=== PATIENT | male | born 1960 | race Caucasian/White ===

== ENCOUNTER → 2016-08-05 | Outpatient (CLI) | payer OTHER ==
[~2016-08-05] MED LIST: AMLO-114 PO; AMOX500C3 PO; APR25 PO; ASPI325T39 PO; CLBCRM30 EXT; CRG25 PO; FRS/40 PO; HYG/25 PO; LISI40TA PO; LSX80 PO; MULT-513 PO; PRT40 PO; SIMV40TA2 PO
[2016-08-05 12:28] LABS: BLOOD UREA NITROGEN 33 mg/dl (7-18); BUN/CREATININE RATIO 25.5 (10-20); CALCIUM 9.4 mg/dl (8.5-10.1); CARBON DIOXIDE 29 mmol/L (21-32); CHLORIDE 104 mmol/L (98-107); GLUCOSE 112 mg/dl (70-99); MAGNESIUM 2.1 mg/dl (1.8-2.4); POTASSIUM 4.1 mmol/L (3.5-5.1); SODIUM 139 mmol/L (136-145)
[2016-08-05 19:20] LABS: CHOLESTEROL/HDL RATIO 2.4
== END | disposition home or self-care (01) ==
LOC: C.LABPVFM 09:55
PROVIDERS: ATTEND Internal Medicine
DX: E78.5 Hyperlipidemia, unspecified (principal); I50.42 Chronic combined systolic (congestive) and diastolic (congestive) heart failure

== ENCOUNTER 2016-09-22 21:45 | Inpatient (IN) | payer BC, OTHER ==
[~2016-09-22] VITALS: Ht 185.4 cm; Wt 142.4 kg
[~2016-09-22 21:45] MED LIST changes: -AMLO-114 PO; -AMOX500C3 PO; -FRS/40 PO; -HYG/25 PO; -LSX80 PO; -PRT40 PO
[2016-09-22 22:14] LABS: BASO % 0.3 %; BASO ABS # 0.02 K/uL (0-0.2); COMPLETE YES; EOS % 0.8 %; IG% 0.3 %; LYMPH % 33.1 %; MEAN CELL VOLUME 90.7 fL (80-100); MEAN CORPUSCULAR HEMOGLOBIN 30.6 pg (25-34); MEAN CORPUSCULAR HGB CONC 33.7 g/dl (32-36); MEAN PLATELET VOLUME 10.9 fL (7.4-10.4); MONO % 5.5 %; PLATELET COUNT 179 K/uL (130-400); WHITE BLOOD COUNT 6.35 K/uL (4.8-10.8)
[2016-09-22] MEDS ORDERED: FUROSEMIDE 40 MG/4 ML VIAL IV STA (22:14)
[2016-09-22] MEDS ORDERED: NITROGLYCERIN OINT 2% 1GM PACKET EXT ONE (22:15)
[2016-09-22] MEDS ORDERED: FUROSEMIDE 40 MG/4 ML VIAL ONE (22:20)
--- NOTE | 2016-09-22 22:28 | DIAGNOSTIC IMAGING REPORT ---
CHEST ONE VIEW PORTABLE CLINICAL HISTORY: Atypical chest pain COMPARISON STUDY: 03/19/2016 FINDINGS: The heart is borderline enlarged. There is a left subclavian dual-chamber central venous pacemaker present. There is no overt failure. There is no focal pulmonary consolidation. There are no pleural effusions.[ IMPRESSION: Cardiomegaly. No evidence of focal pulmonary consolidation Electronically signed by: Alexis Fatima M.D. 09/22/2016 10:26 PM Dictated Date/Time: 09/22/2016 10:25 PM
[2016-09-22] MEDS ORDERED: LSX80 PO (22:29)
[2016-09-22] MEDS ORDERED: HYG/25 PO (22:29)
[2016-09-22] MEDS ORDERED: APR25 PO (22:29)
[2016-09-22] MEDS ORDERED: AMOX500C3 PO (22:29)
[2016-09-22] MEDS ORDERED: AMLO-114 PO (22:29)
[2016-09-22 22:32] LABS: POINT OF CARE TROPONIN I 0.03 ng/ml (0-0.045)
[2016-09-22 22:34] LABS: BUN/CREATININE RATIO 11.2 (10-20); CREATININE 1.9 mg/dl (0.60-1.40); POTASSIUM 3.7 mmol/L (3.5-5.1)
[2016-09-22 22:36] LABS: CALCIUM 8.8 mg/dl (8.5-10.1)
[2016-09-22 22:39] LABS: CKMB/CK RATIO 0.9 (0-3.0)
[2016-09-22 22:47] LABS: ISTAT CREATININE 1.6 mg/dl (0.6-1.3); ISTAT HEMOGLOBIN 16.3 g/dl (14.0-18.0); ISTAT IONIZED CALCIUM 1.12 mmol/l (1.12-1.32)
[2016-09-23] MEDS ORDERED: POLYETHYLENE (MIRALAX) 17 GM PACK PO PRN (00:30)
[2016-09-23] MEDS ORDERED: MoRPHine SULFATE 2 MG/ML CARP IV PRN (00:30)
[2016-09-23] MEDS ORDERED: NITROGLYCERIN 0.4 MG SL PER TAB CHARGE SL PRN (00:30)
[2016-09-23] MEDS ORDERED: ALUMINUM/MAGNESIUM/SIMETH (MAALOX MAX) 30 ML UDC PO PRN (00:30)
[2016-09-23] MEDS ORDERED: ONDANSETRON INJ 2 MG/ML 2 ML VIAL IV PRN (00:30)
[2016-09-23] MEDS ORDERED: MAGNESIUM HYDROXIDE SUSP 30 ML UDC PO PRN (00:30)
[2016-09-23] MEDS ORDERED: ACETAMINOPHEN 325 MG TAB PO PRN (00:30)
--- NOTE | 2016-09-23 01:01 | EMERGENCY ROOM VISIT NOTE ---
History First contact with patient: 21:59 Chief Complaint: CHEST PAIN Stated Complaint: CHEST PAIN,CHEST HEAVINESS Nursing Triage Summary: patient c/o chest tightness and SOB for past hour. has hx of atrial pacemaker and CHF . History of Present Illness The patient is a 56 year old male who presents to the Emergency Room with complaints of increasing shortness of breath for the past few hours with chest pain for the past few hours that is midsternal nonradiating. Patient has extensive heart disease. He follows with Dr. Wheeler. Patient has a pacemaker. He has a history of CHF. He's had increasing weight gain. He had fish sticks for dinner. He does Not normally wear oxygen. He describes the pain as pressure, ranging in severity 4-10. Nothing makes it better or worse. Patient denies fever, chills, cough, contusion, abdominal pain, radiating pain. Review of Systems See HPI for pertinent positives & negatives. A total of 10 systems reviewed and were otherwise negative. Past Medical/Surgical History Medical Problems: (1) Acute on chronic systolic CHF (congestive heart failure) (2) Prediabetes (3) Shortness of breath Surgical Problems: (1) S/P cardiac pacemaker procedure Family History No pertinent family history Social History Smoking Status: Never Smoker Alcohol Use: none Drug Use: none Marital Status: Housing Status: lives with family Occupation Status: employed Current/Historical Medications Scheduled Amlodipine (Norvasc), 10 MG PO DAILY Amoxicillin (Amoxil), 500 MG PO UD Aspirin (Aspirin Ec), 325 MG PO QPM Carvedilol (Carvedilol), 25 MG PO BID Chlorthalidone (Hygroton), 25 MG PO QAM Clobetasol Propionate (Clobetasol Propionate Cream 0.05%), 1 APPLN EXT BID PRN Furosemide (Furosemide), 80 MG PO DAILY Hydralazine Hcl (Apresoline), 25 MG PO BID Lisinopril (Zestril), 40 MG PO DAILY Multivitamins/Minerals (Mvi With Minerals), 1 TAB PO DAILY Simvastatin (Zocor), 40 MG PO QPM Allergies Coded Allergies: No Known Allergies (Verified , 03/18/16) Physical Exam Vital Signs Date Time Temp Pulse Resp B/P Pulse Ox O2 Delivery O2 Flow Rate FiO2 09/23/16 00:35 84 20 125/57 96 Nasal Cannula 4.0 09/22/16 23:30 63 20 106/74 97 Nasal Cannula 4.0 09/22/16 22:15 91 Nasal Cannula 4.0 09/22/16 22:15 91 Nasal Cannula 4.0 09/22/16 22:15 94 Room Air 4.0 Nasal Cannula 09/22/16 22:03 60 09/22/16 21:52 36.6 67 28 101/66 87 Room Air Physical Exam VITALS: Vitals are noted on the nurse's note and reviewed by myself. Vital signs approximate. GENERAL: Pleasant male working to breathe, mildly diaphoretic SKIN: The skin was without rashes, erythema, edema, or bruising. There is no tenting of the skin. Capillary reflex less than 2 seconds. HEAD: Normocephalic atraumatic. EARS: External auditory canals clear, tympanic membranes pearly gilbert without erythema or effusion bilaterally. EYES: Pupils equal round and reactive to light and accommodation. Conjunctivae without injection, sclerae without icterus. Extraocular movements intact. NOSE: Patent, turbinates without inflammation or discharge. MOUTH: Mucous membranes mildly dry. Pharynx without erythema or exudate. Uvula midline. Airway patent. Tongue does not deviate. NECK: Supple without nuchal rigidity. No lymphadenopathy. No thyromegaly. Cervical spine is nontender. No JVD. HEART: Regular rate and rhythm LUNGS: Basilar rales No retractions or accessory muscle use. ABDOMEN: Positive bowel sounds x 4. Normal tympanic percussion. Soft, protuberant, obese, nontender, without masses or organomegaly. Slaughter sign negative. No guarding or rebound tenderness. MUSCULOSKELETAL: No muscle atrophy, erythema, noted. +1 pitting edema up to the mid tib-fib bilaterally NEURO: Patient was alert and oriented to person place and time. Normal sensation to light and sharp touch. No focal neurological deficits. Medical Decision & Procedures Laboratory Results 09/22/16 22:06 Red Blood Count 5.40, Mean Corpuscular Volume 90.7, Mean Corpuscular Hemoglobin 30.6, Mean Corpuscular Hemoglobin Concent 33.7, Mean Platelet Volume 10.9, Neutrophils (%) (Auto) 60.0, Lymphocytes (%) (Auto) 33.1, Monocytes (%) (Auto) 5.5, Eosinophils (%) (Auto) 0.8, Basophils (%) (Auto) 0.3, Neutrophils # (Auto) 3.81, Lymphocytes # (Auto) 2.10, Monocytes # (Auto) 0.35, Eosinophils # (Auto) 0.05, Basophils # (Auto) 0.02 09/22/16 22:06 Test 09/22/16 22:06 09/22/16 22:11 09/22/16 22:34 White Blood Count 6.35 K/uL (4.8-10.8) Red Blood Count 5.40 M/uL (4.7-6.1) Hemoglobin 16.5 g/dL (14.0-18.0) Hematocrit 49.0 % (42-52) Mean Corpuscular Volume 90.7 fL (80-100) Mean Corpuscular Hemoglobin 30.6 pg (25-34) Mean Corpuscular Hemoglobin Concent 33.7 g/dl (32-36) Platelet Count 179 K/uL (130-400) Mean Platelet Volume 10.9 fL (7.4-10.4) Neutrophils (%) (Auto) 60.0 % Lymphocytes (%) (Auto) 33.1 % Monocytes (%) (Auto) 5.5 % Eosinophils (%) (Auto) 0.8 % Basophils (%) (Auto) 0.3 % Neutrophils # (Auto) 3.81 K/uL (1.4-6.5) Lymphocytes # (Auto) 2.10 K/uL (1.2-3.4) Monocytes # (Auto) 0.35 K/uL (0.11-0.59) Eosinophils # (Auto) 0.05 K/uL (0-0.5) Basophils # (Auto) 0.02 K/uL (0-0.2) RDW Standard Deviation 46.1 fL (36.4-46.3) RDW Coefficient of Variation 13.9 % (11.5-14.5) Immature Granulocyte % (Auto) 0.3 % Immature Granulocyte # (Auto) 0.02 K/uL (0.00-0.02) Est Creatinine Clear Calc Drug Dose 66.1 ml/min Estimated GFR () 45.3 Estimated GFR (Non- 39.1 BUN/Creatinine Ratio 11.2 (10-20) Calcium Level 8.8 mg/dl (8.5-10.1) Total Bilirubin 0.5 mg/dl (0.2-1) Direct Bilirubin 0.1 mg/dl (0-0.2) Aspartate Amino Transf (AST/SGOT) 18 U/L (15-37) Alanine Aminotransferase (ALT/SGPT) 33 U/L (12-78) Alkaline Phosphatase 58 U/L (45-117) Total Creatine Kinase 117 U/L (39-308) Creatine Kinase MB 1.1 ng/ml (0.5-3.6) Creatine Kinase MB Ratio 0.9 (0-3.0) Troponin I 0.029 ng/ml (0-0.045) Total Protein 7.7 gm/dl (6.4-8.2) Albumin 3.8 gm/dl (3.4-5.0) Lipase 646 U/L (73-393) Bedside Troponin I 0.030 ng/ml (0-0.045) XF-Kwl-[id number]-Type Natriuretic Peptide 1015 pg/ml (0-900) Bedside Hemoglobin 16.3 g/dl (14.0-18.0) Bedside Hematocrit 48 % (42-52) Bedside Sodium 144 mEq/L (135-144) Bedside Potassium 4.2 mEq/L (3.3-5.0) Bedside Chloride 98 mEq/L (101-112) Bedside Total CO2 35 mEq/l (24-31) Anion Gap 17.0 mmol/L (16-25) Bedside Blood Urea Nitrogen 31 mg/dl (7-18) Bedside Creatinine 1.6 mg/dl (0.6-1.3) Bedside Glucose (other) 160 mg/dl (70-99) Bedside Ionized Calcium (Romulo) 1.12 mmol/l (1.12-1.32) Medications Administered Medications (Trade) Dose Ordered Sig/[place] Route Start Time Stop Time Status Last Admin Dose Admin Furosemide (Lasix Inj) 40 mg NOW STAT IV 09/22/16 22:14 09/22/16 22:15 DC 09/22/16 22:14 40 MG ED Course Prior records/ancillary studies reviewed. Triage Nursing notes reviewed. Additional history obtained from family. The patient's history was concerning for chest pain. Differential diagnosis: Etiologies such as cardiac ischemia, aortic dissection, pulmonary embolism, pneumonia, pneumothorax, musculoskeletal, infections, pericarditis, myocarditis , esophageal rupture, gastrointestinal, as well as others were entertained. Physical examination: As above. ER treatment provided: Lasix On reassessment the patient felt better. Diagnostic interpretation by me: The electrocardiogram was negative for pathologic change. Paced ventricular rhythm with no acute ST-T wave changes rate is 66. Impression paced ventricular rhythm interpreted by myself The labs revealed negative troponin. Elevated BNP Imaging studies: Chest x-ray as above Consultation: A consultation was placed with the hospitalist, Dr. Ritter. The case was discussed and diagnostics were reviewed. The patient was evaluated in the ER for further treatment. Exam and history seem consistent with hypoxemia most likely from congestive heart failure. Patient does not normally wear oxygen. He felt better after the Lasix. Changed EKG. Negative troponin. He will be evaluated by medicine for possible admission. By the evaluation outlined above emergent etiologies such as aortic dissection, pulmonary embolism, pneumonia, pneumothorax, infections, pericarditis, myocarditis, gastrointestinal, as well as others were deemed relatively unlikely. The pt informed about the findings as listed above. All questions were answered and pleased with the treatment. Case reviewed with my attending Medical Decision As above Impression Primary Impression: Acute on chronic systolic CHF (congestive heart failure) Additional Impressions: Hypoxemia Precordial chest pain Departure Information Dispostion Being Evaluated By Hospitalist Condition FAIR Referrals Benoit Nj M.D. (PCP) Patient Instructions My [facility] Problem Qualifiers
[2016-09-23 01:19] VITALS: BP 139/86; PULSE 70; TEMP 36.5; O2SAT 99; Ht 185.4 cm; Wt 142.4 kg
[2016-09-23] MEDS: NITROGLYCERIN OINT 2% 1GM PACKET EXT SCH ×3 (02:02→13:57)
--- NOTE | 2016-09-23 02:28 | History and Physical ---
History & Physical Date & Time of Service: Sep 23, 2016 at 01:57 Chief Complaint: Shortness Of Breath Primary Care Physician: Benoit Nj M.D. 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 He denied chest pain but complained about chest tightness associated with diaphoresis. Denied any palpitations, dizziness, cough, fevers with chills, nausea, vomiting, abdominal pain, diarrhea. He was recently diagnosed with CHF about 3 months ago and has been using 80 mg of Lasix every day with daily weights. He denied any recent lower extremity swelling, orthopnea, paroxysmal nocturnal dyspnea. Past Medical/Surgical History Surgical Problems: (1) S/P cardiac pacemaker procedure Status: Resolved Family History No pertinent family history Social History Smoking Status: Former Smoker Drug Use: none Marital Status: Housing status: lives with family Occupational Status: employed Immunizations History of Influenza Vaccine: No History of Tetanus Vaccine?: Yes History of Pneumococcal: No History of Hepatitis B Vaccine: No Multi-Drug Resistant Organisms History of MDRO: No Allergies Coded Allergies: No Known Allergies (Verified , 03/18/16) Home Medications Scheduled Aspirin (Aspirin Ec), 325 MG PO QPM Carvedilol (Carvedilol), 25 MG PO BID Chlorthalidone (Hygroton), 25 MG PO QAM Clobetasol Propionate (Clobetasol Propionate Cream 0.05%), 1 APPLN EXT BID PRN Furosemide (Furosemide), 80 MG PO DAILY Hydralazine Hcl (Apresoline), 25 MG PO BID Lisinopril (Zestril), 40 MG PO DAILY Multivitamins/Minerals (Mvi With Minerals), 1 TAB PO DAILY Pantoprazole (Pantoprazole Sodium), 40 MG PO QAM Simvastatin (Zocor), 40 MG PO QPM Review of Systems Constitutional: No chills, No fever Eyes: No worsening of vision ENT: No hearing loss Respiratory: + shortness of breath, No cough, No wheezing Cardiovascular: + problem reported (Chest tightness), No chest pain, No palpitations Abdomen: No nausea, No pain, No vomiting Musculoskeletal: No joint pain Genitourinary - Male: No dysuria, No hematuria, No urinary frequency Neurologic: No memory loss, No paralysis, No weakness Endocrine: No fatigue Hematologic / Lymphatic: No abnormal bleeding/bruising Integumentary: No rash Physical Exam Vital Signs Date Time Temp Pulse Resp B/P Pulse Ox O2 Delivery O2 Flow Rate FiO2 09/23/16 01:19 36.5 70 22 139/86 99 Nasal Cannula 4.0 09/23/16 00:35 84 20 125/57 96 Nasal Cannula 4.0 09/22/16 23:30 63 20 106/74 97 Nasal Cannula 4.0 09/22/16 22:15 91 Nasal Cannula 4.0 09/22/16 22:15 91 Nasal Cannula 4.0 09/22/16 22:15 94 Room Air 4.0 Nasal Cannula 09/22/16 22:03 60 09/22/16 21:52 36.6 67 28 101/66 87 Room Air General Appearance: WD/WN, no apparent distress, + obese Head: normocephalic, atraumatic Eyes: normal inspection ENT: hearing grossly normal Neck: supple Respiratory/Chest: chest non-tender, no respiratory distress, no accessory muscle use, + crackles (Bibasilar) Cardiovascular: regular rate, rhythm, no murmur Abdomen/GI: normal bowel sounds, non tender, soft Extremities/Musculoskelatal: normal inspection, no calf tenderness, + pedal edema (trace), + pertinent finding (skin breakdown over malleoli ( sec to friction from boots)) Neurologic/Psych: alert, normal mood/affect, oriented x 3 Diagnostics Laboratory Results Results Past 24 Hours Test 09/22/16 22:06 09/22/16 22:11 09/22/16 22:34 09/23/16 01:38 Range/Units White Blood Count 6.35 4.8-10.8 K/uL Red Blood Count 5.40 4.7-6.1 M/uL Hemoglobin 16.5 14.0-18.0 g/dL Hematocrit 49.0 42-52 % Mean Corpuscular Volume 90.7 80-100 fL Mean Corpuscular Hemoglobin 30.6 25-34 pg Mean Corpuscular Hemoglobin Concent 33.7 32-36 g/dl Platelet Count 179 130-400 K/uL Mean Platelet Volume 10.9 7.4-10.4 fL Neutrophils (%) (Auto) 60.0 % Lymphocytes (%) (Auto) 33.1 % Monocytes (%) (Auto) 5.5 % Eosinophils (%) (Auto) 0.8 % Basophils (%) (Auto) 0.3 % Neutrophils # (Auto) 3.81 1.4-6.5 K/uL Lymphocytes # (Auto) 2.10 1.2-3.4 K/uL Monocytes # (Auto) 0.35 0.11-0.59 K/uL Eosinophils # (Auto) 0.05 0-0.5 K/uL Basophils # (Auto) 0.02 0-0.2 K/uL RDW Standard Deviation 46.1 36.4-46.3 fL RDW Coefficient of Variation 13.9 11.5-14.5 % Immature Granulocyte % (Auto) 0.3 % Immature Granulocyte # (Auto) 0.02 0.00-0.02 K/uL Sodium Level 143 136-145 mmol/L Potassium Level 3.7 3.5-5.1 mmol/L Chloride Level 103 98-107 mmol/L Carbon Dioxide Level 31 21-32 mmol/L Anion Gap 9.0 17.0 16-25 mmol/L Blood Urea Nitrogen 21 7-18 mg/dl Creatinine 1.90 0.60-1.40 mg/dl Est Creatinine Clear Calc Drug Dose 66.1 ml/min Estimated GFR () 45.3 Estimated GFR (Non- 39.1 BUN/Creatinine Ratio 11.2 10-20 Random Glucose 156 70-99 mg/dl Calcium Level 8.8 8.5-10.1 mg/dl Total Bilirubin 0.5 0.2-1 mg/dl Direct Bilirubin 0.1 0-0.2 mg/dl Aspartate Amino Transf (AST/SGOT) 18 15-37 U/L Alanine Aminotransferase (ALT/SGPT) 33 12-78 U/L Alkaline Phosphatase 58 45-117 U/L Total Creatine Kinase 117 39-308 U/L Creatine Kinase MB 1.1 0.5-3.6 ng/ml Creatine Kinase MB Ratio 0.9 0-3.0 Troponin I 0.029 0-0.045 ng/ml Total Protein 7.7 6.4-8.2 gm/dl Albumin 3.8 3.4-5.0 gm/dl Lipase 646 73-393 U/L Bedside Troponin I 0.030 0-0.045 ng/ml [id number]-Type Natriuretic Peptide 1015 0-900 pg/ml Bedside Hemoglobin 16.3 14.0-18.0 g/dl Bedside Hematocrit 48 42-52 % Bedside Sodium 144 135-144 mEq/L Bedside Potassium 4.2 3.3-5.0 mEq/L Bedside Chloride 98 101-112 mEq/L Bedside Total CO2 35 24-31 mEq/l Bedside Blood Urea Nitrogen 31 7-18 mg/dl Bedside Creatinine 1.6 0.6-1.3 mg/dl Bedside Glucose (other) 160 70-99 mg/dl Bedside Ionized Calcium (Romulo) 1.12 1.12-1.32 mmol/l Diagnostic Radiology [~ rep ct add3]] CHEST ONE VIEW PORTABLE CLINICAL HISTORY: Atypical chest pain COMPARISON STUDY: 03/19/2016 FINDINGS: The heart is borderline enlarged. There is a left subclavian dual-chamber central venous pacemaker present. There is no overt failure. There is no focal pulmonary consolidation. There are no pleural effusions.[ IMPRESSION: Cardiomegaly. No evidence of focal pulmonary consolidation EKG Paced ventricular rhythm with no acute ST-T wave changes. rate is 66 Impression Assessment and Plan 56-year-old male with past medical history of hypertension, prediabetes, coronary artery disease with a history of inferior infarction but clean catheterization in 06/2014, hypercholesterolemia nonischemic cardiomyopathy, third-degree heart block status post pacemaker in situ, polycythemia presented to the ER with complaints of worsening shortness of breath and chest tightness which started around 8:30 PM tonight. Acute on chronic congestive heart failure: - ProBNP elevated at 1015 - Received 80 mg IV Lasix in the ER which significantly improved his symptoms - Strict I's and O's - Daily weights - Recent echo from 03/23: * Compared with 05/06/12 study, probably no significant change. * The study was technically difficult. * The left ventricle is mildly dilated. There is mild concentric left ventricular hypertrophy. Left ventricular systolic function is mildly reduced. Ejection Fraction = 45-50%. Septal motion is consistent with conduction abnormality. The left atrium is moderately dilated. * Mild to moderate valvular aortic stenosis. The aortic valve is not well visualized. * There is mild tricuspid regurgitation. Right ventricular systolic pressure is elevated at 30-40mmHg. - Consider repeat echo - Cardiology consult - Continue Lasix 80 mg daily Hypertension: - Continue hydralazine, lisinopril - Amlodipine has been discontinued during last admission( he is not taking it) Coronary artery disease: - Initial troponins negative, trend every 8 hours - Continue aspirin 325 mg, carvedilol 25 mg twice a day, simvastatin - Chlorthalidone was discontinued on last admission but he states that he still taking it. Acute on chronic kidney disease: - Creatinine on admission 1.9, baseline around 1.3 - Monitor creatinine Complete heart block status post pacemaker in situ/cardiomyopathy - Stable Polycythemia: Stable - Hemoglobin at 16.5 - Baseline around 16-17 Elevated lipase: Lipase at 646 The patient is asymptomatic with no complaints of abdominal pain, nausea , vomiting or diarrhea - Recheck lipase level in a.m. DVT prophylaxis: Heparin subcutaneous Full code Disposition: Admitted to telemetry Level of Care Telemetry Advanced Directives Existing Living Will: No Existing Power of Assistant Professor Of Spanish: No Resuscitation Status FULL RESUSCITATION VTE Prophylaxis VTE Risk Assessment Done? Y/N: Yes Risk Level: Moderate Given or contraindicated: Unfractionated heparin SQ Resident Tracking Resident Involvement: Resident Care Provided Care Provided: Adult Hospital Medicine Assessment and Plan Attending Addendum: I have physically seen and examined this patient, have directed their medical care, have supervised the medical residents activities, and agree with the H&P as noted above, with the following changes: NONE
[2016-09-23 03:45] VITALS: BP 105/65; PULSE 65; TEMP 36.5; O2SAT 97
[2016-09-23 06:46] LABS: HEMATOCRIT 46.4 % (42-52); MEAN CELL VOLUME 91.5 fL (80-100); MEAN CORPUSCULAR HEMOGLOBIN 29.6 pg (25-34); MEAN CORPUSCULAR HGB CONC 32.3 g/dl (32-36); MEAN PLATELET VOLUME 11.1 fL (7.4-10.4); PLATELET COUNT 153 K/uL (130-400); RED BLOOD COUNT 5.07 M/uL (4.7-6.1); WHITE BLOOD COUNT 9.16 K/uL (4.8-10.8)
[2016-09-23 06:52] LABS: PROTHROMBIN TIME (PATIENT) 10.5 SECONDS (9.0-12.0)
[2016-09-23 07:50] VITALS: BP 146/74; PULSE 61; TEMP 36.6; O2SAT 98
[2016-09-23] MEDS ORDERED: OPTIRAY 320 IV PRN (08:15)
[2016-09-23 08:41] LABS: BUN/CREATININE RATIO 14.5 (10-20); CALCIUM 8.3 mg/dl (8.5-10.1); CREATININE 1.9 mg/dl (0.60-1.40); POTASSIUM 4.4 mmol/L (3.5-5.1)
[2016-09-23] MEDS ORDERED: CEROVITE ADV FORMULA TAB PO SCH (09:00)
[2016-09-23] MEDS ORDERED: PANTOprazole SOD 40 MG TAB PO SCH (09:00)
[2016-09-23] MEDS ORDERED: CARVEDILOL 25 MG TAB PO SCH (09:00)
[2016-09-23] MEDS ORDERED: FUROSEMIDE 80 MG TAB PO SCH (09:00)
[2016-09-23] MEDS ORDERED: HEPARIN SOD 5000 UNIT/0.5 ML CARP SQ SCH (09:00)
[2016-09-23] MEDS ORDERED: LISINOPRIL 40 MG TAB PO SCH (09:00)
[2016-09-23] MEDS ORDERED: AMLODIPINE BESYLATE 5 MG TAB PO SCH (09:00)
[2016-09-23] MEDS ORDERED: CHLORTHALIDONE 25 MG TAB PO SCH (09:00)
[2016-09-23 11:42] VITALS: BP 137/74; PULSE 60; TEMP 36.4; O2SAT 95
--- NOTE | 2016-09-23 12:14 | DIAGNOSTIC IMAGING REPORT ---
CT SCAN OF THE ABDOMEN AND PELVIS WITHOUT CONTRAST CLINICAL HISTORY: Elevated Lipase SHORTNESS OF BREATH COMPARISON STUDY: No previous studies for comparison. TECHNIQUE: CT scan of the abdomen and pelvis was performed from the lung bases to the proximal femurs. Images are reviewed in the axial, sagittal, and coronal planes. IV contrast was not administered for this examination. CT DOSE: 1959.91 mGy.cm FINDINGS: Lower chest: The heart is borderline enlarged. There are minimal basilar atelectatic changes. Liver: There is hepatic steatosis. No focal masses are visualized. Gallbladder: Unremarkable. Spleen: Normal in size and attenuation. Pancreas: Unremarkable. Adrenal glands: Unremarkable. Kidneys: There is a 4 mm mid pole left renal calculus. There is no hydronephrosis. Bowel: There are no transition zones indicate bowel obstruction. The appendix appears normal. There is no acute diverticulitis. Peritoneum: There is no intraperitoneal free air or abdominal ascites. Vasculature: The abdominal aorta is normal in course and caliber. Adenopathy: None. Pelvic viscera: There is mild bladder wall thickening. Skeletal structures: No destructive osseous lesions are seen. IMPRESSION: 1. Hepatic steatosis 2. Left-sided nephrolithiasis 3. Mild bladder wall thickening 4. No evidence of bowel obstruction. No evidence of free air Electronically signed by: Alexis Fatima M.D. 09/23/2016 12:12 PM Dictated Date/Time: 09/23/2016 12:05 PM
[2016-09-23] MEDS ORDERED: PRT40 PO (14:29)
--- NOTE | 2016-09-23 14:30 | Cardiology Consultation ---
Cardiology Consultation Date of Consultation: Sep 23, 2016. Requesting Physician: Dr. Aguila Reason for Consultation: CHF Pt evaluation today including: conversation w/ patient, physical exam, lab review, review of studies, review of inpatient medication list History of Present Illness This is a very pleasant 55-year-old gentleman who presented with complete heart block, a Lyme screen was negative and he went on to have a dual-chamber pacemaker implanted May 06, 2012. Following pacemaker implantation he felt exceptionally well. He continued with his hunting, had no difficulty with exercise initially and in fact noted that he could outwalk his fellow Hunters. He has had no difficulty with chest discomfort with exertion until late 2013. Around that time he noted recurrence of his difficulty with exertion although he did not get exertional chest discomfort. Echocardiography done 06/23/2014 demonstrated severe left ventricular dysfunction with an ejection fraction of 30-35%. He had cardiac catheterization performed on 06/29/2014 where he had normal coronary arteries. His cardiomyopathy was felt possibly due to right ventricular pacing and the development of a pacemaker-induced cardiomyopathy, therefore he was scheduled for upgrade to a biventricular pacemaker. This was attempted on 07/18/2014 however the left ventricular lead could not be placed due to anatomic considerations. He then had a repeat attempt done at [place] on 09/20/2014 and a left ventricular lead was successfully implanted along with a [employer] biventricular pacemaker. Following upgrade his left ventricular ejection fraction improved to 45-50%. His symptoms improved, however he presented with flash pulmonary edema on 2015 where he required BiPAP therapy. He was treated and sent home feeling much better, although his weight did not change during that admission. He now presents with several hours of chest discomfort and progressive shortness of breath over a quite short period of time (probably only several hours). His weight is up several pounds compared to last admission, and his BNP was elevated although his chest x-ray did not show severe edema. Currently he feels much better after initial treatment however his weight is down very little. Past Medical/Surgical History (1) Acute on chronic systolic CHF (congestive heart failure) (2) Precordial chest pain Family History No pertinent family history Social History Smoking Status: Former Smoker History of Alcohol Use: No Review of Systems Constitutional: No fever, No weakness, No weight loss Respiratory: No cough, No dyspnea on exertion, No shortness of breath, No wheezing Cardiac: No PND, No chest pain, No edema, No orthopnea, No palpitations Abdomen: No GI bleeding, No diarrhea, No nausea, No pain, No vomiting Male : No nocturia more than once/night, No sexual dysfunction, No slowing stream, No urinary frequency Neurologic: No balance problems, No numbness/tingling, No paralysis, No weakness Heme: No abnormal bleeding/bruising, No clotting problems Endo: No fatigue Skin: No problem reported All Other Systems: Reviewed and Negative Allergies Coded Allergies: No Known Allergies (Verified , 03/18/16) Medications Current Inpatient Medications Medications (Trade) Dose Ordered Sig/[place] Route Start Time Stop Time Status Last Admin Dose Admin Heparin Sodium (Porcine) (Heparin Sq 5000 Unit/0.5ml) 5,000 unit Q12 SQ 09/23/16 09:00 10/23/16 08:59 09/23/16 09:18 5,000 UNIT Acetaminophen (Tylenol Tab) 650 mg Q4H PRN PO 09/23/16 00:30 10/23/16 00:29 Al Hydrox/Mg Hydrox/Simethicone (Maalox Max Susp) 15 ml Q4H PRN PO 09/23/16 00:30 10/23/16 00:29 09/23/16 01:56 15 ML Magnesium Hydroxide (Milk Of Magnesia Susp) 30 ml Q12H PRN PO 09/23/16 00:30 10/23/16 00:29 Ondansetron HCl (Zofran Inj) 4 mg Q6H PRN IV 09/23/16 00:30 10/23/16 00:29 Nitroglycerin (Nitrostat Tab) 0.4 mg UD PRN SL 09/23/16 00:30 10/23/16 00:29 Nitroglycerin (Nitroglycerin 2% Oint) 1 inch Q6H EXT 09/23/16 02:00 10/23/16 01:59 09/23/16 07:24 1 INCH Morphine Sulfate (MoRPHine SULFATE INJ) 2 mg Q30M PRN IV 09/23/16 00:30 10/07/16 00:29 Polyethylene (Miralax Powder Packet) 17 gm DAILY PRN PO 09/23/16 00:30 10/23/16 00:29 Aspirin (Ecotrin Tab) 325 mg QPM PO 09/23/16 21:00 10/23/16 20:59 Carvedilol (Coreg Tab) 25 mg BID PO 09/23/16 09:00 10/23/16 08:59 09/23/16 07:23 25 MG Chlorthalidone (Hygroton Tab) 25 mg QAM PO 09/23/16 09:00 10/23/16 08:59 09/23/16 07:23 25 MG Furosemide (Lasix Tab) 80 mg DAILY PO 09/23/16 09:00 10/23/16 08:59 09/23/16 07:23 80 MG Hydralazine HCl (Apresoline Tab) 25 mg BID PO 09/23/16 09:00 10/23/16 08:59 09/23/16 07:23 25 MG Lisinopril (Zestril Tab) 40 mg DAILY PO 09/23/16 09:00 10/23/16 08:59 09/23/16 07:23 40 MG Multivitamins/ Minerals (Multivitamin W/ Minerals Tab) 1 tab DAILY PO 09/23/16 09:00 10/23/16 08:59 09/23/16 07:23 1 TAB Simvastatin (Zocor Tab) 40 mg QPM PO 09/23/16 21:00 10/23/16 20:59 Ioversol (Optiray 320) 125 ml UD PRN IV 09/23/16 08:15 09/27/16 08:14 Pantoprazole Sodium (Protonix Tab) 40 mg QAM PO 09/23/16 09:00 10/23/16 08:59 09/23/16 09:19 40 MG Physical Exam Vital Signs Past 12 Hours Date Time Temp Pulse Resp B/P Pulse Ox O2 Delivery O2 Flow Rate FiO2 09/23/16 08:00 Room Air 09/23/16 07:50 36.6 61 18 146/74 98 3.0 09/23/16 04:00 Nasal Cannula 3.0 09/23/16 03:45 36.5 65 19 105/65 97 Nasal Cannula 3.0 09/23/16 01:19 36.5 70 22 139/86 99 Nasal Cannula 4.0 09/23/16 00:35 84 20 125/57 96 Nasal Cannula 4.0 09/22/16 23:30 63 20 106/74 97 Nasal Cannula 4.0 09/22/16 22:15 91 Nasal Cannula 4.0 09/22/16 22:15 91 Nasal Cannula 4.0 09/22/16 22:15 94 Room Air 4.0 Nasal Cannula 09/22/16 22:03 60 09/22/16 21:52 36.6 67 28 101/66 87 Room Air Constitutional: General Apperance: heathly-appearing Level of Distress: NAD Psychiatric: Mental Status: active & alert Head: normocephalic Eyes: EOM: EOMI ENMT: normal ENT inspection, hearing grossly normal Neck: supple, no masses Lungs: Respiratory effort: no dyspnea, good air movement Auscultation: breath sounds normal, no wheezing Cardiovascular: Heart Auscultation: RRR, no murmurs, no rubs, no gallops Peripheral Pulses: Bruits: none appreciated Abdomen: Bowel Sounds: normal Inspection & Palpation: soft, no tenderness, guarding & rebound, no masses Musculoskeletal: normal strength (5/5 throughout) Extremities: no edema Neurologic: Cranial Nerves: grossly intact Sensation: grossly intact Data Laboratory Results: Last 24 Hours Test 09/22/16 22:06 09/22/16 22:11 09/22/16 22:34 09/23/16 06:26 White Blood Count 6.35 K/uL 9.16 K/uL Red Blood Count 5.40 M/uL 5.07 M/uL Hemoglobin 16.5 g/dL 15.0 g/dL Hematocrit 49.0 % 46.4 % Mean Corpuscular Volume 90.7 fL 91.5 fL Mean Corpuscular Hemoglobin 30.6 pg 29.6 pg Mean Corpuscular Hemoglobin Concent 33.7 g/dl 32.3 g/dl Platelet Count 179 K/uL 153 K/uL Mean Platelet Volume 10.9 fL 11.1 fL Neutrophils (%) (Auto) 60.0 % Lymphocytes (%) (Auto) 33.1 % Monocytes (%) (Auto) 5.5 % Eosinophils (%) (Auto) 0.8 % Basophils (%) (Auto) 0.3 % Neutrophils # (Auto) 3.81 K/uL Lymphocytes # (Auto) 2.10 K/uL Monocytes # (Auto) 0.35 K/uL Eosinophils # (Auto) 0.05 K/uL Basophils # (Auto) 0.02 K/uL RDW Standard Deviation 46.1 fL 47.0 fL RDW Coefficient of Variation 13.9 % 14.0 % Immature Granulocyte % (Auto) 0.3 % Immature Granulocyte # (Auto) 0.02 K/uL Sodium Level 143 mmol/L 143 mmol/L Potassium Level 3.7 mmol/L 4.4 mmol/L Chloride Level 103 mmol/L 105 mmol/L Carbon Dioxide Level 31 mmol/L 32 mmol/L Anion Gap 9.0 mmol/L 17.0 mmol/L 6.0 mmol/L Blood Urea Nitrogen 21 mg/dl 27 mg/dl Creatinine 1.90 mg/dl 1.90 mg/dl Est Creatinine Clear Calc Drug Dose 66.1 ml/min 65.9 ml/min Estimated GFR () 45.3 45.3 Estimated GFR (Non- 39.1 39.1 BUN/Creatinine Ratio 11.2 14.5 Random Glucose 156 mg/dl 118 mg/dl Calcium Level 8.8 mg/dl 8.3 mg/dl Total Bilirubin 0.5 mg/dl 0.6 mg/dl Direct Bilirubin 0.1 mg/dl 0.2 mg/dl Aspartate Amino Transf (AST/SGOT) 18 U/L 10 U/L Alanine Aminotransferase (ALT/SGPT) 33 U/L 32 U/L Alkaline Phosphatase 58 U/L 53 U/L Total Creatine Kinase 117 U/L Creatine Kinase MB 1.1 ng/ml Creatine Kinase MB Ratio 0.9 Troponin I 0.029 ng/ml 0.023 ng/ml Total Protein 7.7 gm/dl 7.1 gm/dl Albumin 3.8 gm/dl 3.7 gm/dl Lipase 646 U/L 3056 U/L Bedside Troponin I 0.030 ng/ml [id number] Natriuretic Peptide 1015 pg/ml Bedside Hemoglobin 16.3 g/dl Bedside Hematocrit 48 % Bedside Sodium 144 mEq/L Bedside Potassium 4.2 mEq/L Bedside Chloride 98 mEq/L Bedside Total CO2 35 mEq/l Bedside Blood Urea Nitrogen 31 mg/dl Bedside Creatinine 1.6 mg/dl Bedside Glucose (other) 160 mg/dl Bedside Ionized Calcium (Romulo) 1.12 mmol/l Prothrombin Time 10.5 SECONDS Prothromb Time International Ratio 1.0 Imaging: Chest x-ray on admission at most mild congestive heart failure changes EKG: Sinus rhythm with appropriate biventricular pacing Telemetry reviewed: Sinus rhythm with ventricular pacing Assessment & Plan #1. Congestive heart failure: This is his second admission in a short amount of time for what appears to be congestive heart failure. His left ventricular ejection fraction is not significantly depressed, on his last admission he lost very little weight with improvement in his symptoms. Apparently he has diastolic heart failure and it seems it takes very little extra fluid for him to develop signs and symptoms of congestive heart failure. He will probably need to watch his fluid intake rigorously and be very careful not to take an excessive fluid. #2. Complete heart block: He is essentially 100% paced in the ventricle appropriately. The device is tracking his intrinsic sinus rate most of the time and pacing the ventricle appropriately in a biventricular manner. #3. Coronary disease: On catheterization he does not have significant coronary artery disease. #4. Nonischemic cardiomyopathy: Apparently this was for the most part due to his right ventricular pacing, his echocardiograms show that his ejection fraction has improved although not normalized with biventricular pacing. He is on appropriate medications and we'll continue to follow his ejection fraction, but I don't think he needs one this visit. We may want to consider going up on his carvedilol. Thank you for allowing me to participate in his care.
--- NOTE | 2016-09-23 14:37 | Discharge Instructions ---
Discharge Instructions Date of Service Sep 23, 2016. Admission Reason for Admission: Shortness Of Breath Discharge Discharge Diagnosis / Problem: Chest Tightness Discharge Goals Goal(s): Decrease discomfort, Improve function, Increase independence Activity Recommendations Activity Limitations: resume your previous activity . Instructions / Follow-Up Instructions / Follow-Up Chest Tightness/SOB: - Your heart rate and rhythm was monitored throughout her hospital stay and cardiac enzymes obtained which were negative - your symptoms do not appear to be cardiac in nature - You were evaluated by her filler shaker and no further recommendations have been given recommendations to continue medications as previously prescribed - Question underlining GI component as your symptoms did improve some with Maalox. You can continue using this for GI upset. - Will provide you with a prescription for Protonix 40 mg 1 tablet in the morning - this medication helps reduce the acids in the stomach especially given your daily aspirin use Elevated Lipase: - Incidentally your lipase was elevated on routine laboratories - lipase is an enzyme released by your pancreas for digestion - Normal lipase is less than 300 - yours was 600 with a repeat of 3000 (suspect lab error) as repeat testing reveals a lipase in the 600s - CT of the abdomen reveals - fatty liver, a nonobstructing kidney stone, and mild bladder wall thickening - no other abnormalities found -- Would recommend mentioning the mild bladder wall thickening to your family doctor as this could be related to an enlarged prostate (benign prostatic hypertrophy) and discuss any urinary symptoms with your family doctor - Would recommend future laboratories to continue to evaluate this lipase as we cannot completely identify a reason Follow-Up: - Please follow-up with your filler shaker and she normally would - Would recommend seeing your family doctor in 7-10 days Current Hospital Diet Patient's current hospital diet: Low Sodium Diet (2gm Na), AHA Diet (Heart Healthy) Discharge Diet Recommended Diet: AHA Diet (Heart Healthy), Low Sodium Diet (2gm Na) Pending Studies Studies pending at discharge: no Laboratory Results Lipid Panel Test 08/05/16 10:02 Range/Units Triglycerides Level 83 0-150 mg/dl Cholesterol Level 151 0-200 mg/dl HDL Cholesterol 63 mg/dl Cholesterol/HDL Ratio 2.4 LDL Cholesterol, Calculated 71 mg/dl Medical Emergencies . Who to Call and When: Medical Emergencies: If at any time you feel your situation is an emergency, please call 911 immediately. . Non-Emergent Contact Non-Emergency issues call your: Primary Care Provider Call Non-Emergent contact if: you have a fever, your pain is concerning you, you have any medication questions . . "Provider Documentation" section prepared by Francine Veronica. VTE Core Measure Inpt VTE Proph given/why not?: Unfractionated heparin SQ
--- NOTE | 2016-09-23 15:16 | Discharge Summary ---
Discharge Summary Date of Service Sep 23, 2016. (Francine Veronica PA-C) Discharge Summary Admission Date: Sep 23, 2016 at 00:31 Discharge Date: Sep 23, 2016 Discharge Disposition: Home Principal Diagnosis: Chest Tightness and SOB Problems/Secondary Diagnoses: Medical Problems: (1) Acute on chronic systolic CHF (congestive heart failure) (2) Prediabetes (3) Shortness of breath Surgical Problems: (1) S/P cardiac pacemaker procedure Immunizations: Have You Had Influenza Vaccine: No History of Tetanus Vaccine?: Yes History of Pneumococcal: No History of Hepatitis B Vaccine: No Procedures: 1. CT SCAN OF THE ABDOMEN AND PELVIS WITHOUT CONTRAST CLINICAL HISTORY: Elevated Lipase SHORTNESS OF BREATH COMPARISON STUDY: No previous studies for comparison. TECHNIQUE: CT scan of the abdomen and pelvis was performed from the lung bases to the proximal femurs. Images are reviewed in the axial, sagittal, and coronal planes. IV contrast was not administered for this examination. CT DOSE: 1959.91 mGy.cm FINDINGS: Lower chest: The heart is borderline enlarged. There are minimal basilar atelectatic changes. Liver: There is hepatic steatosis. No focal masses are visualized. Gallbladder: Unremarkable. Spleen: Normal in size and attenuation. Pancreas: Unremarkable. Adrenal glands: Unremarkable. Kidneys: There is a 4 mm mid pole left renal calculus. There is no hydronephrosis. Bowel: There are no transition zones indicate bowel obstruction. The appendix appears normal. There is no acute diverticulitis. Peritoneum: There is no intraperitoneal free air or abdominal ascites. Vasculature: The abdominal aorta is normal in course and caliber. Adenopathy: None. Pelvic viscera: There is mild bladder wall thickening. Skeletal structures: No destructive osseous lesions are seen. IMPRESSION: 1. Hepatic steatosis 2. Left-sided nephrolithiasis 3. Mild bladder wall thickening 4. No evidence of bowel obstruction. No evidence of free air 2. CHEST ONE VIEW PORTABLE CLINICAL HISTORY: Atypical chest pain COMPARISON STUDY: 03/19/2016 FINDINGS: The heart is borderline enlarged. There is a left subclavian dual-chamber central venous pacemaker present. There is no overt failure. There is no focal pulmonary consolidation. There are no pleural effusions.[ IMPRESSION: Cardiomegaly. No evidence of focal pulmonary consolidation Consultations: 1. Cardiology (Francine Veronica PA-C) Medication Reconciliation New Medications: Pantoprazole (Pantoprazole Sodium) 40 Mg Tab 40 MG PO QAM for 14 Days, #14 TAB Continued Medications: Aspirin (Aspirin Ec) 325 Mg Tab 325 MG PO QPM Carvedilol (Carvedilol) 25 Mg Tab 25 MG PO BID Chlorthalidone (Hygroton) 25 Mg Tab 25 MG PO QAM, TAB Clobetasol Propionate (Clobetasol Propionate Cream 0.05%) 90 Appln/30 Gm Cr 1 APPLN EXT BID PRN, TUBE APPLY SPARINGLY TO RIGHT AND LEFT ANKLE RASH TWICE DAILY, NEEDED. Furosemide (Furosemide) 80 Mg Tab 80 MG PO DAILY, #30 Hydralazine Hcl (Apresoline) 25 Mg Tab 25 MG PO BID, TAB Lisinopril (Zestril) 40 Mg Tab 40 MG PO DAILY, 0 Refills Multivitamins/Minerals (Mvi With Minerals) Tab 1 TAB PO DAILY, TAB Simvastatin (Zocor) 40 Mg Tab 40 MG PO QPM, 0 Refills Discontinued Medications: Amoxicillin (Amoxil) 500 Mg Cap 500 MG PO UD, #30 Discharge Exam REVIEW OF SYSTEMS: General/Constitutional: +Diaphoresis; Denies fever/chills, fatigue, weakness, weight gain/loss ENT: Denies visual changes, nasal drainage, hearing loss, sore throat, trouble swallowing Cardiovascular: Denies chest pain, palpitations, edema Respiratory: Denies cough, sputum, SOB, wheezing, orthopnea GI: Denies nausea, vomiting, abdominal pain, constipation, diarrhea, melena/ hematochezia : Denies dysuria, frequency, hematuria Musculoskeletal: Denies joint/muscle aches, weakness, swelling Neurologic: Denies dizziness/lightheadedness, numbness/tingling, weakness Psychiatric: Deferred Endocrine: Deferred Hematologic/Lymphatic: Denies bleeding/clotting abnormalities Skin: Denies rash, itch, new skin changes, easy bruising Allergy/Immunologic: Deferred PHYSICAL EXAM:: General Appearance: WDWN in NAD who is A&O x 3; Obese HEENT: Head is normocephalic/atraumatic; EOMI; PERRLA; Hearing grossly intact; Mucous membranes moist; Pharynx negative for exudate/lesions Neck: Supple; Trachea midline; Neg JVD; Neg lymphadenopathy Heart: RRR with no M/G/R Lungs: CTA in all lung ribera bilaterally; Respirations unlabored; Neg accessory muscle use Abdomen: Soft, non-tender, distended (patient reports baseline), dull to percussion; Positive BS x 4 quadrants; Neg organomegaly Extremities: Capillary refill < 2 seconds; Neg cyanosis or edema Neurological: Speech clear; Gross motor/sensory function intact; Neg focal neurologic deficits Psychiatric: Appropriate mood/affect Skin: Normal Color; Warm/Dry; Neg rashes, ecchymosis, lacerations/ulcerations (Francine Veornica, SHRAVAN) Hospital Course ADMISSION: 56-year-old male with past medical history of hypertension, prediabetes, coronary artery disease with a history of inferior infarction but clean catheterization in 06/2014, hypercholesterolemia nonischemic cardiomyopathy , third-degree heart block status post pacemaker in situ, polycythemia presented to the ER with complaints of worsening shortness of breath and chest tightness which started around 8:30 PM tonight. He denied chest pain but complained about chest tightness associated with diaphoresis. Denied any palpitations, dizziness, cough, fevers with chills, nausea, vomiting, abdominal pain, diarrhea. He was recently diagnosed with CHF about 3 months ago and has been using 80 mg of Lasix every day with daily weights. He denied any recent lower extremity swelling, orthopnea, paroxysmal nocturnal dyspnea. HOSPITAL COURSE: Mr. Atkinson was admitted for chest tightness, shortness of breath, diaphoresis. In the emergency department he received Lasix 40 mg IV and Maalox. He reports significant improvement with both of these interventions but largely from the Maalox. Suspect underlying GI issue but an element of diastolic CHF may be contributing. Given his significant cardiac history, cardiology was consulted for recommendations. Serial troponins were negative. Recommendations given to continue current therapy with careful attention for excessive fluid intake. On further evaluation, consideration for increasing carvedilol which was not implemented on admission. Repeat echocardiogram was deferred and will be considered at a future time. Creatinine noted to be 1.9 which baseline appears to be 1.3-1.5. Incidentally, lipase noted to be 600 with a repeat of 3000 and another repeat of 600. Suspect lab error with 3000 [address]. Did obtain abdominal CT with largely unremarkable findings. Please see procedure notes for official imaging report. Patient denies any symptoms that would explain this elevated lipase. He denies nausea/vomiting, abdominal pain, loss of appetite, chronic NSAID use other than ASA, alcohol intake, melena/hematochezia. Would recommend future lab draws for monitoring. Patient is hemodynamically stable and optimal for discharge home. Of note, patient reports he has not been taking his amlodipine and is still taking his chlorthalidone. Total Time Spent: Greater than 30 minutes This includes examination of the patient, discharge planning, medication reconciliation, and communication with other providers. (Francine Veronica, KELLEEC) this pt is doing better, has no further chest pain , relieved with maalox, Dr Arzola feels its non cardiac, lipase improved, Ct of abdomen and pelvis did not show anything except fatty liver, pt tolerated diet and will be discharged vitals stable abd is soft and non tender will go home on protonix and follow up with family doctor Total Time Spent: Greater than 30 minutes (Enoc De Leon M.D.) Discharge Instructions Please refer to the electronic Patient Visit Report (Discharge Instructions) for additional information. (Francine Veronica, KELLEEC) Additional Copies To Benoit Nj M.D.
[2016-09-23 15:38] VITALS: BP 137/81; PULSE 60; TEMP 36.5; O2SAT 93
[2016-09-23] MEDS ORDERED: ASPIRIN 325 MG ECTAB PO SCH (21:00)
[2016-09-23] MEDS ORDERED: SIMVASTATIN 40 MG TAB PO SCH (21:00)
== END 2016-09-23 17:29 | disposition home or self-care (01) | DRG 292 ==
LOC: ENRESERVTM → ENRESERVDT → C.EDB 21:46 → C.2T 09-23 00:31
PROVIDERS: ADMIT Family Medicine; ATTEND Hospitalist
DX: I50.23 Acute on chronic systolic (congestive) heart failure (principal); I42.9 Cardiomyopathy, unspecified; I44.2 Atrioventricular block, complete; R07.9 Chest pain, unspecified; R06.02 Shortness of breath; N28.9 Disorder of kidney and ureter, unspecified; R74.8 Abnormal levels of other serum enzymes; R73.03 Prediabetes; I11.0 Hypertensive heart disease with heart failure; I35.0 Nonrheumatic aortic (valve) stenosis; D75.1 Secondary polycythemia; I25.10 Atherosclerotic heart disease of native coronary artery without angina pectoris; E78.00 Pure hypercholesterolemia, unspecified; I25.2 Old myocardial infarction; Z95.0 Presence of cardiac pacemaker; Z87.891 Personal history of nicotine dependence; Z79.82 Long term (current) use of aspirin; Z79.899 Other long term (current) drug therapy

== ENCOUNTER → 2016-10-04 | Outpatient (CLI) | payer BC ==
[~2016-10-04] MED LIST changes: +HYG/25 PO; +LSX80 PO; +PRT40 PO
[2016-10-04 13:45] LABS: BLOOD UREA NITROGEN 25 mg/dl (7-18); BUN/CREATININE RATIO 16.5 (10-20); CARBON DIOXIDE 32 mmol/L (21-32); CHLORIDE 107 mmol/L (98-107); GLUCOSE 105 mg/dl (70-99); SODIUM 143 mmol/L (136-145)
[2016-10-04 13:47] LABS: CALCIUM 9.4 mg/dl (8.5-10.1)
== END | disposition home or self-care (01) ==
LOC: C.LABPVFM 08:16
PROVIDERS: ATTEND Family Medicine
DX: I10 Essential (primary) hypertension (principal)

== ENCOUNTER → 2016-12-26 | Outpatient (CLI) | payer BC ==
[2016-12-26 17:17] LABS: BASO % 0.3 %; BASO ABS # 0.02 K/uL (0-0.2); COMPLETE YES; EOS % 2.4 %; HEMATOCRIT 45.8 % (42-52); IG% 0.3 %; LYMPH % 18.8 %; LYMPH ABS # 1.26 K/uL (1.2-3.4); MEAN CELL VOLUME 92.3 fL (80-100); MEAN CORPUSCULAR HEMOGLOBIN 30.6 pg (25-34); MEAN CORPUSCULAR HGB CONC 33.2 g/dl (32-36); MEAN PLATELET VOLUME 10.9 fL (7.4-10.4); MONO % 14.2 %; PLATELET COUNT 155 K/uL (130-400); RED BLOOD COUNT 4.96 M/uL (4.7-6.1); WHITE BLOOD COUNT 6.71 K/uL (4.8-10.8)
[2016-12-26 17:20] LABS: URINE APPEARANCE CLEAR (CLEAR); URINE BILIRUBIN NEG (NEG); URINE COLOR YELLOW; URINE EPITHELIAL CELL AUTO 0-5 /lpf (0-5); URINE NITRITE NEG (NEG); URINE PH 5.5 (4.5-7.5); UROBILINOGEN NEG (NEG); ZZUR CULT IF INDIC CLEAN CATCH NO
[2016-12-26 17:26] LABS: MANUAL MICROSCOPIC REQUIRED? NO; REVIEW REQ? NO
[2016-12-26 17:46] LABS: BLOOD UREA NITROGEN 21 mg/dl (7-18); BUN/CREATININE RATIO 13.9 (10-20); CARBON DIOXIDE 31 mmol/L (21-32); CHLORIDE 108 mmol/L (98-107); GLUCOSE 100 mg/dl (70-99); MAGNESIUM 2.1 mg/dl (1.8-2.4); SODIUM 143 mmol/L (136-145)
[2016-12-26 17:47] LABS: URINE PROTIEN/CREAT RATIO 0.2 (0-0.2); URINE TOTAL PROTEIN 29.8 mg/dl (0-11.9)
[2016-12-26 17:57] LABS: PHOSPHORUS 2.9 mg/dl (2.5-4.9); URIC ACID 9.7 mg/dl (2.6-7.2)
== END | disposition home or self-care (01) ==
LOC: C.LAB1850 16:34
PROVIDERS: ATTEND Internal Medicine Nephrology
DX: N18.3 Chronic kidney disease, stage 3 (moderate) (principal); I12.9 Hypertensive chronic kidney disease with stage 1 through stage 4 chronic kidney disease, or unspecified chronic kidney disease

== ENCOUNTER → 2017-01-27 | Outpatient (CLI) | payer BC ==
[2017-01-27 17:58] LABS: BLOOD UREA NITROGEN 19 mg/dl (7-18); BUN/CREATININE RATIO 12.8 (10-20); CALCIUM 9.1 mg/dl (8.5-10.1); CARBON DIOXIDE 35 mmol/L (21-32); CHLORIDE 105 mmol/L (98-107); GLUCOSE 84 mg/dl (70-99); PHOSPHORUS 3.7 mg/dl (2.5-4.9); POTASSIUM 3.7 mmol/L (3.5-5.1); SODIUM 142 mmol/L (136-145)
== END | disposition home or self-care (01) ==
LOC: C.LAB1850 16:29
PROVIDERS: ATTEND Internal Medicine Nephrology
DX: I10 Essential (primary) hypertension (principal)

== ENCOUNTER → 2017-05-04 | Outpatient (CLI) | payer BC ==
--- NOTE | 2017-05-04 16:26 | DIAGNOSTIC IMAGING REPORT ---
R TIBIA/FIBULA 2 VIEWS ROUTINE HISTORY: 56 years-old Male INJURY OF RIGHT LOWER LEG acute right leg pain status post fall COMPARISON: None available TECHNIQUE: 2 views of the right tibia and fibula FINDINGS: There is mild soft tissue swelling about the lower leg. No acute fracture, or dislocation. Mild degenerative changes involve the ankle. IMPRESSION: Mild soft tissue swelling without acute fracture or dislocation. The above report was generated using voice recognition software. It may contain grammatical, syntax or spelling errors. Electronically signed by: Yinka Bauman M.D. 05/04/2017 4:25 PM Dictated Date/Time: 05/04/2017 4:24 PM
== END | disposition home or self-care (01) ==
LOC: C.RAD1850 15:45
PROVIDERS: ATTEND Internal Medicine
DX: S89.91XA Unspecified injury of right lower leg, initial encounter (principal); X58.XXXA Exposure to other specified factors, initial encounter

== ENCOUNTER 2017-05-17 10:52 | Emergency (ER) | payer BC ==
[~2017-05-17] VITALS: Ht 185.4 cm; Wt 144.0 kg
[2017-05-17 11:03] VITALS: TEMP 36.7; Ht 185.4 cm; Wt 144.0 kg
--- NOTE | 2017-05-17 11:43 | DIAGNOSTIC IMAGING REPORT ---
L FOOT MIN 3 VIEWS ROUTINE HISTORY: 57 years-old Male Left foot pain acute left foot pain without reported trauma COMPARISON: None available TECHNIQUE: 3 views of the left foot FINDINGS: Moderate plantar and small Achilles enthesophytes about the calcaneus. No acute fracture or dislocation. Mild to moderate marginal spurring involves the tibial talar joint. Mild degenerative changes are noted throughout the dorsal midfoot as well. No opaque foreign body. Corticated 3 mm bone fragment superior to the os trigonum may reflect accessory ossicle or fragmented osteophyte. IMPRESSION: Degenerative changes as above involve the midfoot and hindfoot without acute fracture or dislocation. The above report was generated using voice recognition software. It may contain grammatical, syntax or spelling errors. Electronically signed by: Yinka Bauman M.D. 05/17/2017 11:42 AM Dictated Date/Time: 05/17/2017 11:39 AM
[2017-05-17] MEDS ORDERED: CRG25 PO (11:46)
[2017-05-17] MEDS ORDERED: PANT40TA PO (11:46)
[2017-05-17] MEDS ORDERED: TRMO180 TOP (11:47)
[2017-05-17 11:49] LABS: BASO % 0.1 %; BASO ABS # 0.01 K/uL (0-0.2); COMPLETE YES; EOS % 1.8 %; IG% 0.3 %; LYMPH ABS # 1.11 K/uL (1.2-3.4); MEAN CELL VOLUME 93.2 fL (80-100); MEAN CORPUSCULAR HEMOGLOBIN 30.4 pg (25-34); MEAN CORPUSCULAR HGB CONC 32.7 g/dl (32-36); MEAN PLATELET VOLUME 10.9 fL (7.4-10.4); MONO % 12.4 %; NEUT % 71.4 %; PLATELET COUNT 162 K/uL (130-400); RED BLOOD COUNT 4.83 M/uL (4.7-6.1); WHITE BLOOD COUNT 7.92 K/uL (4.8-10.8)
[2017-05-17] MEDS ORDERED: ERGO500011 PO (11:54)
[2017-05-17] MEDS ORDERED: ALL100 PO (11:54)
[2017-05-17 13:17] VITALS: BP 131/82; PULSE 60; O2SAT 95
[2017-05-17] MEDS ORDERED: CEPH500C PO (13:30)
--- NOTE | 2017-05-19 09:18 | EMERGENCY ROOM VISIT NOTE ---
History First contact with patient: 11:16 Chief Complaint: FOOT PAIN Stated Complaint: LEFT FOOT PAIN/SWELLING History of Present Illness The patient is a 57 year old male who presents to the Emergency Room with complaints of 3 days of left foot pain. No specific injury. He notes some swelling. Pain is across the medial aspect through his longitudinal arch. He has some baseline neuropathy. No history of diabetes. He denies any redness or warmth. He does have a history of gout, but states this is different than his previous presentations for gout. He is on baseline allopurinol. He did not see his PCP. No trauma. No fevers or chills. Pain is worse with weight- bearing. He denies any loss of motion of the ankle or toes. His also asked that he be evaluated for his right kim. Patient struck himself in the kim a few days ago. He had a large hematoma approximately the size of an orange. This has improved greatly. She noticed that his lower leg was getting red around the former hematoma. She is concerned for infection. He denies any fevers or chills. He denies any significant pain in the area. Review of Systems REVIEW OF SYSTEM: HEENT: No dizziness, visual problems, hearing loss, or tinnitus. There is no difficulty swallowing and no oral lesions are present. PULMONARY: No cough, sputum production or hemoptysis. CARDIOVASCULAR: No chest pain or peripheral edema. GASTROINTESTINAL: No diarrhea, constipation, nausea, vomiting, or abdominal pain. GENITOURINARY: No dysuria, frequency, urgency or nocturia. NEUROLOGIC: No weakness, muscle tenderness, epilepsy or history of neurological problems. MUSCULOSKELETAL: No history of joint tenderness/swelling. Positive history of arthritis and arthralgias. SKIN: No rashes or lesions. PSYCHIATRIC: No history of depression or mental illness. ENDOCRINE: No history of diabetes, thyroid disorders, or abnormal hair growth. Past Medical/Surgical History Medical Problems: (1) Acute on chronic systolic CHF (congestive heart failure) (2) Prediabetes (3) Shortness of breath Surgical Problems: (1) S/P cardiac pacemaker procedure Family History No pertinent family history Significant for diabetes, heart disease, and hypertension. Social History Smoking Status: Never Smoker Smokeless Tobacco Use: Yes Alcohol Use: none Drug Use: none Marital Status: Housing Status: lives with family Occupation Status: employed Current/Historical Medications Scheduled Allopurinol (Allopurinol), 100 MG PO DAILY Aspirin (Aspirin Ec), 325 MG PO QPM Carvedilol (Carvedilol), 50 MG PO BID Cephalexin Monohydrate (Keflex), 500 MG PO TID Ergocalciferol (Vitamin D 66599 Unit), 50,000 UNITS PO WK Furosemide (Furosemide), 80 MG PO BID17 Hydralazine Hcl (Apresoline), 25 MG PO BID Lisinopril (Zestril), 40 MG PO DAILY Multivitamins/Minerals (Mvi With Minerals), 1 TAB PO DAILY Pantoprazole (Protonix), 40 MG PO BID Simvastatin (Zocor), 40 MG PO QPM Scheduled PRN Triamcinolone Acet (Triamcinolone Acetonide), 1 APPLN TOP UD PRN for AFFECTED AREA ON ANKLE(S) Physical Exam Vital Signs Date Time Temp Pulse Resp B/P (MAP) Pulse Ox O2 Delivery O2 Flow Rate FiO2 05/17/17 13:17 60 20 131/82 95 Room Air 05/17/17 11:03 36.7 107 18 148/88 97 Room Air Physical Exam Gen.: Well developed, well-nourished, middle-aged white male, in no acute distress. Looks older than his stated age. Skin:Warm and dry with good turgor. No rashes or lesions. No ecchymosis or erythema. The patient is not diaphoretic. No abrasions. Musculoskeletal: Left lower extremity has peripheral edema and venous stasis changes. He has no discomfort with palpation over the gastroc or ankle. 1+ pitting edema in the dorsum of the left foot. He has focal discomfort with palpation over the medial aspect of his foot including the longitudinal arch. No pain with palpation over the calcaneus, first metatarsal head, central midfoot, or lateral foot in its entirety. No pain with palpation of the toes. Intact motor function of the toes. Intact motor function of the ankle as well without discomfort. Strength is 5/5 for resisted motion of the ankle in all planes. Right lower leg evaluation reveals an ecchymotic area over the upper kim. No skin breakdown. He does have some erythema present around the ecchymotic area. No warmth yet but it does look consistent with cellulitis. No active drainage. No pockets or deeper abscesses are palpable. No drainage. Neurologic: Gross sensation is intact across the lower extremities, foot and ankle by soft touch. Peripheral pulses are 2+. Medical Decision & Procedures ER Provider Diagnostic Interpretation: Radiographic imaging obtained today of left foot was reviewed by me and read by radiology. Mild to moderate arthritic changes of the foot. No other bony abnormalities are noted. Laboratory Results 05/17/17 11:40 Red Blood Count 4.83, Mean Corpuscular Volume 93.2, Mean Corpuscular Hemoglobin 30.4, Mean Corpuscular Hemoglobin Concent 32.7, Mean Platelet Volume 10.9, Neutrophils (%) (Auto) 71.4, Lymphocytes (%) (Auto) 14.0, Monocytes (%) (Auto) 12.4, Eosinophils (%) (Auto) 1.8, Basophils (%) (Auto) 0.1, Neutrophils # (Auto ) 5.66, Lymphocytes # (Auto) 1.11, Monocytes # (Auto) 0.98, Eosinophils # (Auto ) 0.14, Basophils # (Auto) 0.01 Test 05/17/17 11:40 White Blood Count 7.92 K/uL (4.8-10.8) Red Blood Count 4.83 M/uL (4.7-6.1) Hemoglobin 14.7 g/dL (14.0-18.0) Hematocrit 45.0 % (42-52) Mean Corpuscular Volume 93.2 fL (80-100) Mean Corpuscular Hemoglobin 30.4 pg (25-34) Mean Corpuscular Hemoglobin Concent 32.7 g/dl (32-36) Platelet Count 162 K/uL (130-400) Mean Platelet Volume 10.9 fL (7.4-10.4) Neutrophils (%) (Auto) 71.4 % Lymphocytes (%) (Auto) 14.0 % Monocytes (%) (Auto) 12.4 % Eosinophils (%) (Auto) 1.8 % Basophils (%) (Auto) 0.1 % Neutrophils # (Auto) 5.66 K/uL (1.4-6.5) Lymphocytes # (Auto) 1.11 K/uL (1.2-3.4) Monocytes # (Auto) 0.98 K/uL (0.11-0.59) Eosinophils # (Auto) 0.14 K/uL (0-0.5) Basophils # (Auto) 0.01 K/uL (0-0.2) RDW Standard Deviation 47.3 fL (36.4-46.3) RDW Coefficient of Variation 13.9 % (11.5-14.5) Immature Granulocyte % (Auto) 0.3 % Immature Granulocyte # (Auto) 0.02 K/uL (0.00-0.02) Uric Acid 8.3 mg/dl (2.6-7.2) CBC obtained today was unremarkable. Uric acid level obtained today was elevated at 8.3. ED Course Patient and his were educated regarding today's findings. Conservative care measures were discussed. Radiographic imaging was obtained of his foot. He does have mild to moderate arthritic changes. No foreign body or fracture was identified. CBC and uric acid level were obtained. No evidence for systemic infection. Uric acid is elevated. He would be an unusual presentation for gout. Patient is already on allopurinol. Given his renal disease, he is unable to take anti-inflammatories. I did recommend that he use Tylenol. He was placed in a cam boot to assist with weightbearing. Ice and elevate frequently to reduce swelling, which should help his pain. Likelihood for soft tissue injury was discussed. He was reassured that I do not find evidence of foreign body or bony injury. Given his redness on the right kim, I did recommend he take an antibiotic. Patient was given a prescription for Keflex 500 mg 3 times a day 5 days. Follow-up with his PCP for reexamination this week. Return to the ED for any acute worsening of symptoms. Medical Decision Possibility of fracture, foreign body, [id number] disease, gout flare, plantar fasciitis, and infectious arthritis were considered among others. Medication Reconcilliation Current Medication List: was personally reviewed by me Blood Pressure Screening Blood pressure disposition: Elevated BP felt to be situational Impression Primary Impression: Cellulitis Additional Impression: Foot pain Departure Information Dispostion Home / Self-Care Condition GOOD Prescriptions Cephalexin Monohydrate (Keflex) 500 Mg Cap 500 MG PO TID, #15 CAP Prov: Negrito Mayen,P.A. 05/17/17 Forms HOME CARE DOCUMENTATION FORM, TYLENOL USE, IMPORTANT VISIT INFORMATION Patient Instructions My [facility] Additional Instructions Use the cam boot as needed for comfort while walking Elevate the leg frequently to reduce pain and swelling Follow-up with your PCP this week Start Keflex one pill 3 times a day for redness on the right leg Return to the ED for any acute changes or worsening of symptoms Problem Qualifiers Primary Impression: Cellulitis Site of cellulitis: extremity Site of cellulitis of extremity: lower extremity Laterality: right Qualified Codes: L03.115 - Cellulitis of right lower limb Additional Impression: Foot pain Laterality: left Qualified Codes: M79.672 - Pain in left foot
== END 2017-05-17 13:47 | disposition home or self-care (01) ==
LOC: C.EDB 10:54 → C.EDA 13:47
DX: L03.115 Cellulitis of right lower limb (principal); M79.672 Pain in left foot; I50.22 Chronic systolic (congestive) heart failure; N28.9 Disorder of kidney and ureter, unspecified; M10.9 Gout, unspecified; F17.290 Nicotine dependence, other tobacco product, uncomplicated; Z95.0 Presence of cardiac pacemaker; Z83.3 Family history of diabetes mellitus; Z82.49 Family history of ischemic heart disease and other diseases of the circulatory system; Z79.82 Long term (current) use of aspirin; Z79.899 Other long term (current) drug therapy

== ENCOUNTER → 2017-10-13 | Outpatient (CLI) | payer BC ==
[~2017-10-13] MED LIST changes: +ALL100 PO; -CLBCRM30 EXT; +ERGO500011 PO; -HYG/25 PO; +PANT40TA PO; -PRT40 PO
[2017-10-13 13:00] LABS: BASO % 0.2 %; BASO ABS # 0.01 K/uL (0-0.2); EOS % 3.5 %; EOS ABS # 0.18 K/uL (0-0.5); HEMATOCRIT 46.3 % (42-52); HEMOGLOBIN 15.4 g/dL (14.0-18.0); IG# 0.01 K/uL (0.00-0.02); LYMPH % 21.2 %; MEAN CELL VOLUME 91.7 fL (80-100); MEAN CORPUSCULAR HEMOGLOBIN 30.5 pg (25-34); MEAN CORPUSCULAR HGB CONC 33.3 g/dl (32-36); MEAN PLATELET VOLUME 12.3 fL (7.4-10.4); MONO ABS # 0.83 K/uL (0.11-0.59); NEUT % 58.9 %; NEUT ABS # 3.07 K/uL (1.4-6.5); PLATELET COUNT 151 K/uL (130-400); RED CELL DISTRIBUTION WIDTH CV 14.2 % (11.5-14.5); RED CELL DISTRIBUTION WIDTH SD 47.4 fL (36.4-46.3)
[2017-10-13 13:21] LABS: ALBUMIN 3.6 gm/dl (3.4-5.0); ALT/SGPT 51 U/L (12-78); AST/SGOT 26 U/L (15-37); BLOOD UREA NITROGEN 21 mg/dl (7-18); CALCIUM 8.6 mg/dl (8.5-10.1); CARBON DIOXIDE 30 mmol/L (21-32); CHOLESTEROL 120 mg/dl (0-200); CREATININE 1.43 mg/dl (0.60-1.40); GLUCOSE 158 mg/dl (70-99); POTASSIUM 3.9 mmol/L (3.5-5.1); SODIUM 141 mmol/L (136-145); URIC ACID 7.3 mg/dl (2.6-7.2)
[2017-10-13 13:25] LABS: HEMOGLOBIN A1C 6.3 % (4.5-5.6)
[2017-10-13 13:30] LABS: ALKALINE PHOSPHATASE 69 U/L (45-117); LDL CHOLESTEROL CALCULATED 52 mg/dl; PHOSPHORUS 4.1 mg/dl (2.5-4.9); TOTAL PROTEIN 7.7 gm/dl (6.4-8.2)
== END | disposition home or self-care (01) ==
LOC: C.LABPVFM 07:59
PROVIDERS: ATTEND Internal Medicine Nephrology
DX: N18.3 Chronic kidney disease, stage 3 (moderate) (principal); I50.42 Chronic combined systolic (congestive) and diastolic (congestive) heart failure

== ENCOUNTER 2020-01-08 15:42 | Inpatient (IN) ==
[2020-01-08] MEDS ORDERED: SODIUM CHLORIDE 0.9% 1000ML 500 ML IV ONE (16:04)
[2020-01-08] MEDS ORDERED: ACETAMINOPHEN 500 MG TAB PO STA (16:04)
[2020-01-08] MEDS ORDERED: SODIUM CHLORIDE 0.9% 1000ML 1,000 ML IV SCH (16:15)
[2020-01-08] MEDS ORDERED: CEFEPIME 2,000 MG/20 ML VIAL IV STA (16:16)
[2020-01-08] MEDS ORDERED: VANCOMYCIN CONSULT ACTIVE PRN (16:16)
[2020-01-08] MEDS ORDERED: VANCOMYCIN HCL 2,750 MG in SODIUM CHLORIDE 0.9% 500 ML IV ONE (16:16)
[2020-01-08 16:39] LABS: Basophils # (auto) 0.01 K/uL (0-0.2); Basophils % (auto) 0.1 %; Eosinophils # (auto) 0.03 K/uL (0-0.5); Eosinophils % (auto) 0.2 %; Hematocrit (blood only) 49.6 % (42-52); Hemoglobin 16.2 g/dL (14.0-18.0); Immature Granulocytes # (auto) 0.03 K/uL (0.00-0.02); Immature Granulocytes % (auto) 0.2 %; Lymphocytes # (auto) 0.85 K/uL (1.2-3.4); Lymphocytes % (auto) 5.7 %; Mean Corpuscular Hemoglobin 29.5 pg (25-34); Mean Corpuscular Hgb Conc 32.7 g/dL (32-36); Mean Corpuscular Volume 90.2 fL (80-100); Mean Platelet Volume 10.8 fL (7.4-10.4); Monocytes # (auto) 0.55 K/uL (0.11-0.59); Monocytes % (auto) 3.7 %; Neutrophils # (auto) 13.45 K/uL (1.4-6.5); Neutrophils % (auto) 90.1 %; Platelet Count 141 K/uL (130-400); RDW Coefficient of Variation 13.8 % (11.5-14.5); RDW Standard Deviation 45.3 fL (36.4-46.3); White Blood Count 14.92 K/uL (4.8-10.8)
[2020-01-08 16:55] LABS: Albumin Level 3.9 gm/dl (3.4-5.0); BUN Creatinine Ratio 10.5 (10-20); Calcium 8.8 mg/dl (8.5-10.1); Est GFR (African American) 56.8; Magnesium 1.8 mg/dl (1.8-2.4); Potassium 3.5 mmol/L (3.5-5.1)
[2020-01-08 17:00] LABS: Bilirubin,Total 0.8 mg/dl (0.2-1); Total Protein 7.9 gm/dl (6.4-8.2); Troponin I 0.017 ng/ml (0-0.045)
--- NOTE | 2020-01-08 17:06 | XRay Report ---
XR chest 1V portable CLINICAL HISTORY: SEPSIS COMPARISON STUDY: 09/22/2016 FINDINGS: The heart is enlarged. There is a left subclavian pacemaker. There is mild central vascular prominence without evidence of overt failure. There is no focal pulmonary consolidation. There are n o significant pleural effusions.[ IMPRESSION: Cardiomegaly. No evidence of focal pulmonary consolidation ACT 112: Negative or not required by law. Electronically signed by: Alexis Fatima M.D. 01/08/2020 5:05 PM
[2020-01-08 17:44] LABS: INR 1.1 (0.9-1.1); Partial Thromboplastin Time 27.3 Seconds (21.0-31.0); Prothrombin Time 11.1 Seconds (9.0-12.0)
[2020-01-08 18:29] LABS: Appearance Urine Clear (Clear); Bilirubin Urine Negative (Negative); Blood Urine Negative (Negative); Color Urine Yellow; Glucose Urine UA Negative (Negative); Ketones Urine Negative (Negative); Leukocyte Esterase Urine Negative (Negative); Nitrite Urine Negative (Negative); Protein Urine Negative (Negative); Specific Gravity Urine 1.017 (1.000-1.030); Urobilinogen Urine Negative (Negative)
--- NOTE | 2020-01-08 19:39 | Emergency Department Note ---
History of Present Illness General Chief complaint: Fever Stated complaint: FEVER Time Seen by Provider: 01/08/20 16:03 Source: patient, family and RN notes reviewed Mode of arrival: ambulatory Limitations: no limitations History of Present Illness Provider complaint: Fever Maximum Pain Intensity: 0 This patient is a 59-year-old male who presents emergency department with complaints of sudden onset fever that he noticed this morning. Patient states he generally just does not feel well but has no specific complaints otherwise. He did not take Tylenol. He does have multiple medical problems including congestive heart failure, pacemaker placement, COPD and morbid obesity. 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 Home Medications Home Medications Medication Instructions Recorded Confirmed Type multivitamin 1 tab PO DAILY 01/18/19 01/08/20 History sildenafil 100 mg tablet 100 mg PO .COMPLEX PRN tab 01/18/19 01/08/20 History triamcinolone acetonide 0.1 % 1 appln TOPICAL .COMPLEX PRN gm 01/18/19 01/08/20 History topical ointment simvastatin 40 mg tablet 40 mg PO QPM #90 tab 02/23/19 01/08/20 Rx miscellaneous medical supply #1 ea 04/12/19 11/09/19 Rx omeprazole 20 mg capsule,delayed 20 mg PO DAILY #90 cap 04/27/19 01/08/20 Rx release aspirin 81 mg tablet,delayed 81 mg PO DAILY tab 05/11/19 01/08/20 History release furosemide 80 mg tablet 80 mg PO BID #180 tab 06/29/19 01/08/20 Rx allopurinol 100 mg tablet 200 mg PO DAILY #60 tab 09/06/19 01/08/20 Rx hydralazine 25 mg tablet 25 mg PO BID #180 tab 09/06/19 01/08/20 Rx carvedilol 25 mg tablet 50 mg PO BID #360 tab 10/06/19 01/08/20 Rx lisinopril 40 mg tablet 40 mg PO DAILY #90 tab 10/18/19 01/08/20 Rx ipratropium 20 mcg-albuterol 100 1 puffs INHALATION QID PRN #4 gm 11/09/19 01/08/20 Rx mcg/actuation mist for inhalation miscellaneous medical supply #1 ea 11/09/19 11/09/19 Rx umeclidinium 62.5 mcg/actuation 1 puffs INH DAILY #30 ea 11/24/19 01/08/20 Rx blister powder for inhalation calcitriol 0.25 mcg capsule 0.25 mcg PO DAILY #90 cap 01/06/20 01/08/20 Rx Allergies Allergy/AdvReac Type Severity Reaction Status Date / Time No Known Drug Allergies Allergy Verified 11/09/19 08:53 Past Med/Surg History Medical History Chronic congestive heart failure Chronic kidney disease Hypertension Family History Denies family history of Kidney disease Social History (Updated 01/08/20 @ 19:49 by Deanna Muñoz MD) Smoking Status: Former smoker Tobacco Type: Cigarettes Second Hand Exposure: No; Feels Safe at Home: Yes Review of Systems See HPI for pertinent positives & negatives. and A total of 10 systems reviewed and were otherwise negative Physical Exam Vital Signs Vital Signs - 24 hr 01/08/20 15:54 01/08/20 16:19 01/08/20 16:47 Temperature 39.3 C H Temperature Source Oral Pulse Rate 102 H 96 H Pulse Rate [Right Finger] Pulse Rate from SpO2 Sensor 95 H Respiratory Rate 32 H 32 H 25 H Respiratory Effort / Characteristics Short of Breath Respiratory Depth Normal Respiratory Pattern Blood Pressure 193/84 H 171/105 H Blood Pressure [Right Arm] Blood Pressure Mean 120 134 Blood Pressure Mean [Right Arm] Blood Pressure Position [Right Arm] Pulse Oximetry 94 94 93 Oxygen Delivery Method Room Air Room Air Room Air Sepsis Recent Fever Within 48 Hours Yes Sepsis New/Unexplained Change in Mental Status No Sepsis Action Taken by Nursing No Action Required 01/08/20 18:00 01/08/20 18:19 01/08/20 19:15 Temperature 38.5 C H 38.8 C H Temperature Source Oral Pulse Rate 98 H Pulse Rate [Right Finger] 103 H Pulse Rate from SpO2 Sensor Respiratory Rate 15 18 Respiratory Effort / Characteristics Non-Labored Spontaneous Respiratory Depth Normal Respiratory Pattern Regular Blood Pressure 131/69 Blood Pressure [Right Arm] 112/77 Blood Pressure Mean 85 Blood Pressure Mean [Right Arm] 88 Blood Pressure Position [Right Arm] Sitting Pulse Oximetry 91 Oxygen Delivery Method Room Air Sepsis Recent Fever Within 48 Hours Sepsis New/Unexplained Change in Mental Status Sepsis Action Taken by Nursing Vital signs reviewed. General: Chronically ill-appearing, morbidly obese 59-year-old male, febrile and tachycardic. HEENT: No scleral icterus, PERRLA, neck supple. Atraumatic. Cardiovascular: Tachycardic and regular, no extra sounds Pulmonary: Somewhat increased work of breathing however stable on room air. Abdomen: Soft, nontender, nondistended, positive bowel sounds. Musculoskeletal: Atraumatic, no peripheral edema. Neurologic: Patient awake alert and oriented x 3 Skin: Warm, dry, no rash. Generally flushed appearing. Lower extremities evaluated and no source for sepsis identified. Course Administered Medications Sodium Chloride (Nss 1000ml) 1,000 mls @ 125 mls/hr IV .Q8H BLANCA Stop: 02/07/20 16:14 Last Admin: 01/08/20 16:46 Dose: 125 mls/hr Documented by: [id number] Discontinued Medications Acetaminophen (Tylenol) 1,000 mg PO NOW STA Stop: 01/08/20 16:05 Last Admin: 01/08/20 16:43 Dose: 1,000 mg Documented by: [id number] Sodium Chloride (Nss 1000ml) 500 mls @ 999 mls/hr IV .Q31M ONE Stop: 01/08/20 16:34 Last Infusion: 01/08/20 17:13 Dose: 0 mls/hr Documented by: [id number] Admin: 01/08/20 16:42 Dose: 999 mls/hr Documented by: [id number] Cefepime HCl (Maxipime) 2,000 mg in 20 mls @ 5 mls/min IV NOW STA; Protocol Stop: 01/08/20 16:19 Last Admin: 01/08/20 16:44 Dose: 5 mls/min Documented by: [id number] Vancomycin HCl 2,750 mg/ (Sodium Chloride) 555 mls @ 200 mls/hr IV NOW ONE Stop: 01/08/20 19:02 Last Infusion: 01/08/20 19:14 Dose: 0 mls/hr Documented by: [id number] Admin: 01/08/20 16:47 Dose: 200 mls/hr Documented by: [id number] Critical Care Time Critical Care Time: Yes I have personally spent greater than 32 minutes of critical care time in the direct management of this patient. This includes bedside care, interpretation of diagnostic studies, and testing, discussion with consultants, patient, and family members, and other required patient management activities. This 32 minutes is in excess of all separately billable procedures. Medical Decision Making Differential Diagnosis Differential diagnosis: Etiologies such as viral syndrome, otitis, pharyngitis, pneumonia, influenza, meningitis, urinary tract infection, septic arthritis, soft tissue infectious process, intra-abdominal process, sepsis, bacteremia, as well as others were entertained. Medical Records Attestation: I reviewed the patient's medical records. Home Medications Current Medication List: was personally reviewed by me Laboratory Data Attestation: I reviewed the patient's lab results. Result diagrams: 01/08/20 16:29 01/08/20 16:29 Lab Results 01/08/20 01/08/20 01/08/20 Range/Units 16:29 16:29 16:29 WBC 14.92 H (4.8-10.8) K/uL RBC 5.50 (4.7-6.1) M/uL Hgb 16.2 (14.0-18.0) g/dL Hct 49.6 (42-52) % MCV 90.2 (80-100) fL MCH 29.5 (25-34) pg MCHC 32.7 (32-36) g/dL RDW Std Deviation 45.3 (36.4-46.3) fL RDW Coeff of Jens 13.8 (11.5-14.5) % Plt Count 141 (130-400) K/uL MPV 10.8 H (7.4-10.4) fL Immature Gran % (Auto) 0.2 % Neut % (Auto) 90.1 % Lymph % (Auto) 5.7 % [place]ney % (Auto) 3.7 % Eos % (Auto) 0.2 % Baso % (Auto) 0.1 % Neut # (Auto) 13.45 H (1.4-6.5) K/uL Lymph # (Auto) 0.85 L (1.2-3.4) K/uL Finney # (Auto) 0.55 (0.11-0.59) K/uL Eos # (Auto) 0.03 (0-0.5) K/uL Baso # (Auto) 0.01 (0-0.2) K/uL Immature Gran # (Auto) 0.03 H (0.00-0.02) K/uL PT Cancelled INR Cancelled APTT Cancelled PTT Ratio Cancelled Sodium 138 (136-145) mmol/L Potassium 3.5 (3.5-5.1) mmol/L Chloride 103 (98-107) mmol/L Carbon Dioxide 29 (21-32) mmol/L Anion Gap 6.0 (3-11) BUN 16 (7-18) mg/dl Creatinine 1.55 H (0.6-1.4) mg/dl Est Cr Clr Drug Dosing 81.0 ml/min Est GFR ( Amer) 56.8 Est GFR (Non-Af Amer) 49.0 BUN/Creatinine Ratio 10.5 (10-20) Glucose 132 H (70-99) mg/dl Lactate (0.4-2.0) mmol/L Calcium 8.8 (8.5-10.1) mg/dl Magnesium 1.8 (1.8-2.4) mg/dl Total Bilirubin 0.8 (0.2-1) mg/dl AST 27 (15-37) U/L ALT 48 (12-78) U/L Alkaline Phosphatase 66 (45-117) U/L Troponin I 0.017 (0-0.045) ng/ml Total Protein 7.9 (6.4-8.2) gm/dl Albumin 3.9 (3.4-5.0) gm/dl Globulin 4.0 (2.5-4.0) gm/dl Albumin/Globulin Ratio 1.0 (0.9-2) Urine Color Urine Appearance (Clear) Urine pH (4.5-7.5) Ur Specific [place] (1.000-1.030) Urine Protein (Negative) Urine Glucose (UA) (Negative) Urine Ketones (Negative) Urine Blood (Negative) Urine Nitrite (Negative) Urine Bilirubin (Negative) Urine Urobilinogen (Negative) Ur Leukocyte Esterase (Negative) COVID-19 PCR (Negative) Nasopharyn COVID-19 PCR Sputum COVID-19 PCR 01/08/20 01/08/20 01/08/20 Range/Units 16:29 16:39 16:39 WBC (4.8-10.8) K/uL RBC (4.7-6.1) M/uL Hgb (14.0-18.0) g/dL Hct (42-52) % MCV (80-100) fL MCH (25-34) pg MCHC (32-36) g/dL RDW Std Deviation (36.4-46.3) fL RDW Coeff of Jens (11.5-14.5) % Plt Count (130-400) K/uL MPV (7.4-10.4) fL Immature Gran % (Auto) % Neut % (Auto) % Lymph % (Auto) % [place] % (Auto) % Eos % (Auto) % Baso % (Auto) % Neut # (Auto) (1.4-6.5) K/uL Lymph # (Auto) (1.2-3.4) K/uL [place] # (Auto) (0.11-0.59) K/uL Eos # (Auto) (0-0.5) K/uL Baso # (Auto) (0-0.2) K/uL Immature Gran # (Auto) (0.00-0.02) K/uL PT INR APTT PTT Ratio Sodium (136-145) mmol/L Potassium (3.5-5.1) mmol/L Chloride (98-107) mmol/L Carbon Dioxide (21-32) mmol/L Anion Gap (3-11) BUN (7-18) mg/dl Creatinine (0.6-1.4) mg/dl Est Cr Clr Drug Dosing ml/min Est GFR ( Amer) Est GFR (Non-Af Amer) BUN/Creatinine Ratio (10-20) Glucose (70-99) mg/dl Lactate 1.9 (0.4-2.0) mmol/L Calcium (8.5-10.1) mg/dl Magnesium (1.8-2.4) mg/dl Total Bilirubin (0.2-1) mg/dl AST (15-37) U/L ALT (12-78) U/L Alkaline Phosphatase (45-117) U/L Troponin I (0-0.045) ng/ml Total Protein (6.4-8.2) gm/dl Albumin (3.4-5.0) gm/dl Globulin (2.5-4.0) gm/dl Albumin/Globulin Ratio (0.9-2) Urine Color Urine Appearance (Clear) Urine pH (4.5-7.5) Ur Specific [place] (1.000-1.030) Urine Protein (Negative) Urine Glucose (UA) (Negative) Urine Ketones (Negative) Urine Blood (Negative) Urine Nitrite (Negative) Urine Bilirubin (Negative) Urine Urobilinogen (Negative) Ur Leukocyte Esterase (Negative) COVID-19 PCR NEGATIVE (Negative) Nasopharyn COVID-19 PCR Cancelled Sputum COVID-19 PCR Cancelled 01/08/20 01/08/20 01/08/20 Range/Units 17:26 18:13 18:13 WBC (4.8-10.8) K/uL RBC (4.7-6.1) M/uL Hgb (14.0-18.0) g/dL Hct (42-52) % MCV (80-100) fL MCH (25-34) pg MCHC (32-36) g/dL RDW Std Deviation (36.4-46.3) fL RDW Coeff of Jens (11.5-14.5) % Plt Count (130-400) K/uL MPV (7.4-10.4) fL Immature Gran % (Auto) % Neut % (Auto) % Lymph % (Auto) % [place] % (Auto) % Eos % (Auto) % Baso % (Auto) % Neut # (Auto) (1.4-6.5) K/uL Lymph # (Auto) (1.2-3.4) K/uL [place] # (Auto) (0.11-0.59) K/uL Eos # (Auto) (0-0.5) K/uL Baso # (Auto) (0-0.2) K/uL Immature Gran # (Auto) (0.00-0.02) K/uL PT 11.1 INR 1.1 APTT 27.3 PTT Ratio 1.0 Sodium (136-145) mmol/L Potassium (3.5-5.1) mmol/L Chloride (98-107) mmol/L Carbon Dioxide (21-32) mmol/L Anion Gap (3-11) BUN (7-18) mg/dl Creatinine (0.6-1.4) mg/dl Est Cr Clr Drug Dosing ml/min Est GFR ( Amer) Est GFR (Non-Af Amer) BUN/Creatinine Ratio (10-20) Glucose (70-99) mg/dl Lactate (0.4-2.0) mmol/L Calcium (8.5-10.1) mg/dl Magnesium (1.8-2.4) mg/dl Total Bilirubin (0.2-1) mg/dl AST (15-37) U/L ALT (12-78) U/L Alkaline Phosphatase (45-117) U/L Troponin I 0.030 (0-0.045) ng/ml Total Protein (6.4-8.2) gm/dl Albumin (3.4-5.0) gm/dl Globulin (2.5-4.0) gm/dl Albumin/Globulin Ratio (0.9-2) Urine Color Yellow Urine Appearance Clear (Clear) Urine pH 5.0 (4.5-7.5) Ur Specific [place] 1.017 (1.000-1.030) Urine Protein Negative (Negative) Urine Glucose (UA) Negative (Negative) Urine Ketones Negative (Negative) Urine Blood Negative (Negative) Urine Nitrite Negative (Negative) Urine Bilirubin Negative (Negative) Urine Urobilinogen Negative (Negative) Ur Leukocyte Esterase Negative (Negative) COVID-19 PCR (Negative) Nasopharyn COVID-19 PCR Sputum COVID-19 PCR Imaging Data Radiologist's Impression: XR chest 1V portable CLINICAL HISTORY: SEPSIS COMPARISON STUDY: 09/22/2016 FINDINGS: The heart is enlarged. There is a left subclavian pacemaker. There is mild central vascular prominence without evidence of overt failure. There is no focal pulmonary consolidation. There are no significant pleural effusions.[ IMPRESSION: Cardiomegaly. No evidence of focal pulmonary consolidation ACT 112: Negative or not required by law. Electronically signed by: Alexis Fatima M.D. 01/08/2020 5:05 PM Dictated: 01/08/20 170 Transcribed: 01/08/201703 ECG Data Attestation: I personally reviewed and interpreted this ECG as follows: Indication: + tachycardia Rate (beats per minute): 98 Rhythm: + other (Atrially sensed and ventricularly paced) ECG Intervals/blocks: + Prolonged QT (492) ECG Findings: no PACs and no PVCs Blood Pressure Blood Pressure Findings: Normal blood pressure Blood Pressure Disposition: did not require urgent referral MDM Narrative This patient was evaluated and appeared to be in no significant distress. He is noted to be tachycardic and febrile. An order for cardiac monitoring was placed and the patient is noted to be in a paced rhythm at 103 bpm. Patient was given p.o. Tylenol, IV normal saline solution 500 mL bolus and continued at 125 mL's per hour. Patient's blood pressure has remained stable. His laboratory work reveals a lactate of 1.9. WBC is elevated at 14.9, lymphocytes are depleted. Chest x-ray was performed and is limited by the patient's body habitus however is negative for focal lung consolidation. Patient's urinalysis is clear. He was treated with IV vancomycin and IV cefepime after blood cultures were obtained. A rapid COVID swab was sent and is negative. Patient was taken off of isolation precautions and will be evaluated by the hospitalist service for further management. Patient and his were made aware of the plan and agree. Impression & Plan SIRS (systemic inflammatory response syndrome), Fever, Leukocytosis Discharge Plan Visit Data Chief Complaint: Fever Stated Complaint: FEVER ED Provider: Deanna Muñoz Discharge Problem: SIRS (systemic inflammatory response syndrome), Fever, Leukocytosis Forms Stand Alone Forms: [facility] Prescriptions Prescriptions: No Action simvastatin 40 mg tablet 40 mg PO QPM Qty: 90 RF: 3 omeprazole 20 mg capsule,delayed release(DR/EC) 20 mg PO DAILY Qty: 90 RF: 3 allopurinol 100 mg tablet 200 mg PO DAILY Qty: 60 RF: 1 hydralazine 25 mg tablet 25 mg PO BID Qty: 180 RF: 1 carvedilol 25 mg tablet 50 mg PO BID Qty: 360 RF: 3 lisinopril 40 mg tablet 40 mg PO DAILY Qty: 90 RF: 0 Incruse Ellipta 62.5 mcg/actuation blister with device 1 puffs INH DAILY Qty: 30 RF: 5 calcitriol 0.25 mcg capsule 0.25 mcg PO DAILY Qty: 90 RF: 3 furosemide 80 mg tablet 80 mg PO BID Qty: 180 RF: 3 multivitamin [Multiple Vitamins] tablet 1 tab PO DAILY RF: 0 sildenafil 100 mg tablet 100 mg PO .COMPLEX PRN (Reason: Erectile Dysfunction) RF: 0 triamcinolone acetonide 0.1 % ointment 1 appln topical .COMPLEX PRN (Reason: Skin Irritation) RF: 0 aspirin 81 mg tablet,delayed release (DR/EC) 81 mg PO DAILY RF: 0 ipratropium-albuterol 20-100 mcg/actuation mist 1 puffs inhalation QID PRN (Reason: shortness of breath or wheezing) Qty: 4 RF: 2 (DME) CPAP Supplies Misc See Rx Instructions .ROUTE .MEDSUPPLY Qty: 1 RF: 0 (DME) CPAP Supplies Misc See Dose Instructions .ROUTE .MEDSUPPLY Qty: 1 RF: 0 Discharge Problem: Fever Qualifiers: Fever type: unspecified Qualified Code(s): R50.9 - Fever, unspecified Leukocytosis Qualifiers: Leukocytosis type: unspecified Qualified Code(s): D72.829 - Elevated white blood cell count, unspecified
[2020-01-08] MEDS ORDERED: KETOROLAC 30 MG/ML VIAL IV STA (19:40)
--- NOTE | 2020-01-08 20:16 | History & Physical Report ---
Date of Service January 08, 2020 Assessment & Plan (1) SIRS (systemic inflammatory response syndrome): Patient febrile, slightly tachycardic on arrival to 103bpm, leukocytosis with WBC=14.92 (neutrophil predominant with lymphopenia). Source unclear at this time. CXR with out PNA, UA unremarkable. Patient with negative rapid Covid testing, however, still suspicious for Covid. Patient administered Vancomycin and Cefepime in the ER -Admit to medical floor, maintain precautions Airborne and Contact -Follow cultures -Consider repeat covid testing in 48 hours or prior to DC -Check procalcitonin and Lyme -Repeat LFTs in AM -Will hold additional antibiotics at this time, unclear source -Tylenol PRN fever Present on Admission?: Yes (2) COPD with emphysema: Patient was recently told that he has COPD. Currently with no SOB, cough or wheeze. He follows with Pulmonary, last seen on 11/09/19. PFTs from November 2017 with moderate COPD with emphysema and air trapping. He is to have repeat PFTs prior to next visit with Pulmonary -Continue Umeclidinium, Ipratropium and Albuterol -Continue to monitor Present on Admission?: Yes (3) Obstructive sleep apnea of adult: Patient with severe HELDER on CPAP -Continue CPAP qHS Present on Admission?: Yes (4) Nonischemic cardiomyopathy: Patient with history of NICM, EF of 50% with lateral WMA. Presently appears euvolemic to slightly dry. -Continue Lisinopril, Hydralazine, Carvedilol -Continue Lasix 80mg po BID -Cautious use of fluids - will give 1L of LR Present on Admission?: Yes (5) Hypertension: Blood pressure well controlled at present, 131/69 -Continue Carvedilol, Hydralazine and Lisinopril -Continue to monitor Present on Admission?: Yes (6) Chronic kidney disease: BUN=16, Cr=1.55, near baseline. -Continue Calcitriol -Avoid nephrotoxic agents -Renal dosing where needed -Repeat chemistry panel in AM Present on Admission?: Yes (7) Multiple pulmonary nodules: On surveillance by Pulmonary. They have been stable. Last CT Chest October 2019 -Due for repeat CT chest October 2020 F/E/N - LR at 125mL/hr x 1 liter, electrolytes WNL, Heart Healthy/Low Na diet as tolerated Ppx - Lovenox 40 Code - Full Dispo - Admit to medical floor Present on Admission?: Yes History of Present Illness Chief Complaint: fevers/chills/nausea Primary Care Provider: Alena Ulloa MD Benjamín Atkinson is a pleasant 59yo male with history of HNG, CKD, CHF secondary to NICM (lateral wall hypokinesis, mild concentric LVH, EF of 50%) presenting with acute onset fevers/chills, nausea and vomiting x 1 episode that started this AM. Patient denies headache, visual changes, sore throat, CP, cough, abdominal pain, diarrhea. He denies loss of taste or smell. He does have some mild SOB. 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 He lives in [place] with his . He denies travel outside of work. No sick contacts. On arrival to the ER he was found to be febrile at 38.5, HD stable. No additional complaints at this time. ER Course: Vancomycin, Cefepime Allergies Allergy/AdvReac Type Severity Reaction Status Date / Time No Known Drug Allergies Allergy Verified 11/09/19 08:53 Home Medications Home Medications Medication Instructions Recorded Confirmed Type multivitamin 1 tab PO DAILY 01/18/19 01/08/20 History sildenafil 100 mg tablet 100 mg PO .COMPLEX PRN tab 01/18/19 01/08/20 History triamcinolone acetonide 0.1 % 1 appln TOPICAL .COMPLEX PRN gm 01/18/19 01/08/20 History topical ointment simvastatin 40 mg tablet 40 mg PO QPM #90 tab 02/23/19 01/08/20 Rx miscellaneous medical supply #1 ea 04/12/19 11/09/19 Rx omeprazole 20 mg capsule,delayed 20 mg PO DAILY #90 cap 04/27/19 01/08/20 Rx release aspirin 81 mg tablet,delayed 81 mg PO DAILY tab 05/11/19 01/08/20 History release furosemide 80 mg tablet 80 mg PO BID #180 tab 06/29/19 01/08/20 Rx allopurinol 100 mg tablet 200 mg PO DAILY #60 tab 09/06/19 01/08/20 Rx hydralazine 25 mg tablet 25 mg PO BID #180 tab 09/06/19 01/08/20 Rx carvedilol 25 mg tablet 50 mg PO BID #360 tab 10/06/19 01/08/20 Rx lisinopril 40 mg tablet 40 mg PO DAILY #90 tab 10/18/19 01/08/20 Rx ipratropium 20 mcg-albuterol 100 1 puffs INHALATION QID PRN #4 gm 11/09/19 0 01/08/20 Rx mcg/actuation mist for inhalation miscellaneous medical supply #1 ea 11/09/19 11/09/19 Rx umeclidinium 62.5 mcg/actuation 1 puffs INH DAILY #30 ea 11/24/19 01/08/20 Rx blister powder for inhalation calcitriol 0.25 mcg capsule 0.25 mcg PO DAILY #90 cap 01/06/20 01/08/20 Rx Past Med/Surg History Medical History (Updated 01/08/20 @ 23:17 by Estee Donohue DO) Chronic congestive heart failure Chronic kidney disease COPD with emphysema Hypertension Multiple pulmonary nodules Obstructive sleep apnea of adult (Chronic) Surgical History (Updated 01/08/20 @ 22:59 by Estee Donohue DO) S/P cardiac pacemaker procedure (Resolved) Family History Denies family history of Kidney disease Social History (Updated 01/08/20 @ 19:49 by Deanna Muñoz MD) Smoking Status: Never smoker Tobacco Type: Cigarettes Second Hand Exposure: No; Hx Alcohol Use: Yes Alcohol type: beer Hx Substance Use: No Preferred Language: Lithuanian Communication Ability: Effective 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 Beliefs That Will Affect Care: None Current Living Situation: Spouse and Family Feels Safe at Home: Yes Safety Concerns: Feels Safe At This Time Review of Systems Review of Systems: All systems reviewed & are unremarkable except as noted in HPI & below Physical Exam Physical Exam: General: patient resting comfortably, NAD, non-toxic in appearance, AA&O x 4 Skin: warm, dry, intact, no rashes or lesions HEENT: NC/AT, PERRL, EOMI, anicteric sclera, conjunctiva without injection, external ear normal to inspection and nontender, nares patent, moist mucus membranes, dentition intact, no oropharyngeal lesions, neck supple, trachea midline, no LAD, no thyromegaly, no JVD Heart: +S1/S2, regular, no m/r/g Lungs: equal air entry bilaterally, no rales/rhonchi/wheezes Abd: +BS, soft, NT/ND, no masses/organomegaly/ascites Ext: warm, 2+ pulses in UE/LE bilaterally, no clubbing/cyanosis or edema Neuro: nonfocal, patient AA&O x 4, speech intact, no facial droop, moving all extremities on command with equal strength 5/5 Results & Data Results & Data ([facility]) Vital Signs (Past 12 Hours) Vital Signs Temp Pulse Pulse Resp BP BP Pulse Ox 01/08/20 19:15 38.8 C H 103 H 18 112/77 91 01/08/20 18:19 38.5 C H 01/08/20 18:00 98 H 15 131/69 01/08/20 16:47 96 H 25 H 171/105 H 93 01/08/20 16:19 32 H 94 01/08/20 15:54 39.3 C H 102 H 32 H 193/84 H 94 Laboratory Results Lab Results 01/08/20 01/08/20 01/08/20 Range/Units 16:29 16:29 16:29 WBC 14.92 H (4.8-10.8) K/uL RBC 5.50 (4.7-6.1) M/uL Hgb 16.2 (14.0-18.0) g/dL Hct 49.6 (42-52) % MCV 90.2 (80-100) fL MCH 29.5 (25-34) pg MCHC 32.7 (32-36) g/dL RDW Std Deviation 45.3 (36.4-46.3) fL RDW Coeff of Jens 13.8 (11.5-14.5) % Plt Count 141 (130-400) K/uL MPV 10.8 H (7.4-10.4) fL Immature Gran % (Auto) 0.2 % Neut % (Auto) 90.1 % Lymph % (Auto) 5.7 % [place] % (Auto) 3.7 % Eos % (Auto) 0.2 % Baso % (Auto) 0.1 % Neut # (Auto) 13.45 H (1.4-6.5) K/uL Lymph # (Auto) 0.85 L (1.2-3.4) K/uL [place] # (Auto) 0.55 (0.11-0.59) K/uL Eos # (Auto) 0.03 (0-0.5) K/uL Baso # (Auto) 0.01 (0-0.2) K/uL Immature Gran # (Auto) 0.03 H (0.00-0.02) K/uL PT Cancelled INR Cancelled APTT Cancelled PTT Ratio Cancelled Sodium 138 (136-145) mmol/L Potassium 3.5 (3.5-5.1) mmol/L Chloride 103 (98-107) mmol/L Carbon Dioxide 29 (21-32) mmol/L Anion Gap 6.0 (3-11) BUN 16 (7-18) mg/dl Creatinine 1.55 H (0.6-1.4) mg/dl Est Cr Clr Drug Dosing 81.0 ml/min Est GFR ( Amer) 56.8 Est GFR (Non-Af Amer) 49.0 BUN/Creatinine Ratio 10.5 (10-20) Glucose 132 H (70-99) mg/dl Lactate (0.4-2.0) mmol/L Calcium 8.8 (8.5-10.1) mg/dl Magnesium 1.8 (1.8-2.4) mg/dl Total Bilirubin 0.8 (0.2-1) mg/dl AST 27 (15-37) U/L ALT 48 (12-78) U/L Alkaline Phosphatase 66 (45-117) U/L Troponin I 0.017 (0-0.045) ng/ml Total Protein 7.9 (6.4-8.2) gm/dl Albumin 3.9 (3.4-5.0) gm/dl Globulin 4.0 (2.5-4.0) gm/dl Albumin/Globulin Ratio 1.0 (0.9-2) Urine Color Urine Appearance (Clear) Urine pH (4.5-7.5) Ur Specific [place] (1.000-1.030) Urine Protein (Negative) Urine Glucose (UA) (Negative) Urine Ketones (Negative) Urine Blood (Negative) Urine Nitrite (Negative) Urine Bilirubin (Negative) Urine Urobilinogen (Negative) Ur Leukocyte Esterase (Negative) COVID-19 PCR (Negative) Nasopharyn COVID-19 PCR Sputum COVID-19 PCR 01/08/20 01/08/20 01/08/20 Range/Units 16:29 16:39 16:39 WBC (4.8-10.8) K/uL RBC (4.7-6.1) M/uL Hgb (14.0-18.0) g/dL Hct (42-52) % MCV (80-100) fL MCH (25-34) pg MCHC (32-36) g/dL RDW Std Deviation (36.4-46.3) fL RDW Coeff of Jens (11.5-14.5) % Plt Count (130-400) K/uL MPV (7.4-10.4) fL Immature Gran % (Auto) % Neut % (Auto) % Lymph % (Auto) % [place] % (Auto) % Eos % (Auto) % Baso % (Auto) % Neut # (Auto) (1.4-6.5) K/uL Lymph # (Auto) (1.2-3.4) K/uL [place] # (Auto) (0.11-0.59) K/uL Eos # (Auto) (0-0.5) K/uL Baso # (Auto) (0-0.2) K/uL Immature Gran # (Auto) (0.00-0.02) K/uL PT INR APTT PTT Ratio Sodium (136-145) mmol/L Potassium (3.5-5.1) mmol/L Chloride (98-107) mmol/L Carbon Dioxide (21-32) mmol/L Anion Gap (3-11) BUN (7-18) mg/dl Creatinine (0.6-1.4) mg/dl Est Cr Clr Drug Dosing ml/min Est GFR ( Amer) Est GFR (Non-Af Amer) BUN/Creatinine Ratio (10-20) Glucose (70-99) mg/dl Lactate 1.9 (0.4-2.0) mmol/L Calcium (8.5-10.1) mg/dl Magnesium (1.8-2.4) mg/dl Total Bilirubin (0.2-1) mg/dl AST (15-37) U/L ALT (12-78) U/L Alkaline Phosphatase (45-117) U/L Troponin I (0-0.045) ng/ml Total Protein (6.4-8.2) gm/dl Albumin (3.4-5.0) gm/dl Globulin (2.5-4.0) gm/dl Albumin/Globulin Ratio (0.9-2) Urine Color Urine Appearance (Clear) Urine pH (4.5-7.5) Ur Specific [place] (1.000-1.030) Urine Protein (Negative) Urine Glucose (UA) (Negative) Urine Ketones (Negative) Urine Blood (Negative) Urine Nitrite (Negative) Urine Bilirubin (Negative) Urine Urobilinogen (Negative) Ur Leukocyte Esterase (Negative) COVID-19 PCR NEGATIVE (Negative) Nasopharyn COVID-19 PCR Cancelled Sputum COVID-19 PCR Cancelled 01/08/20 01/08/20 01/08/20 Range/Units 17:26 18:13 18:13 WBC (4.8-10.8) K/uL RBC (4.7-6.1) M/uL Hgb (14.0-18.0) g/dL Hct (42-52) % MCV (80-100) fL MCH (25-34) pg MCHC (32-36) g/dL RDW Std Deviation (36.4-46.3) fL RDW Coeff of Jens (11.5-14.5) % Plt Count (130-400) K/uL MPV (7.4-10.4) fL Immature Gran % (Auto) % Neut % (Auto) % Lymph % (Auto) % [place] % (Auto) % Eos % (Auto) % Baso % (Auto) % Neut # (Auto) (1.4-6.5) K/uL Lymph # (Auto) (1.2-3.4) K/uL [place] # (Auto) (0.11-0.59) K/uL Eos # (Auto) (0-0.5) K/uL Baso # (Auto) (0-0.2) K/uL Immature Gran # (Auto) (0.00-0.02) K/uL PT 11.1 INR 1.1 APTT 27.3 PTT Ratio 1.0 Sodium (136-145) mmol/L Potassium (3.5-5.1) mmol/L Chloride (98-107) mmol/L Carbon Dioxide (21-32) mmol/L Anion Gap (3-11) BUN (7-18) mg/dl Creatinine (0.6-1.4) mg/dl Est Cr Clr Drug Dosing ml/min Est GFR ( Amer) Est GFR (Non-Af Amer) BUN/Creatinine Ratio (10-20) Glucose (70-99) mg/dl Lactate (0.4-2.0) mmol/L Calcium (8.5-10.1) mg/dl Magnesium (1.8-2.4) mg/dl Total Bilirubin (0.2-1) mg/dl AST (15-37) U/L ALT (12-78) U/L Alkaline Phosphatase (45-117) U/L Troponin I 0.030 (0-0.045) ng/ml Total Protein (6.4-8.2) gm/dl Albumin (3.4-5.0) gm/dl Globulin (2.5-4.0) gm/dl Albumin/Globulin Ratio (0.9-2) Urine Color Yellow Urine Appearance Clear (Clear) Urine pH 5.0 (4.5-7.5) Ur Specific [place] 1.017 (1.000-1.030) Urine Protein Negative (Negative) Urine Glucose (UA) Negative (Negative) Urine Ketones Negative (Negative) Urine Blood Negative (Negative) Urine Nitrite Negative (Negative) Urine Bilirubin Negative (Negative) Urine Urobilinogen Negative (Negative) Ur Leukocyte Esterase Negative (Negative) COVID-19 PCR (Negative) Nasopharyn COVID-19 PCR Sputum COVID-19 PCR Diagnostic Findings XR chest 1V portable CLINICAL HISTORY: SEPSIS COMPARISON STUDY: 09/22/2016 FINDINGS: The heart is enlarged. There is a left subclavian pacemaker. There is mild central vascular prominence without evidence of overt failure. There is no focal pulmonary consolidation. There are no significant pleural effusions.[ IMPRESSION: Cardiomegaly. No evidence of focal pulmonary consolidation ACT 112: Negative or not required by law. Electronically signed by: Alexis Fatima M.D. 01/08/2020 5:05 PM Dictated: 01/08/201703 Transcribed: 01/08/201703 ECG Additional Comments: EKG with atrial-sensed, ventricular-pace at 98bpm Code Status & VTE Plan Code Status FULL CODE VTE Prophylaxis Plan VTE Prophylaxis will be ordered: Yes PG Care Time/CCT Total # of Minutes Spent Total Time Spent with Patient: Total time spent is greater than 50% in coordination of care (as documented) at patient's floor/unit and/or counseling patient: Coding Level of Care Code 14502 Initial Inpt Care Lvl 3 Diagnoses SIRS (systemic inflammatory response syndrome) R65.10 COPD with emphysema J43.9 Emphysema type: unspecified Obstructive sleep apnea of adult G47.33 Nonischemic cardiomyopathy I42.8 Hypertension I10 Hypertension type: essential hypertension Chronic kidney disease N18.9 Chronic kidney disease stage: unspecified stage Multiple pulmonary nodules R91.8 (1) COPD with emphysema Emphysema type: unspecified Qualified Code(s): J43.9 - Emphysema, unspecified (2) Hypertension Hypertension type: essential hypertension Qualified Code(s): I10 - Essential (primary) hypertension (3) Chronic kidney disease Chronic kidney disease stage: unspecified stage Qualified Code(s): N18.9 - Chronic kidney disease, unspecified
[2020-01-08] MEDS ORDERED: ONDANSETRON INJ 2 MG/ML 2 ML VIAL IV PRN (22:03)
[2020-01-08] MEDS ORDERED: TRIAMCINOLONE ACET 0.1% OINT 15 GM TUBE TOP PRN (22:03)
[2020-01-08] MEDS ORDERED: ACETAMINOPHEN 325 MG TAB PO PRN (22:03)
[2020-01-08] MEDS ORDERED: SIMVASTATIN 40 MG TAB PO SCH (22:03)
[2020-01-08] MEDS ORDERED: LACTATED RINGER'S 1,000 ML IV SCH (22:45)
[2020-01-08] MEDS ORDERED: ALBUTEROL HFA 8 GM INHALER INH PRN (22:49)
[2020-01-08] MEDS ORDERED: IPRATROPIUM BROMIDE HFA INHALER INH PRN (22:50)
[2020-01-09] MEDS: carvediloL 25 MG TAB PO SCH ×2 (00:02→08:20)
[2020-01-09] MEDS: FUROSEMIDE 80 MG TAB PO SCH ×2 (00:02→08:21)
[2020-01-09 02:17] LABS: Basophils # (auto) 0.02 K/uL (0-0.2); Basophils % (auto) 0.1 %; Hematocrit (blood only) 45.2 % (42-52); Hemoglobin 14.9 g/dL (14.0-18.0); Immature Granulocytes # (auto) 0.06 K/uL (0.00-0.02); Immature Granulocytes % (auto) 0.4 %; Lymphocytes # (auto) 0.91 K/uL (1.2-3.4); Lymphocytes % (auto) 5.4 %; Mean Corpuscular Hemoglobin 30.3 pg (25-34); Mean Corpuscular Volume 92.1 fL (80-100); Mean Platelet Volume 10.4 fL (7.4-10.4); Monocytes # (auto) 1.11 K/uL (0.11-0.59); Monocytes % (auto) 6.6 %; Neutrophils # (auto) 14.84 K/uL (1.4-6.5); Neutrophils % (auto) 87.5 %; Platelet Count 128 K/uL (130-400); RDW Coefficient of Variation 14.2 % (11.5-14.5); RDW Standard Deviation 48.2 fL (36.4-46.3); Red Blood Count 4.91 M/uL (4.7-6.1); White Blood Count 16.94 K/uL (4.8-10.8)
[2020-01-09 02:34] LABS: Albumin Level 3.2 gm/dl (3.4-5.0); BUN Creatinine Ratio 10.8 (10-20); Bilirubin Direct 0.3 mg/dl (0-0.2); Creatinine Clr Calc Pharmacy 63.1 ml/min; Est GFR (Non-African American) 36.2; Potassium 3.9 mmol/L (3.5-5.1)
[2020-01-09 02:54] LABS: Procalcitonin 4.08 ng/ml (0-0.5)
[2020-01-09 03:03] LABS: Lyme Ab IgG w/WB Rflx Negative (Negative); Lyme Ab IgM w/WB Rflx Negative (Negative)
[2020-01-09] MEDS ORDERED: allopurinoL 100 MG TAB PO SCH (09:00)
[2020-01-09] MEDS ORDERED: MULTIVITAMIN TAB PO SCH (09:00)
[2020-01-09] MEDS ORDERED: lisinopriL 40 MG TAB PO SCH (09:00)
[2020-01-09] MEDS ORDERED: ENOXAPARIN INJ 40 MG/0.4 ML SYR SQ SCH (09:00)
[2020-01-09] MEDS ORDERED: ASPIRIN 81 MG ECTAB PO SCH (09:00)
[2020-01-09] MEDS ORDERED: UMECLIDINIUM BROMIDE 62.5MCG/BLISTER 7 PUFFS/INHALER INH SCH (09:00)
[2020-01-09] MEDS ORDERED: CALCITRIOL 0.25 MCG CAPSULE PO SCH (09:00)
[2020-01-09] MEDS ORDERED: PANTOprazole 40 MG TAB PO SCH (09:00)
--- NOTE | 2020-01-09 17:45 | Electrocardiogram Report ---
Test Reason : Blood Pressure : / mmHG Vent. Rate : 098 BPM Atrial Rate : 098 BPM P-R Int : 130 ms QRS Dur : 164 ms QT Int : 386 ms P-R-T Axes : 036 201 015 degrees QTc Int : 492 ms Atrial-sensed ventricular-paced rhythm Abnormal ECG When compared with ECG of 22-SEP-2016 21:50, Vent. rate has increased BY 32 BPM Confirmed by Uri Gage ([id number]) on 01/09/2020 5:45:08 PM Referred By: REFERRED SELF Confirmed By:Lm Gage
--- NOTE | 2020-01-09 18:22 | Discharge Summary ---
Date of Service January 09, 2020 Admission HPI Per Admitting Provider Benjamín Atkinson is a pleasant 59yo male with history of HNG, CKD, CHF secondary to NICM (lateral wall hypokinesis, mild concentric LVH, EF of 50%) presenting with acute onset fevers/chills, nausea and vomiting x 1 episode that started this AM. Patient denies headache, visual changes, sore throat, CP, cough, abdominal pain, diarrhea. He denies loss of taste or smell. He does have some mild SOB. 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 He lives in [place] with his . He denies travel outside of work. No sick contacts. On arrival to the ER he was found to be febrile at 38.5, HD stable. No additional complaints at this time. ER Course: Vancomycin, Cefepime Principal Diagnosis SIRS - probable sepsis from bacterial and/or viral source (see hospital course) - improving Discharge Exam gen [id number] pleasant nad heent nc at mmm breathing unlabored no accessory muscles good effort skin no rashes no pallor or icterus neuro no focal deficits labs noted Discharge Data Allergies Allergy/AdvReac Type Severity Reaction Status Date / Time No Known Drug Allergies Allergy Verified 11/09/19 08:53 Consultations 01/08/20 19:39 ED Decision to Admit Stat Hospital Course (1) SIRS (systemic inflammatory response syndrome): sepsis - unclear source - bacterial vs viral ---ddx entertained include pneumonia (but no sob/cough/CXR clear), UTI (no sx), cellulitis (none apparent/no rashes/etc), bacteremia (blood cultures negative to date), viral (COVID negative - given moderately high false negative rate discussed reswab to increase certainty but pt declined, and with no significant respiratory symptoms despite having COPD, it is quite unlikely anyway), or tick borne (lyme negative, but with sl thrombocytopenia and endemic area, anaplasmosis possible - albeit not totally fitting with the clinical picture) ---feels totally better and very much wants to go home. ---with tick borne illness like anaplasmosis being so prevalent here, and viral seeming to be far less likely as above noted - opted to discharge on empiric doxycycline - pt agrees w plan. stable for discharge repeat CBC, BMP later this week to ensure heading back towards normal. (2) COPD with emphysema: fortunately no dyspnea, respiratory sx - pleading heavily against covid. home on home inhalers (3) Obstructive sleep apnea of adult: Patient with severe HELDER on CPAP -Continue CPAP qHS at home (4) Nonischemic cardiomyopathy: Patient with history of NICM, EF of 50% with lateral WMA. Presently appears euvolemic to slightly dry. -Continue Lisinopril, Hydralazine, Carvedilol -Continue Lasix 80mg po BID -encouraged more liberal PO fluid next few days, then back to normal. BMP later this week (5) Hypertension: home on home meds (6) Chronic kidney disease: CKD 3 - creatinine sl up compared to baseline - safe/stable for home w outpt f/u and BMP later this week (7) Multiple pulmonary nodules: On surveillance by Pulmonary. They have been stable. Last CT Chest October 2019 -Due for repeat CT chest October 2020 Total Time Total Time Spent Total Time Spent (In Minutes): >30 Discharge Plan Discharge Items Patient Disposition: Home - Self-Care Reason For Visit: FEVER,CHILLS Discharge Diagnosis: fever - see below Activity: Resume your previous activity Non-emergency contact: Primary Care Provider Call non-emergency contact if: you have any medication questions and your symptoms worsen Follow-up/Referrals: Alena Ulloa MD [Primary Care Provider] - (PLEASE CONTACT [facility]ICE TO SCHEDULE A POST DISCHARGE FOLLOW-UP APPOINTMENT WITHIN 2 WEEKS OF DC) Diet: Regular Addtl Attending Provider Instructions: fever -your symptoms were in the category of what we would call "constitutional symptoms" - meaning that just about any infection can have those as part of it. usually with more focused bacterial infections, after a period of "constitutional symptoms" people will start to develop more focused problems (like cough and short of breath with a pneumonia, or flank pain and burning when they pee with a kidney infection) - with you none of those developed, and instead, you actually started to feel more or less totally better - which is quite reassurring that you don't have any of our "typical" bacterial infections -your chest xray did not show fluid or infection, your blood cultures (drawn in the ER) are showing no bacteria thus far -- they do let them grow for 5 days - so occassionally we'll see late growth on things in which case we'd call and dir ect further from there -your labs show a moderately high white blood cell count (nonspecific, but often goes up in the face of infections - today was 16.94, normal is about 4-12) and a very, very mildly low platelet count (128, normal is 130) - and these lab findings, combined with where we live, makes me suspicious of a tick borne illness (we'll often see this kind of lab pattern with some of our tick illness offenders - and the antibiotics they gave you in the ER can "accidentally" treat tick borne infections to a large degree) -your covid swab was negative, but as we discussed, there is about a 20% false negative rate -- i only really bring this up because if you were to go on to develop new respiratory symptoms like a cough or shortness of breath, then it would be worth retesting -otherwise, it makes the most sense to treat as the tick borne illness i am suspicious of (either early lyme or early anaplasmosis would fit) -- both respond really well to an antibiotic called doxycycline - we'll have you start tonight, and take a dose in the morning and a dose in the evening for 14 days (28 total doses). most people tolerate doxycycline really well - sometimes it can upset the stomach so take it with food -- and also while rare, some people get really sun sensitive while they're on it (like 15 minutes of sun can cause a blistering sunburn) - so while you're on it, I'd recommend protective clothes and sunblock as though you're at the beach ---since the labs were a little off, and we're treating a "presumptive" diagnosis (rather than an ironclad confirmed one) - i would recommend that they check labs in the office thursday (CBC, BMP) to make sure things are ether back to normal or heading that way; and if you were to feel worse again/have a recurrence of fever/etc, we'd want you re-evaluated incidental -your kidney numbers were just a little higher than you normally run - this suggests a little dehydration - common both in the face of infection, and for this time of year. just try to drink a good 60-70 ounces of fluid a day for the next few days (obviously after that go back to what is recommended by your regular docs for your heart) - and we'll have this rechecked with the labwork on thursday Pending Studies at Discharge: Yes (blood cultures - negative to date, but will be in the lab for 5 days) Stand-Alone Forms: My [facility], Smoking Cessation Medications and DC Order Prescriptions: New doxycycline hyclate 100 mg tablet 100 mg PO BID 14 Days Qty: 28 RF: 0 Continued simvastatin 40 mg tablet 40 mg PO QPM Qty: 90 RF: 3 omeprazole 20 mg capsule,delayed release(DR/EC) 20 mg PO DAILY Qty: 90 RF: 3 allopurinol 100 mg tablet 200 mg PO DAILY Qty: 60 RF: 1 hydralazine 25 mg tablet 25 mg PO BID Qty: 180 RF: 1 carvedilol 25 mg tablet 50 mg PO BID Qty: 360 RF: 3 lisinopril 40 mg tablet 40 mg PO DAILY Qty: 90 RF: 0 Incruse Ellipta 62.5 mcg/actuation blister with device 1 puffs INH DAILY Qty: 30 RF: 5 calcitriol 0.25 mcg capsule 0.25 mcg PO DAILY Qty: 90 RF: 3 furosemide 80 mg tablet 80 mg PO BID Qty: 180 RF: 3 multivitamin [Multiple Vitamins] tablet 1 tab PO DAILY RF: 0 sildenafil 100 mg tablet 100 mg PO .COMPLEX PRN (Reason: Erectile Dysfunction) RF: 0 triamcinolone acetonide 0.1 % ointment 1 appln topical .COMPLEX PRN (Reason: Skin Irritation) RF: 0 aspirin 81 mg tablet,delayed release (DR/EC) 81 mg PO DAILY RF: 0 ipratropium-albuterol 20-100 mcg/actuation mist 1 puffs inhalation QID PRN (Reason: shortness of breath or wheezing) Qty: 4 RF: 2 (DME) CPAP Supplies Misc See Rx Instructions .ROUTE .MEDSUPPLY Qty: 1 RF: 0 (DME) CPAP Supplies Misc See Dose Instructions .ROUTE .MEDSUPPLY Qty: 1 RF: 0 Discharge Orders: Discharge Order (Routine); Ordered 01/09/20 Ordered By: Girish Wyatt Admission Data Admit Date/Time: 01/08/20 20:16 Attending Provider: Girish Wyatt Admit Provider: Estee Donohue Primary Care Provider: Alena Ulloa Other Providers: Estee Donohue Other Interventions: Discharge Summary Assessment (RN) Last Done: 01/09/20 13:32 DC Date/Time DO NOT enter until pt leaves facility: 01/09/20 14:34 Coding Level of Care Code D/C Day Management >30 mins Diagnoses SIRS (systemic inflammatory response syndrome) R65.10 COPD with emphysema J43.9 Emphysema type: unspecified Obstructive sleep apnea of adult G47.33 Nonischemic cardiomyopathy I42.8 Hypertension I10 Hypertension type: essential hypertension Chronic kidney disease N18.9 Chronic kidney disease stage: unspecified stage Multiple pulmonary nodules R91.8
== END 2020-01-09 14:34 | disposition home or self-care (01) | DRG 872 ==
LOC: ED 15:42 → SUATTDRO 20:16 → 2W 20:16

== ENCOUNTER 2021-02-18 13:59 | Inpatient (IN) ==
[2021-02-18 15:02] LABS: Basophils # (auto) 0.02 K/uL (0-0.2); Basophils % (auto) 0.3 %; Eosinophils # (auto) 0.12 K/uL (0-0.5); Eosinophils % (auto) 1.9 %; Hematocrit (blood only) 48.6 % (42-52); Hemoglobin 15.9 g/dL (14.0-18.0); Immature Granulocytes # (auto) 0.02 K/uL (0.00-0.02); Immature Granulocytes % (auto) 0.3 %; Lymphocytes # (auto) 1.23 K/uL (1.2-3.4); Lymphocytes % (auto) 19.2 %; Mean Corpuscular Hemoglobin 30.1 pg (25-34); Mean Corpuscular Hgb Conc 32.7 g/dL (32-36); Mean Corpuscular Volume 91.9 fL (80-100); Mean Platelet Volume 11.3 fL (7.4-10.4); Monocytes # (auto) 0.74 K/uL (0.11-0.59); Monocytes % (auto) 11.6 %; Neutrophils # (auto) 4.26 K/uL (1.4-6.5); Neutrophils % (auto) 66.7 %; Platelet Count 139 K/uL (130-400); RDW Coefficient of Variation 14.2 % (11.5-14.5); RDW Standard Deviation 47.4 fL (36.4-46.3); Red Blood Count 5.29 M/uL (4.7-6.1); White Blood Count 6.39 K/uL (4.8-10.8)
[2021-02-18] MEDS ORDERED: predniSONE 50 MG TAB PO STA (15:03)
[2021-02-18] MEDS ORDERED: ALBUT/IPRATROP 3MG/0.5MG NEB 3 ML VIAL NEB STA (15:03)
[2021-02-18 15:15] LABS: Partial Thromboplastin Time 27.6 Seconds (21.0-31.0); Prothrombin Time 10.3 Seconds (9.0-12.0)
[2021-02-18 15:23] LABS: Alanine Aminotransferase 58 U/L (12-78); Albumin Level 3.6 gm/dl (3.4-5.0); Aspartate Aminotransferase 25 U/L (15-37); BUN Creatinine Ratio 11.9 (10-20); Blood Urea Nitrogen 16 mg/dl (7-18); Calcium 8.5 mg/dl (8.5-10.1); Carbon Dioxide 31 mmol/L (21-32); Chloride 106 mmol/L (98-107); Est GFR (African American) 67.8 ml/min; Est GFR (Non-African American) 58.5 ml/min; Glucose 101 mg/dl (70-99); Potassium 3.4 mmol/L (3.5-5.1); Sodium 142 mmol/L (136-145)
--- NOTE | 2021-02-18 15:26 | XRay Report ---
XR chest 1V portable HISTORY: 60 years-old Male SOB acute shortness of breath COMPARISON: Chest and rib radiographs 11/13/2020, chest CT 10/31/2020 TECHNIQUE: Portable AP view of the chest FINDINGS: Left subclavian pacer. Cardiac silhouette is enlarged. Mild pulmonary vascular congestion. No pneumot horax, pleural effusion, airspace consolidation or overt pulmonary edema. Bones appear grossly intact . IMPRESSION: Cardiomegaly with pulmonary vascular congestion. ACT 112: Negative or not required by law. The above report was generated using voice recognition software. It may contain grammatical, syntax o r spelling errors. Electronically signed by: Mike Bauman M.D. 02/18/2021 3:24 PM
[2021-02-18 15:28] LABS: Albumin Globulin Ratio 0.9 (0.9-2); Alkaline Phosphatase 55 U/L (45-117); Bilirubin,Total 0.9 mg/dl (0.2-1); Globulin 3.8 gm/dl (2.5-4.0); Total Protein 7.4 gm/dl (6.4-8.2); Troponin I < 0.015 ng/ml (0-0.045)
[2021-02-18] MEDS ORDERED: FUROSEMIDE 40 MG/4 ML VIAL IV STA (16:05)
[2021-02-18] MEDS ORDERED: POTASSIUM CHLORIDE 10 MEQ TABCR PO STA (16:05)
--- NOTE | 2021-02-18 16:11 | Emergency Department Note ---
History of Present Illness General Chief Complaint: Shortness of Breath/Dyspnea Stated Complaint: SOB Time Seen by Provider: 02/18/21 14:57 History of Present Illness Provider Complaint: shortness of breath Onset (ago): day(s) (2) Severity: moderate Consistency/Duration: + intermittent and + progressively worsening Relieved By: + nothing Exacerbated By: + exertion Context: + medication noncompliance Known history of: COPD and congestive heart failure Associated symptoms: + orthopnea and + diaphoresis; no chest pain, no fever, no cough, no wheezing, no sputum production, no lower extremity pain, no polyuria, no polydipsia, no palpitations, no carpopedal spasm, no hemoptysis, no nausea/vomiting, no syncope, no abdominal pain, no rash, no sense of impending doom, no chest congestion, no dizziness or no lightheadedness HPI Narrative: Patient states he walked to his neighbor's house when he was having difficulty breathing and his oxygen level went down to 80% on the patient's neighbors portable pulse oximeter. Home Medications Medication Instructions Recorded Confirmed Type triamcinolone acetonide 0.1 % 1 appln TOPICAL .COMPLEX PRN gm 01/18/19 02/18/21 History topical ointment CPAP Supplies #1 ea 04/12/19 12/12/20 Rx aspirin 81 mg tablet,delayed 81 mg PO DAILY tab 05/11/19 02/18/21 History release CPAP Supplies #1 ea 11/09/19 12/12/20 Rx allopurinol 100 mg tablet 200 mg PO DAILY #180 tab 03/19/20 02/18/21 Rx calcitriol 0.25 mcg capsule 0.25 mcg PO DAILY #90 cap 10/05/20 02/18/21 Rx carvedilol 25 mg tablet 50 mg PO BID #360 tab 10/05/20 02/18/21 Rx furosemide 80 mg tablet 80 mg PO BID #180 tab 10/05/20 02/18/21 Rx simvastatin 40 mg tablet 40 mg PO QPM #90 tab 11/13/20 02/18/21 Rx lisinopril 40 mg tablet 40 mg PO DAILY #90 tab 02/05/21 02/18/21 Rx hydralazine 25 mg tablet 25 mg PO BID 02/18/21 02/18/21 History Allergies Allergy/AdvReac Type Severity Reaction Status Date / Time No Known Allergies Allergy Verified 02/18/21 15:21 Past Med/Surg History Medical History Chronic congestive heart failure Chronic kidney disease COPD with emphysema Gout Hypertension Multiple pulmonary nodules Obstructive sleep apnea of adult Surgical History S/P cardiac pacemaker procedure Family History Mother Diabetes Father Diabetes Stroke Grandmother Diabetes Denies family history of Ovarian cancer Prostate cancer Kidney disease Myocardial infarction Breast cancer Colorectal cancer Hypertension Social History Smoking Status: Never smoker Tobacco Type: Cigarettes Cigarettes Per Day: 90; Second Hand Exposure: No; Hx Alcohol Use: Yes Alcohol type: beer Hx Substance Use: No Preferred Language: Danish Communication Ability: Effective Inspector Timers Required: No Beliefs That Will Affect Care: None Current Living Situation: Spouse and Family Feels Safe at Home: Yes Assistive Devices: Glasses Review of Systems A total of 10 systems reviewed and were otherwise negative Physical Exam Vital Signs: Vital Signs - 24 hr 02/18/21 14:02 02/18/21 14:05 02/18/21 14:50 Temperature 36.5 C Temperature Source Temporal Artery Sc an Pulse Rate 72 Pulse Rate [Apical ] Pulse Rate [Exerci ses] Pulse Rate [Recove ry] Pulse Rate from Sp O2 Sensor Pulse Rhythm Regular Pulse Strength Normal Respiratory Rate 21 Respiratory Rate [ Exercises] Respiratory Rate [ Recovery] Respiratory Effort / Characteristics Non-Labored Sponta neous Spontaneous Spontaneous SOB on Exertion Respiratory Depth Normal Respiratory Patter n Regular Regular Blood Pressure 198/105 H Blood Pressure Jody n 136 Pulse Oximetry 93 94 Pulse Oximetry [Ex ercises] Pulse Oximetry [Re covery] Oxygen Delivery Me thod Room Air Room Air Room Air Sepsis Recent Feve r Within 48 Hours No Sepsis New/Unexpla ined Change in Men cassandra Status No Sepsis Action Take n by Nursing No Action Required 02/18/21 14:52 02/18/21 14:55 02/18/21 15:00 Temperature Temperature Source Pulse Rate 71 73 Pulse Rate [Apical ] Pulse Rate [Exerci ses] Pulse Rate [Recove ry] Pulse Rate from Sp O2 Sensor 57 L 60 Pulse Rhythm Pulse Strength Respiratory Rate 30 H 22 Respiratory Rate [ Exercises] Respiratory Rate [ Recovery] Respiratory Effort / Characteristics Respiratory Depth Respiratory Patter n Blood Pressure Blood Pressure [place] n Pulse Oximetry 93 94 92 Pulse Oximetry [Ex ercises] Pulse Oximetry [Re covery] Oxygen Delivery Me thod Room Air Room Air Room Air Sepsis Recent Feve r Within 48 Hours Sepsis New/Unexpla ined Change in Men cassandra Status Sepsis Action Take n by Nursing 02/18/21 15:09 02/18/21 15:17 02/18/21 15:30 Temperature Temperature Source Pulse Rate 74 Pulse Rate [Apical ] 76 Pulse Rate [Exerci ses] 76 Pulse Rate [Recove ry] 75 Pulse Rate from Sp O2 Sensor 53 L Pulse Rhythm Pulse Strength Respiratory Rate 16 26 H Respiratory Rate [ Exercises] 30 H Respiratory Rate [ Recovery] 26 H Respiratory Effort / Characteristics Non-Labored Sponta neous Respiratory Depth Respiratory Patter n Blood Pressure 155/95 H Blood Pressure Jody n 115 Pulse Oximetry 94 94 Pulse Oximetry [Ex ercises] 90 Pulse Oximetry [Re covery] 92 Oxygen Delivery Me thod Room Air Room Air Room Air Sepsis Recent Feve r Within 48 Hours Sepsis New/Unexpla ined Change in Men cassandra Status Sepsis Action Take n by Nursing Physical Exam: Physical Exam GENERAL: He is oriented to person, place, and time. He appears well-developed and well-nourished. He does not appear distressed. HENT: Exam performed. - Head: Normocephalic and atraumatic. - Right Ear: External ear normal. No mastoid tenderness. - Left Ear: External ear normal. No mastoid tenderness. - Mouth/Throat: The oropharynx is clear and moist. No trismus in the jaw. No dental abscesses or uvula swelling. No oropharyngeal exudate or tonsillar abscesses. EYES: Conjunctivae and EOM are normal. Pupils are equal, round, and reactive to light. Right eye exhibits no discharge. Left eye exhibits no discharge. No scleral icterus. NECK: Normal range of motion. Neck supple. No JVD present. No spinous process tenderness present. No carotid bruit present. No rigidity. No tracheal deviation and normal range of motion present. No Brudzinski's sign and no Kernig's sign noted. CV: Normal rate, regular rhythm, normal heart sounds and intact distal pulses. There is no peripheral edema. Palpable radial pulses bue. PULM/CHEST: Expiratory wheezes at the bases and inspiratory rales at the bases. - Chest Wall: He exhibits no tenderness. ABD: The abdomen is soft and obese . Bowel sounds are normal. He has no distension. No mass is present. There is no tenderness. There is no rebound, no guarding, no Slaughter's sign and no tenderness at McBurney's point. Rovsig negative. MUSC/SKEL: Normal range of motion. There is no peripheral edema, tenderness or deformity. LYMPH: No cervical adenopathy. NEURO: He is alert and oriented to person, place, and time. He has normal strength. No cranial nerve deficit or sensory deficit. Coordination and gait normal. GCS eye subscore is 4. GCS verbal subscore is 5. GCS motor subscore is 6. Cerebellar tests wnl. SKIN: Diaphoretic. PSYCH: He has a normal mood and affect. Behavior is normal. Judgment and thought content normal. Course Course 1457: The patient was evaluated in room B3. A complete history and physical exam was performed Cardiac monitoring: An order was placed for continuous cardiac monitoring. The monitor shows a rate of 70 with paced rhythm 1515: Patient had an ambulatory pulse oximeter reading which went down to 90% and the patient was visibly more diaphoretic and having more labored breathing. DuoNeb and steroids ordered for the patient. 1616: Vital signs stable while the patient is at rest. Patient does report he feels better after DuoNeb treatment and prednisone. On reauscultation of the lungs, the patient is no longer having wheezing but is having inspiratory rales at the bases. Patient's chest x-ray does show that he has cardiomegaly with pul monary vascular congestion. Troponin and proBNP negative. Patient will be treated with Lasix 40 mg IV push. Patient will be admitted for CHF/COPD exacerbation. Discussed case with Dr. Preston who will evaluate the patient for admission. Administered Medications Discontinued Medications Albuterol (Albut/Ipratrop 3mg/0.5mg Neb 3 Ml Vial) 3 ml NEB NOW STA Stop: 02/18/21 15:04 Last Admin: 02/18/21 15:17 Dose: 3 ml Documented by: [id number] Prednisone (Prednisone 50 Mg Tab) 50 mg PO NOW STA Stop: 02/18/21 15:04 Last Admin: 02/18/21 15:29 Dose: 50 mg Documented by: [id number] Medical Decision Making Laboratory Data Result diagrams: 02/18/21 14:50 02/18/21 14:50 Lab Results 02/18/21 02/18/21 02/18/21 Range/Units 14:50 14:50 14:50 WBC 6.39 (4.8-10.8) K/uL RBC 5.29 (4.7-6.1) M/uL Hgb 15.9 (14.0-18.0) g/dL Hct 48.6 (42-52) % MCV 91.9 (80-100) fL MCH 30.1 (25-34) pg MCHC 32.7 (32-36) g/dL RDW Std Deviation 47.4 H (36.4-46.3) fL RDW Coeff of Jens 14.2 (11.5-14.5) % Plt Count 139 (130-400) K/uL MPV 11.3 H (7.4-10.4) fL Immature Gran % (Auto) 0.3 % Neut % (Auto) 66.7 % Lymph % (Auto) 19.2 % [place] % (Auto) 11.6 % Eos % (Auto) 1.9 % Baso % (Auto) 0.3 % Neut # (Auto) 4.26 (1.4-6.5) K/uL Lymph # (Auto) 1.23 (1.2-3.4) K/uL [place] # (Auto) 0.74 H (0.11-0.59) K/uL Eos # (Auto) 0.12 (0-0.5) K/uL Baso # (Auto) 0.02 (0-0.2) K/uL Immature Gran # (Auto) 0.02 (0.00-0.02) K/uL PT 10.3 (9.0-12.0) Seconds INR 1.0 (0.9-1.1) APTT 27.6 (21.0-31.0) Seconds PTT Ratio 1.0 Sodium 142 (136-145) mmol/L Potassium 3.4 L (3.5-5.1) mmol/L Chloride 106 (98-107) mmol/L Carbon Dioxide 31 (21-32) mmol/L Anion Gap 5.0 (3-11) BUN 16 (7-18) mg/dl Creatinine 1.33 (0.6-1.4) mg/dl Est Cr Clr Drug Dosing Not Reportable Est GFR ( Amer) 67.8 ml/min Est GFR (Non-Af Amer) 58.5 ml/min BUN/Creatinine Ratio 11.9 (10-20) Glucose 101 H (70-99) mg/dl Calcium 8.5 (8.5-10.1) mg/dl Magnesium 2.0 (1.8-2.4) mg/dl Total Bilirubin 0.9 (0.2-1) mg/dl AST 25 (15-37) U/L ALT 58 (12-78) U/L Alkaline Phosphatase 55 (45-117) U/L Troponin I < 0.015 (0-0.045) ng/ml NT-Pro-B Natriuret Pep (0-900) pg/ml Total Protein 7.4 (6.4-8.2) gm/dl Albumin 3.6 (3.4-5.0) gm/dl Globulin 3.8 (2.5-4.0) gm/dl Albumin/Globulin Ratio 0.9 (0.9-2) COVID-19 Eval Order 02/18/21 02/18/21 Range/Units 14:50 15:30 WBC (4.8-10.8) K/uL RBC (4.7-6.1) M/uL Hgb (14.0-18.0) g/dL Hct (42-52) % MCV (80-100) fL MCH (25-34) pg MCHC (32-36) g/dL RDW Std Deviation (36.4-46.3) fL RDW Coeff of Jens (11.5-14.5) % Plt Count (130-400) K/uL MPV (7.4-10.4) fL Immature Gran % (Auto) % Neut % (Auto) % Lymph % (Auto) % [place] % (Auto) % Eos % (Auto) % Baso % (Auto) % Neut # (Auto) (1.4-6.5) K/uL Lymph # (Auto) (1.2-3.4) K/uL [place] # (Auto) (0.11-0.59) K/uL Eos # (Auto) (0-0.5) K/uL Baso # (Auto) (0-0.2) K/uL Immature Gran # (Auto) (0.00-0.02) K/uL PT (9.0-12.0) Seconds INR (0.9-1.1) APTT (21.0-31.0) Seconds PTT Ratio Sodium (136-145) mmol/L Potassium (3.5-5.1) mmol/L Chloride (98-107) mmol/L Carbon Dioxide (21-32) mmol/L Anion Gap (3-11) BUN (7-18) mg/dl Creatinine (0.6-1.4) mg/dl Est Cr Clr Drug Dosing Est GFR ( Amer) ml/min Est GFR (Non-Af Amer) ml/min BUN/Creatinine Ratio (10-20) Glucose (70-99) mg/dl Calcium (8.5-10.1) mg/dl Magnesium (1.8-2.4) mg/dl Total Bilirubin (0.2-1) mg/dl AST (15-37) U/L ALT (12-78) U/L Alkaline Phosphatase (45-117) U/L Troponin I (0-0.045) ng/ml NT-Pro-B Natriuret Pep 499 (0-900) pg/ml Total Protein (6.4-8.2) gm/dl Albumin (3.4-5.0) gm/dl Globulin (2.5-4.0) gm/dl Albumin/Globulin Ratio (0.9-2) COVID-19 Eval Order Covid19 at [facility] Imaging Data Radiologist's Impression: Chest X-Ray 02/18/21 14:53 XR chest 1V portable HISTORY: 60 years-old Male SOB acute shortness of breath COMPARISON: Chest and rib radiographs 11/13/2020, chest CT 10/31/2020 TECHNIQUE: Portable AP view of the chest FINDINGS: Left subclavian pacer. Cardiac silhouette is enlarged. Mild pulmonary vascular congestion. No pneumothorax, pleural effusion, airspace consolidation or overt pulmonary edema. Bones appear grossly intact. IMPRESSION: Cardiomegaly with pulmonary vascular congestion. ACT 112: Negative or not required by law. The above report was generated using voice recognition software. It may contain grammatical, syntax or spelling errors. Electronically signed by: Mike Bauman M.D. 02/18/2021 3:24 PM ECG Data Interpretation: Paced rhythm with rate of 70. VT 154 QRS [address] segment elevation or depression. [facility] Narrative 1457: The patient was evaluated in room B3. A complete history and physical exam was performed Cardiac monitoring: An order was placed for continuous cardiac monitoring. The monitor shows a rate of 70 with paced rhythm 1515: Patient had an ambulatory pulse oximeter reading which went down to 90% and the patient was visibly more diaphoretic and having more labored breathing. DuoNeb and steroids ordered for the patient. 1616: Vital signs stable while the patient is at rest. Patient does report he feels better after DuoNeb treatment and prednisone. On reauscultation of the lungs, the patient is no longer having wheezing but is having inspiratory rales at the bases. Patient's chest x-ray does show that he has cardiomegaly with pulmonary vascular congestion. Troponin and proBNP negative. Patient will be treated with Lasix 40 mg IV push. Patient will be admitted for CHF/COPD exacerbation. Discussed case with Dr. Preston who will evaluate the patient for admission. Impression & Plan COPD with emphysema, CHF exacerbation Discharge Plan Visit Data Chief Complaint: Shortness of Breath/Dyspnea Stated Complaint: SOB Discharge Problem: COPD with emphysema, CHF exacerbation Patient Disposition: Being Evaluated by Hospitalist Forms Stand Alone Forms: [facility] Prescriptions Prescriptions: No Action allopurinol 100 mg tablet 200 mg PO DAILY Qty: 180 RF: 3 calcitriol 0.25 mcg capsule 0.25 mcg PO DAILY Qty: 90 RF: 3 carvedilol 25 mg tablet 50 mg PO BID Qty: 360 RF: 3 furosemide 80 mg tablet 80 mg PO BID Qty: 180 RF: 3 lisinopril 40 mg tablet 40 mg PO DAILY Qty: 90 RF: 0 triamcinolone acetonide 0.1 % ointment 1 appln topical .COMPLEX PRN (Reason: Skin Irritation) RF: 0 aspirin 81 mg tablet,delayed release (DR/EC) 81 mg PO DAILY RF: 0 (DME) CPAP Supplies Misc See Rx Instructions .ROUTE .MEDSUPPLY Qty: 1 RF: 0 (DME) CPAP Supplies Misc See Dose Instructions .ROUTE .MEDSUPPLY Qty: 1 RF: 0 simvastatin 40 mg tablet 40 mg PO QPM Qty: 90 RF: 3 hydralazine 25 mg tablet 25 mg PO BID RF: 0 Referrals Referrals: Alena Ulloa MD [Primary Care Provider] -
--- NOTE | 2021-02-18 16:12 | Electrocardiogram Report ---
Test Reason : Blood Pressure : / mmHG Vent. Rate : 070 BPM Atrial Rate : 070 BPM P-R Int : 154 ms QRS Dur : 160 ms QT Int : 434 ms P-R-T Axes : 049 -72 027 degrees QTc Int : 468 ms Atrial-sensed ventricular-paced rhythm Biventricular pacemaker detected Abnormal ECG When compared with ECG of 08-JAN-2020 16:19, Vent. rate has decreased BY 28 BPM Confirmed by Brandon Balderas ([id number]) on 02/18/2021 4:12:01 PM Referred By: Confirmed By:Brandon Balderas
[2021-02-18 16:15] LABS: Influenza A virus by PCR Negative (Negative); Influenza B virus by PCR Negative (Negative)
--- NOTE | 2021-02-18 16:55 | History & Physical Report ---
Date of Service February 18, 2021 Assessment & Plan (1) Shortness of breath: Plan: I suspect his shortness of breath and dyspnea on exertion are multifactorial This includes known CHF is the main factor, also suspect acute/chronic deconditioning, morbid obesity, HELDER/OHS (2) CHF exacerbation: Plan: Suspect this may be the main issue despite high normal BNP Patient is on Lasix 80 mg twice daily at home, will change lead to IV. Monitor I's and O's along with daily weights We will repeat 2D echo Patient does have history of complete heart block and is a BiV pacer, follows with Dr. Davide tellez. Will consult him for further recommendations (3) COPD with emphysema: Plan: Chronic COPD without acute component Continue to monitor. Patient tells me he discontinued tobacco use 8 years ago (4) Chronic kidney disease: Plan: renal function appears to be at baseline if not slightly better, continue to monitor with diuresis History of Present Illness Chief Complaint: SOB/RAMIREZ Primary Care Provider: Alena Ulloa MD This is a 60-year-old male with past medical history of diastolic CHF, COPD, hypertension, morbid obesity that presents today complaining of shortness of breath and dyspnea on exertion. Patient is a good historian. Patient tells me he started having issues 48 hours prior to presentation. He went on a "hog mon "in the [facility]. He found that he was becoming very dyspneic with activity and had difficulties getting to and from that area back to his car. He needed to rest multiple times and felt that this was getting worse. There this is continued compound and earlier today he found that he was significantly short of breath at home. He walked to his neighbor's house, approximately 100 yards away, and had arrest twice. When he got there his neighbor had a small pulse oximeter and he was found to be only 80% on room air. This prompted him to come to the emergency room for further evaluation. On further questioning, patient denied any chest pain, recent febrile illness, worsening edema, cough, or worsening lower extremity edema. In the emergency room, the patient was found to be hypoxic but not to the same degree as he was at home. He dropped to 90% with ambulation recovered 92%. At the time my evaluation, he was at 94% at rest. Patient follows with Dr. Maty amaya, he cannot recall having a 2D echo since May 2019 which I reviewed in the system. He tells me he is compliant with his medications. Allergies Allergy/AdvReac Type Severity Reaction Status Date / Time No Known Allergies Allergy Verified 02/18/21 15:21 Home Medications Medication Instructions Recorded Confirmed Type triamcinolone acetonide 0.1 % 1 appln TOPICAL .COMPLEX PRN gm 01/18/19 02/18/21 History topical ointment CPAP Supplies #1 ea 04/12/19 12/12/20 Rx aspirin 81 mg tablet,delayed 81 mg PO DAILY tab 05/11/19 02/18/21 History release CPAP Supplies #1 ea 11/09/19 12/12/20 Rx allopurinol 100 mg tablet 200 mg PO DAILY #180 tab 03/19/20 02/18/21 Rx calcitriol 0.25 mcg capsule 0.25 mcg PO DAILY #90 cap 10/05/20 02/18/21 Rx carvedilol 25 mg tablet 50 mg PO BID #360 tab 10/05/20 02/18/21 Rx furosemide 80 mg tablet 80 mg PO BID #180 tab 10/05/20 02/18/21 Rx simvastatin 40 mg tablet 40 mg PO QPM #90 tab 11/13/20 02/18/21 Rx lisinopril 40 mg tablet 40 mg PO DAILY #90 tab 02/05/21 02/18/21 Rx hydralazine 25 mg tablet 25 mg PO BID 02/18/21 02/18/21 History Past Med/Surg History Medical History Chronic congestive heart failure Chronic kidney disease COPD with emphysema Gout Hypertension Multiple pulmonary nodules Obstructive sleep apnea of adult Surgical History S/P cardiac pacemaker procedure Family History Mother Diabetes Father Diabetes Stroke Grandmother Diabetes Denies family history of Ovarian cancer Prostate cancer Kidney disease Myocardial infarction Breast cancer Colorectal cancer Hypertension Social History Smoking Status: Never smoker Tobacco Type: Cigarettes Cigarettes Per Day: 90; Second Hand Exposure: No; Hx Alcohol Use: Yes Alcohol type: beer Hx Substance Use: No Preferred Language: Swedish Communication Ability: Effective Golf Shoe Spike Assembler Required: No Beliefs That Will Affect Care: None Current Living Situation: Spouse and Family Feels Safe at Home: Yes Assistive Devices: Glasses Review of Systems Constitutional: no fever, no chills, no weakness, no weight loss and no weight gain Eyes: as per Subjective / HPI Respiratory: + dyspnea and + dyspnea on exertion; no cough, no chest congestion, no hemoptysis and no wheezing Cardiovascular: no chest pain, no orthopnea, no palpitations, no lightheadedness and no edema Gastrointestinal: no abdominal pain, no nausea, no vomiting, no constipation and no diarrhea/loose stools Musculoskeletal: no back pain, no neck pain, no joint pain, no stiffness and no myalgia Integumentary: no rash Neurologic: no gait abnormality, no unsteadiness, no falls and no generalized weakness Physical Exam Constitutional: cooperative; no acute distress Neck: trachea midline, no thyromegaly Respiratory: normal respiratory effort Auscultation: + diminished lung sounds; no crackles, no rales, no rhonchi and no wheezes Cardiovascular: Rate/Rhythm: regular rate and regular rhythm Heart Sounds: normal S1, normal S2 and + murmur Extremities: + edema Gastrointestinal (Abdomen): Inspection/Auscultation: abdomen normal to inspection Percussion/Palpation: abdomen soft; abdomen nontender, no guarding, abdomen not rigid and no hepatosplenomegaly Skin: no rashes, warm and dry Results & Data Results & Data ([facility]) Vital Signs (Past 12 Hours) Vital Signs Temp Pulse Pulse Pulse Pulse Resp Resp 02/18/21 15:30 74 26 H 02/18/21 15:17 76 16 02/18/21 15:09 76 75 30 H 02/18/21 15:00 73 22 02/18/21 14:55 02/18/21 14:52 71 30 H 02/18/21 14:50 02/18/21 14:02 36.5 C 72 21 Resp BP Pulse Ox Pulse Ox Pulse Ox 02/18/21 15:30 155/95 H 94 02/18/21 15:17 94 02/18/21 15:09 26 H 90 92 02/18/21 15:00 92 02/18/21 14:55 94 02/18/21 14:52 93 02/18/21 14:50 94 02/18/21 14:02 198/105 H 93 Laboratory Results Laboratory Results WBC 6.39 K/uL (4.8-10.8) 02/18/21 14:50 RBC 5.29 M/uL (4.7-6.1) 02/18/21 14:50 Hgb 15.9 g/dL (14.0-18.0) 02/18/21 14:50 Hct 48.6 % (42-52) 02/18/21 14:50 MCV 91.9 fL (80-100) 02/18/21 14:50 MCH 30.1 pg (25-34) 02/18/21 14:50 MCHC 32.7 g/dL (32-36) 02/18/21 14:50 RDW Std Deviation 47.4 fL (36.4-46.3) H 02/18/21 14:50 RDW Coeff of Jens 14.2 % (11.5-14.5) 02/18/21 14:50 Plt Count 139 K/uL (130-400) 02/18/21 14:50 MPV 11.3 fL (7.4-10.4) H 02/18/21 14:50 Immature Gran % (Auto) 0.3 % 02/18/21 14:50 Neut % (Auto) 66.7 % 02/18/21 14:50 Lymph % (Auto) 19.2 % 02/18/21 14:50 Antelope % (Auto) 11.6 % 02/18/21 14:50 Eos % (Auto) 1.9 % 02/18/21 14:50 Baso % (Auto) 0.3 % 02/18/21 14:50 Neut # (Auto) 4.26 K/uL (1.4-6.5) 02/18/21 14:50 Lymph # (Auto) 1.23 K/uL (1.2-3.4) 02/18/21 14:50 Antelope # (Auto) 0.74 K/uL (0.11-0.59) H 02/18/21 14:50 Eos # (Auto) 0.12 K/uL (0-0.5) 02/18/21 14:50 Baso # (Auto) 0.02 K/uL (0-0.2) 02/18/21 14:50 Immature Gran # (Auto) 0.02 K/uL (0.00-0.02) 02/18/21 14:50 PT 10.3 Seconds (9.0-12.0) 02/18/21 14:50 INR 1.0 (0.9-1.1) 02/18/21 14:50 APTT 27.6 Seconds (21.0-31.0) 02/18/21 14:50 PTT Ratio 1.0 02/18/21 14:50 Sodium 142 mmol/L (136-145) 02/18/21 14:50 Potassium 3.4 mmol/L (3.5-5.1) L 02/18/21 14:50 Chloride 106 mmol/L (98-107) 02/18/21 14:50 Carbon Dioxide 31 mmol/L (21-32) 02/18/21 14:50 Anion Gap 5.0 (3-11) 02/18/21 14:50 BUN 16 mg/dl (7-18) 02/18/21 14:50 Creatinine 1.33 mg/dl (0.6-1.4) 02/18/21 14:50 Est Cr Clr Drug Dosing Not Reportable 02/18/21 14:50 Est GFR ( Amer) 67.8 ml/min 02/18/21 14:50 Est GFR (Non-Af Amer) 58.5 ml/min 02/18/21 14:50 BUN/Creatinine Ratio 11.9 (10-20) 02/18/21 14:50 Glucose 101 mg/dl (70-99) H 02/18/21 14:50 Calcium 8.5 mg/dl (8.5-10.1) 02/18/21 14:50 Magnesium 2.0 mg/dl (1.8-2.4) 02/18/21 14:50 Total Bilirubin 0.9 mg/dl (0.2-1) 02/18/21 14:50 AST 25 U/L (15-37) 02/18/21 14:50 ALT 58 U/L (12-78) 02/18/21 14:50 Alkaline Phosphatase 55 U/L (45-117) 02/18/21 14:50 Troponin I < 0.015 ng/ml (0-0.045) 02/18/21 14:50 NT-Pro-B Natriuret Pep 499 pg/ml (0-900) 02/18/21 14:50 Total Protein 7.4 gm/dl (6.4-8.2) 02/18/21 14:50 Albumin 3.6 gm/dl (3.4-5.0) 02/18/21 14:50 Globulin 3.8 gm/dl (2.5-4.0) 02/18/21 14:50 Albumin/Globulin Ratio 0.9 (0.9-2) 02/18/21 14:50 COVID-19 Eval Order Covid19 at [facility] 02/18/21 15:30 Influ A Molecular Assay Negative (Negative) 02/18/21 15:30 Influ B Molecular Assay Negative (Negative) 02/18/21 15:30 Impressions Chest X-Ray 02/18/21 14:53 XR chest 1V portable HISTORY: 60 years-old Male SOB acute shortness of breath COMPARISON: Chest and rib radiographs 11/13/2020, chest CT 10/31/2020 TECHNIQUE: Portable AP view of the chest FINDINGS: Left subclavian pacer. Cardiac silhouette is enlarged. Mild pulmonary vascular congestion. No pneumothorax, pleural effusion, airspace consolidation or overt pulmonary edema. Bones appear grossly intact. IMPRESSION: Cardiomegaly with pulmonary vascular congestion. ACT 112: Negative or not required by law. The above report was generated using voice recognition software. It may contain grammatical, syntax or spelling errors. Electronically signed by: Mike Bauman M.D. 02/18/2021 3:24 PM PG Care Time/CCT Total # of Minutes Spent Total Time Spent with Patient: Total time spent is greater than 50% in coordination of care (as documented) at patient's floor/unit and/or counseling p atient: Coding Level of Care Code 89836 Initial Inpt Care Lvl 3 Diagnoses CHF exacerbation I50.9 Heart failure type: unspecified Shortness of breath R06.02 COPD with emphysema J43.9 Emphysema type: unspecified Chronic kidney disease N18.9 Chronic kidney disease stage: unspecified stage (1) CHF exacerbation Heart failure type: unspecified Qualified Code(s): I50.9 - Heart failure, unspecified (2) COPD with emphysema Emphysema type: unspecified Qualified Code(s): J43.9 - Emphysema, unspecified (3) Chronic kidney disease Chronic kidney disease stage: unspecified stage Qualified Code(s): N18.9 - Chronic kidney disease, unspecified
[2021-02-18] MEDS ORDERED: FUROSEMIDE 40 MG/4 ML VIAL IV SCH (17:01)
[2021-02-18] MEDS ORDERED: ACETAMINOPHEN 325 MG TAB PO PRN (21:00)
[2021-02-18] MEDS: carvediloL 25 MG TAB PO SCH (21:41)
[2021-02-18] MEDS: SIMVASTATIN 40 MG TAB PO SCH (21:42)
[2021-02-18] MEDS: ENOXAPARIN INJ 40 MG/0.4 ML SYR SQ SCH (21:42)
[2021-02-18] MEDS: hydrALAZINE HCL 25 MG TAB PO SCH (21:42)
[2021-02-19] MEDS ORDERED: FUROSEMIDE 80 MG in SYRINGE 0 ML IV SCH (06:00)
[2021-02-19 06:17] LABS: Eosinophils # (auto) 0.01 K/uL (0-0.5); Eosinophils % (auto) 0.1 %; Hemoglobin 15.4 g/dL (14.0-18.0); Immature Granulocytes # (auto) 0.02 K/uL (0.00-0.02); Immature Granulocytes % (auto) 0.2 %; Lymphocytes # (auto) 0.92 K/uL (1.2-3.4); Lymphocytes % (auto) 9.2 %; Mean Corpuscular Hemoglobin 30.1 pg (25-34); Mean Corpuscular Hgb Conc 32.8 g/dL (32-36); Mean Platelet Volume 11.6 fL (7.4-10.4); Monocytes # (auto) 0.79 K/uL (0.11-0.59); Monocytes % (auto) 7.9 %; Neutrophils # (auto) 8.24 K/uL (1.4-6.5); Neutrophils % (auto) 82.6 %; Platelet Count 147 K/uL (130-400); RDW Standard Deviation 47.7 fL (36.4-46.3); Red Blood Count 5.11 M/uL (4.7-6.1); White Blood Count 9.98 K/uL (4.8-10.8)
[2021-02-19 06:44] LABS: Calcium 8.3 mg/dl (8.5-10.1); Creatinine Clr Calc Pharmacy 90.7 ml/min; Est GFR (African American) 64.9 ml/min; Magnesium 2.1 mg/dl (1.8-2.4); Potassium 3.7 mmol/L (3.5-5.1)
[2021-02-19 08:00] LABS: Estimated Average Glucose 134 mg/dl; Hemoglobin A1C 6.3 % (4.5-5.6)
[2021-02-19] MEDS: ASPIRIN 81 MG ECTAB PO SCH (09:42)
[2021-02-19] MEDS: carvediloL 25 MG TAB PO SCH ×2 (09:42→20:35)
[2021-02-19] MEDS: CALCITRIOL 0.25 MCG CAPSULE PO SCH (09:42)
[2021-02-19] MEDS: FUROSEMIDE 80 MG in SYRINGE 0 ML IV SCH ×2 (09:42→21:13)
[2021-02-19] MEDS: allopurinoL 100 MG TAB PO SCH (09:42)
[2021-02-19] MEDS: hydrALAZINE HCL 25 MG TAB PO SCH ×2 (09:43→20:35)
[2021-02-19] MEDS: lisinopril 40 MG TAB PO SCH (09:43)
[2021-02-19 15:10] LABS: Base Excess ABG 5.6 mEq/L (-9-1.8); HCO3 ABG 32 mmol/L (19-24); Oxygen Saturation ABG 94.5 % (90-95); PCO2 ABG 51 mmHg (35-46); PO2 ABG 69 mmHg (80-95); pH ABG 7.42 (7.35-7.45)
[2021-02-19 15:11] LABS: Allen Test Pos (Pos)
[2021-02-19] MEDS: SPIRONOLACTONE 25 MG TAB PO SCH (15:17)
--- NOTE | 2021-02-19 15:47 | XCELERA ---
[id number] \\[id number]
--- NOTE | 2021-02-19 16:52 | Cardiology Consultation ---
Date of Consultation February 19, 2021 Assessment & Plan (1) Shortness of breath: (2) CHF exacerbation: 1. His shortness of breath could be multifactorial, although congestive heart failure appears to be at least a part of it. He may also have some pulmonary component. 2. Congestive heart failure: It is not clear why he has congestive heart failure. His left ventricular function has not deteriorated, it is possible that he had some dietary indiscretion with either salt or water, his kidney function has not worsened but he has responded to diuresis. He is on good doses of carvedilol and lisinopril. We could consider switching the lisinopril to Entresto which now has an indication for use in preserved ejection fraction heart failure, but my thought would be to continue with the current program for now and only do that if he has recurrence. I would recommend that he be careful with fluid and salt intake in the future. From my standpoint he could go home, we could arrange for him to come into the office in the next week or 2. History of Present Illness Reason for Consultation: CHF Attending Physician: Jovan Stubbs, History of Present Illness This is a 60-year-old gentleman who has a history of multiple risk factors for coronary artery disease. He presented with complete heart block, a Lyme screen was negative and he went on to have a dual-chamber pacemaker implanted May 06, 2012. Following pacemaker implantation he felt exceptionally well. He continued with his hunting, had no difficulty with exercise and in fact noted that he could out walk his fellow Hunters. He has had no difficulty with chest discomfort with exertion, until late 2013. Around that time he noted recurrence of his difficulty with exertion although he did not get exertional chest discomfort. Echocardiography done 06/23/2014 demonstrated severe left ventricular dysfunction with an ejection fraction of 30-35%. This was felt likely due to right ventricular pacing and the development of a pacemaker-induced cardiomyopathy, therefore he was scheduled for upgrade to a biventricular pacemaker. This was attempted on 07/18/2014 however the left ventricular lead could not be placed due to anatomic considerations. He then had a repeat attempt done at [place] on 09/20/2014 and a left ventricular lead was successfully implanted along with a [employer] biventricular pacemaker. Since that time he has felt much better, he feels that his exercise ability has improved substantially and he generally has no difficulty with exertion. His left ventricular ejection fraction has improved as well, by echocardiography 03/18/2016 his ejection fraction was 45-50% and similar September 29, 2017. He was hunting in [facility] 3 to 4 days ago and he was very short of breath. He believes the shortness of breath started on the morning of February 17, 2020 and worsened to the point where he came into the emergency room on February 18, 2021. There he appeared to be in mild congestive heart failure based on his chest x-ray although his BNP was normal. He has noticed some edema lately although he really has not noticed his weight climbing but it is up somewhat compared to recent office visits. He was diuresed and feels much better now, he is not short of breath even laying supine at the time of my evaluation. Allergies Allergy/AdvReac Type Severity Reaction Status Date / Time No Known Allergies Allergy Verified 02/18/21 15:21 Home Medications Medication Instructions Recorded Confirmed Type triamcinolone acetonide 0.1 % 1 appln TOPICAL .COMPLEX PRN gm 01/18/19 02/18/21 History topical ointment CPAP Supplies #1 ea 04/12/19 12/12/20 Rx aspirin 81 mg tablet,delayed 81 mg PO DAILY tab 05/11/19 02/18/21 History release CPAP Supplies #1 ea 11/09/19 12/12/20 Rx allopurinol 100 mg tablet 200 mg PO DAILY #180 tab 03/19/20 02/18/21 Rx calcitriol 0.25 mcg capsule 0.25 mcg PO DAILY #90 cap 10/05/20 02/18/21 Rx carvedilol 25 mg tablet 50 mg PO BID #360 tab 10/05/20 02/18/21 Rx furosemide 80 mg tablet 80 mg PO BID #180 tab 10/05/20 02/18/21 Rx simvastatin 40 mg tablet 40 mg PO QPM #90 tab 11/13/20 02/18/21 Rx lisinopril 40 mg tablet 40 mg PO DAILY #90 tab 02/05/21 02/18/21 Rx hydralazine 25 mg tablet 25 mg PO BID 02/18/21 02/18/21 History Patient History Medical History Chronic congestive heart failure Chronic kidney disease COPD with emphysema Gout Hypertension Multiple pulmonary nodules Obstructive sleep apnea of adult Surgical History S/P cardiac pacemaker procedure Family History Mother Diabetes Father Diabetes Stroke Grandmother Diabetes Denies family history of Ovarian cancer Prostate cancer Kidney disease Myocardial infarction Breast cancer Colorectal cancer Hypertension Social History Smoking Status: Former smoker Tobacco Type: Cigarettes Cigarettes Per Day: 90; Second Hand Exposure: No; Hx Alcohol Use: No Hx Substance Use: No Preferred Language: Algerian Communication Ability: Effective 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 HEENT: Unremarkable Neck: No jugular venous distention, carotid pulses are normal and equal bilaterally without bruits. Pulmonary: Clear to auscultation bilaterally. Cardiac: Regular rhythm with no murmur, gallop or rub. Abdomen: Soft, nontender with normal bowel sounds. Extremities: +1 bilateral pretibial edema. Distal pulses intact. Neurologic: No focal findings. Gait was not tested. Skin: No rash, ecchymoses or petechiae. Results & Data ([facility]) Vital Signs (Past 12 Hours) Vital Signs Temp Pulse Resp BP Pulse Ox 02/19/21 12:00 36.9 C 62 18 149/72 H 97 02/19/21 08:00 36.8 C 62 18 155/78 H 98 02/19/21 04:57 37 C 61 18 136/87 93 Laboratory Results Lipids 02/19/21 Range/Units 05:30 Triglycerides 59 (0-150) mg/dl Cholesterol 145 (0-200) mg/dl HDL Cholesterol 58 mg/dl Cholesterol/HDL Ratio 3 CBC 02/19/21 Range/Units 05:30 WBC 9.98 (4.8-10.8) K/uL RBC 5.11 (4.7-6.1) M/uL Hgb 15.4 (14.0-18.0) g/dL Hct 47.0 (42-52) % Plt Count 147 (130-400) K/uL Neut # (Auto) 8.24 H (1.4-6.5) K/uL Lymph # (Auto) 0.92 L (1.2-3.4) K/uL Sanders # (Auto) 0.79 H (0.11-0.59) K/uL Eos # (Auto) 0.01 (0-0.5) K/uL Baso # (Auto) 0.00 (0-0.2) K/uL Comprehensive Metabolic Panel 02/19/21 Range/Units 05:30 Sodium 141 (136-145) mmol/L Potassium 3.7 (3.5-5.1) mmol/L Chloride 106 (98-107) mmol/L Carbon Dioxide 30 (21-32) mmol/L BUN 22 H (7-18) mg/dl Creatinine 1.38 (0.6-1.4) mg/dl Glucose 129 H (70-99) mg/dl Calcium 8.3 L (8.5-10.1) mg/dl Intake and Output 02/19/21 02/19/21 02/19/21 06:59 14:59 22:59 Intake Total 180 / 180 700 / 700 Output Total 300 / 300 1700 / 1700 Balance -120 / -120 -1000 / -1000 Intake: Oral 180 / 180 700 / 700 Output: Urine 300 / 300 1700 / 1700 Other: # Unmeasured Voids 1 Weight 155 kg Weight Measurement Method Built in [facility] Diagnostic Findings Chest x-ray: Cardiomegaly, very mild pulmonary vascular congestion Electrocardiogram: Sinus rhythm with ventricular pacing, appropriate biventricular complex Echocardiogram: Good left ventricular function with an ejection fraction of 50 to 55%, mild left ventricular hypertrophy PG Care Time/CCT Total # of Minutes Spent Total Time Spent with Patient: Total time spent is greater than 50% in coordination of care (as documented) at patient's floor/unit and/or counseling patient: Coding Level of Care Code 37442 Initial Inpt Care Lvl 3 Diagnoses CHF exacerbation I50.33 Heart failure type: diastolic Shortness of breath R06.02 (1) CHF exacerbation Heart failure type: diastolic Qualified Code(s): I50.33 - Acute on chronic diastolic (congestive) heart failure
--- NOTE | 2021-02-19 18:22 | Hospitalist Progress Note ---
Date of Service February 19, 2021 Assessment & Plan (1) Shortness of breath: Plan: I suspect his shortness of breath and dyspnea on exertion are multifactorial This includes known CHF is the main factor, also suspect acute/chronic deconditioning, morbid obesity, HELDER/OHS (2) CHF exacerbation: Plan: * Suspect this may be the main issue despite high normal BNP. Patient is morbidly obese thus may have a falsely normal BNP * Continue IV Lasix * Add Aldactone for added right-sided diuresis (patient definitely with right and left sided symptoms but right sided arm more so than left sided) * Monitor I's and O's along with daily weights * We will repeat 2D echo * Patient does have history of complete heart block and is a BiV pacer, follows with --he was consulted. Appreciate recommendations. * Continue disease modifying medications which include Coreg, hydralazine, and lisinopril * Troponin was negative (3) Obstructive sleep apnea of adult: Plan: * I believe this to be the biggest etiology behind patient's uncompensated CHF * Very lengthy discussion with patient regarding the importance of compliance with his CPAP machine and risk of CHF, cardiac arrest, and worsening respiratory failure all which could cause . He voices understanding but still refuses. We will continue to work on this. I explained that although $350 co-pay is not ideal, with not using his CPAPhe will have added costs which include hospitalizations, increase medications, etc. again, he claims that he voices understanding (4) COPD with emphysema: Plan: Chronic COPD without acute component Continue to monitor. Patient tells me he discontinued tobacco use 8 years ago (5) Chronic kidney disease: Plan: renal function appears to be at baseline if not slightly better, continue to monitor with diuresis Plan: * Continue with diuresis for fluid balance goal of -1 L X 24 hours * Again, biggest reic is compliance. Patient needs to use CPAP! * Will reassess tomorrow. Plan for potential discharge within the next 24 to 48 hours. Admission and Anticipated Discharge Date Admission Date: February 18, 2021 Subjective Mr. Atkinson is a 60-year-old white male with a complicated past medical history. He is morbidly obese with sleep apnea and obesity hypoventilation syndrome but refuses to wear CPAP. In addition, he has classic metabolic syndrome with impaired fasting glucose, hypertension, dyslipidemia in the setting of morbid obesity. He also has CKD, history of CHF, gout, history of complete heart block s/p PPM, and hyperparathyroidism. He was hospitalized last evening for shortness of breath that had been ongoing for 48 hours thought to be related to acute uncompensated CHF. Patient does take Lasix 80 mg twice a day. Has been compliant with this medication. Also on Coreg, hydralazine, and lisinopril. Again, does not wear a CPAP and refuses such. Reports mask he currently has does not fit. Was set up for a proper fitting mask but he refuses to pay the $350 co-pay. His work-up in the ED did show pulmonary vascular congestion seen on chest x-ray although his BNP was not terribly elevated (499). His troponin was negative. Flu and Covid test were negative. His metabolic panel and CBC were unremarkable. He was since hospitalized for further evaluation and care. Initially upon presentation, his pulse ox was in the 80s. He did receive IV Lasix and his pulse ox at present is 92% on room air. He does desaturate into the low to mid 80s with minimal exertion (such as leaning forward). Does have a history of increased edema and weight gain, abdominal bloating, orthopnea but denies PND. Review of Systems Review of Systems: All systems reviewed and are unremarkable except as noted in HPI and below Denies fevers, chills, headache, nasal congestion, sore throat, cough, chest pain, abdominal pain, nausea, vomiting, dysuria, hematuria, frequency, skin lesions or rashes. Physical Exam Physical Exam: General: Resting comfortably in his hospital bed. Appears mildly ill but not toxic Neck: Mild JVD with positive hepatojugular reflux Cardiac: Very distant heart sounds Lungs: Conversational dyspnea noted. Increased dyspnea with very limited exertion such as leaning forward. Faint bibasilar crackles without wheezes or rails Abdomen: Obese and difficult to examine. Soft and nontender in all quadrants. Extremities: 1+ pitting edema of the bilateral lower extremities Neuro: A&O X4 cranial nerves II through XII are grossly intact no focal neuro deficits Skin: No obvious skin lesions or rashes Results & Data Results & Data ([facility]) Vital Signs (Past 12 Hours) Vital Signs Temp Pulse Resp BP Pulse Ox 02/19/21 17:00 37.1 C 72 22 145/90 H 94 02/19/21 12:00 36.9 C 62 18 149/72 H 97 02/19/21 08:00 36.8 C 62 18 155/78 H 98 Laboratory Results 02/19/21 05:30 02/19/21 05:30 PG Care Time/CCT Total # of Minutes Spent Total Time Spent with Patient: Total time spent is greater than 50% in coordination of care (as documented) at patient's floor/unit and/or counseling patient: Coding [place] [address] Subseq Hosp Care Lvl 2 Patient Type Established History Detailed Exam Detailed Medical Decision Making Moderate Complexity Diagnoses Shortness of breath R06.02 CHF exacerbation I50.33 Heart failure type: diastolic COPD with emphysema J43.9 Emphysema type: unspecified Chronic kidney disease N18.9 Chronic kidney disease stage: unspecified stage Obstructive sleep apnea of adult G47.33 (1) CHF exacerbation Heart failure type: diastolic Qualified Code(s): I50.33 - Acute on chronic diastolic (congestive) heart failure (2) COPD with emphysema Emphysema type: unspecified Qualified Code(s): J43.9 - Emphysema, unspecified (3) Chronic kidney disease Chronic kidney disease stage: unspecified stage Qualified Code(s): N18.9 - Chronic kidney disease, unspecified
[2021-02-19] MEDS: ENOXAPARIN INJ 40 MG/0.4 ML SYR SQ SCH (20:42)
[2021-02-19] MEDS: SIMVASTATIN 40 MG TAB PO SCH (21:13)
[2021-02-20 06:35] LABS: Basophils # (auto) 0.02 K/uL (0-0.2); Basophils % (auto) 0.2 %; Eosinophils # (auto) 0.08 K/uL (0-0.5); Eosinophils % (auto) 0.8 %; Hematocrit (blood only) 50.3 % (42-52); Hemoglobin 16.2 g/dL (14.0-18.0); Immature Granulocytes # (auto) 0.03 K/uL (0.00-0.02); Immature Granulocytes % (auto) 0.3 %; Lymphocytes # (auto) 1.07 K/uL (1.2-3.4); Lymphocytes % (auto) 10.9 %; Mean Corpuscular Hgb Conc 32.2 g/dL (32-36); Mean Corpuscular Volume 93.1 fL (80-100); Mean Platelet Volume 11.4 fL (7.4-10.4); Monocytes # (auto) 1.29 K/uL (0.11-0.59); Monocytes % (auto) 13.2 %; Neutrophils # (auto) 7.29 K/uL (1.4-6.5); Neutrophils % (auto) 74.6 %; Platelet Count 145 K/uL (130-400); RDW Coefficient of Variation 14.4 % (11.5-14.5); RDW Standard Deviation 48.3 fL (36.4-46.3); White Blood Count 9.78 K/uL (4.8-10.8)
[2021-02-20 07:08] LABS: BUN Creatinine Ratio 14.9 (10-20); Calcium 8.4 mg/dl (8.5-10.1); Est GFR (African American) 59.1 ml/min; Magnesium 2.1 mg/dl (1.8-2.4); Potassium 3.6 mmol/L (3.5-5.1)
[2021-02-20] MEDS: ASPIRIN 81 MG ECTAB PO SCH (08:06)
[2021-02-20] MEDS: allopurinoL 100 MG TAB PO SCH (08:06)
[2021-02-20] MEDS: carvediloL 25 MG TAB PO SCH (08:07)
[2021-02-20] MEDS: CALCITRIOL 0.25 MCG CAPSULE PO SCH (08:07)
[2021-02-20] MEDS: hydrALAZINE HCL 25 MG TAB PO SCH (08:07)
[2021-02-20] MEDS: FUROSEMIDE 80 MG in SYRINGE 0 ML IV SCH (08:08)
[2021-02-20] MEDS: lisinopril 40 MG TAB PO SCH (08:08)
[2021-02-20] MEDS: SPIRONOLACTONE 25 MG TAB PO SCH (09:18)
--- NOTE | 2021-02-20 09:24 | XRay Report ---
XR chest 2V PA/lateral INDICATION: MN ^post diuresis. TECHNIQUE: AP and lateral frontal radiograph of the chest was obtained. Comparison: Comparison is made to chest one view 02/18/2021 FINDINGS: Dual lead pacemaker is again noted. The cardiomediastinal silhouette is normal. The pulmonary vascula ture is slightly less cephalized than the prior exam. No evidence of pleural effusion or pneumothorax . IMPRESSION: Improved pulmonary edema. ACT 112: Negative or not required by law. Electronically signed by: Jovan Dwyer M.D. 02/20/2021 9:23 AM
--- NOTE | 2021-02-20 17:09 | Discharge Summary ---
Date of Service February 20, 2021 Admission HPI Per Admitting Provider This is a 60-year-old male with past medical history of diastolic CHF, COPD, hypertension, morbid obesity that presents today complaining of shortness of breath and dyspnea on exertion. Patient is a good historian. Patient tells me he started having issues 48 hours prior to presentation. [facility] He found that he was becoming very dyspneic with activity and had difficulties getting to and from that area back to his car. He needed to rest multiple times and felt that this was getting worse. There this is continued compound and earlier today he found that he was significantly short of breath at home. He walked to his neighbor's house, approximately 100 yards away, and had arrest twice. When he got there his neighbor had a small pulse oximeter and he was found to be only 80% on room air. This prompted him to come to the emergency room for further evaluation. On further questioning, patient denied any chest pain, recent febrile illness, worsening edema, cough, or worsening lower extremity edema. In the emergency room, the patient was found to be hypoxic but not to the same degree as he was at home. He dropped to 90% with ambulation recovered 92%. At the time my evaluation, he was at 94% at rest. Patient follows with Dr. Maty amaya, he cannot recall having a 2D echo since May 2019 which I reviewed in the system. He tells me he is compliant with his medications. Admission Exam Per Admitting Provider General: Resting comfortably in his hospital bed. Appears mildly ill but not toxic Neck: Mild JVD with positive hepatojugular reflux Cardiac: Very distant heart sounds Lungs: Conversational dyspnea noted. Increased dyspnea with very limited exertion such as leaning forward. Faint bibasilar crackles without wheezes or rails Abdomen: Obese and difficult to examine. Soft and nontender in all quadrants. Extremities: 1+ pitting edema of the bilateral lower extremities Neuro: A&O X4 cranial nerves II through XII are grossly intact no focal neuro deficits Skin: No obvious skin lesions or rashes Principal Diagnosis 1. Acute on compensated CHF 2. OSAnoncompliant. Likely contributing to #1 3. Obesity hypoventilation syndromelikely contributing to #1 4. Hypoxemia secondary to #1. Resolved Discharge Exam General: Resting comfortably in his hospital bed. Breathing comfortably on ambient air NAD. Neck: No JVD. Negative hepatojugular reflex today Cardiac: RRR but very distant heart sounds Lungs: Significantly improved. Breathing comfortably on ambient air. No conversational dyspnea today. Patient does not appear to be dyspneic with very limited exertion (such as leaning forward). He has improved air exchange throughout without wheezes, rales or rhonchi Abdomen: Obese and difficult to examine but appears normoactive X4. Soft and nontender. Negative hepatojugular reflex today Extremities: Still with trace to +1 pitting edema but overall improved Neuro: A&O X4 cranial nerves II through XII are grossly intact no focal neuro deficits Skin: No obvious skin lesions or rashes Discharge Data Allergies Allergy/AdvReac Type Severity Reaction Status Date / Time No Known Allergies Allergy Verified 02/22/21 09:16 Consultations 02/18/21 16:04 ED Decision to Admit Stat 02/18/21 23:33 Consult Cardiology Routine Assessment & Plan (1) Shortness of breath: (2) CHF exacerbation: 1. His shortness of breath could be multifactorial, although congestive heart failure appears to be at least a part of it. He may also have some pulmonary component. 2. Congestive heart failure: It is not clear why he has congestive heart failure. His left ventricular function has not deteriorated, it is possible that he had some dietary indiscretion with either salt or water, his kidney function has not worsened but he has responded to diuresis. He is on good doses of carvedilol and lisinopril. We could consider switching the lisinopril to Entresto which now has an indication for use in preserved ejection fraction heart failure, but my thought would be to continue with the current program for now and only do that if he has recurrence. I would recommend that he be careful with fluid and salt intake in the future. From my standpoint he could go home, we could arrange for him to come into the office in the next week or 2. 02/20/21 11:37 Consult [facility] lab pack chemist Routine to arrange FU with Nelly Potrer PA-C in the CHF clinic Ordered Studies Echocardiogram: LV systolic function normal. No obvious wall motion abnormality. Mild concentric LV hypertrophy. EF 50 to 55%. No significant valvular disease. Hospital Course (1) Shortness of breath: I suspect his shortness of breath and dyspnea on exertion are multifa ctorial This includes known CHF is the main factor, also suspect acute/chronic deconditioning, morbid obesity, HELDER/OHS (2) CHF exacerbation: * Patient hospitalized to a monitored bed. Remained in a sinus rhythm. * Although his BNP was normal at 499, he is morbidly obese thus this may not be accurate. He did have pulmonary vascular congestion as seen on imaging. * Troponin cycled and remained less than 0.015 * Echocardiogram done showing no change from 2019. EF 50 to 55% * Was placed on IV Lasix with the addition of Aldactone for more right-sided diuresis especially with his underlying history of DAS. * In addition, very lengthy discussion with patient regarding the importance of CPAP use. Initially reluctant but after lengthy discussion, agreeable. Case management on board and reached out to [employer] to arrange for updated supplies * Seen on daily rounds 02/20 at overall his symptoms have greatly improved * Initially was mildly hypoxic with limited exertion (with dropped to 84% with leaning forward). Did have a two-step pulse oximetry done showing no need for supplemental oxygen. Pulse ox remained 91% even with ambulation. * He has since ruled out for acute coronary syndrome * I's and O's ordered; however, not accurate as patient voiding in the commode. * No longer having dyspnea at rest or with exertion. Follow-up chest x-ray this morning shows significant improvement in pulmonary vascular congestion * Was seen by cardiologyrecommendations as outlined above * At this time, patient is medically hemodynamically stable for discharge to home * Should continue Lasix 80 mg twice daily as prior to hospitalization * In addition, should continue other disease modifying medications including beta-blockade, hydralazine, and MARTIN inhibitor. Cardiology suggesting potential transition of MARTIN inhibitor to Entresto. This can be done as an outpatient as patient would require a washout and patient had concern with cost being prohibitive * I have added Aldactone 25 mg daily for added diuresis. May consider up titration to twice daily if needed * New prescription provided for CPAP supplies. Case management has arranged with [employer] * Patient aware of the importance of CPAP use * To follow-up with Nelly Porter PA-C in the CHF clinic (3) Obstructive sleep apnea of adult: * I believe this to be the biggest etiology behind patient's uncompensated CHF * Very lengthy discussion with patient regarding the importance of compliance with his CPAP machine and risk of CHF, cardiac arrest, and worsening respiratory failure all which could cause . Understanding and is currently agreeable (4) COPD with emphysema: Chronic COPD without acute component Continue to monitor. Patient tells me he discontinued tobacco use 8 years ago (5) Chronic kidney disease: renal function appears to be at baseline if not slightly better, continue to monitor with diuresis Unfortunately, subtle degree of renal impairment likely needed to keep his CHF compensated * Discharged home today with self-care Total Time Total Time Spent Total Time Spent (In Minutes): 60 minutes include time spent with case management arranging DME supplies Discharge Plan Discharge Items Patient Disposition: Home - Self-Care Reason For Visit: CHF Discharge Diagnosis: 1. Acute Uncompensated CHF 2. Obstructive sleep Apnea (likely contributing to #1) 3. Obesity Hypoventilation Syndrome (contributing to #1) Activity: Resume your previous activity Activity Comment: USE CPAP TO SLEEP!!! Non-emergency contact: Primary Care Provider Call non-emergency contact if: you have any medication questions Follow-up/Referrals: Alena Ulloa MD [Primary Care Provider] - 02/28/21 11:30 am (Please follow up with Dr. Ulloa on 02/28/21 at 11:30 am. Please arrive to the office at 11:15 am for your appointment. If you are unable to keep this appointment, please call the office to reschedule at [phone].) Diet: Heart Healthy and Low Potassium (2gm) Fluids: 1500ml (6 cups) Addtl Attending Provider Instructions: - you were hospitalized with acute uncompensated CHF (excess fluid in your lungs/legs/abdomen) - This is mostly related to the excess stress put on your heart from your weight causing sleep apnea AND the fact that you are failing to use your CPAP - I can not stress the importance of using your CPAP!! - continue your lasix twice a day as prescribed - I have added Aldactone to be taken once daily. This may need titrated (at discretion of PCP/Cardiology) - You have been arranged to see Nelly Porter PA-C (who works in the heart failure clinic) - you need to follow up with your Family Physician within 1 week - I would advise follow up labs in 1 week (to reassess kidney function and electrolytes given the addition of Aldactone) - Maintain a low sodium and fluid restricted diet - Return to the ED for new or worsening symptoms Pending Studies at Discharge: No Stand-Alone Forms: My [facility] Medications and DC Order Prescriptions: New spironolactone 25 mg Tablet 25 mg PO DAILY Qty: 30 RF: 0 Continued allopurinol 100 mg tablet 200 mg PO DAILY Qty: 180 RF: 3 calcitriol 0.25 mcg capsule 0.25 mcg PO DAILY Qty: 90 RF: 3 carvedilol 25 mg tablet 50 mg PO BID Qty: 360 RF: 3 furosemide 80 mg tablet 80 mg PO BID Qty: 180 RF: 3 lisinopril 40 mg tablet 40 mg PO DAILY Qty: 90 RF: 0 triamcinolone acetonide 0.1 % ointment 1 appln topical .COMPLEX PRN (Reason: Skin Irritation) RF: 0 aspirin 81 mg tablet,delayed release (DR/EC) 81 mg PO DAILY RF: 0 (DME) CPAP Supplies Misc See Rx Instructions .ROUTE .MEDSUPPLY Qty: 1 RF: 0 (DME) CPAP Supplies Misc See Dose Instructions .ROUTE .MEDSUPPLY Qty: 1 RF: 0 simvastatin 40 mg tablet 40 mg PO QPM Qty: 90 RF: 3 hydralazine 25 mg tablet 25 mg PO BID RF: 0 Discharge Orders: Discharge Order (Routine); Ordered 02/20/21 Ordered By: Nelly Pelletier/Other Patient Handouts: A1C, 5 Steps for Eating Healthier, CPAP, Exercise: Why Fitness Matters, HELDER Ch, CHF Ch Admission Data Admit Date/Time: 02/18/21 17:01 Attending Provider: Jovan Stubbs Admit Provider: Maksim Lord Primary Care Provider: Alena Ulloa Other Providers: Maksim Lord ; Jah Arzola Other Interventions: Discharge Summary Assessment (RN) Last Done: 02/20/21 11:33 Supervising Physician Co-Signing Physician Notes Patient seen and examined on the day of discharge. I agree with the discharge summary by Nelly GALVAN. I have reviewed the chart including labs, imaging and plans for discharge. patient breathing better, not on oxygen he understands the importance of following CHF instruction will follow up with Nelly Porter with cardiology - Acute on chronic heart failure continue Lasix 80mg BID, Aldactone 25mg added low sodium diet, fluid restriction, daily weights and close contact with Nelly Porter PALink Coding Level of Care Code Established Pt D/C DAY MANAGEMENT >30 MINS Patient Type Established Diagnoses Shortness of breath R06.02 CHF exacerbation I50.33 Heart failure type: diastolic Obstructive sleep apnea of adult G47.33 COPD with emphysema J43.9 Emphysema type: unspecified Chronic kidney disease N18.9 Chronic kidney disease stage: unspecified stage Time Spent (min) 60
== END 2021-02-20 13:04 | disposition home or self-care (01) | DRG 291 ==
LOC: ED 13:59 → SUATTDRO 17:01 → EDINP 17:01 → 1E 02-19 17:02 → 2S 02-20 03:57

== ENCOUNTER 2023-05-10 10:23 | Inpatient (IN) ==
[2023-05-10] MEDS ORDERED: ALBUT/IPRATROP 3MG/0.5MG NEB 3 ML VIAL NEB STA (10:34)
[2023-05-10 11:01] LABS: iSTAT Creatinine 1.7 mg/dl (0.6-1.3); iSTAT Ionized Calcium 1.17 mmol/l (1.12-1.32); iSTAT Potassium 4.3 mmol/L (3.3-5.0)
[2023-05-10 11:05] LABS: Basophils # (auto) 0.02 K/uL (0.00-0.20); Basophils % (auto) 0.3 %; Eosinophils # (auto) 0.05 K/uL (0.00-0.50); Eosinophils % (auto) 0.8 %; Hemoglobin 14.1 g/dl (14.0-18.0); Immature Granulocytes # (auto) 0.06 K/uL (0.01-0.20); Immature Granulocytes % (auto) 0.9 %; Lymphocytes # (auto) 0.65 K/uL (1.20-3.40); Lymphocytes % (auto) 9.8 %; Mean Corpuscular Hemoglobin 28.3 pg (25.0-34.0); Mean Corpuscular Volume 94.2 fL (80.0-100.0); Mean Platelet Volume 10.9 fL (9.4-12.4); Monocytes # (auto) 0.64 K/uL (0.11-0.59); Monocytes % (auto) 9.6 %; Neutrophils # (auto) 5.22 K/uL (1.40-6.50); Neutrophils % (auto) 78.6 %; Platelet Count 145 K/uL (130-400); RDW Coefficient of Variation 14.9 % (11.5-14.5); RDW Standard Deviation 51.8 fL (36.4-46.3); Red Blood Count 4.99 M/uL (4.70-6.10); White Blood Count 6.64 K/ul (4.8-10.8)
--- NOTE | 2023-05-10 11:18 | Emergency Department Note ---
Impression & Plan Acute respiratory failure with hypoxia and hypercapnia, Mixed obstructive and restrictive ventilatory defect, Morbid obesity, Pulmonary edema ED Provider Note NAME: MICKEY OLIVIA AGE: 62 SEX: M : 1960 ARRIVES VIA: Walk-In INFORMANT: Patient, ED PROVIDER(S): Jsoe Araiza MD CHIEF COMPLAINT: Slurred speech MEDICAL DECISION MAKING: Patient presented due to concern for slurred speech but was found to be profoundly hypoxic in the 60s. Upon my evaluation the patient is awake alert following commands. No obvious deficit. IV was established but was obtained along with a chest x-ray CT head CT angiography of the head and neck were ordered. Initial creatinine 1.7 CT head continued but CT angiography of the head and neck deferred at this time. Patient likely had significant difficulty with slurred speech secondary to profound hypoxia. Patient does not appear to have significant slurred speech currently. Patient was placed on BiPAP. Patient's blood work showed a normal white count H&H and platelet count. The patient's kidney function does show creatinine 1.65. Sodium 142. The patient's troponin is 56. [id number] ABG shows a pH of 7.2 with pCO2 of [address] p[address] of [address]. CT of the head negative. Chest x-ray with borderline cardiac enlargement and possible pulmonary edema. The patient was ordered IV Lasix. BNP 308. I did speak the on-call hospitalist service Dr. Escamilla and the patient was admitted to the medicine service. Repeat ABG pending. I do believe the patient's slurred speech was likely secondary to the patient's profound hypoxemia. Patient did not have any overt strokelike symptoms upon my initial assessment Repeat does show improvement with an ABG pH is 738 pCO2 of 59 and pO2 of 113. Critical Care: I have personally spent 65 minutes of critical care time in direct management of this patient. This includes bedside care, interpretation of diagnostic studies, and testing, discussion with consultants, patient, and family members, and other require inpatient management activities. This 65 minutes is in excess of all separately billable procedures. Discussion w/ other healthcare providers: Dr. Escamilla inpatient medicine service Prior /Outside records reviewed: I reviewed a primary care visit from April 29, 2023. The patient was seen by Johanny Ritter for fatigue and anemia and was ordered outpatient testing. Patient reportedly been sleeping more than usual last sleep and slept for 2 straight days. 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 Reportedly has no history of HELDER denies any CPAP secondary to recall. Differential diagnosis: Infection, dehydration, metabolic abnormality, hypo/hyperglycemia, electrolyte imbalance, anemia, UTI, pneumonia, thyroid dysfunction among others were considered. Diagnostics, as interpreted by me: ECG: V paced rhythm, rate of 87, wide QRS, left bundle branch block pattern, motion artifact noted. PVCs noted. Cardiac monitoring: An order was placed for continuous cardiac monitoring. The monitor shows a rate of 85 with paced rhythm. Patient was placed on pulse oximetry Medical decision rules: None Imaging studies: I informally interpreted the patient's CT head which does not show obvious ICH with formal report to follow. I informally interpreted the patient's chest x-ray which shows possible pulmonary edema with formal report to follow HPI: Patient presents at the behest of a friend as they were concerned about his speaking difficulty. Nursing also noted this as well and was noted to be hypoxic and blue in triage. Patient was satting 66% on room air. Patient does relate that he has a history of HELDER and is noncompliant with the CPAP machine. Patient denies any chest pains or shortness of breath no nausea vomiting or diarrhea. PAST MEDICAL HISTORY: See Below PAST SURGICAL HISTORY: See Below SOCIAL HISTORY: See Below HOME MEDICATIONS: See Below ALLERGIES: See Below VITALS: See Below PHYSICAL EXAMINATION: GENERAL: Ill in appearance, central cyanosis, BMI 48 EYE EXAM: Normal conjunctiva. PERRL, no anisocoria and EOM's grossly intact w/o pain. OROPHARYNX: Moist mucus membranes, grossly normal dentition. NECK: Supple, no nuchal rigidity, no adenopathy, non-tender. No signs of meningismus. FROM of the neck with good chin to chest and neck extension. No stridor. Chest: Device noted in the left chest LUNGS: Clear to auscultation. Normal chest wall mechanics. HEART: NSR, no MRG. ABDOMEN: Abdomen soft, non-tender, no masses, no rebound or guarding. BACK: No CVA TTP. SKIN: No rashes and no bruising. UPPER EXTREMITIES: Upper extremities are grossly normal. LOWER EXTREMITIES: Grossly normal, no edema. NEURO EXAM: GCS 14 opens eyes to voice follows commands, cranial nerves II-XII grossly intact, normal speech, moves all 4 extremities. 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 Osteoarthritis Anemia recent bloodwork -- recent for upcoming colonoscopy Spinal stenosis of lumbar region Chronic low back pain Lumbar degenerative disc disease Psoriasis Hyperlipidemia Fatty infiltration of liver seen on CT chest dated 10/31 20 Gout COPD with emphysema Morbid obesity Multiple pulmonary nodules stable per patient. yearly scans. Atrioventricular block, complete reason for pacemaker in 2011. Nonischemic cardiomyopathy Cardiac pacemaker st lizzy device. Hypertension Chronic kidney disease Obstructive sleep apnea of adult noncompliant with machine -- states he gets sick everytime he uses the machine. Prediabetes Surgical History S/P epidural steroid injection S/P cardiac pacemaker procedure most recent [place] September [place] [facility] last checked annually in May 2022. follows with Dr Arzola. 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 Beliefs That Will Affect Care: None marital status: Current Living Situation: Alone Current Living Situation Comment: lives with ex- and son current occupational status: disabled How many Children do You have: 2 Other Information That Helps Us Care for You: No Feels Safe at Home: Yes Safety Concerns: Feels Safe At This Time Childhood Exposure to Second-Hand Smoke: Yes Diet: regular caffeine: Yes Dental Care, Regularly: No Physical Activity Frequency: 3-4 Times per Week Seatbelt Use: sometimes Sunscreen Use: No Assistive Devices: CPAP Allergies Allergies Allergy/AdvReac Type Severity Reaction Status Date / Time No Known Allergies Allergy Verified 05/10/23 12:08 Home Meds Home Medications Medication Instructions Recorded Confirmed aspirin 81 mg tablet,delayed 81 mg PO HS 05/11/19 04/29/23 release Previous Rx's Medication Instructions Recorded allopurinol 100 mg tablet 100 mg PO BID #180 tabs 03/16/23 carvedilol 25 mg tablet 50 mg (2 x 25 mg) PO BID #360 tabs 03/16/23 furosemide 80 mg tablet 80 mg PO BID #180 tabs 03/16/23 lisinopril 40 mg tablet 40 mg PO QAM #90 tabs 03/16/23 simvastatin 40 mg tablet 40 mg PO QPM #90 tabs 03/16/23 Results & Data (ED) Vital Signs Vital Signs - 24 hr 05/10/23 10:27 05/10/23 10:36 05/10/23 10:37 Temperature 36.4 C L Temperature Source Temporal Artery Scan Pulse Rate 88 79 Pulse Rate [Apical] 79 Pulse Rhythm [Apical] Regular Pulse Strength [Apical] Normal Respiratory Rate 26 H 12 Respiratory Effort / Characteristics Non-Labored Respiratory Depth Normal Normal Respiratory Pattern Regular Blood Pressure 140/73 Blood Pressure [Right Arm] 132/93 Blood Pressure Mean 95 Blood Pressure Mean [Right Arm] 106 Pulse Oximetry 66 L 100 Oxygen Delivery Method Room Air Fraction of Inspired Oxygen Sepsis Recent Fever Within 48 Hours No Sepsis New/Unexplained Change in Mental Status No Sepsis Action Taken by Nursing No Action Required 05/10/23 10:42 05/10/23 10:56 05/10/23 11:00 Temperature Temperature Source Pulse Rate 82 73 Pulse Rate [Apical] 76 Pulse Rhythm [Apical] Pulse Strength [Apical] Respiratory Rate 26 H 20 26 H Respiratory Effort / Characteristics Spontaneous Spontaneous Spontaneous Respiratory Depth Normal Respiratory Pattern Regular Blood Pressure Blood Pressure [Right Arm] Blood Pressure Mean Blood Pressure Mean [Right Arm] Pulse Oximetry 95 94 95 Oxygen Delivery Method BiPAP Fraction of Inspired Oxygen 40 40 45 Sepsis Recent Fever Within 48 Hours Sepsis New/Unexplained Change in Mental Status Sepsis Action Taken by Nursing 05/10/23 11:22 05/10/23 11:32 Temperature Temperature Source Pulse Rate 77 72 Pulse Rate [Apical] Pulse Rhythm [Apical] Pulse Strength [Apical] Respiratory Rate 20 20 Respiratory Effort / Characteristics Respiratory Depth Respiratory Pattern Blood Pressure 136/76 124/79 Blood Pressure [Right Arm] Blood Pressure Mean 96 94 Blood Pressure Mean [Right Arm] Pulse Oximetry 98 93 Oxygen Delivery Method BiPAP BiPAP Fraction of Inspired Oxygen Sepsis Recent Fever Within 48 Hours Sepsis New/Unexplained Change in Mental Status Sepsis Action Taken by Snf Medications Current Medication List: was personally reviewed by me Laboratory Data Attestation: I reviewed the patient's lab results. 05/10/23 10:40 05/10/23 10:40 Lab Results 05/10/23 05/10/23 05/10/23 Range/Units 10:40 10:41 10:43 WBC 6.64 (4.8-10.8) K/ul RBC 4.99 (4.70-6.10) M/uL Hgb 14.1 (14.0-18.0) g/dl POC Hgb (14.0-18.0) g/dl Hct 47.0 (42.0-52.0) % POC Hct (42-52) % MCV 94.2 (80.0-100.0) fL MCH 28.3 (25.0-34.0) pg MCHC 30.0 L (32.0-36.0) g/dL RDW Std Deviation 51.8 H (36.4-46.3) fL RDW Coeff of Jens 14.9 H (11.5-14.5) % Plt Count 145 (130-400) K/uL MPV 10.9 (9.4-12.4) fL Immature Gran % (Auto) 0.9 % Neut % (Auto) 78.6 % Lymph % (Auto) 9.8 % Ferry % (Auto) 9.6 % Eos % (Auto) 0.8 % Baso % (Auto) 0.3 % Neut # (Auto) 5.22 (1.40-6.50) K/uL Lymph # (Auto) 0.65 L (1.20-3.40) K/uL Ferry # (Auto) 0.64 H (0.11-0.59) K/uL Eos # (Auto) 0.05 (0.00-0.50) K/uL Baso # (Auto) 0.02 (0.00-0.20) K/uL Immature Gran # (Auto) 0.06 (0.01-0.20) K/uL PT 10.8 (9.0-12.0) Seconds INR 1.0 (0.9-1.1) APTT 26.7 (21.0-31.0) Seconds PTT Ratio 0.9 POC pH (7.35-7.45) POC pCO2 (35-46) mmHg POC pO2 (80-95) mmHg POC HCO3 (19-24) rohith/L POC Base Excess (-9-1.8) rohith/L POC ABG O2 Sat (90-95) % POC Sodium (135-144) mmol/L Sodium 142 (136-145) mmol/L POC Potassium (3.3-5.0) mmol/L Potassium 4.4 (3.5-5.1) mmol/L POC Chloride (101-112) mmol/L Chloride 102 (98-107) mmol/L Carbon Dioxide 36 H (21-32) mmol/L POC Total CO2 (24-31) mmol/L Anion Gap 4 (3-11) POC Anion Gap (16-25) mmol/L POC BUN (7-18) mg/dl BUN 26 H (6-23) mg/dl Creatinine 1.65 H (0.6-1.4) mg/dl POC Creatinine (0.6-1.3) mg/dl Est Cr Clr Drug Dosing 76.7 ml/min Est GFR ( Amer) 51.5 ml/min Est GFR (Non-Af Amer) 44.5 ml/min BUN/Creatinine Ratio 15.8 (10-20) Glucose 147 H (70-99(Fasting)) mg/dl POC Glucose 131 H (70-99) mg/dl POC Glucose (other) (70-99) mg/dl Calcium 8.5 L (8.6-10.3) mg/dl POC Ioniz Calcium Romulo (1.12-1.32) mmol/l Magnesium 1.8 (1.7-2.4) mg/dl Total Bilirubin 0.5 (0.2-1.0) mg/dl AST 18 (13-39) U/L ALT 34 (7-52) U/L Alkaline Phosphatase 55 (34-104) U/L Troponin I High Sens 56.1 H* (0-20) pg/ml B-Natriuretic Peptide 308 H (0-100) pg/ml Total Protein 6.9 (6.0-8.3) gm/dl Albumin 4.1 (3.4-5.0) gm/dl Globulin 2.8 (2.5-4.0) gm/dl Albumin/Globulin Ratio 1.5 (0.9-2) Procalcitonin < 0.05 (0-0.5) ng/ml 05/10/23 05/10/23 Range/Units 10:49 10:56 WBC (4.8-10.8) K/ul RBC (4.70-6.10) M/uL Hgb (14.0-18.0) g/dl POC Hgb 16.0 15.3 (14.0-18.0) g/dl Hct (42.0-52.0) % POC Hct 47 45 (42-52) % MCV (80.0-100.0) fL MCH (25.0-34.0) pg MCHC (32.0-36.0) g/dL RDW Std Deviation (36.4-46.3) fL RDW Coeff of Jens (11.5-14.5) % Plt Count (130-400) K/uL MPV (9.4-12.4) fL Immature Gran % (Auto) % Neut % (Auto) % Lymph % (Auto) % Ferry % (Auto) % Eos % (Auto) % Baso % (Auto) % Neut # (Auto) (1.40-6.50) K/uL Lymph # (Auto) (1.20-3.40) K/uL Ferry # (Auto) (0.11-0.59) K/uL Eos # (Auto) (0.00-0.50) K/uL Baso # (Auto) (0.00-0.20) K/uL Immature Gran # (Auto) (0.01-0.20) K/uL PT (9.0-12.0) Seconds INR (0.9-1.1) APTT (21.0-31.0) Seconds PTT Ratio POC pH 7.21 L (7.35-7.45) POC pCO2 87 H (35-46) mmHg POC pO2 52 L (80-95) mmHg POC HCO3 35 H (19-24) rohith/L POC Base Excess 7.0 H (-9-1.8) rohith/L POC ABG O2 Sat 77.0 L (90-95) % POC Sodium 141 141 (135-144) mmol/L Sodium (136-145) mmol/L POC Potassium 4.3 4.4 (3.3-5.0) mmol/L Potassium (3.5-5.1) mmol/L POC Chloride 100 L (101-112) mmol/L Chloride (98-107) mmol/L Carbon Dioxide (21-32) mmol/L POC Total CO2 35 H 37 H (24-31) mmol/L Anion Gap (3-11) POC Anion Gap 12.0 L (16-25) mmol/L POC BUN 29 H (7-18) mg/dl BUN (6-23) mg/dl Creatinine (0.6-1.4) mg/dl POC Creatinine 1.7 H (0.6-1.3) mg/dl Est Cr Clr Drug Dosing ml/min Est GFR ( Amer) ml/min Est GFR (Non-Af Amer) ml/min BUN/Creatinine Ratio (10-20) Glucose (70-99(Fasting)) mg/dl POC Glucose (70-99) mg/dl POC Glucose (other) 147 H (70-99) mg/dl Calcium (8.6-10.3) mg/dl POC Ioniz Calcium Romulo 1.17 (1.12-1.32) mmol/l Magnesium (1.7-2.4) mg/dl Total Bilirubin (0.2-1.0) mg/dl AST (13-39) U/L ALT (7-52) U/L Alkaline Phosphatase (34-104) U/L Troponin I High Sens (0-20) pg/ml B-Natriuretic Peptide (0-100) pg/ml Total Protein (6.0-8.3) gm/dl Albumin (3.4-5.0) gm/dl Globulin (2.5-4.0) gm/dl Albumin/Globulin Ratio (0.9-2) Procalcitonin (0-0.5) ng/ml Administered Medications Discontinued Medications Albuterol (Albut/Ipratrop 3mg/0.5mg Neb 3 Ml Vial) 3 ml NEB NOW STA; Protocol Stop: 05/10/23 10:35 Last Admin: 05/10/23 11:00 Dose: 3 ml Documented By: ALISA Furosemide (Furosemide 40 Mg/4 Ml Vial) 80 mg IV ONE ONE Stop: 05/10/23 11:42 Last Admin: 05/10/23 11:59 Dose: 80 mg Documented By: TRENTON Ceftriaxone Sodium (Rocephin) 2,000 mg in 50 mls @ 100 mls/hr IV NOW STA Stop: 05/10/23 12:09 Last Infusion: 05/10/23 12:57 Dose: Infused Documented By: Admin: 05/10/23 12:23 Dose: 100 mls/hr Documented By: TRENTON Doxycycline Hyclate 100 mg/ (Dextrose) 100 mls @ 50 mls/hr IV NOW STA Stop: 05/10/23 13:39 Last Infusion: 05/10/23 14:53 Dose: Infused Documented By: Admin: 05/10/23 12:53 Dose: 50 mls/hr Documented By: TRENTON Calcium Gluconate () 1,000 mg in 60 mls @ 240 mls/hr IV NOW STA Stop: 05/10/23 11:55 Last Infusion: 05/10/23 12:29 Dose: Infused Documented By: Admin: 05/10/23 12:04 Dose: 240 mls/hr Documented By: TRENTON Imaging Data Radiologist's Impression: Head CT 05/10/23 10:34 CT OF THE HEAD WITHOUT CONTRAST CLINICAL HISTORY: neuro deficit, acute stroke suspected. Slurred speech. COMPARISON STUDY: No previous studies for comparison. CT DOSE: 1687.29 mGy.cm TECHNIQUE: Helical axial images of the head were obtained without IV contrast. Automated exposure control was utilized for the study. A dose lowering technique was utilized adhering to the principles of ALARA. FINDINGS: This study is mildly compromised given difficulty positioning. Multiple locules of gas adjacent to the left parotid gland and within the left infratemporal fossa favor venous gas. No acute intracranial hemorrhage, midline shift or mass effect is present. White matter hypodensities favor small vessel disease. Ventricular system is normal. Basal cisterns are patent. There are no extra axial collections. There are no findings to suggest acute dural sinus thrombosis or acute territorial infarct. No significant calvarial abnormalities are present. IMPRESSION: No acute intracranial findings. ACT 112: Negative or not required by law. Electronically signed by: Yaakov Alfaro M.D. 05/10/2023 11:45 AM Chest X-Ray 05/10/23 10:54 XR chest 1V portable CLINICAL HISTORY: Hypoxia. COMPARISON STUDY: Chest radiograph February 20, 2021. Chest CT January 02, 2023. FINDINGS: Dual lead left subclavian pacer is in place. Cardiomegaly is again noted. There is no pneumothorax or pleural effusion. There is mild interstitial thickening. There are suspected patchy bilateral airspace opacities. IMPRESSION: Interstitial thickening and suspected patchy bilateral airspace opacities. The findings favor an infectious process. Pulmonary edema could appear similar. Radiographic follow-up to ensure resolution is recommended. ACT 112: Negative or not required by law. Electronically signed by: Yaakov Alfaro M.D. 05/10/2023 11:26 AM Discharge Plan Visit Data Chief Complaint: TIA Symptoms Stated Complaint: SPEECH DISTURBANCE, TIA SYMPTOMS ED Provider: Jose Araiza Discharge Problem: Acute respiratory failure with hypoxia and hypercapnia, Mixed obstructive and restrictive ventilatory defect, Morbid obesity, Pulmonary edema Patient Disposition: Admitted As Inpatient Discharge Instructions Interventions: ED Discharge Assessment Last Done: 05/10/23 14:03 Discharge Problem: Pulmonary edema Qualifiers: Chronicity: acute Qualified Code(s): J81.0 - Acute pulmonary edema
[2023-05-10 11:19] LABS: Albumin Globulin Ratio 1.5 (0.9-2); Albumin Level 4.1 gm/dl (3.4-5.0); BUN Creatinine Ratio 15.8 (10-20); Bilirubin,Total 0.5 mg/dl (0.2-1.0); Calcium 8.5 mg/dl (8.6-10.3); Creatinine Clr Calc Pharmacy 76.7 ml/min; Est GFR (African American) 51.5 ml/min; Est GFR (Non-African American) 44.5 ml/min; Globulin 2.8 gm/dl (2.5-4.0); Magnesium 1.8 mg/dl (1.7-2.4); Potassium 4.4 mmol/L (3.5-5.1); Total Protein 6.9 gm/dl (6.0-8.3)
--- NOTE | 2023-05-10 11:28 | XRay Report ---
XR chest 1V portable CLINICAL HISTORY: Hypoxia. COMPARISON STUDY: Chest radiograph February 20, 2021. Chest CT January 02, 2023. FINDINGS: Dual lead left subclavian pacer is in place. Cardiomegaly is again noted. There is no pneum othorax or pleural effusion. There is mild interstitial thickening. There are suspected patchy bilate ral airspace opacities. IMPRESSION: Interstitial thickening and suspected patchy bilateral airspace opacities. The findings favor an infectious process. Pulmonary edema could appear similar. Radiographic follow-up to ensure r esolution is recommended. ACT 112: Negative or not required by law. Electronically signed by: Yaakov Alfaro M.D. 05/10/2023 11:26 AM
[2023-05-10 11:37] LABS: Troponin I High Sensitivity 56.1 pg/ml (0-20)
[2023-05-10] MEDS ORDERED: cefTRIAXone SODIUM 2,000 MG/50 ML BAG IV STA (11:40)
[2023-05-10] MEDS ORDERED: DOXYCYCLINE HYCLATE 100 MG in DEXTROSE 5% MINI-B 100 ML IV STA (11:40)
[2023-05-10] MEDS ORDERED: FUROSEMIDE 40 MG/4 ML VIAL IV ONE (11:41)
[2023-05-10] MEDS ORDERED: CALCIUM GLUCONATE 1,000 MG/60 ML BAG IV STA (11:41)
--- NOTE | 2023-05-10 11:47 | CT Scan Report ---
CT OF THE HEAD WITHOUT CONTRAST CLINICAL HISTORY: neuro deficit, acute stroke suspected. Slurred speech. COMPARISON STUDY: No previous studies for comparison. CT DOSE: 1687.29 mGy.cm TECHNIQUE: Helical axial images of the head were obtained without IV contrast. Automated exposure con trol was utilized for the study. A dose lowering technique was utilized adhering to the principles o f ALARA. FINDINGS: This study is mildly compromised given difficulty positioning. Multiple locules of gas courtney cent to the left parotid gland and within the left infratemporal fossa favor venous gas. No acute int racranial hemorrhage, midline shift or mass effect is present. White matter hypodensities favor small vessel disease. Ventricular system is normal. Basal cisterns are patent. There are no extra axial co llections. There are no findings to suggest acute dural sinus thrombosis or acute territorial infarct . No significant calvarial abnormalities are present. IMPRESSION: No acute intracranial findings. ACT 112: Negative or not required by law. Electronically signed by: Yaakov Alfaro M.D. 05/10/2023 11:45 AM
--- NOTE | 2023-05-10 11:49 | History & Physical Report ---
Date of Service May 10, 2023 Assessment & Plan (1) Acute respiratory failure with hypoxia and hypercapnia: Plan: Suspect combination emphysema, obstructive sleep apnea, congestive heart failure. Acute heart failure suspect is causing his acute deterioration Biofire, WBC and procalcitonin normal will stop further antibiotics Mild emphysema only on prior CT chest, no obstructive lung dysfunction on outpatient spirometry and no wheezing on exam so suspect this isn't a significant driving factor Continuous BiPAP for now, ABG improving on this, likely can trial off while awake tomorrow but must always have this on for napping and sleep (2) Acute on chronic heart failure with preserved ejection fraction: Plan: LVEF 50-55% on TTE in February 2021, repeat ordered Lasix 80mg IV BID Ragland catheter inserted for accurate I&Os and patient not able to move Strict I&Os Daily weights (3) Nonischemic cardiomyopathy: Plan: Continue carvedilol Hold lisinopril pending serial BPs (4) Type 2 diabetes mellitus: Plan: HbA1C 6.3 in October On no medications for this as outpatient - suspect pre-diabetic although may benefit from SGLT-2 for both his heart failure and borderline diabetes Repeat HbA1C with AM labs (5) Atrioventricular block, complete: Plan: History of such - reason for pacemaker in 2011 (6) Obstructive sleep apnea of adult: Plan: Must wear BiPAP HS and while napping (7) Chronic kidney disease: Plan: At baseline, continue to monitor with diuresis (8) COPD with emphysema: Plan: No COPD per last pulmonary note Plan VTE Prophylaxis - Lovenox 40mg SQ BID Diet - NPO Disposition - admit to PCU Admission and Anticipated Discharge Date Admission Date: May 10, 2023 History of Present Illness Chief Complaint: Shortness of breath, hypoxia Primary Care Provider: Alena Ulloa MD Benjamín Atkinson is a 62 year old with obstructive sleep apnea who presents to the ER with slurred speech starting yesterday, hot and cold spells, shortness of breath and hypoxia. Unable to get much history from the patient as tired and on BiPAP. No measured fevers. History mainly obtained from his ex- at bedside. He notably has obstructive sleep apnea but has been off CPAP for the last 1.5 years due to recall and then not using his replacement. He has a notable history of emphysema - although last pulmonology note reports PFTs show no obstructive lung dysfunction and tried Incruse and Tiolto with no change in his symptoms. 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 She reports he is usually very complaint with medications and suspects he is taking all pills as prescribed. He has been getting increasingly fatigued over the last month and tired all the time - he saw his PCP on April 29 and suspected this was due to him not wearing his CPAP. This has rapidly progressed over the last 2 days and now sleeping all the time with the slurred speech starting yesterday. No cough/cold symptoms. No gastrointestinal or urinary symptoms. Point of care ABG in the ER prior to BiPAP with pH 7.209, PaCO2 87.2, PaO2 52. Patient was placed on BiPAP following this ABG. Allergies Allergy/AdvReac Type Severity Reaction Status Date / Time No Known Allergies Allergy Verified 05/10/23 12:08 Home Medications Medication Instructions Recorded Confirmed Type aspirin 81 mg tablet,delayed 81 mg PO HS 05/11/19 04/29/23 History release allopurinol 100 mg tablet 100 mg PO BID #180 tabs 03/16/23 05/10/23 Rx carvedilol 25 mg tablet 50 mg (2 x 25 mg) PO BID #360 tabs 03/16/23 05/10/23 Rx furosemide 80 mg tablet 80 mg PO BID #180 tabs 03/16/23 05/10/23 Rx lisinopril 40 mg tablet 40 mg PO QAM #90 tabs 03/16/23 05/10/23 Rx simvastatin 40 mg tablet 40 mg PO QPM #90 tabs 03/16/23 05/10/23 Rx Past Med/Surg History Medical History History of COVID-19 05/2022 - asymptomatic Kidney stones hx - no surgery currently has a stone embedded in the wall of the left kidney for the last 20 years. Osteoarthritis Anemia recent bloodwork -- recent for upcoming colonoscopy Spinal stenosis of lumbar region Chronic low back pain Lumbar degenerative disc disease Psoriasis Hyperlipidemia Fatty infiltration of liver seen on CT chest dated 10/31 20 Gout COPD with emphysema Morbid obesity Multiple pulmonary nodules stable per patient. yearly scans. Atrioventricular block, complete reason for pacemaker in 2011. Nonischemic cardiomyopathy Cardiac pacemaker st lizzy device. Hypertension Chronic kidney disease Obstructive sleep apnea of adult noncompliant with machine -- states he gets sick everytime he uses the machine. Prediabetes Surgical History S/P epidural steroid injection S/P cardiac pacemaker procedure most recent placement September 2014 at [facility]. last checked annually in May 2022. follows with Dr Arzola. Family History Mother Diabetes Father Diabetes Stroke Grandmother Diabetes Other No family history of adverse response to anesthesia Denies family history of Ovarian cancer Prostate cancer Kidney disease Myocardial infarction Breast cancer Colorectal cancer Hypertension Social History Smoking Status: Never smoker Tobacco Type: Cigarettes Second Hand Exposure: No; Do You Dip or Chew Tobacco: Yes (1 can/1 day (advised)); Hx Alcohol Use: No Hx Substance Use: No Preferred Language: Maltese Communication Ability: Effective Residential Door Unit Installer Required: No Beliefs That Will Affect Care: None marital status: Current Living Situation: Alone Current Living Situation Comment: lives with ex- and son current occupational status: disabled How many Children do You have: 2 Other Information That Helps Us Care for You: No Feels Safe at Home: Yes Safety Concerns: Feels Safe At This Time Childhood Exposure to Second-Hand Smoke: Yes Diet: regular caffeine: Yes Dental Care, Regularly: No Physical Activity Frequency: 3-4 Times per Week Seatbelt Use: sometimes Sunscreen Use: No Assistive Devices: CPAP Review of Systems Review of Systems: All systems reviewed & are unremarkable except as noted in HPI & below Physical Exam Constitutional: well developed and + acute distress (respiratory); + not well nourished Eyes: PERRL, conjunctivae normal, anicteric sclerae ENMT: external ear and nose normal, oropharynx normal Neck: + short neck and + thick neck Respiratory: + respiratory distress, + labored breath ing and + uses accessory muscles; expiratory phase not prolonged Auscultation: + breath sounds absent (bibasal) and + diminished lung sounds (throughout); no crackles, no rhonchi and no wheezes Cardiovascular: Rate/Rhythm: regular rate and regular rhythm Gastrointestinal (Abdomen): Inspection/Auscultation: + abdomen distended (at baseline per ex-) Percussion/Palpation: abdomen soft; abdomen nontender, no guarding and abdomen not rigid Musculoskeletal: no cyanosis or clubbing, extremities motor strength 5/5 Skin: no rashes, warm and dry Neurologic: moves all extremities and awake; not confused Psychiatric: Orientation: alert Results & Data Results & Data Vital Signs (Past 12 Hours) Vital Signs Temp Pulse Pulse Resp BP BP Pulse Ox 05/10/23 11:32 72 20 124/79 93 05/10/23 11:22 77 20 136/76 98 05/10/23 11:00 76 26 H 95 05/10/23 10:37 79 12 132/93 100 05/10/23 10:36 79 05/10/23 10:27 36.4 C L 88 26 H 140/73 66 L O2 Del Method FiO2 05/10/23 11:32 BiPAP 05/10/23 11:22 BiPAP 05/10/23 11:00 BiPAP 45 05/10/23 10:37 Room Air 05/10/23 10:36 05/10/23 10:27 Laboratory Results Abnormal lab results 05/10/23 05/10/23 05/10/23 Range/Units 10:40 10:43 10:49 MCHC 30.0 L (32.0-36.0) g/dL RDW Std Deviation 51.8 H (36.4-46.3) fL RDW Coeff of Jens 14.9 H (11.5-14.5) % Lymph # (Auto) 0.65 L (1.20-3.40) K/uL [place] # (Auto) 0.64 H (0.11-0.59) K/uL POC Chloride 100 L (101-112) mmol/L Carbon Dioxide 36 H (21-32) mmol/L POC Total CO2 35 H (24-31) mmol/L POC Anion Gap 12.0 L (16-25) mmol/L POC BUN 29 H (7-18) mg/dl BUN 26 H (6-23) mg/dl Creatinine 1.65 H (0.6-1.4) mg/dl POC Creatinine 1.7 H (0.6-1.3) mg/dl Glucose 147 H (70-99(Fasting)) mg/dl POC Glucose 131 H (70-99) mg/dl POC Glucose (other) 147 H (70-99) mg/dl Calcium 8.5 L (8.6-10.3) mg/dl Troponin I High Sens 56.1 H* (0-20) pg/ml Diagnostic Findings XR chest 1V portable CLINICAL HISTORY: Hypoxia. COMPARISON STUDY: Chest radiograph February 20, 2021. Chest CT January 02, 2023. FINDINGS: Dual lead left subclavian pacer is in place. Cardiomegaly is again noted. There is no pneumothorax or pleural effusion. There is mild interstitial thickening. There are suspected patchy bilateral airspace opacities. IMPRESSION: Interstitial thickening and suspected patchy bilateral airspace opacities. The findings favor an infectious process. Pulmonary edema could appear similar. Radiographic follow-up to ensure resolution is recommended. CT OF THE HEAD WITHOUT CONTRAST CLINICAL HISTORY: neuro deficit, acute stroke suspected. Slurred speech. COMPARISON STUDY: No previous studies for comparison. CT DOSE: 1687.29 mGy.cm TECHNIQUE: Helical axial images of the head were obtained without IV contrast. Automated exposure control was utilized for the study. A dose lowering technique was utilized adhering to the principles of ALARA. FINDINGS: This study is mildly compromised given difficulty positioning. Multiple locules of gas adjacent to the left parotid gland and within the left infratemporal fossa favor venous gas. No acute intracranial hemorrhage, midline shift or mass effect is present. White matter hypodensities favor small vessel disease. Ventricular system is normal. Basal cisterns are patent. There are no extra axial collections. There are no findings to suggest acute dural sinus thrombosis or acute territorial infarct. No significant calvarial abnormalities are present. IMPRESSION: No acute intracranial findings. Medications Administered ER Medications Given: Duoneb 3ml NEB Ceftriaxone 2g IV Doxycycline 100mg IV Calcium gluconate 1000mg IV Furosemide 80mg IV ECG Rate (beats per minute): 87 Rhythm: other (ventricular paced) Findings: + PVC Comparison ECG Date: from (February 18, 2021) Change: the following changes noted (PVCs now present) Code Status & VTE Plan Code Status Full VTE Prophylaxis Plan VTE Prophylaxis will be ordered: Yes Critical Care Time Total Critical Care Time: 45 PG Care Time/CCT Total # of Minutes Spent Total Time Spent with Patient: Total time spent is greater than 50% in coordination of care (as documented) at patient's floor/unit and/or counseling patient: Total Critical Care Time: 45 Coding Level of Care Code 32198 INT INP/OBS CARE 3/75MIN Diagnoses Acute respiratory failure with hypoxia and hypercapnia J96.01; J96.02 Acute on chronic heart failure with preserved ejection fraction I50.33 Nonischemic cardiomyopathy I42.8 Type 2 diabetes mellitus E11.9 Atrioventricular block, complete I44.2 Obstructive sleep apnea of adult G47.33 Stage 3a chronic kidney disease N18.31 Chronic kidney disease stage: stage 3 (moderate) Chronic kidney disease stage 3 subtype: stage 3a (GFR 45-59) Pulmonary emphysema, unspecified emphysema type J43.9 Emphysema type: unspecified (7) Chronic kidney disease Chronic kidney disease stage: stage 3 (moderate) Chronic kidney disease stage 3 subtype: stage 3a (GFR 45-59) Qualified Code(s): N18.31 - Chronic kidney disease, stage 3a (8) COPD with emphysema Emphysema type: unspecified Qualified Code(s): J43.9 - Emphysema, unspecified
[2023-05-10 11:52] LABS: Partial Thromboplastin Ratio 0.9; Partial Thromboplastin Time 26.7 Seconds (21.0-31.0); Prothrombin Time 10.8 Seconds (9.0-12.0)
[2023-05-10 13:08] LABS: Allen Test Pos (Pos); Base Excess ABG 7.7 mEq/L (-9-1.8); HCO3 ABG 35 mmol/L (19-24); Oxygen Saturation ABG 98.5 % (90-95); PCO2 ABG 59 mmHg (35-46); PO2 ABG 113 mmHg (80-95); pH ABG 7.38 (7.35-7.45)
--- NOTE | 2023-05-10 13:30 | Electrocardiogram Report ---
Test Reason : Blood Pressure : / mmHG Vent. Rate : 087 BPM Atrial Rate : 080 BPM P-R Int : 000 ms QRS Dur : 144 ms QT Int : 414 ms P-R-T Axes : 055 192 032 degrees QTc Int : 498 ms Poor data quality, interpretation may be adversely affected Ventricular-paced rhythm with occasional Premature ventricular complexes Abnormal ECG When compared with ECG of 18-FEB-2021 14:41, Premature ventricular complexes are now Present Vent. rate has increased BY 17 BPM Confirmed by Brandon Balderas ([id number]) on 05/10/2023 1:30:21 PM Referred By: REFERRED SELF Confirmed By:Brandon Balderas
[2023-05-10 13:35] LABS: Appearance Urine Clear (Clear); Bacteria Urine Automated Negative (Negative); Bilirubin Urine Negative (Negative); Blood Urine Negative (Negative); Color Urine Yellow; Epithelial Cell Urine Auto 0-5 /lpf (0-5); Glucose Urine UA Negative (Negative); Ketones Urine Negative (Negative); Leukocyte Esterase Urine Negative (Negative); Nitrite Urine Negative (Negative); Protein Urine 1+ (Negative); RBC Urine Automated 0-4 /hpf (0-4); Urobilinogen Urine Negative (Negative); WBC Urine Automated 0 /hpf (0-5)
[2023-05-10 13:48] LABS: Adenovirus PCR Not Detected (NotDetected); Bordetella parapertussis PCR Not Detected (NotDetected); Bordetella pertussis PCR Not Detected (NotDetected); Chlamydia pneumoniae PCR Not Detected (NotDetected); Coronavirus 229E PCR Not Detected (NotDetected); Coronavirus CoV-2 (COVID19)PCR Not Detected (NotDetected); Coronavirus HKU1 PCR Not Detected (NotDetected); Coronavirus NL63 PCR Not Detected (NotDetected); Coronavirus OC43PCR Not Detected (NotDetected); Human Metapneumovirus PCR Not Detected (NotDetected); Influenza A PCR Not Detected (NotDetected); Influenza B PCR Not Detected (NotDetected); Mycoplasma pneumoniae PCR Not Detected (NotDetected); Parainfluenza Virus 1 PCR Not Detected (NotDetected); Parainfluenza Virus 2 PCR Not Detected (NotDetected); Parainfluenza Virus 3 PCR Not Detected (NotDetected); Parainfluenza Virus 4 PCR Not Detected (NotDetected); Respiratory Syncytial VirusPCR Not Detected (NotDetected); Rhinovirus/Enterovirus PCR Not Detected (NotDetected)
[2023-05-10] MEDS ORDERED: ACETAMINOPHEN 325 MG TAB PO PRN (14:03)
[2023-05-10 15:04] LABS: iSTAT Arterial Blood Gas HCO3 35 meg/L (19-24); iSTAT Arterial Blood Gas pCO2 87 mmHg (35-46); iSTAT Arterial Blood Gas pH 7.21 (7.35-7.45); iSTAT Arterial Blood Gas pO2 52 mmHg (80-95); iSTAT Carbon Dioxide 37 mmol/L (24-31); iSTAT Hematocrit 45 % (42-52); iSTAT Hemoglobin 15.3 g/dl (14.0-18.0); iSTAT Potassium 4.4 mmol/L (3.3-5.0); iSTAT Sodium 141 mmol/L (135-144)
[2023-05-10] MEDS ORDERED: FUROSEMIDE 40 MG/4 ML VIAL IV SCH ×2 (17:00→21:00)
[2023-05-10] MEDS: carvediloL 25 MG TAB PO SCH (17:30)
[2023-05-10] MEDS: allopurinoL 100 MG TAB PO SCH (21:16)
[2023-05-10] MEDS: SIMVASTATIN 40 MG TAB PO SCH (21:16)
[2023-05-10 23:40] LABS: Allen Test Pos (Pos); HCO3 ABG 41 mmol/L (19-24); Oxygen Saturation ABG 95.2 % (90-95); PCO2 ABG 119 mmHg (35-46); PO2 ABG 83 mmHg (80-95)
[2023-05-11 00:41] LABS: pH ABG 7.14 (7.35-7.45)
--- NOTE | 2023-05-11 01:25 | Communication Note ---
Date of Service: May 11, 2023 Noted patient not given PM medications therefore went to review patient. Negative balance of 2740ml. Difficult to wake up at bedside but would open eyes and mumble words. ABG ordered and subsequent resulted pH 7.14, PaCO2 119, PaO2 119. Discussed with lace sewer Dr Donohue and ICU [employer] [facility] who will review patient. ICU transfer orders placed.
[2023-05-11] MEDS ORDERED: PROPOFOL IV EMULSION 10 MG/ML 100 ML VIAL IV ONE (01:34)
[2023-05-11] MEDS ORDERED: PROPOFOL BOLUS FROM BAG IV PRN (01:37)
[2023-05-11] MEDS ORDERED: STAT IV Infusion **Titration per Protocol STA ×3 (01:37→04:38)
--- NOTE | 2023-05-11 01:44 | Emergency Department Note ---
ED Visit Note I was called from the emergency department to the intensive care unit by the physician assistant Holm and internal medicine, Dr. Donohue. Patient was experiencing severe hypercarbia. ABG revealed a CO2 of 119 patient was failing BiPAP management. They did request the patient to be intubated for management of his hypercarbia. Patient was evaluated. His O2 saturations were adequate on BiPAP however he was not moving much air. Endotracheal intubation indicated. Endotracheal Intubation Indication: Acute hypercarbic respiratory failure. The patient was on 100% oxygen via BiPAP prior to the procedure. Suction, airway equipment, RSI drugs, respiratory equipment, and appropriate personnel were prepared prior to the initiation of the procedure. A time out was taken. Induction was performed with etomidate. After observing the clinical benefit of the medications, the airway was easily visualized utilizing a glide scope. Patient was given 150 mg of succinylcholine. A 8-0 size ETT tube was placed atraumatically to 23 cm using standard technique. The cuff inflated without signs of malfunction. There were bilateral breath sounds, positive colormetric change, no gastric sounds, a good capnography waveform, and post procedure pulse oximetry was 100% %. Post intubation sedation was done by ICU staff with propofol. Please refer to their notes for details. Postprocedure chest x-ray reveals the endotracheal tube to be about 5.5 cm above the addison. ICU notified and will advance 2 cm. .
[2023-05-11] MEDS: propofoL 1,000 MG/100 ML VIAL IV SCH ×5 (01:50→20:38)
[2023-05-11] MEDS ORDERED: fentaNYL citrate 2,500 MCG/250 ML BAG IV ONE (01:58)
[2023-05-11] MEDS: fentaNYL citrate 2,500 MCG/250 ML BAG IV SCH (02:00)
--- NOTE | 2023-05-11 02:01 | Critical Care Consultation ---
Date of Consultation May 11, 2023 Assessment & Plan (1) Acute respiratory failure with hypoxia and hypercapnia: Reason Critically Ill: 62-year-old male with past medical history emphysema, heart failure, HTN, HELDER and undergoing treatment for CHF exacerbation with diuresis and on BiPAP, now presents to the ICU with respiratory failure with worsening hypercapnia requiring emergent intubation. Neuro - Encephalopathypatient currently obtunded due to significant hypercapnia. Hard to arouse and does not appear to be maintaining his airway. CO2 [address] head was negative on admission. We will treat underlying respiratory failure and expect to improve. Cardiac - Diastolic heart failurelast echo 02/26 appears to have normal EF function with mild concentric left ventricular hypertrophy. Patient does take Lasix twice daily as home medication. He is currently undergoing diuresis for CHF exacerbation. BNP elevated at 308. We will repeat TTE. Continue with diuresis HTNhold lisinopril and carvedilol for now History of AV blockstatus post pacemaker. Currently paced rhythm on monitor and 60s. Continue to monitor on telemetry Respiratory - Acute on chronic hypoxic and hypercapnic respiratory failurepatient with history of HELDER (noncompliant with CPAP), emphysema (no home nebulizers), and morbid obesity now presents to the ICU with worsening hypercapnia and failed BiPAP requiring emergent intubation. -Previous undergoing for CHF exacerbation. Patient did have elevated BNP, currently 3 L negative with diuresis. Continue Lasix as scheduled for now. -Holding on CTA chest due to underlying kidney disease. Will obtain lower extremely venous Doppler -Holding on antibiotics for now. See ID below -Adding DuoNeb scheduled -Follow-up morning chest x-ray and repeat ABG. Continuous monitoring on pulse ox. Wean BiPAP as tolerated GI - N.p.o. RENAL/LYTES - CKDcreatinine on previous admission above 2, now 1.65. Hold on IV fluid resuscitation due to CHF exacerbation. Avoid nephrotoxins and renally adjust medications. Monitor routine BMPs - Foleystrict I's and O ENDO - Previous diagnosis of prediabetesappears to be euglycemic for now. ICU hyperglycemic protocol HEME - H&H stable, monitor routine CBC ID - No indication for infectious process at this time. Respiratory failure appears favorable to CHF/pulmonary edema like presentation. Patient currently afebrile, no leukocytosis, Pro-Alden unremarkable, lactate within normal limits. Will obtain CRP. Bio fire negative. Trend fever curve for now LINES/IV ACCESS - Peripheral IVs DVT PROPHYLAXIS - SCDs, heparin subcu I have personally spent 45 minutes of critical care time in the direct management of this patient. This is a life/limb threatening event. This includes time spent evaluating patient, direct bedside care, chart review, placing orders, interpretation of diagnostic studies, discussion with consultants, patient, and family members, as well as other required patient management activities. This time is exclusive of all separately billable procedures, and teaching time and separate from and in addition to any other critical care service time. Thank you for allowing us to participate in the care of this patient. Please refer to my attending physician's documentation for any further recommendations. (2) Cardiac pacemaker: (3) Nonischemic cardiomyopathy: (4) Atrioventricular block, complete: (5) Hyperlipidemia: (6) Obstructive sleep apnea of adult: (7) Hypertension: (8) Chronic kidney disease: Plan Patient separately seen and examined. Patient has significant hypoxemia with unclear etiology at this time. Possible pulmonary embolism. Patient with worsening creatinine today and worsening urine output. We will empirically treat with heparin infusion. We will strongly consider stat CT chest with PE protocol if patient's condition continues to worsen. Chest x-ray with evidence of mild pulmonary edema. No obvious infiltrate seen. Initial procalcitonin negative. Repeat pending. Troponin downtrending. BNP elevated on admission. Repeat BMP ordered. Ultrasound of the lower extremities did reveal a right peroneal vein thrombosis. Given none oliguric renal failure and worsening creatinine, will consult nephrology. We will hold on further diuresis at this time and follow urine output closely. We will also consult cardiology given complex history, pacemaker and concerns of acute congestive heart failure. We will place carvedilol on hold. History of Present Illness Attending Physician: Javed Escamilla MD History of Present Illness Patient is a 62-year-old male with history of HELDER, emphysema, HLD, gout, complete AV block (s/p pacemaker), HTN, CKD who was admitted to the emergency department yesterday with complaints of slurred speech, shortness of breath and was noted to be hypoxic. Patient was reported to be noncompliant with CPAP for the past 1.5 years and was recently seen by his primary care physician with complaints of malaise ongoing for several weeks. ABG revealed hypercapnic and hypoxic respiratory failure and he was placed on BiPAP. Initial repeat ABG earlier today showed significant improvement in hypercapnia. This evening he was noted to be somnolent and another ABG revealed that the patient was significantly hypercapnic and was difficult to arouse on BiPAP. His CO2 was 119. He had a significant leak around the seal of his BiPAP as well and did not appear to be protecting his airway. Patient was transferred to the ICU where he was emergently intubated. Allergies Allergy/AdvReac Type Severity Reaction Status Date / Time No Known Allergies Allergy Verified 05/10/23 12:08 Home Medications Medication Instructions Recorded Confirmed Type aspirin 81 mg tablet,delayed 81 mg PO HS 05/11/19 04/29/23 History release allopurinol 100 mg tablet 100 mg PO BID #180 tabs 03/16/23 05/10/23 Rx carvedilol 25 mg tablet 50 mg (2 x 25 mg) PO BID #360 tabs 03/16/23 05/10/23 Rx furosemide 80 mg tablet 80 mg PO BID #180 tabs 03/16/23 05/10/23 Rx lisinopril 40 mg tablet 40 mg PO QAM #90 tabs 03/16/23 05/10/23 Rx simvastatin 40 mg tablet 40 mg PO QPM #90 tabs 03/16/23 05/10/23 Rx Patient History Medical History History of COVID-19 05/2022 - asymptomatic Kidney stones hx - no surgery currently has a stone embedded in the wall of the left kidney for the last 20 years. Osteoarthritis Anemia recent bloodwork -- recent for upcoming colonoscopy Spinal stenosis of lumbar region Chronic low back pain Lumbar degenerative disc disease Psoriasis Hyperlipidemia Fatty infiltration of liver seen on CT chest dated 10/31 20 Gout COPD with emphysema Morbid obesity Multiple pulmonary nodules stable per patient. yearly scans. Atrioventricular block, complete reason for pacemaker in 2011. Nonischemic cardiomyopathy Cardiac pacemaker st lizzy device. Hypertension Chronic kidney disease Obstructive sleep apnea of adult noncompliant with machine -- states he gets sick everytime he uses the machine. Prediabetes Surgical History S/P epidural steroid injection S/P cardiac pacemaker procedure most recent placement September 2014 at [facility]. last checked annually in May 2022. follows with Dr Arzola. Family History Mother Diabetes Father Diabetes Stroke Grandmother Diabetes Other No family history of adverse response to anesthesia Denies family history of Ovarian cancer Prostate cancer Kidney disease Myocardial infarction Breast cancer Colorectal cancer Hypertension Social History Smoking Status: Never smoker Tobacco Type: Cigarettes Second Hand Exposure: No; Do You Dip or Chew Tobacco: Yes (1 can/1 day (advised)); Hx Alcohol Use: No Hx Substance Use: No Preferred Language: Macedonian Communication Ability: Effective Call Or Contact Centre Team Leader Required: No Beliefs That Will Affect Care: None marital status: Current Living Situation: Alone Current Living Situation Comment: lives with ex- and son current occupational status: disabled How many Children do You have: 2 Other Information That Helps Us Care for You: No Feels Safe at Home: Yes Safety Concerns: Feels Safe At This Time Childhood Exposure to Second-Hand Smoke: Yes Diet: regular caffeine: Yes Dental Care, Regularly: No Physical Activity Frequency: 3-4 Times per Week Seatbelt Use: sometimes Sunscreen Use: No Assistive Devices: CPAP Review of Systems Review of Systems: Unobtainable due to cognitive status and Unobtainable due to endotracheal tube Physical Exam Constitutional: + obese and + mechanically ventilated Eyes: PERRL, conjunctivae normal, anicteric sclerae ENMT: external ear and nose normal, oropharynx normal Neck: trachea midline, no thyromegaly Respiratory: coarse crackles auscultated bilaterally in upper and middle lobes with diminished bases, symmetrical chest wall movement. Mechanically ventilated Cardiovascular: RRR, no murmur, no edema Heart Sounds: no murmur Vessels: no JVD Extremities: + edema (+2 bilateral lower extremity edema) Gastrointestinal (Abdomen): Abdomen obese, soft, nontender. Bowel sounds auscultated all 4 quadrants Musculoskeletal: no cyanosis or clubbing, extremities motor strength 5/5 Skin: no rashes, warm and dry Neurologic: + confused and + obtunded Genitourinary: indwelling carmona catheter, urine yellow and clear Results & Data Results & Data Vital Signs (Past 12 Hours) Vital Signs Temp Pulse Pulse Resp BP BP BP 05/10/23 23:28 65 05/10/23 22:58 37.0 C 68 19 164/74 H 05/10/23 22:00 66 16 05/10/23 20:46 66 18 05/10/23 20:45 05/10/23 19:05 37.1 C 63 20 143/73 H 05/10/23 15:38 05/10/23 15:38 37.1 C 62 21 124/83 05/10/23 15:32 66 21 05/10/23 15:00 64 24 124/81 05/10/23 14:30 72 13 120/75 05/10/23 14:00 70 24 123/83 Pulse Ox O2 Del Method FiO2 05/10/23 23:28 05/10/23 22:58 95 BiPAP 50 05/10/23 22:00 93 50 05/10/23 20:46 96 60 05/10/23 20:45 BiPAP 05/10/23 19:05 95 BiPAP 40 05/10/23 15:38 BiPAP 40 05/10/23 15:38 BiPAP 40 05/10/23 15:32 94 40 05/10/23 15:00 94 BiPAP 35 05/10/23 14:30 93 BiPAP 35 05/10/23 14:00 91 BiPAP 35 Coding Level of Care Code 36408 CRITICAL CARE 1ST 30-74M Diagnoses Acute respiratory failure with hypoxia and hypercapnia J96.01; J96.02 Cardiac pacemaker Z95.0 Nonischemic cardiomyopathy I42.8 Atrioventricular block, complete I44.2 Hyperlipidemia E78.5 Obstructive sleep apnea of adult G47.33 Essential hypertension I10 Hypertension type: essential hypertension Stage 3a chronic kidney disease N18.31 Chronic kidney disease stage: stage 3 (moderate) Chronic kidney disease stage 3 subtype: stage 3a (GFR 45-59) (7) Hypertension Hypertension type: essential hypertension Qualified Code(s): I10 - Essential (primary) hypertension (8) Chronic kidney disease Chronic kidney disease stage: stage 3 (moderate) Chronic kidney disease stage 3 subtype: stage 3a (GFR 45-59) Qualified Code(s): N18.31 - Chronic kidney di sease, stage 3a
[2023-05-11 02:34] LABS: iSTAT Allen Test Pass; iSTAT Art Bld Gas pCO2 Correct 75 mmHg (35-46); iSTAT Art Bld Gas pH Corrected 7.287 (7.35-7.45); iSTAT Arterial Blood Gas HCO3 36 meg/L (19-24); iSTAT Arterial Blood Gas pCO2 74 mmHg (35-46); iSTAT Arterial Blood Gas pH 7.29 (7.35-7.45); iSTAT Arterial Blood Gas pO2 71 mmHg (80-95); iSTAT Arterial Blood Gas pO2 C 72; iSTAT Carbon Dioxide 38 mmol/L (24-31); iSTAT FiO2 70 %; iSTAT Hematocrit 44 % (42-52); iSTAT Potassium 4.2 mmol/L (3.3-5.0); iSTAT Site R Radial; iSTAT Sodium 142 mmol/L (135-144)
[2023-05-11] MEDS ORDERED: NOREPINEPHRINE/D5W 4 MG/250 ML IV ONE (02:38)
[2023-05-11 03:07] LABS: Albumin Globulin Ratio 1.5 (0.9-2); Albumin Level 3.8 gm/dl (3.4-5.0); Bilirubin,Total 0.7 mg/dl (0.2-1.0); Calcium 8.2 mg/dl (8.6-10.3); Creatinine Clr Calc Pharmacy 63.3 ml/min; Est GFR (African American) 40.8 ml/min; Est GFR (Non-African American) 35.2 ml/min; Globulin 2.6 gm/dl (2.5-4.0); Magnesium 1.8 mg/dl (1.7-2.4); Phosphorus 6.4 mg/dl (2.5-4.9); Potassium 4.4 mmol/L (3.5-5.1); Total Protein 6.4 gm/dl (6.0-8.3)
[2023-05-11] MEDS: ALBUT/IPRATROP 3MG/0.5MG NEB 3 ML VIAL NEB SCH ×4 (03:07→19:50)
[2023-05-11 03:19] LABS: Basophils # (auto) 0.03 K/uL (0.00-0.20); Basophils % (auto) 0.4 %; Eosinophils # (auto) 0.03 K/uL (0.00-0.50); Eosinophils % (auto) 0.4 %; Hematocrit (blood only) 46.4 % (42.0-52.0); Hemoglobin 13.3 g/dl (14.0-18.0); Hypochromasia Present; Immature Granulocytes # (auto) 0.04 K/uL (0.01-0.20); Immature Granulocytes % (auto) 0.5 %; Lymphocytes # (auto) 0.67 K/uL (1.20-3.40); Lymphocytes % (auto) 8.6 %; Mean Corpuscular Hemoglobin 27.7 pg (25.0-34.0); Mean Corpuscular Hgb Conc 28.7 g/dL (32.0-36.0); Mean Corpuscular Volume 96.7 fL (80.0-100.0); Mean Platelet Volume 10.6 fL (9.4-12.4); Monocytes # (auto) 0.67 K/uL (0.11-0.59); Monocytes % (auto) 8.6 %; Neutrophils # (auto) 6.33 K/uL (1.40-6.50); Neutrophils % (auto) 81.5 %; Platelet Count 143 K/uL (130-400); Polychromasia 1+; RDW Coefficient of Variation 14.8 % (11.5-14.5); RDW Standard Deviation 52.6 fL (36.4-46.3); White Blood Count 7.77 K/ul (4.8-10.8)
[2023-05-11] MEDS ORDERED: Heparin IV Adult Wt-Based Standard w/ INITIAL Bolus Protocol IV SCH (03:39)
[2023-05-11] MEDS ORDERED: HEPARIN SOD (PORCINE) 1000 UNIT/ML IV ONE (04:00)
--- NOTE | 2023-05-11 04:01 | Ultrasound Report ---
Exam(s): US VENOUS BILATERAL LOWER EXTREMITIES EXAM: US Duplex Bilateral Lower Extremities Veins CLINICAL HISTORY: Reason for exam: ?DVT. TECHNIQUE: Real-time duplex ultrasound scan of the bilateral lower extremity veins integrating B-mode two-dimensional vascular structure, Doppler spectral analysis, color flow Doppler imaging and compression. COMPARISON: No relevant prior studies available. FINDINGS: Right deep veins: Acute thrombosis of the right peroneal veins. No DVT in the right common femoral, femoral, proximal deep femoral or popliteal veins. Left deep veins: Unremarkable. No DVT in the left common femoral, femoral, proximal deep femoral or popliteal veins. The veins demonstrate normal color flow, are normally compressible, with normal phasic flow and/or augmentation response. Soft tissues: No acute findings. No popliteal cyst. IMPRESSION: Acute thrombosis of the right peroneal veins. Electronically signed by: Yariel Mccormack M.D. 05/11/23 04:00 AM
[2023-05-11 04:06] LABS: C Reactive Protein 0.72 mg/dl (0-0.5)
[2023-05-11] MEDS: HEPARIN SODIUM/DEXTROSE 25,000 UNITS/500 ML BAG IV SCH ×2 (04:17→16:51)
[2023-05-11] MEDS: fentaNYL BOLUS from BAG IV PRN ×2 (04:39→20:30)
[2023-05-11] MEDS ORDERED: NOREPINEPHRINE/D5W 4 MG/250 ML PLCT IV SCH (04:45)
[2023-05-11 04:48] LABS: Partial Thromboplastin Ratio 0.9; Partial Thromboplastin Time 24.2 Seconds (21.0-31.0)
[2023-05-11 05:50] LABS: iSTAT Allen Test Pass; iSTAT Art Bld Gas pCO2 Correct 42 mmHg (35-46); iSTAT Art Bld Gas pH Corrected 7.475 (7.35-7.45); iSTAT Arterial Blood Gas HCO3 31 meg/L (19-24); iSTAT Arterial Blood Gas pCO2 41 mmHg (35-46); iSTAT Arterial Blood Gas pH 7.48 (7.35-7.45); iSTAT Arterial Blood Gas pO2 82 mmHg (80-95); iSTAT Arterial Blood Gas pO2 C 84; iSTAT Carbon Dioxide 32 mmol/L (24-31); iSTAT FiO2 50 %; iSTAT Hematocrit 41 % (42-52); iSTAT Hemoglobin 13.9 g/dl (14.0-18.0); iSTAT Potassium 3.8 mmol/L (3.3-5.0); iSTAT Site L Radial; iSTAT Sodium 139 mmol/L (135-144)
--- NOTE | 2023-05-11 06:02 | Communication Note ---
Date of Service: May 11, 2023 Lower extremity venous Doppler shows acute thrombosis of the right peroneal vein. Potential PE may be attributing to patient's respiratory failure. Pat ient started on heparin drip with bolus. We will try to obtain VQ scan in favor of CTA chest if possible due to underlying kidney disease and creatinine of 2, which may be challenging due to patient's body habitus. TTE currently pending, and can evaluate for right heart strain/cor pulmonale. Repeat ABG this morning shows correction of hypercapnia and improvement in oxygenation following mechani jennie ventilation. Coding Level of Care Code None
--- NOTE | 2023-05-11 07:06 | XRay Report ---
XR chest 1V portable HISTORY: Evaluate endotracheal tube placement. COMPARISON: Chest 05/10/2023. FINDINGS: The endotracheal tube terminates approximately 5.6 cm from the addison. There is a left-side d pacemaker noted. The heart remains enlarged. Trace right pleural effusion. Interstitial thickening and patchy airspace opacities persist. IMPRESSION: 1. Endotracheal tube terminates 5.6 cm from the addison. 2. Cardiomegaly with interstitial thickening and patchy airspace opacities. This may represent pulmon maurice edema or a pneumonia. This is similar to the prior study. ACT 112: Negative or not required by law. Electronically signed by: Shayan Jefferson M.D. 05/11/2023 7:04 AM
[2023-05-11] MEDS: FUROSEMIDE 40 MG/4 ML VIAL IV SCH ×2 (07:41→19:27)
--- NOTE | 2023-05-11 08:48 | XRay Report ---
XR chest 1V portable CLINICAL HISTORY: hypoxia TECHNIQUE: Single frontal radiograph of the chest was obtained. Comparison: Comparison is made to chest radiograph 05/11/2023 FINDINGS: Endotracheal tube terminates 3 cm from the addison. Cardiomegaly is noted. Prominence and cephalizatio n of the vasculature is seen. No evidence of pleural effusion or pneumothorax. IMPRESSION: Cardiomegaly and mild pulmonary edema. ACT 112: Negative or not required by law. Electronically signed by: Jovan Dwyer M.D. 05/11/2023 8:46 AM
[2023-05-11] MEDS ORDERED: ENOXAPARIN INJ 40 MG/0.4 ML SYR SQ SCH (09:00)
[2023-05-11] MEDS ORDERED: FUROSEMIDE 40 MG/4 ML VIAL IV SCH (09:00)
[2023-05-11] MEDS ORDERED: ASPIRIN 81 MG ECTAB PO SCH (09:00)
--- NOTE | 2023-05-11 09:47 | XCELERA ---
[id number]
[2023-05-11 10:31] LABS: Estimated Average Glucose 137 mg/dl; Hemoglobin A1C 6.4 % (4.5-5.6)
[2023-05-11 11:14] LABS: Partial Thromboplastin Ratio 1.9
[2023-05-11] MEDS: carvediloL 25 MG TAB PO SCH (11:24)
[2023-05-11] MEDS: allopurinoL 100 MG TAB PO SCH ×2 (11:25→19:28)
--- NOTE | 2023-05-11 11:36 | Nuclear Medicine Report ---
NM pul perfusion CLINICAL HISTORY: Pulmonary embolism r/o Technique: Perfusion imaging was performed in multiple projections after the intravenous injection of 5.4 mCi of Tc-99m labeled macroaggregated albumin (MAA). Comparison: Comparison is made to chest radiograph 05/11/2023 FINDINGS/IMPRESSION: Homogeneous perfusion was seen bilaterally. Low probability of pulmonary emboli sm. ACT 112: Negative or not required by law. Electronically signed by: Jovan Dwyer M.D. 05/11/2023 11:35 AM
[2023-05-11 11:44] LABS: Partial Thromboplastin Time 53.8 Seconds (21.0-31.0)
--- NOTE | 2023-05-11 12:19 | XRay Report ---
KUB CLINICAL HISTORY: Enteric tube placement. FINDINGS: An AP, portable, supine view of the lower chest and upper abdomen is correlated with abdomi nal CT dictated 09/23/2016. An enteric tube has been placed. The tip projects below the diaphragm over the mid stomach. There is no radiographic evidence of high-grade bowel obstruction on the provided i mage. No intraperitoneal free air is seen below the diaphragm. The heart is enlarged and pacemaker le ads are in place. The skeletal structures are osteopenic and appear intact. Spondylotic change is not ed in the spine. IMPRESSION: An enteric tube has been placed as above. Electronically signed by: Johny Haq M.D. 05/11/2023 12:18 PM
--- NOTE | 2023-05-11 12:20 | Electrocardiogram Report ---
Test Reason : Blood Pressure : / mmHG Vent. Rate : 061 BPM Atrial Rate : 061 BPM P-R Int : 144 ms QRS Dur : 166 ms QT Int : 482 ms P-R-T Axes : 023 207 -13 degrees QTc Int : 485 ms Atrial-sensed ventricular-paced rhythm Abnormal ECG When compared with ECG of 10-MAY-2023 10:34, Premature ventricular complexes are no longer Present Vent. rate has decreased BY 26 BPM Confirmed by Brandon Balderas ([id number]) on 05/11/2023 12:20:40 PM Referred By: REFERRED SELF Confirmed By:Brandon Balderas
[2023-05-11] MEDS: PANTOprazole 40 MG in SYRINGE 0 ML IV SCH (13:09)
[2023-05-11 13:10] LABS: BUN Creatinine Ratio 17.7 (10-20); Calcium 8.6 mg/dl (8.6-10.3); Creatinine Clr Calc Pharmacy 58.3 ml/min; Est GFR (African American) 37.4 ml/min; Est GFR (Non-African American) 32.3 ml/min; Potassium 3.7 mmol/L (3.5-5.1)
--- NOTE | 2023-05-11 13:14 | Nephrology Consultation ---
Date of Consultation May 11, 2023 Assessment & Plan (1) Acute kidney injury: (2) Pulmonary edema: (3) Type 2 diabetes mellitus: Plan 62 y o M with PMH of stage 3A CKD, HELDER, morbid obesity admitted with hypoxic respiratory failure, hypotension, failed BiPAP and required intubation and transferred to ICU, developed SAJNEEV. Unclear etiology for profound hypoxic respiratory failure, ? Obstructive sleep apnea with noncompliance with CPAP. Troponin was mildly elevated but serial troponin was trending down already. VQ scan negative for pulmonary embolism. SANJEEV most likely hemodynamically mediated with hypotension. --continue hemodynamic support. if UO remains low, change Lasix to 80 mg IV BID --Monitor intake output --avoid nephrotoxic medications Thank you for allowing me to participate in your patient's care. It was a pleasure to see Benjamín.. History of Present Illness Reason for Consultation: SANJEEV, oliguria Attending Physician: Leo Blevins MD History of Present Illness Mr. Benjamín Atkinson is a 62-year-old male with PMH of stage 3A CKD, HELDER, HTN, CKD admitted with hypoxic respiratory failure. Nephrology consult was requested for management of SANJEEV with history of CKD. Electronic medical records are reviewed in detail during patient's visit. Benjamín was admitted yesterday after he presented to ER with the complaint shortness of breath, hypoxia and slurred speech. He was noted to be hypoxic with room air oxygen saturation about 66%. Was hypotensive with lowest blood pressure about 59/25. Has history of sleep apnea has been noncompliant with CPAP. ABG revealed hypercapnic and hypoxic respiratory failure and he was placed on BiPAP but later in the evening he became more somnolent and significantly hypercapnic and eventually intubated and transferred to intensive care unit. He received multiple doses of IV Lasix and had a high urine output however overnight urine output dropped significantly, now on lasix 80 mg bid. CXR with pulmonary congestion. V/Q scan was negative. CT head was negative. Troponin was initially elevated at 56 to 60 but improved to 38. Received Rocephin and doxycycline empirically but now stopped, no leukocytosis. On admission creatinine was 1.7 mg/dl, close to baseline however slightly worsened to 2.0 mg/dl this morning. Stage 3 A CKD, b/l cr 1.5 to 1.7 to be secondary to prior heavy NSAID use. Urinalysis with no proteinuria, hematuria. Renal imaging unremarkable. Has chronic LE edema, has been on furosemide 80 mg twice daily. Has Psoriasis, was on Tremfya. PMH also significant for emphysema, HLD, gout, complete AV block (s/p pacemaker). Intubated and sedated. Lab this morning showed cr 2.0. UO dropped. BP remains low , on pressor. Allergies Allergy/AdvReac Type Severity Reaction Status Date / Time No Known Allergies Allergy Verified 05/10/23 12:08 Home Medications Medication Instructions Recorded Confirmed Type aspirin 81 mg tablet,delayed 81 mg PO HS 05/11/19 04/29/23 History release allopurinol 100 mg tablet 100 mg PO BID #180 tabs 03/16/23 05/10/23 Rx carvedilol 25 mg tablet 50 mg (2 x 25 mg) PO BID #360 tabs 03/16/23 05/10/23 Rx furosemide 80 mg tablet 80 mg PO BID #180 tabs 03/16/23 05/10/23 Rx lisinopril 40 mg tablet 40 mg PO QAM #90 tabs 03/16/23 05/10/23 Rx simvastatin 40 mg tablet 40 mg PO QPM #90 tabs 03/16/23 05/10/23 Rx Patient History Medical History (Updated 05/11/23 @ 14:48 by Kayy De La Torre MD) Acute kidney injury History of COVID-19 05/2022 - asymptomatic Kidney stones hx - no surgery currently has a stone embedded in the wall of the left kidney for the last 20 years. Osteoarthritis Anemia recent bloodwork -- recent for upcoming colonoscopy Spinal stenosis of lumbar region Chronic low back pain Lumbar degenerative disc disease Psoriasis Hyperlipidemia Fatty infiltration of liver seen on CT chest dated 10/31 20 Gout COPD with emphysema Morbid obesity Multiple pulmonary nodules stable per patient. yearly scans. Atrioventricular block, complete reason for pacemaker in 2011. Nonischemic cardiomyopathy Cardiac pacemaker st lizzy device. Hypertension Chronic kidney disease Obstructive sleep apnea of adult noncompliant with machine -- states he gets sick everytime he uses the machine. Prediabetes Surgical History S/P epidural steroid injection S/P cardiac pacemaker procedure [place] [facility] [place] checked annually in May 2022. follows with Dr Arzola. Family History Mother Diabetes Father Diabetes Stroke Grandmother Diabetes Other No family history of adverse response to anesthesia Denies family history of Ovarian cancer Prostate cancer Kidney disease Myocardial infarction Breast cancer Colorectal cancer Hypertension Social History Smoking Status: Never smoker Tobacco Type: Cigarettes Second Hand Exposure: No; Do You Dip or Chew Tobacco: Yes (1 can/1 day (advised)); Hx Alcohol Use: No Hx Substance Use: No Preferred Language: Pashto Communication Ability: Unable Security Control Room Officer Required: No Beliefs That Will Affect Care: None marital status: Current Living Situation: Alone Current Living Situation Comment: lives with ex- and son current occupational status: disabled How many Children do You have: 2 Other Information That Helps Us Care for You: No Feels Safe at Home: Yes Safety Concerns: Feels Safe At This Time Childhood Exposure to Second-Hand Smoke: Yes Diet: regular caffeine: Yes Dental Care, Regularly: No Physical Activity Frequency: 3-4 Times per Week Seatbelt Use: sometimes Sunscreen Use: No Assistive Devices: None Review of Systems Review of Systems: Unobtainable due to endotracheal tube and Unobtainable due to reduced consciousness Physical Exam Constitutional: WD/WN, vitals as above + ill appearing, + morbidly obese and + mechanically ventilated Respiratory: Auscultation: + diminished lung sounds Cardiovascular: Rate/Rhythm: regular rate and regular rhythm Heart Sounds: normal S1 and normal S2 Extremities: + edema Gastrointestinal (Abdomen): Percussion/Palpation: abdomen soft Musculoskeletal: Extremities: extremities normal to inspection Skin: no rashes, warm and dry Neurologic: could not be assessed, sedated Results & Data Vital Signs (Past 12 Hours) Vital Signs Temp Pulse Pulse Resp BP Pulse Ox O2 Del Method 05/11/23 12:45 58 L 94 05/11/23 11:06 Mechanical Vent 05/11/23 10:33 61 20 96 05/11/23 10:00 05/11/23 09:00 37.1 C 59 L 20 99/63 L 94 Mechanical Vent 05/11/23 08:30 37.2 C 60 20 105/68 93 Mechanical Vent 05/11/23 08:18 05/11/23 08:17 37.2 C 60 20 99/63 L 89 L Mechanical Vent 05/11/23 08:15 05/11/23 08:10 60 20 93 05/11/23 08:00 37.2 C 65 20 100/65 83 L Mechanical Vent 05/11/23 07:45 37.2 C 63 20 102/68 93 05/11/23 07:30 37.3 C 65 20 102/66 93 Mechanical Vent 05/11/23 07:15 37.4 C 64 20 97/63 L 93 05/11/23 07:10 37.4 C 64 20 93 05/11/23 07:00 100/62 05/11/23 07:00 37.4 C 65 20 93 05/11/23 06:50 37.5 C 64 20 94 05/11/23 06:45 106/66 05/11/23 06:45 37.4 C 65 20 95 05/11/23 06:40 37.4 C 65 20 96 05/11/23 06:30 115/73 05/11/23 06:30 37.4 C 63 20 96 05/11/23 06:20 37.4 C 61 20 97 05/11/23 06:15 37.4 C 65 20 96 05/11/23 06:15 116/73 05/11/23 06:10 37.4 C 63 20 97 05/11/23 06:06 05/11/23 06:00 37.4 C 66 20 96 05/11/23 06:00 103/64 05/11/23 05:50 37.5 C 66 20 97 05/11/23 05:45 37.5 C 67 20 97 05/11/23 05:45 102/63 05/11/23 05:40 37.5 C 68 26 H 97 05/11/23 05:30 91/58 L 05/11/23 05:30 37.6 C H 69 26 H 97 05/11/23 05:20 37.6 C H 68 26 H 98 05/11/23 05:15 91/58 L 05/11/23 05:15 37.5 C 68 26 H 98 05/11/23 05:10 37.5 C 69 26 H 98 05/11/23 05:00 92/60 L 05/11/23 05:00 37.5 C 71 26 H 98 05/11/23 04:50 37.5 C 67 26 H 98 05/11/23 04:45 37.4 C 66 26 H 98 05/11/23 04:45 95/55 L 05/11/23 04:40 37.4 C 64 26 H 99 05/11/23 04:30 98/61 L 05/11/23 04:30 37.4 C 67 26 H 98 05/11/23 04:20 37.4 C 63 26 H 98 05/11/23 04:15 37.4 C 67 26 H 98 05/11/23 04:15 92/59 L 05/11/23 04:10 37.4 C 68 26 H 98 05/11/23 04:00 37.4 C 68 26 H 98 05/11/23 04:00 88/58 L 05/11/23 03:50 37.4 C 70 26 H 98 05/11/23 03:45 37.4 C 69 26 H 98 05/11/23 03:45 92/61 L 05/11/23 03:40 37.4 C 68 26 H 97 05/11/23 03:30 37.4 C 70 26 H 98 05/11/23 03:20 37.4 C 67 26 H 98 05/11/23 03:15 37.4 C 62 26 H 98 05/11/23 03:15 130/80 05/11/23 03:10 37.3 C 61 26 H 99 05/11/23 03:07 61 26 H 99 Mechanical Vent 05/11/23 03:00 37.2 C 58 L 26 H 05/11/23 03:00 129/75 05/11/23 02:50 35.7 C L 60 26 H 99 05/11/23 02:44 36.4 C L 64 26 H 05/11/23 02:44 73/41 L 05/11/23 02:40 37.2 C 69 26 H 91 05/11/23 02:37 59/25 L 05/11/23 02:37 37.2 C 66 26 H 05/11/23 02:37 68 26 H 98 05/11/23 02:35 36.7 C 71 26 H 05/11/23 02:35 66/44 L 05/11/23 02:34 70 05/11/23 02:30 37.2 C 70 26 H 96 05/11/23 02:26 Mechanical Vent 05/11/23 02:20 37.2 C 68 26 H 94 05/11/23 02:16 89/55 L 05/11/23 02:16 37.2 C 66 26 H 94 05/11/23 02:11 37.1 C 72 26 H 96 05/11/23 02:11 95/67 L 05/11/23 02:10 37.1 C 70 26 H 96 05/11/23 02:06 05/11/23 02:02 37.2 C 71 26 H 95 05/11/23 02:02 79/48 L 05/11/23 02:01 84/49 L 05/11/23 02:01 37.2 C 70 26 H 96 05/11/23 02:00 37.2 C 71 26 H 96 05/11/23 01:58 37.2 C 71 26 H 96 05/11/23 01:58 82/54 L 05/11/23 01:56 37.2 C 71 26 H 97 05/11/23 01:56 85/55 L 05/11/23 01:54 86/57 L 05/11/23 01:54 37.2 C 71 26 H 98 05/11/23 01:52 94/59 L 05/11/23 01:52 37.2 C 70 26 H 98 05/11/23 01:51 102/61 05/11/23 01:51 37.2 C 71 26 H 98 05/11/23 01:50 37.1 C 72 26 H 98 05/11/23 01:49 111/67 05/11/23 01:49 37.1 C 72 26 H 99 05/11/23 01:45 138/95 05/11/23 01:45 37.1 C 79 25 H 98 05/11/23 01:43 136/82 05/11/23 01:43 37.1 C 75 26 H 100 05/11/23 01:40 141/89 H 05/11/23 01:40 37.1 C 76 26 H 100 05/11/23 01:38 143/90 H 05/11/23 01:38 37.1 C 72 21 100 05/11/23 01:37 134/76 05/11/23 01:37 37.1 C 68 25 H 100 05/11/23 01:34 37.1 C 76 30 H 99 05/11/23 01:34 144/88 H 05/11/23 01:32 127/87 05/11/23 01:32 37.2 C 73 21 100 05/11/23 01:31 131/77 05/11/23 01:31 37.1 C 61 22 100 05/11/23 01:30 37.1 C 67 19 99 05/11/23 01:29 37.1 C 64 27 H 100 05/11/23 01:29 126/76 05/11/23 01:27 37.1 C 67 25 H 100 05/11/23 01:27 126/75 05/11/23 01:20 62 16 91 05/11/23 01:19 62 15 90 FiO2 05/11/23 12:45 05/11/23 11:06 60 05/11/23 10:33 60 05/11/23 10:00 60 05/11/23 09:00 50 05/11/23 08:30 50 05/11/23 08:18 60 05/11/23 08:17 50 05/11/23 08:15 50 05/11/23 08:10 40 05/11/23 08:00 40 05/11/23 07:45 05/11/23 07:30 40 05/11/23 07:15 05/11/23 07:10 05/11/23 07:00 05/11/23 07:00 05/11/23 06:50 05/11/23 06:45 05/11/23 06:45 05/11/23 06:40 05/11/23 06:30 05/11/23 06:30 05/11/23 06:20 05/11/23 06:15 05/11/23 06:15 05/11/23 06:10 05/11/23 06:06 50 05/11/23 06:00 05/11/23 06:00 05/11/23 05:50 05/11/23 05:45 05/11/23 05:45 05/11/23 05:40 05/11/23 05:30 05/11/23 05:30 05/11/23 05:20 05/11/23 05:15 05/11/23 05:15 05/11/23 05:10 05/11/23 05:00 05/11/23 05:00 05/11/23 04:50 05/11/23 04:45 05/11/23 04:45 05/11/23 04:40 05/11/23 04:30 05/11/23 04:30 05/11/23 04:20 05/11/23 04:15 05/11/23 04:15 05/11/23 04:10 05/11/23 04:00 05/11/23 04:00 05/11/23 03:50 05/11/23 03:45 05/11/23 03:45 05/11/23 03:40 05/11/23 03:30 05/11/23 03:20 05/11/23 03:15 05/11/23 03:15 05/11/23 03:10 05/11/23 03:07 50 05/11/23 03:00 05/11/23 03:00 05/11/23 02:50 05/11/23 02:44 05/11/23 02:44 05/11/23 02:40 05/11/23 02:37 05/11/23 02:37 05/11/23 02:37 50 05/11/23 02:35 05/11/23 02:35 05/11/23 02:34 05/11/23 02:30 05/11/23 02:26 50 05/11/23 02:20 05/11/23 02:16 05/11/23 02:16 05/11/23 02:11 05/11/23 02:11 05/11/23 02:10 05/11/23 02:06 50 05/11/23 02:02 05/11/23 02:02 05/11/23 02:01 05/11/23 02:01 05/11/23 02:00 05/11/23 01:58 05/11/23 01:58 05/11/23 01:56 05/11/23 01:56 05/11/23 01:54 05/11/23 01:54 05/11/23 01:52 05/11/23 01:52 05/11/23 01:51 05/11/23 01:51 05/11/23 01:50 05/11/23 01:49 05/11/23 01:49 05/11/23 01:45 05/11/23 01:45 05/11/23 01:43 05/11/23 01:43 05/11/23 01:40 05/11/23 01:40 05/11/23 01:38 05/11/23 01:38 05/11/23 01:37 05/11/23 01:37 05/11/23 01:34 05/11/23 01:34 05/11/23 01:32 05/11/23 01:32 05/11/23 01:31 05/11/23 01:31 05/11/23 01:30 05/11/23 01:29 05/11/23 01:29 05/11/23 01:27 05/11/23 01:27 05/11/23 01:20 05/11/23 01:19 PG Care Time/CCT Total # of Minutes Spent Total Time Spent with Patient: Total time spent is greater than 50% in coordination of care (as documented) at patient's floor/unit and/or counseling patient: Coding Level of Care Code 16360 IN/OBS CONSULT LVL 5,80M Diagnoses Acute kidney injury N17.9 Pulmonary edema J81.0 Chronicity: acute Type 2 diabetes mellitus E11.9 (2) Pulmonary edema Chronicity: acute Qualified Code(s): J81.0 - Acute pulmonary edema
--- NOTE | 2023-05-11 13:37 | Hospitalist Progress Note ---
Date of Service May 11, 2023 Assessment & Plan (1) Acute respiratory failure with hypoxia and hypercapnia: Plan: The patient remains intubated and sedated. Management per drive thru order taker. Continue to treat underlying CHF. Hopeful extubation as soon as possible. (2) Acute on chronic heart failure with preserved ejection fraction: Plan: LVEF 50-55% on TTE in February 2021. Repeat echo pending. Continue parenteral Lasix. Monitor intake and output. Serial chest x-ray (3) Nonischemic cardiomyopathy: Plan: Repeat cardiac echo pending. Continue carvedilol. Lisinopril is on hold (4) Type 2 diabetes mellitus: Plan: HbA1C 6.3 in October. Sliding scale coverage for now. Currently n.p.o. (5) Atrioventricular block, complete: Plan: Status post PPM implant 2011 (6) Obstructive sleep apnea of adult: Plan: BiPAP HS and while napping (7) Chronic kidney disease: Plan: Serial labs. Monitor intake and output. (8) COPD with emphysema: Plan: Currently intubated with ventilator support. COPD exacerbated by concurrent CHF Plan To be determined Admission and Anticipated Discharge Date Admission Date: May 10, 2023 Subjective The patient remained intubated and sedated at the time of my rounds earlier today. He remains on a heparin drip for right leg DVT. Review of Systems 2 Review of Systems: Intubated and sedated Physical Exam 2 Physical Exam: General-intubated and sedated HEENT-head atraumatic and normocephalic. ETT in place Neck-no lymphadenopathy or thyromegaly, trachea midline Chest-scattered bilateral rhonchi from anterior approach. No wheezing. Cardiac-regular rate and rhythm, normal S1 and S2 Abdomen-normal bowel sounds, no hepatosplenomegaly Extremities-no cyanosis, clubbing, or edema Neuro-cannot assess. Intubated and sedated Psych-cannot assess. Intubated and sedated Results & Data Results & Data Vital Signs (Past 12 Hours) Vital Signs Temp Pulse Pulse Resp BP Pulse Ox O2 Del Method 05/11/23 12:45 58 L 94 05/11/23 11:06 Mechanical Vent 05/11/23 10:33 61 20 96 05/11/23 10:00 05/11/23 09:00 37.1 C 59 L 20 99/63 L 94 Mechanical Vent 05/11/23 08:30 37.2 C 60 20 105/68 93 Mechanical Vent 05/11/23 08:18 05/11/23 08:17 37.2 C 60 20 99/63 L 89 L Mechanical Vent 05/11/23 08:15 05/11/23 08:10 60 20 93 05/11/23 08:00 37.2 C 65 20 100/65 83 L Mechanical Vent 05/11/23 07:45 37.2 C 63 20 102/68 93 05/11/23 07:30 37.3 C 65 20 102/66 93 Mechanical Vent 05/11/23 07:15 37.4 C 64 20 97/63 L 93 05/11/23 07:10 37.4 C 64 20 93 05/11/23 07:00 100/62 05/11/23 07:00 37.4 C 65 20 93 05/11/23 06:50 37.5 C 64 20 94 05/11/23 06:45 106/66 05/11/23 06:45 37.4 C 65 20 95 05/11/23 06:40 37.4 C 65 20 96 05/11/23 06:30 115/73 05/11/23 06:30 37.4 C 63 20 96 05/11/23 06:20 37.4 C 61 20 97 05/11/23 06:15 37.4 C 65 20 96 05/11/23 06:15 116/73 05/11/23 06:10 37.4 C 63 20 97 05/11/23 06:06 05/11/23 06:00 37.4 C 66 20 96 05/11/23 06:00 103/64 05/11/23 05:50 37.5 C 66 20 97 05/11/23 05:45 37.5 C 67 20 97 05/11/23 05:45 102/63 05/11/23 05:40 37.5 C 68 26 H 97 05/11/23 05:30 91/58 L 05/11/23 05:30 37.6 C H 69 26 H 97 05/11/23 05:20 37.6 C H 68 26 H 98 05/11/23 05:15 91/58 L 05/11/23 05:15 37.5 C 68 26 H 98 05/11/23 05:10 37.5 C 69 26 H 98 05/11/23 05:00 92/60 L 05/11/23 05:00 37.5 C 71 26 H 98 05/11/23 04:50 37.5 C 67 26 H 98 05/11/23 04:45 37.4 C 66 26 H 98 05/11/23 04:45 95/55 L 05/11/23 04:40 37.4 C 64 26 H 99 05/11/23 04:30 98/61 L 05/11/23 04:30 37.4 C 67 26 H 98 05/11/23 04:20 37.4 C 63 26 H 98 05/11/23 04:15 37.4 C 67 26 H 98 05/11/23 04:15 92/59 L 05/11/23 04:10 37.4 C 68 26 H 98 05/11/23 04:00 37.4 C 68 26 H 98 05/11/23 04:00 88/58 L 05/11/23 03:50 37.4 C 70 26 H 98 05/11/23 03:45 37.4 C 69 26 H 98 05/11/23 03:45 92/61 L 05/11/23 03:40 37.4 C 68 26 H 97 05/11/23 03:30 37.4 C 70 26 H 98 05/11/23 03:20 37.4 C 67 26 H 98 05/11/23 03:15 37.4 C 62 26 H 98 05/11/23 03:15 130/80 05/11/23 03:10 37.3 C 61 26 H 99 05/11/23 03:07 61 26 H 99 Mechanical Vent 05/11/23 03:00 37.2 C 58 L 26 H 05/11/23 03:00 129/75 05/11/23 02:50 35.7 C L 60 26 H 99 05/11/23 02:44 36.4 C L 64 26 H 05/11/23 02:44 73/41 L 05/11/23 02:40 37.2 C 69 26 H 91 05/11/23 02:37 59/25 L 05/11/23 02:37 37.2 C 66 26 H 05/11/23 02:37 68 26 H 98 05/11/23 02:35 36.7 C 71 26 H 05/11/23 02:35 66/44 L 05/11/23 02:34 70 05/11/23 02:30 37.2 C 70 26 H 96 05/11/23 02:26 Mechanical Vent 05/11/23 02:20 37.2 C 68 26 H 94 05/11/23 02:16 89/55 L 05/11/23 02:16 37.2 C 66 26 H 94 05/11/23 02:11 37.1 C 72 26 H 96 05/11/23 02:11 95/67 L 05/11/23 02:10 37.1 C 70 26 H 96 05/11/23 02:06 05/11/23 02:02 37.2 C 71 26 H 95 05/11/23 02:02 79/48 L 05/11/23 02:01 84/49 L 05/11/23 02:01 37.2 C 70 26 H 96 05/11/23 02:00 37.2 C 71 26 H 96 05/11/23 01:58 37.2 C 71 26 H 96 05/11/23 01:58 82/54 L 05/11/23 01:56 37.2 C 71 26 H 97 05/11/23 01:56 85/55 L 05/11/23 01:54 86/57 L 05/11/23 01:54 37.2 C 71 26 H 98 05/11/23 01:52 94/59 L 05/11/23 01:52 37.2 C 70 26 H 98 05/11/23 01:51 102/61 05/11/23 01:51 37.2 C 71 26 H 98 05/11/23 01:50 37.1 C 72 26 H 98 05/11/23 01:49 111/67 05/11/23 01:49 37.1 C 72 26 H 99 05/11/23 01:45 138/95 05/11/23 01:45 37.1 C 79 25 H 98 05/11/23 01:43 136/82 05/11/23 01:43 37.1 C 75 26 H 100 05/11/23 01:40 141/89 H 05/11/23 01:40 37.1 C 76 26 H 100 05/11/23 01:38 143/90 H 05/11/23 01:38 37.1 C 72 21 100 05/11/23 01:37 134/76 05/11/23 01:37 37.1 C 68 25 H 100 05/11/23 01:34 37.1 C 76 30 H 99 05/11/23 01:34 144/88 H FiO2 05/11/23 12:45 05/11/23 11:06 60 05/11/23 10:33 60 05/11/23 10:00 60 05/11/23 09:00 50 05/11/23 08:30 50 05/11/23 08:18 60 05/11/23 08:17 50 05/11/23 08:15 50 05/11/23 08:10 40 05/11/23 08:00 40 05/11/23 07:45 05/11/23 07:30 40 05/11/23 07:15 05/11/23 07:10 05/11/23 07:00 05/11/23 07:00 05/11/23 06:50 05/11/23 06:45 05/11/23 06:45 05/11/23 06:40 05/11/23 06:30 05/11/23 06:30 05/11/23 06:20 05/11/23 06:15 05/11/23 06:15 05/11/23 06:10 05/11/23 06:06 50 05/11/23 06:00 05/11/23 06:00 05/11/23 05:50 05/11/23 05:45 05/11/23 05:45 05/11/23 05:40 05/11/23 05:30 05/11/23 05:30 05/11/23 05:20 05/11/23 05:15 05/11/23 05:15 05/11/23 05:10 05/11/23 05:00 05/11/23 05:00 05/11/23 04:50 05/11/23 04:45 05/11/23 04:45 05/11/23 04:40 05/11/23 04:30 05/11/23 04:30 05/11/23 04:20 05/11/23 04:15 05/11/23 04:15 05/11/23 04:10 05/11/23 04:00 05/11/23 04:00 05/11/23 03:50 05/11/23 03:45 05/11/23 03:45 05/11/23 03:40 05/11/23 03:30 05/11/23 03:20 05/11/23 03:15 05/11/23 03:15 05/11/23 03:10 05/11/23 03:07 50 05/11/23 03:00 05/11/23 03:00 05/11/23 02:50 05/11/23 02:44 05/11/23 02:44 05/11/23 02:40 05/11/23 02:37 05/11/23 02:37 05/11/23 02:37 50 05/11/23 02:35 05/11/23 02:35 05/11/23 02:34 05/11/23 02:30 05/11/23 02:26 50 05/11/23 02:20 05/11/23 02:16 05/11/23 02:16 05/11/23 02:11 05/11/23 02:11 05/11/23 02:10 05/11/23 02:06 50 05/11/23 02:02 05/11/23 02:02 05/11/23 02:01 05/11/23 02:01 05/11/23 02:00 05/11/23 01:58 05/11/23 01:58 05/11/23 01:56 05/11/23 01:56 05/11/23 01:54 05/11/23 01:54 05/11/23 01:52 05/11/23 01:52 05/11/23 01:51 05/11/23 01:51 05/11/23 01:50 05/11/23 01:49 05/11/23 01:49 05/11/23 01:45 05/11/23 01:45 05/11/23 01:43 05/11/23 01:43 05/11/23 01:40 05/11/23 01:40 05/11/23 01:38 05/11/23 01:38 05/11/23 01:37 05/11/23 01:37 05/11/23 01:34 05/11/23 01:34 Laboratory Results 05/11/23 02:21 05/11/23 10:15 PG Care Time/CCT Total # of Minutes Spent Total Time Spent with Patient: Total time spent is greater than 50% in coordination of care (as documented) at patient's floor/unit and/or counseling patient: Coding Level of Care Code 06546 SUB INP/OBS CARE 3/50MIN Diagnoses Acute respiratory failure with hypoxia and hypercapnia J96.01; J96.02 Acute on chronic heart failure with preserved ejection fraction I50.33 Nonischemic cardiomyopathy I42.8 Type 2 diabetes mellitus E11.9 Atrioventricular block, complete I44.2 Obstructive sleep apnea of adult G47.33 Stage 3a chronic kidney disease N18.31 Chronic kidney disease stage: stage 3 (moderate) Chronic kidney disease stage 3 subtype: stage 3a (GFR 45-59) Pulmonary emphysema, unspecified emphysema type J43.9 Emphysema type: unspecified (7) Chronic kidney disease Chronic kidney disease stage: stage 3 (moderate) Chronic kidney disease stage 3 subtype: stage 3a (GFR 45-59) Qualified Code(s): N18.31 - Chronic kidney disease, stage 3a (8) COPD with emphysema Emphysema type: unspecified Qualified Code(s): J43.9 - Emphysema, unspecified
--- NOTE | 2023-05-11 13:39 | XCELERA ---
[id number] [id number]
[2023-05-11] MEDS ORDERED: ALBUMIN 5% 250 ML IV ONE (16:01)
[2023-05-11] MEDS ORDERED: FUROSEMIDE 40 MG/4 ML VIAL IV ONE (16:23)
[2023-05-11] MEDS ORDERED: CHLOROTHIAZIDE SODIUM 500 MG in DEXTROSE 5% 50 ML IV ONE (16:24)
[2023-05-11] MEDS ORDERED: ASPIRIN 81 MG CHEW ONE (16:50)
[2023-05-11] MEDS ORDERED: Nursing to Pharmacy Communication SCH ×2 (17:30→17:45)
[2023-05-11] MEDS ORDERED: POTASSIUM CHLORIDE 20 MEQ/15 ML UDC PO STA (17:41)
[2023-05-11] MEDS ORDERED: SUCCINYLCHOLINE CHLORIDE 20 MG/ML 10 ML VIAL IV ONE (18:41)
[2023-05-11] MEDS ORDERED: ETOMIDATE 2 MG/ML 20 ML VIAL IV ONE (18:41)
[2023-05-11] MEDS ORDERED: MAGNESIUM SULFATE / D5W 1 GM/100 ML BAG IV ONE (19:18)
[2023-05-11] MEDS: SIMVASTATIN 40 MG TAB PO SCH (19:28)
[2023-05-12] MEDS: fentaNYL BOLUS from BAG IV PRN
[2023-05-12] MEDS: ALBUT/IPRATROP 3MG/0.5MG NEB 3 ML VIAL NEB SCH ×2 (00:46→07:27)
[2023-05-12] MEDS: fentaNYL citrate 2,500 MCG/250 ML BAG IV SCH ×2 (01:04→07:09)
[2023-05-12] MEDS ORDERED: ACETAMINOPHEN SUSP 325 MG/10.15 ML UDC PO PRN (03:14)
[2023-05-12] MEDS ORDERED: Nursing to Pharmacy Communication SCH (03:15)
[2023-05-12 03:34] LABS: iSTAT Allen Test Pass; iSTAT Art Bld Gas pCO2 Correct 53 mmHg (35-46); iSTAT Art Bld Gas pH Corrected 7.416 (7.35-7.45); iSTAT Arterial Blood Gas HCO3 34 meg/L (19-24); iSTAT Arterial Blood Gas pCO2 51 mmHg (35-46); iSTAT Arterial Blood Gas pH 7.43 (7.35-7.45); iSTAT Arterial Blood Gas pO2 61 mmHg (80-95); iSTAT Arterial Blood Gas pO2 C 65; iSTAT Carbon Dioxide 36 mmol/L (24-31); iSTAT FiO2 50 %; iSTAT Hematocrit 45 % (42-52); iSTAT Hemoglobin 15.3 g/dl (14.0-18.0); iSTAT Potassium 3.7 mmol/L (3.3-5.0); iSTAT Site L Radial; iSTAT Sodium 139 mmol/L (135-144)
[2023-05-12] MEDS: ACETAMINOPHEN SUSP 500 MG/15.6 ML UDP PO PRN ×2 (03:41→09:16)
[2023-05-12] MEDS: CEFEPIME 2,000 MG in SYRINGE 0 ML IV SCH ×2 (03:41→14:10)
[2023-05-12] MEDS: propofoL 1,000 MG/100 ML VIAL IV SCH ×2 (03:41→08:06)
[2023-05-12 04:15] LABS: BUN Creatinine Ratio 19.1 (10-20); Calcium 8.6 mg/dl (8.6-10.3); Est GFR (African American) 31.8 ml/min; Est GFR (Non-African American) 27.4 ml/min; Magnesium 1.8 mg/dl (1.7-2.4); Partial Thromboplastin Ratio 1.7; Phosphorus 4.4 mg/dl (2.5-4.9); Potassium 3.8 mmol/L (3.5-5.1)
[2023-05-12 04:40] LABS: Partial Thromboplastin Time 46.6 Seconds (21.0-31.0)
[2023-05-12 05:20] LABS: Hematocrit (blood only) 44.8 % (42.0-52.0); Hemoglobin 14.4 g/dl (14.0-18.0); Mean Corpuscular Hemoglobin 28.6 pg (25.0-34.0); Mean Corpuscular Hgb Conc 32.1 g/dL (32.0-36.0); Mean Corpuscular Volume 88.9 fL (80.0-100.0); Mean Platelet Volume 11.1 fL (9.4-12.4); Platelet Count 149 K/uL (130-400); RDW Coefficient of Variation 15.7 % (11.5-14.5); RDW Standard Deviation 50.4 fL (36.4-46.3); Red Blood Count 5.04 M/uL (4.70-6.10); White Blood Count 6.95 K/ul (4.8-10.8)
[2023-05-12] MEDS ORDERED: STAT IV Infusion **Titration per Protocol STA (05:23)
[2023-05-12] MEDS ORDERED: NOREPINEPHRINE/D5W 4 MG/250 ML PLCT IV SCH (05:30)
[2023-05-12] MEDS ORDERED: ALBUMIN 5% 250 ML IV ONE (05:37)
[2023-05-12] MEDS: HEPARIN SODIUM/DEXTROSE 25,000 UNITS/500 ML BAG IV SCH ×2 (05:46→17:43)
[2023-05-12] MEDS: MAGNESIUM SULFATE / D5W 1 GM/100 ML BAG IV SCH ×2 (05:48→07:53)
[2023-05-12] MEDS: allopurinoL 100 MG TAB PO SCH ×3 (07:48→20:36)
[2023-05-12] MEDS: ASPIRIN 81 MG CHEW OG SCH (07:48)
[2023-05-12] MEDS ORDERED: POTASSIUM CHLORIDE 20 MEQ/15 ML UDC PO STA (07:54)
[2023-05-12] MEDS ORDERED: ALBUT/IPRATROP 3MG/0.5MG NEB 3 ML VIAL NEB PRN (09:47)
--- NOTE | 2023-05-12 10:00 | XRay Report ---
SINGLE VIEW CHEST CLINICAL HISTORY: Respiratory failure. FINDINGS: An AP, portable, upright chest radiograph is compared to study dated 05/11/2023. Correlation is made with chest CT dated 01/02/2023. Endotracheal and enteric tubes are unchanged in position. A 2 -lead cardiac pacemaker is in place. The heart is enlarged noting atherosclerotic calcification of th e thoracic ureter. There is pulmonary vascular congestion with interstitial edema. There are layering pleural effusions with dependent consolidation. No pneumothorax is seen. The skeletal structures are osteopenic. The bony thorax is grossly intact. IMPRESSION: 1. Stable lines and tubes. 2. Cardiomegaly with evidence of congestive failure and pulmonary edema. This has worsened from yeste rday. 3. Layering pleural effusions with dependent consolidation. ACT 112: Negative or not required by law. Electronically signed by: Johny Haq M.D. 05/12/2023 9:58 AM
--- NOTE | 2023-05-12 10:08 | Critical Care Progress Note ---
Date of Service May 12, 2023 Assessment & Plan (1) Acute respiratory failure with hypoxia and hypercapnia: Plan: 62-year-old male who presented with acute hypercapnic respiratory failure now extubated 05/12/2023. Patient with ongoing renal failure likely due to ischemic ATN. Nephrology following. Diuretics on hold due to hypotension overnight. He diuresed approximately 2.3 L overnight. Continue broad-spectrum antibiotics given the appearance of a right lower lobe infiltrate and fever. Possible hospital- acquired pneumonia versus ventilator acquired pneumonia. Follow cultures from blood and sputum. Cardiology to interrogate the patient's pacemaker. I spoke to Dr. Balderas at length. Echocardiogram without evidence of intra-arterial shunt or LV dysfunction. Continue heparin infusion for distal peroneal vein clot as the patient is morbidly obese and has limited mobility. He will likely need to be transition to warfarin and I would recommend anticoagulation for 3 months. Repeat ultrasound of the lower extremities could be considered in the next 2 to 4 weeks as this was a distal clot and not necessarily a proximal DVT. VQ scan was low probability for pulmonary embolism. Continue to hold antihypertensives at this time in the context of acute heart failure and hypotension overnight requiring a short course of Levophed. Speech therapy to evaluate swallowing mechanism. Patient likely stable for transfer to PCU status later today. (2) Cardiac pacemaker: (3) Nonischemic cardiomyopathy: (4) Atrioventricular block, complete: (5) Hyperlipidemia: (6) Obstructive sleep apnea of adult: (7) Hypertension: (8) Chronic kidney disease: Admission and Anticipated Discharge Date Admission Date: May 10, 2023 Subjective Patient seen and examined. He is doing better today and was doing well on spontaneous breathing trial. He is extubated to supplemental oxygen. He is asking for some. Drink as his throat and mouth are dry. Review of Systems Review of Systems: All systems reviewed & are unremarkable except as noted in HPI & below Physical Exam Constitutional: + obese Eyes: PERRL, conjunctivae normal, anicteric sclerae ENMT: external ear and nose normal, oropharynx normal Neck: trachea midline, no thyromegaly Respiratory: Lungs sound generally clear to auscultation except for the right lower lobe where there is some mild crackles. Cardiovascular: RRR, no murmur, no edema Heart Sounds: no murmur Vessels: no JVD Extremities: + edema (+2 bilateral lower extremity edema) Gastrointestinal (Abdomen): Abdomen obese, soft, nontender. Bowel sounds auscultated all 4 quadrants Musculoskeletal: no cyanosis or clubbing, extremities motor strength 5/5 Skin: no rashes, warm and dry Neurologic: normal touch/pain/proprioception and CN's II-XI intact bilaterally Genitourinary: indwelling carmona catheter, urine yellow and clear Results & Data Results & Data Vital Signs (Past 12 Hours) Vital Signs Temp Pulse Resp BP Pulse Ox O2 Del Method FiO2 05/12/23 07:30 65 20 130/72 100 Mechanical Vent 50 05/12/23 07:28 63 20 100 50 05/12/23 07:00 35.6 C L 64 20 129/84 98 Mechanical Vent 50 05/12/23 06:30 94/52 L 05/12/23 06:30 37.8 C H 69 20 95 05/12/23 06:20 37.8 C H 69 20 95 05/12/23 06:16 37.8 C H 69 20 96 05/12/23 06:16 97/55 L 05/12/23 06:10 37.8 C H 68 20 98 05/12/23 06:01 137/77 05/12/23 06:01 37.8 C H 64 20 99 05/12/23 06:00 65 20 99 05/12/23 06:00 50 05/12/23 05:50 37.9 C H 59 L 20 98 05/12/23 05:46 99/56 L 05/12/23 05:46 37.7 C H 73 20 96 05/12/23 05:40 35.9 C L 74 20 95 05/12/23 05:30 81/41 L 05/12/23 05:30 36.8 C 75 20 94 05/12/23 05:20 36.9 C 75 20 93 05/12/23 05:10 76/37 L 05/12/23 05:10 37.2 C 76 22 92 05/12/23 05:06 76/37 L 05/12/23 05:06 36.2 C L 75 20 93 05/12/23 05:03 78 20 92 05/12/23 05:03 74/37 L 05/12/23 05:01 76/38 L 05/12/23 05:01 78 24 93 05/12/23 05:00 76 20 93 05/12/23 04:50 37.0 C 79 20 93 05/12/23 04:40 38.3 C H 78 20 94 05/12/23 04:30 96/55 L 05/12/23 04:30 38.2 C H 76 20 95 05/12/23 04:20 38.3 C H 78 20 95 05/12/23 04:10 77 20 94 05/12/23 04:00 37.3 C 83 26 H 87 L 05/12/23 03:50 38.3 C H 81 24 91 05/12/23 03:40 38.2 C H 76 20 93 05/12/23 03:31 38.2 C H 72 20 94 05/12/23 03:31 96/59 L 05/12/23 03:30 38.2 C H 73 20 93 05/12/23 03:20 38.1 C H 74 20 96 05/12/23 03:20 75 20 97 60 05/12/23 03:10 38.1 C H 76 20 92 05/12/23 03:01 38.1 C H 74 20 92 05/12/23 03:01 91/57 L 05/12/23 03:00 38.1 C H 79 20 93 05/12/23 02:50 38.1 C H 74 21 92 05/12/23 02:40 38.1 C H 73 20 92 05/12/23 02:30 86/59 L 05/12/23 02:30 38.0 C H 72 20 91 05/12/23 02:20 38.0 C H 70 20 92 05/12/23 02:10 38.0 C H 74 20 93 05/12/23 02:00 95/61 L 05/12/23 02:00 38.0 C H 71 20 92 05/12/23 02:00 60 05/12/23 01:50 38.0 C H 72 21 93 05/12/23 01:40 38.0 C H 72 20 92 05/12/23 01:31 94/61 L 05/12/23 01:31 38.0 C H 70 20 92 05/12/23 01:30 38.0 C H 70 22 92 05/12/23 01:20 38.0 C H 72 21 91 05/12/23 01:10 37.9 C H 72 20 92 05/12/23 01:00 37.9 C H 72 20 92 05/12/23 00:50 37.9 C H 69 20 92 05/12/23 00:40 37.9 C H 69 20 92 05/12/23 00:30 37.9 C H 68 20 92 05/12/23 00:30 86/59 L 05/12/23 00:20 37.9 C H 69 20 92 05/12/23 00:10 37.8 C H 68 20 92 05/12/23 00:00 93/63 L 05/12/23 00:00 37.8 C H 67 20 93 05/12/23 00:00 70 05/11/23 23:50 37.8 C H 73 20 93 05/11/23 23:40 37.7 C H 67 20 94 05/11/23 23:30 37.7 C H 68 20 93 05/11/23 23:30 94/61 L 05/11/23 23:20 37.7 C H 65 20 94 05/11/23 23:10 37.6 C H 67 20 93 05/11/23 23:01 90/64 L 05/11/23 23:01 37.6 C H 66 20 93 05/11/23 23:00 37.6 C H 66 20 93 05/11/23 22:50 37.5 C 64 20 97 05/11/23 22:45 65 20 94 50 05/11/23 22:40 37.5 C 65 20 94 05/11/23 22:30 95/63 L 05/11/23 22:30 37.5 C 64 20 93 05/11/23 22:20 37.5 C 67 20 93 05/11/23 22:10 37.5 C 67 20 93 Coding Level of Care Code 08782 SUB INP/OBS CARE 350MIN Diagnoses Acute respiratory failure with hypoxia and hypercapnia J96.01; J96.02 Cardiac pacemaker Z95.0 Nonischemic cardiomyopathy I42.8 Atrioventricular block, complete I44.2 Hyperlipidemia E78.5 Obstructive sleep apnea of adult G47.33 Essential hypertension I10 Hypertension type: essential hypertension Stage 3a chronic kidney disease N18.31 Chronic kidney disease stage: stage 3 (moderate) Chronic kidney disease stage 3 subtype: stage 3a (GFR 45-59) (7) Hypertension Hypertension type: essential hypertension Qualified Code(s): I10 - Essential (primary) hypertension (8) Chronic kidney disease Chronic kidney disease stage: stage 3 (moderate) Chronic kidney disease stage 3 subtype: stage 3a (GFR 45-59) Qualified Code(s): N18.31 - Chronic kidney disease, stage 3a
[2023-05-12 10:35] LABS: Basophils # (manual) 0.07 K/uL (0-0.2); Basophils % (manual) 1 %; Eosinophils # (manual) 0.21 K/uL (0-0.50); Eosinophils % (manual) 3 %; Lymphocytes % (manual) 13 %; Monocytes # (manual) 0.76 K/uL (0.11-0.59); Monocytes % (manual) 11 %; Neutrophils % (manual) 72 %
[2023-05-12] MEDS ORDERED: Heparin IV Adult Wt-Based Standard w/ INITIAL Bolus Protocol IV ONE (11:00)
[2023-05-12] MEDS: PANTOprazole 40 MG in SYRINGE 0 ML IV SCH (12:00)
[2023-05-12 12:06] LABS: ANTI-Xa, UFH(UnfractionatedHep 0.51 IU/ML (0.3-0.7)
--- NOTE | 2023-05-12 12:15 | Nephrology Progress Note ---
Date of Service May 12, 2023 Assessment & Plan (1) Acute kidney injury: (2) Pulmonary edema: (3) Type 2 diabetes mellitus: Plan 62 y o M with PMH of stage 3A CKD, HELDER, morbid obesity admitted with hypoxic respiratory failure, hypotension, failed BiPAP and required intubation and transferred to ICU, developed SANJEEV. Unclear etiology for profound hypoxic respiratory failure, ? Obstructive sleep apnea with noncompliance with CPAP. Troponin was mildly elevated but serial troponin was trending down already. VQ scan negative for pulmonary embolism. SANJEEV most likely hemodynamically mediated with hypotension. Renal function slightly worse and creatinine up to 2.6, electrolyte acceptable. Blood pressure, volume status acceptable. Net negative more than 2 L. --Considering significant urine output, would hold diuretics and aim for net even --Renal function may continue to worsen before creatinine plateaus and then starts to improve --Monitor intake output --avoid nephrotoxic medications -- A.m. labs Admission and Anticipated Discharge Date Admission Date: May 10, 2023 Yojana Butts was seen and evaluated this morning. He was extubated yesterday, off of pressor. Oxygen saturation okay on nasal cannula oxygen. Overall he is feeling much better. Urine output more than 3 L after multiple doses of diuretics yesterday. Renal function slightly worsened creatinine 2.6 mg/dl. Review of Systems Review of Systems: Detailed review of system was done and pertinent positives and negatives are mentioned above. Physical Exam Constitutional: WD/WN, vitals as above + morbidly obese Respiratory: Auscultation: + diminished lung sounds Cardiovascular: Rate/Rhythm: regular rate and regular rhythm Heart Sounds: normal S1 and normal S2 Extremities: no edema Musculoskeletal: Extremities: extremities normal to inspection Skin: no rashes, warm and dry Results & Data Vital Signs (Past 12 Hours) Vital Signs Temp Pulse Resp BP Pulse Ox O2 Del Method O2 Flow Rate 05/12/23 11:00 37.2 C 81 17 124/74 90 Nasal Cannula 6 05/12/23 10:53 Nasal Cannula 5 05/12/23 09:45 38.1 C H 83 17 114/64 90 Oxymask 6 05/12/23 09:30 38.2 C H 85 18 109/90 95 Oxymask 6 05/12/23 09:15 38.2 C H 81 14 116/62 95 Oxymask 6 05/12/23 09:00 38.2 C H 78 14 119/67 94 CPAP, Mechanical Vent 05/12/23 08:46 38.1 C H 78 15 111/52 L 93 CPAP, Mechanical Vent 05/12/23 08:31 38.0 C H 84 17 132/89 93 05/12/23 08:15 37.9 C H 76 12 120/93 93 CPAP, Mechanical Vent 05/12/23 08:00 37.9 C H 71 13 111/58 L 05/12/23 07:52 37.9 C H 66 13 108/56 L 92 CPAP, Mechanical Vent 05/12/23 07:46 37.8 C H 68 20 83/51 L 93 Mechanical Vent 05/12/23 07:30 05/12/23 07:30 65 20 130/72 100 Mechanical Vent 05/12/23 07:28 63 20 100 05/12/23 07:00 35.6 C L 64 20 129/84 98 Mechanical Vent 05/12/23 06:30 94/52 L 05/12/23 06:30 37.8 C H 69 20 95 05/12/23 06:20 37.8 C H 69 20 95 05/12/23 06:16 37.8 C H 69 20 96 05/12/23 06:16 97/55 L 05/12/23 06:10 37.8 C H 68 20 98 05/12/23 06:01 137/77 05/12/23 06:01 37.8 C H 64 20 99 05/12/23 06:00 65 20 99 05/12/23 06:00 05/12/23 05:50 37.9 C H 59 L 20 98 05/12/23 05:46 99/56 L 05/12/23 05:46 37.7 C H 73 20 96 05/12/23 05:40 35.9 C L 74 20 95 05/12/23 05:30 81/41 L 05/12/23 05:30 36.8 C 75 20 94 05/12/23 05:20 36.9 C 75 20 93 05/12/23 05:10 76/37 L 05/12/23 05:10 37.2 C 76 22 92 05/12/23 05:06 76/37 L 05/12/23 05:06 36.2 C L 75 20 93 05/12/23 05:03 78 20 92 05/12/23 05:03 74/37 L 05/12/23 05:01 76/38 L 05/12/23 05:01 78 24 93 05/12/23 05:00 76 20 93 05/12/23 04:50 37.0 C 79 20 93 05/12/23 04:40 38.3 C H 78 20 94 05/12/23 04:30 96/55 L 05/12/23 04:30 38.2 C H 76 20 95 05/12/23 04:20 38.3 C H 78 20 95 05/12/23 04:10 77 20 94 05/12/23 04:00 37.3 C 83 26 H 87 L 05/12/23 03:50 38.3 C H 81 24 91 05/12/23 03:40 38.2 C H 76 20 93 05/12/23 03:31 38.2 C H 72 20 94 05/12/23 03:31 96/59 L 05/12/23 03:30 38.2 C H 73 20 93 05/12/23 03:20 38.1 C H 74 20 96 05/12/23 03:20 75 20 97 05/12/23 03:10 38.1 C H 76 20 92 05/12/23 03:01 38.1 C H 74 20 92 05/12/23 03:01 91/57 L 05/12/23 03:00 38.1 C H 79 20 93 05/12/23 02:50 38.1 C H 74 21 92 05/12/23 02:40 38.1 C H 73 20 92 05/12/23 02:30 86/59 L 05/12/23 02:30 38.0 C H 72 20 91 05/12/23 02:20 38.0 C H 70 20 92 05/12/23 02:10 38.0 C H 74 20 93 05/12/23 02:00 95/61 L 05/12/23 02:00 38.0 C H 71 20 92 05/12/23 02:00 05/12/23 01:50 38.0 C H 72 21 93 05/12/23 01:40 38.0 C H 72 20 92 05/12/23 01:31 94/61 L 05/12/23 01:31 38.0 C H 70 20 92 23 01:30 38.0 C H 70 22 05/12/23 01:20 38.0 C H 72 21 05/12/23 01:10 37.9 C H 72 20 92 05/12/23 01:00 37.9 C H 72 20 92 05/12/23 00:50 37.9 C H 69 20 92 05/12/23 00:40 37.9 C H 69 20 92 05/12/23 00:30 37.9 C H 68 20 05/12/23 00:30 86/59 L 05/12/23 00:20 37.9 C H 69 20 92 FiO2 05/12/23 11:00 05/12/23 10:53 05/12/23 09:45 05/12/23 09:30 05/12/23 09:15 05/12/23 09:00 40 05/12/23 08:46 05/12/23 08:31 05/12/23 08:15 40 05/12/23 08:00 05/12/23 07:52 40 05/12/23 07:46 50 05/12/23 07:30 40 05/12/23 07:30 50 05/12/23 07:28 50 05/12/23 07:00 50 05/12/23 06:30 05/12/23 06:30 05/12/23 06:20 05/12/23 06:16 05/12/23 06:16 05/12/23 06:10 05/12/23 06:01 05/12/23 06:01 05/12/23 06:00 05/12/23 06:00 50 05/12/23 05:50 05/12/23 05:46 05/12/23 05:46 05/12/23 05:40 05/12/23 05:30 05/12/23 05:30 05/12/23 05:20 05/12/23 05:10 05/12/23 05:10 05/12/23 05:06 05/12/23 05:06 05/12/23 05:03 05/12/23 05:03 05/12/23 05:01 05/12/23 05:01 05/12/23 05:00 05/12/23 04:50 05/12/23 04:40 05/12/23 04:30 05/12/23 04:30 05/12/23 04:20 05/12/23 04:10 05/12/23 04:00 05/12/23 03:50 05/12/23 03:40 05/12/23 03:31 05/12/23 03:31 05/12/23 03:30 05/12/23 03:20 05/12/23 03:20 60 05/12/23 03:10 05/12/23 03:01 05/12/23 03:01 05/12/23 03:00 05/12/23 02:50 05/12/23 02:40 05/12/23 02:30 05/12/23 02:30 05/12/23 02:20 05/12/23 02:10 05/12/23 02:00 05/12/23 02:00 05/12/23 02:00 60 05/12/23 01:50 05/12/23 01:40 05/12/23 01:31 05/12/23 01:31 05/12/23 01:30 05/12/23 01:20 05/12/23 01:10 05/12/23 01:00 05/12/23 00:50 05/12/23 00:40 05/12/23 00:30 05/12/23 00:30 05/12/23 00:20 PG Care Time/CCT Total # of Minutes Spent Total Time Spent with Patient: Total time spent is greater than 50% in coordination of care (as documented) at patient's floor/unit and/or counseling patient: Coding Level of Care Code 67392 SUB INP/OBS CARE 3/50MIN Diagnoses Acute kidney injury N17.9 Pulmonary edema J81.0 Chronicity: acute Type 2 diabetes mellitus E11.9 (2) Pulmonary edema Chronicity: acute Qualified Code(s): J81.0 - Acute pulmonary edema
--- NOTE | 2023-05-12 13:54 | Electrocardiogram Report ---
Test Reason : Blood Pressure : / mmHG Vent. Rate : 079 BPM Atrial Rate : 079 BPM P-R Int : 174 ms QRS Dur : 140 ms QT Int : 424 ms P-R-T Axes : 022 183 003 degrees QTc Int : 486 ms Atrial-sensed ventricular-paced rhythm Abnormal ECG When compared with ECG of 11-MAY-2023 09:00, Vent. rate has increased BY 18 BPM Confirmed by Brandon Balderas ([id number]) on 05/12/2023 1:53:46 PM Referred By: REFERRED SELF Confirmed By:Brandon Balderas
--- NOTE | 2023-05-12 17:21 | Hospitalist Progress Note ---
Date of Service May 12, 2023 Assessment & Plan (1) Acute respiratory failure with hypoxia and hypercapnia: Plan: Secondary to pulmonary edema and hypoxia and hypercapnic respiratory failure due to COPD hypoventilation status post extubation overall patient is improving Lasix has been held patient still have significant lower extremity edema, (2) Acute on chronic heart failure with preserved ejection fraction: Plan: LVEF 50-55% on TTE in February 2021. Patient has been held today (3) Nonischemic cardiomyopathy: Plan: Repeat cardiac echo pending. Continue carvedilol. Lisinopril is on hold (4) Type 2 diabetes mellitus: Plan: HbA1C 6.3 in October. Sliding scale coverage for now. Resume home regimen (5) Atrioventricular block, complete: Plan: Status post PPM implant 2011 (6) Obstructive sleep apnea of adult: Plan: BiPAP HS and while napping (7) Chronic kidney disease: (8) COPD with emphysema: Plan: Extubated (9) DVT (deep venous thrombosis): Plan: Stop heparin drip. Started Xarelto Plan The patient will be downgraded to PCU Admission and Anticipated Discharge Date Admission Date: May 10, 2023 Subjective Extubated Review of Systems Review of Systems: Intubated and sedated Physical Exam Physical Exam: General-extubated HEENT-head atraumatic and normocephalic. ETT in place Neck-no lymphadenopathy or thyromegaly, trachea midline Chest-scattered bilateral rhonchi from anterior approach. No wheezing. Cardiac-regular rate and rhythm, normal S1 and S2 Abdomen-normal bowel sounds, no hepatosplenomegaly Extremities-no cyanosis, clubbing, or edema Neuro-cannot assess. Intubated and sedated Psych-cannot assess. Intubated and sedated Constitutional: WD/WN, vitals as above well developed, + acute distress (respiratory), + ill appearing, + morbidly obese, + obese and + mechanically ventilated; + not well nourished Eyes: PERRL, conjunctivae normal, anicteric sclerae ENMT: external ear and nose normal, oropharynx normal Neck: trachea midline, no thyromegaly + short neck and + thick neck Respiratory: + respiratory distress, + labored breath ing and + uses accessory muscles; expiratory phase not prolonged Auscultation: + breath sounds absent (bibasal) and + diminished lung sounds; no crackles, no rhonchi and no wheezes Cardiovascular: RRR, no murmur, no edema Rate/Rhythm: regular rate and regular rhythm Heart Sounds: normal S1 and normal S2; no murmur Vessels: no JVD Extremities: no edema Gastrointestinal (Abdomen): Inspection/Auscultation: + abdomen distended (at baseline per ex-) Percussion/Palpation: abdomen soft; abdomen nontender, no guarding and abdomen not rigid Musculoskeletal: no cyanosis or clubbing, extremities motor strength 5/5 Extremities: extremities normal to inspection Skin: no rashes, warm and dry Neurologic: normal touch/pain/proprioception, CN's II-XI intact bilaterally, moves all extremities, awake, + confused and + obtunded Psychiatric: Orientation: alert Results & Data Results & Data Vital Signs (Past 12 Hours) Vital Signs Temp Pulse Resp BP Pulse Ox O2 Del Method O2 Flow Rate 05/12/23 16:00 37.0 C 82 14 145/93 H 94 Nasal Cannula 4 05/12/23 15:00 37.1 C 76 22 150/90 H 98 Nasal Cannula 5 05/12/23 14:36 80 05/12/23 14:00 37.0 C 82 27 H 141/80 H 93 Nasal Cannula 5 05/12/23 13:00 36.6 C 81 17 129/71 88 L 05/12/23 12:00 37.3 C 85 22 133/77 89 L Nasal Cannula 5 05/12/23 11:00 37.2 C 81 17 124/74 90 Nasal Cannula 6 05/12/23 10:53 Nasal Cannula 5 05/12/23 09:45 38.1 C H 83 17 114/64 90 Oxymask 6 05/12/23 09:30 38.2 C H 85 18 109/90 95 Oxymask 6 05/12/23 09:15 38.2 C H 81 14 116/62 95 Oxymask 6 05/12/23 09:00 38.2 C H 78 14 119/67 94 CPAP, Mechanical Vent 05/12/23 08:46 38.1 C H 78 15 111/52 L 93 CPAP, Mechanical Vent 05/12/23 08:31 38.0 C H 84 17 132/89 93 05/12/23 08:15 37.9 C H 76 12 120/93 93 CPAP, Mechanical Vent 05/12/23 08:00 37.9 C H 71 13 111/58 L 05/12/23 07:52 37.9 C H 66 13 108/56 L 92 CPAP, Mechanical Vent 05/12/23 07:46 37.8 C H 68 20 83/51 L 93 Mechanical Vent 05/12/23 07:30 05/12/23 07:30 65 20 130/72 100 Mechanical Vent 05/12/23 07:28 63 20 100 05/12/23 07:00 35.6 C L 64 20 129/84 98 Mechanical Vent 05/12/23 06:30 94/52 L 05/12/23 06:30 37.8 C H 69 20 95 05/12/23 06:20 37.8 C H 69 20 95 05/12/23 06:16 37.8 C H 69 20 96 05/12/23 06:16 97/55 L 05/12/23 06:10 37.8 C H 68 20 98 05/12/23 06:01 137/77 05/12/23 06:01 37.8 C H 64 20 99 05/12/23 06:00 65 20 99 05/12/23 06:00 05/12/23 05:50 37.9 C H 59 L 20 98 05/12/23 05:46 99/56 L 05/12/23 05:46 37.7 C H 73 20 96 05/12/23 05:40 35.9 C L 74 20 95 05/12/23 05:30 81/41 L 05/12/23 05:30 36.8 C 75 20 94 05/12/23 05:20 36.9 C 75 20 93 FiO2 05/12/23 16:00 05/12/23 15:00 05/12/23 14:36 05/12/23 14:00 05/12/23 13:00 05/12/23 12:00 05/12/23 11:00 05/12/23 10:53 05/12/23 09:45 05/12/23 09:30 05/12/23 09:15 05/12/23 09:00 40 05/12/23 08:46 05/12/23 08:31 05/12/23 08:15 40 05/12/23 08:00 05/12/23 07:52 40 05/12/23 07:46 50 05/12/23 07:30 40 05/12/23 07:30 50 05/12/23 07:28 50 05/12/23 07:00 50 05/12/23 06:30 05/12/23 06:30 05/12/23 06:20 05/12/23 06:16 05/12/23 06:16 05/12/23 06:10 05/12/23 06:01 05/12/23 06:01 05/12/23 06:00 05/12/23 06:00 50 05/12/23 05:50 05/12/23 05:46 05/12/23 05:46 05/12/23 05:40 05/12/23 05:30 05/12/23 05:30 05/12/23 05:20 PG Care Time/CCT Total # of Minutes Spent Total Time Spent with Patient: Total time spent is greater than 50% in coordination of care (as documented) at patient's floor/unit and/or counseling patient: Coding Level of Care Code 83193 SUB INP/OBS CARE 3/50MIN Diagnoses Acute respiratory failure with hypoxia and hypercapnia J96.01; J96.02 Acute on chronic heart failure with preserved ejection fraction I50.33 Nonischemic cardiomyopathy I42.8 Type 2 diabetes mellitus E11.9 Atrioventricular block, complete I44.2 Obstructive sleep apnea of adult G47.33 Stage 3a chronic kidney disease N18.31 Chronic kidney disease stage: stage 3 (moderate) Chronic kidney disease stage 3 subtype: stage 3a (GFR 45-59) Pulmonary emphysema, unspecified emphysema type J43.9 Emphysema type: unspecified DVT (deep venous thrombosis) I82.409 (7) Chronic kidney disease Chronic kidney disease stage: stage 3 (moderate) Chronic kidney disease stage 3 subtype: stage 3a (GFR 45-59) Qualified Code(s): N18.31 - Chronic kidney disease, stage 3a (8) COPD with emphysema Emphysema type: unspecified Qualified Code(s): J43.9 - Emphysema, unspecified
[2023-05-12] MEDS: RIVAROXABAN 15 MG TAB PO SCH (18:22)
[2023-05-12] MEDS ORDERED: POTASSIUM CHLORIDE CRTAB 20 MEQ TABCR PO STA (19:43)
[2023-05-12] MEDS ORDERED: MAGNESIUM SULFATE / D5W 1 GM/100 ML BAG IV ONE (19:43)
[2023-05-12] MEDS: SIMVASTATIN 40 MG TAB PO SCH (20:36)
[2023-05-13 04:12] LABS: ANTI-Xa, UFH(UnfractionatedHep 0.43 IU/ML (0.3-0.7)
[2023-05-13 04:17] LABS: Calcium 8.3 mg/dl (8.6-10.3); Creatinine Clr Calc Pharmacy 57.4 ml/min; Est GFR (African American) 37.2 ml/min; Est GFR (Non-African American) 32.1 ml/min; Potassium 4.7 mmol/L (3.5-5.1)
[2023-05-13] MEDS: allopurinoL 100 MG TAB PO SCH ×2 (08:26→20:19)
[2023-05-13] MEDS: ASPIRIN 81 MG CHEW OG SCH (08:27)
[2023-05-13] MEDS: RIVAROXABAN 15 MG TAB PO SCH ×2 (08:27→09:13)
--- NOTE | 2023-05-13 09:35 | Cardiology Consultation ---
Date of Consultation May 13, 2023 Assessment & Plan (1) Encounter for servicing of pacemaker at end of battery life: (2) Atrioventricular block, complete: Plan 1. Pacemaker at end of service: He will need replacement of his pacemaker prior to discharge. Currently still pacing appropriately. Device behavior can be quite unpredictable as we reached the end of service. I did discuss the replacement procedure with the patient today and will plan on proceeding tomorrow. 2. Complete heart block: Patient has history of complete heart block prompting the current pacemaker implantation. Device came not be tested at this time to determine if he still has complete heart block or is device dependent. 3. Cardiomyopathy: Resolved History of Present Illness Attending Physician: Gianluca Page MD History of Present Illness The patient is a 62-year-old gentleman with a history of complete heart block and a nonischemic cardiomyopathy who was admitted to the hospital with respiratory failure requiring intubation. Yesterday an attempt was made to interrogate his pacemaker but this was unsuccessful as he has likely reached the end of service. The patient can not recall any specific problems leading up to his admission. He was advised of his respiratory failure but did not report any notable breathing difficulty prior to presentation. States that he had been performing his usual activities including strenuous activity. He did not report limiting dyspnea, chest pain, dizziness, palpitations or syncope. At the time of the interview the patient claims to be feeling well he did not report any specific complaints. No breathing difficulty at this time. No sense of palpitations. No dizziness. The patient had been followed in our clinic routinely and by remote monitoring until about February of 2022. At this point no additional visits occurred and no additional transmissions from his home monitor were obtained. He was not aware of any missed appointments. Believes his monitor still functioning at home. His initial history involves development of complete heart block and implantation of a standard dual-chamber pacemaker. Eventually developed symptoms and a nonischemic cardiomyopathy felt possibly due to RV apical pacing. Attempt was made for an upgrade to a biventricular device locally but was unsuccessful. The patient was subsequently transferred to for implantation of his current device which is a biventricular pacemaker. Allergies Allergy/AdvReac Type Severity Reaction Status Date / Time No Known Allergies Allergy Verified 05/21/23 11:57 Home Medications Medication Instructions Recorded Confirmed Type allopurinol 100 mg tablet 100 mg PO BID #180 tabs 05/21/23 05/21/23 Rx aspirin 81 mg tablet,delayed 81 mg PO HS #90 tabs 05/21/23 05/21/23 Rx release carvedilol 25 mg tablet 50 mg (2 x 25 mg) PO BID #360 tabs 05/21/23 05/21/23 Rx furosemide 80 mg tablet 80 mg PO BID #180 tabs 05/21/23 05/21/23 Rx lisinopril 40 mg tablet 40 mg PO QAM #90 tabs 05/21/23 05/21/23 Rx rivaroxaban 15 mg (42)-20 mg (9) See Rx Instructions PO .COMPLEX 05/21/23 05/21/23 Rx tablets in a starter pack (Xarelto #51 ea DVT-PE Treatment 30-Day Starter) simvastatin 40 mg tablet 40 mg PO QPM #90 tabs 05/21/23 05/21/23 Rx Patient History Medical History Acute kidney injury History of COVID-19 Kidney stones Osteoarthritis Anemia Spinal stenosis of lumbar region Chronic low back pain Lumbar degenerative disc disease Psoriasis Hyperlipidemia Fatty infiltration of liver Gout COPD with emphysema Morbid obesity Multiple pulmonary nodules Atrioventricular block, complete Nonischemic cardiomyopathy Cardiac pacemaker Hypertension Chronic kidney disease Obstructive sleep apnea of adult Prediabetes Surgical History S/P epidural steroid injection S/P cardiac pacemaker procedure Family History Mother Diabetes Father Diabetes Stroke Grandmother Diabetes Other No family history of adverse response to anesthesia Denies family history of Ovarian cancer Prostate cancer Kidney disease Myocardial infarction Breast cancer Colorectal cancer Hypertension Social History Smoking Status: Never smoker Tobacco Type: Cigarettes Second Hand Exposure: No; Do You Dip or Chew Tobacco: Yes (1 can/1 day (advised)); Hx Alcohol Use: No Hx Substance Use: No Preferred Language: Swedish Communication Ability: Unable Brick 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 Mood and affect appeared normal. He answered all questions appropriately. Morbidly obese HEENT: Pupils are equal and reactive to light and accommodation. Extraocular movements are intact. The sclerae are anicteric. Neuro: Cranial nerves intact Chest: Well-healed device scar in the left upper pectoral area. Lungs: Clear to auscultation bilaterally. He has good air movement without use of accessory muscles. No rales wheezes or rhonchi. Cardiac: Heart demonstrates a regular rate and rhythm. Normal S1 and S2. No murmurs on examination. Pulses: The patient has palpable radial pulses bilaterally that are equal in intensity Extremities: There was no evidence of hypoperfusion. There is no cyanosis or clubbing. There is no edema. Skin: I did not appreciate any rashes on examination today. Results & Data Vital Signs (Past 12 Hours) Vital Signs Pulse Resp BP Pulse Ox 05/13/23 05:20 79 97 05/13/23 05:10 75 97 05/13/23 05:00 77 98 05/13/23 04:50 79 97 05/13/23 04:40 75 97 05/13/23 04:30 74 97 05/13/23 04:20 77 98 05/13/23 04:10 80 97 05/13/23 04:01 138/74 05/13/23 04:01 104 H 87 L 05/13/23 04:00 84 92 05/13/23 03:50 90 19 87 L 05/13/23 03:40 79 18 94 05/13/23 03:30 83 17 95 05/13/23 03:20 81 17 93 05/13/23 03:10 77 17 95 05/13/23 03:00 82 19 95 05/13/23 02:50 79 18 95 05/13/23 02:40 81 27 H 95 05/13/23 02:30 80 17 95 05/13/23 02:20 81 19 94 05/13/23 02:10 78 21 96 05/13/23 02:00 88 30 H 96 05/13/23 01:50 79 17 96 05/13/23 01:40 82 16 87 L 05/13/23 01:30 81 19 96 05/13/23 01:20 80 17 96 05/13/23 01:10 82 17 95 05/13/23 01:00 76 19 92 05/13/23 00:50 78 25 H 90 05/13/23 00:40 80 20 92 05/13/23 00:30 81 18 96 05/13/23 00:20 78 19 95 05/13/23 00:10 80 16 95 05/13/23 00:00 79 19 127/70 94 05/12/23 23:50 77 20 95 05/12/23 23:40 79 21 95 05/12/23 23:30 80 12 95 05/12/23 23:20 88 95 05/12/23 23:10 80 96 05/12/23 23:00 81 95 05/12/23 22:50 95 05/12/23 22:40 95 05/12/23 22:30 95 05/12/23 22:20 95 05/12/23 22:10 95 05/12/23 22:00 82 95 Laboratory Results Abnormal Lab Results 05/12/23 05/12/23 05/13/23 03:29 11:45 03:29 Neutrophils % (Manual) 72 Lymphocytes % (Manual) 13 Monocytes % (Manual) 11 Eosinophils % (Manual) 3 Basophils % (Manual) 1 Neutrophils # (Manual) 5.00 Total Absolute Neuts 5.00 Lymphocytes # (Manual) 0.90 L Total Abs Lymphocytes 0.90 L Monocytes # (Manual) 0.76 H Eosinophils # (Manual) 0.21 Basophils # (Manual) 0.07 Heparin Anti-Xa, Unfract 0.51 0.43 Sodium 137 Potassium 4.7 D Chloride 96 L Carbon Dioxide 35 H Anion Gap 6 BUN 41 H Creatinine 2.16 H D Est Cr Clr Drug Dosing 57.4 Est GFR ( Amer) 37.2 Est GFR (Non-Af Amer) 32.1 BUN/Creatinine Ratio 19.0 Glucose 133 H Calcium 8.3 L Diagnostic Findings Echocardiogram dated 05/11/2023: Normal LV systolic function with ejection fraction 50-55%. Mild LVH. Bubble study performed at a later time did not reveal any evidence of PFO. PG Care Time/CCT Total # of Minutes Spent Total Time Spent with Patient: Total time spent is greater than 50% in coordination of care (as documented) at patient's floor/unit and/or counseling patient: Coding Level of Care Code 19633 IN/OBS CONSULT LVL 4,60M Diagnoses Encounter for servicing of pacemaker at end of battery life Z45.010 Atrioventricular block, complete I44.2
[2023-05-13] MEDS: carvediloL 25 MG TAB PO SCH ×2 (10:20→16:35)
--- NOTE | 2023-05-13 10:34 | Nephrology Progress Note ---
Date of Service May 13, 2023 Assessment & Plan (1) Acute kidney injury: (2) Pulmonary edema: (3) Type 2 diabetes mellitus: Plan 62 y o M with PMH of stage 3A CKD, HELDER, morbid obesity admitted with hypoxic respiratory failure, hypotension, failed BiPAP and required intubation and transferred to ICU, developed SANJEEV. Unclear etiology for profound hypoxic respiratory failure, ? Obstructive sleep apnea with noncompliance with CPAP. Troponin was mildly elevated but serial troponin was trending down already. VQ scan negative for pulmonary embolism. SANJEEV most likely hemodynamically mediated with hypotension. Renal function slightly worse and creatinine up to 2.6, electrolyte acceptable. Blood pressure, volume status acceptable. Net negative more than 2 L. Cr improved. --Continue to hold diuretics and aim for net even --expect renal function to continue to improve --Monitor intake output --avoid nephrotoxic medications Admission and Anticipated Discharge Date Admission Date: May 10, 2023 Yojana Butts was seen and evaluated this morning. He was extubated yesterday, off of pressor. Oxygen saturation okay on nasal cannula oxygen. Overall he is feeling much better. Urine output more than 3 L after multiple doses of diuretics yesterday. Renal function slightly worsened creatinine 2.6 mg/dl. Review of Systems Review of Systems: Detailed review of system was done and pertinent positives and negatives are mentioned above. Physical Exam Constitutional: WD/WN, vitals as above + morbidly obese Respiratory: Auscultation: + diminished lung sounds Cardiovascular: RRR, no murmur, no edema Musculoskeletal: Extremities: extremities normal to inspection Skin: no rashes, warm and dry Results & Data Vital Signs (Past 12 Hours) Vital Signs Temp Pulse Pulse Resp BP BP Pulse Ox 05/13/23 09:44 36.5 C 71 16 151/89 H 94 05/13/23 09:39 05/13/23 08:00 79 05/13/23 05:20 79 97 05/13/23 05:10 75 97 05/13/23 05:00 77 98 05/13/23 04:50 79 97 05/13/23 04:40 75 97 05/13/23 04:30 74 97 05/13/23 04:20 77 98 05/13/23 04:10 80 97 05/13/23 04:01 138/74 05/13/23 04:01 104 H 87 L 05/13/23 04:00 84 92 05/13/23 03:50 90 19 87 L 05/13/23 03:40 79 18 94 05/13/23 03:30 83 17 95 05/13/23 03:20 81 17 93 05/13/23 03:10 77 17 95 05/13/23 03:00 82 19 95 05/13/23 02:50 79 18 95 05/13/23 02:40 81 27 H 95 05/13/23 02:30 80 17 95 05/13/23 02:20 81 19 94 05/13/23 02:10 78 21 96 05/13/23 02:00 88 30 H 96 05/13/23 01:50 79 17 96 05/13/23 01:40 82 16 87 L 05/13/23 01:30 81 19 96 05/13/23 01:20 80 17 96 05/13/23 01:10 82 17 95 05/13/23 01:00 76 19 92 05/13/23 00:50 78 25 H 90 05/13/23 00:40 80 20 92 05/13/23 00:30 81 18 96 05/13/23 00:20 78 19 95 05/13/23 00:10 80 16 95 05/13/23 00:00 79 19 127/70 94 05/12/23 23:50 77 20 95 05/12/23 23:40 79 21 95 05/12/23 23:30 80 12 95 05/12/23 23:20 88 95 05/12/23 23:10 80 96 05/12/23 23:00 81 95 05/12/23 22:50 95 05/12/23 22:40 95 O2 Del Method O2 Flow Rate 05/13/23 09:44 Nasal Cannula 2 05/13/23 09:39 Nasal Cannula 2 05/13/23 08:00 05/13/23 05:20 05/13/23 05:10 05/13/23 05:00 05/13/23 04:50 05/13/23 04:40 05/13/23 04:30 05/13/23 04:20 05/13/23 04:10 05/13/23 04:01 05/13/23 04:01 05/13/23 04:00 05/13/23 03:50 05/13/23 03:40 05/13/23 03:30 05/13/23 03:20 05/13/23 03:10 05/13/23 03:00 05/13/23 02:50 05/13/23 02:40 05/13/23 02:30 05/13/23 02:20 05/13/23 02:10 05/13/23 02:00 05/13/23 01:50 05/13/23 01:40 05/13/23 01:30 05/13/23 01:20 05/13/23 01:10 05/13/23 01:00 05/13/23 00:50 05/13/23 00:40 05/13/23 00:30 05/13/23 00:20 05/13/23 00:10 05/13/23 00:00 05/12/23 23:50 05/12/23 23:40 05/12/23 23:30 05/12/23 23:20 05/12/23 23:10 05/12/23 23:00 05/12/23 22:50 05/12/23 22:40 PG Care Time/CCT Total # of Minutes Spent Total Time Spent with Patient: Total time spent is greater than 50% in coordination of care (as documented) at patient's floor/unit and/or counseling patient: Coding Level of Care Code 29256 SUB INP/OBS CARE 2/35MIN Diagnoses Acute kidney injury N17.9 Pulmonary edema J81.0 Chronicity: acute Type 2 diabetes mellitus E11.9 (2) Pulmonary edema Chronicity: acute Qualified Code(s): J81.0 - Acute pulmonary edema
[2023-05-13] MEDS ORDERED: ENOXAPARIN INJ 40 MG/0.4 ML SYR SQ ONE (17:06)
--- NOTE | 2023-05-13 17:48 | Hospitalist Progress Note ---
Date of Service May 13, 2023 Assessment & Plan (1) Acute respiratory failure with hypoxia and hypercapnia: Plan: Secondary to pulmonary edema and hypoxia and hypercapnic respiratory failure due to COPD hypoventilation CHF status post extubation overall patient is improving Lasix has been held patient still have significant lower extremity edema, (2) Acute on chronic heart failure with preserved ejection fraction: Plan: LVEF 50-55% on TTE in February 2021. Currently on 2 L oxygen, Lasix has been held, will discuss with nephrology if he can resume Lasix, continue to hold (3) Nonischemic cardiomyopathy: Plan: Echo showed EF of 50 to 55%, no significant valve abnormality, no [id number] shunt, continue carvedilol. Lisinopril is on hold due to acute kidney injury (4) Type 2 diabetes mellitus: Plan: HbA1C 6.3 in October. Sliding scale coverage for now. (5) Atrioventricular block, complete: Plan: Status post PPM implant 2011, dual-chamber pacemaker needs to be replaced, n.p.o. after midnight, consult with cardiology (6) Obstructive sleep apnea of adult: Plan: BiPAP HS and while napping (7) Chronic kidney disease: Plan: With a baseline creatinine around 1.5-1.98 (8) COPD with emphysema: Plan: Extubated (9) DVT (deep venous thrombosis): Plan: Hold Xarelto for now started on therapeutic dose of Lovenox Plan Going for pacemaker replacement tomorrow, PT OT pending possible discharge within 24 to 48 hours Admission and Anticipated Discharge Date Admission Date: May 10, 2023 Subjective Complaint kidney functions improving patient is going to replace his pacemaker tomorrow hold Xarelto Physical Exam Physical Exam: General-extubated HEENT-head atraumatic and normocephalic. ETT in place Neck-no lymphadenopathy or thyromegaly, trachea midline Chest-scattered bilateral rhonchi from anterior approach. No wheezing. Cardiac-regular rate and rhythm, normal S1 and S2 Abdomen-normal bowel sounds, no hepatosplenomegaly Extremities-no cyanosis, clubbing, or edema Neuro-cannot assess. Intubated and sedated Psych-cannot assess. Intubated and sedated Constitutional: WD/WN, vitals as above well developed, + acute distress (respiratory), + ill appearing, + morbidly obese, + obese and + mechanically ventilated; + not well nourished Eyes: PERRL, conjunctivae normal, anicteric sclerae ENMT: external ear and nose normal, oropharynx normal Neck: trachea midline, no thyromegaly + short neck and + thick neck Respiratory: + respiratory distress, + labored breath ing and + uses accessory muscles; expiratory phase not prolonged Auscultation: + breath sounds absent (bibasal) and + diminished lung sounds; no crackles, no rhonchi and no wheezes Cardiovascular: RRR, no murmur, no edema Rate/Rhythm: regular rate and regular rhythm Heart Sounds: normal S1 and normal S2; no murmur Vessels: no JVD Extremities: no edema Gastrointestinal (Abdomen): Inspection/Auscultation: + abdomen distended (at baseline per ex-) Percussion/Palpation: abdomen soft; abdomen nontender, no guarding and abdomen not rigid Musculoskeletal: no cyanosis or clubbing, extremities motor strength 5/5 Extremities: extremities normal to inspection Skin: no rashes, warm and dry Neurologic: normal touch/pain/proprioception, CN's II-XI intact bilaterally, moves all extremities, awake, + confused and + obtunded Psychiatric: Orientation: alert Results & Data Results & Data Vital Signs (Past 12 Hours) Vital Signs Temp Pulse Pulse Resp BP Pulse Ox O2 Del Method 05/13/23 17:45 36.8 C 70 20 139/83 93 Nasal Cannula 05/13/23 16:19 72 14 143/88 H 95 Nasal Cannula 05/13/23 16:00 79 05/13/23 11:16 36.8 C 72 16 122/79 93 Room Air 05/13/23 11:16 79 05/13/23 09:44 36.5 C 71 16 151/89 H 94 Nasal Cannula 05/13/23 09:39 Nasal Cannula 05/13/23 08:00 79 O2 Flow Rate 05/13/23 17:45 2 05/13/23 16:19 2 05/13/23 16:00 05/13/23 11:16 05/13/23 11:16 05/13/23 09:44 2 05/13/23 09:39 2 05/13/23 08:00 PG Care Time/CCT Total # of Minutes Spent Total Time Spent with Patient: Total time spent is greater than 50% in coordination of care (as documented) at patient's floor/unit and/or counseling patient: Coding Level of Care Code 28354 SUB INP/OBS CARE MIN Diagnoses Acute respiratory failure with hypoxia and hypercapnia J96.01; J96.02 Acute on chronic heart failure with preserved ejection fraction I50.33 Nonischemic cardiomyopathy I42.8 Type 2 diabetes mellitus E11.9 Atrioventricular block, complete I44.2 Obstructive sleep apnea of adult G47.33 Stage 3a chronic kidney disease N18.31 Chronic kidney disease stage: stage 3 (moderate) Chronic kidney disease stage 3 subtype: stage 3a (GFR 45-59) Pulmonary emphysema, unspecified emphysema type J43.9 Emphysema type: unspecified DVT (deep venous thrombosis) I82.409 (7) Chronic kidney disease Chronic kidney disease stage: stage 3 (moderate) Chronic kidney disease stage 3 subtype: stage 3a (GFR 45-59) Qualified Code(s): N18.31 - Chronic kidney disease, stage 3a (8) COPD with emphysema Emphysema type: unspecified Qualified Code(s): J43.9 - Emphysema, unspecified
[2023-05-13] MEDS: SIMVASTATIN 40 MG TAB PO SCH (20:19)
[2023-05-14 06:14] LABS: BUN Creatinine Ratio 25.9 (10-20); Calcium 8.7 mg/dl (8.6-10.3); Creatinine Clr Calc Pharmacy 79.1 ml/min; Est GFR (African American) 54.3 ml/min; Est GFR (Non-African American) 46.8 ml/min; Potassium 4.9 mmol/L (3.5-5.1)
[2023-05-14] MEDS: allopurinoL 100 MG TAB PO SCH ×2 (08:23→21:55)
[2023-05-14] MEDS: ASPIRIN 81 MG CHEW OG SCH (08:23)
[2023-05-14] MEDS: carvediloL 25 MG TAB PO SCH ×2 (08:23→17:20)
--- NOTE | 2023-05-14 10:56 | Nephrology Progress Note ---
Date of Service May 14, 2023 Assessment & Plan (1) Acute kidney injury: (2) Pulmonary edema: (3) Type 2 diabetes mellitus: Plan 62 y o M with PMH of stage 3A CKD, HELDER, morbid obesity admitted with hypoxic respiratory failure, hypotension, failed BiPAP and required intubation and transferred to ICU, developed SANJEEV. Unclear etiology for profound hypoxic respiratory failure, ? Obstructive sleep apnea with noncompliance with CPAP. Troponin was mildly elevated but serial troponin was trending down already. VQ scan negative for pulmonary embolism. SANJEEV most likely hemodynamically mediated with hypotension, SANJEEV resolved, creatinine back to baseline, electrolyte acceptable. Blood pressure, volume status acceptable. Net negative more than 1 L. --Continue to hold diuretics as he is persistently significantly negative without diuretics. --Okay to resume lisinopril as blood pressure running high, renal function back to baseline. --expect renal function to continue to improve --Monitor intake output --avoid nephrotoxic medications Admission and Anticipated Discharge Date Admission Date: May 10, 2023 Yojana Butts was seen and evaluated this morning. He has been overall feeling well today. He is due for his pacemaker exchanges today. Has been having decent urine output with net negative. SANJEEV resolved and creatinine back to baseline, electrolytes acceptable. Blood pressure running high. Review of Systems Review of Systems: Detailed review of system was done and pertinent positives and negatives are mentioned above. Physical Exam Constitutional: WD/WN, vitals as above + morbidly obese Respiratory: Auscultation: + diminished lung sounds Cardiovascular: RRR, no murmur, no edema Musculoskeletal: Extremities: extremities normal to inspection Skin: no rashes, warm and dry Results & Data Vital Signs (Past 12 Hours) Vital Signs Temp Pulse Pulse Resp BP Pulse Ox O2 Del Method 05/14/23 09:00 73 05/14/23 09:00 Nasal Cannula 05/14/23 07:33 36.6 C 73 21 165/106 H 90 Nasal Cannula 05/14/23 03:00 36.7 C 83 21 157/93 H 94 Nasal Cannula 05/13/23 23:00 37.2 C 72 24 109/65 92 Nasal Cannula O2 Flow Rate 05/14/23 09:00 05/14/23 09:00 2 05/14/23 07:33 2 05/14/23 03:00 05/13/23 23:00 PG Care Time/CCT Total # of Minutes Spent Total Time Spent with Patient: Total time spent is greater than 50% in coordination of care (as documented) at patient's floor/unit and/or counseling patient: Coding Level of Care Code 36024 SUB INP/OBS CARE 2/35MIN Diagnoses Acute kidney injury N17.9 Pulmonary edema J81.0 Chronicity: acute Type 2 diabetes mellitus E11.9 (2) Pulmonary edema Chronicity: acute Qualified Code(s): J81.0 - Acute pulmonary edema
--- NOTE | 2023-05-14 13:08 | Pre Anesthesia Assessment ---
Date of Service May 14, 2023 Pre Sedation Assessment Vital Signs Temp Pulse Pulse Resp BP BP Pulse Ox 05/14/23 11:10 36.6 C 64 21 135/83 90 05/14/23 09:00 73 05/14/23 09:00 05/14/23 07:33 36.6 C 73 21 165/106 H 90 05/14/23 03:00 36.7 C 83 21 157/93 H 94 05/13/23 23:00 37.2 C 72 24 109/65 92 05/13/23 20:50 05/13/23 19:00 36.5 C 68 22 111/75 90 05/13/23 17:45 36.8 C 70 20 139/83 93 05/13/23 17:43 72 05/13/23 16:19 72 14 143/88 H 95 05/13/23 16:00 79 O2 Del Method O2 Flow Rate 05/14/23 11:10 Nasal Cannula 2 05/14/23 09:00 05/14/23 09:00 Nasal Cannula 2 05/14/23 07:33 Nasal Cannula 2 05/14/23 03:00 Nasal Cannula 05/13/23 23:00 Nasal Cannula 05/13/23 20:50 Nasal Cannula 2 05/13/23 19:00 Nasal Cannula 05/13/23 17:45 Nasal Cannula 2 05/13/23 17:43 05/13/23 16:19 Nasal Cannula 2 05/13/23 16:00 Cardiovascular + regular rate and + regular rhythm Respiratory + respiratory effort normal Pre-Sedation Airway Assessment Smoking Status: Never smoker Hx Sleep Apnea: Yes Hx Difficult Intubation: No Short, Thick Neck: Yes Thyromental Distance: > or= 3.5 Finger Breadths Mallampati Class: III ASA: ASA3 Procedure Planning Contraindications for Sedation: none Current Medications Reviewed: Yes Notes The planned sedation has been discussed with the patient. Informed Consent was obtained. I have identified the patient, determined the appropriateness of sedation and have assessed the patient immediately prior to the procedure. All medicine(s) and interventions are by my order.
[2023-05-14] MEDS ORDERED: LIDOCAINE 1% LOCAL 20 ML VIAL ONE (13:21)
[2023-05-14] MEDS ORDERED: WATER, STERILE FOR INJ 10 ML VIAL ONE (13:22)
[2023-05-14] MEDS ORDERED: BUPIVACAINE 0.25% PF 30 ML VIAL ONE (13:22)
[2023-05-14] MEDS ORDERED: VANCOMYCIN HCL 1000MG/20ML VIAL ONE (13:22)
[2023-05-14] MEDS ORDERED: fentaNYL citrate PF 100 MCG/2 ML VIAL ONE (13:34)
[2023-05-14] MEDS ORDERED: MIDAZOLAM HCL 5 MG/ML 1 ML VIAL ONE (13:34)
[2023-05-14] MEDS ORDERED: ceFAZolin 330 MG/ML 1 GM VIAL ONE (13:35)
--- NOTE | 2023-05-14 14:40 | Post Anesthesia Assessment ---
Date of Service May 14, 2023 Post Sedation Assessment Vital Signs Temp Pulse Pulse Resp BP BP Pulse Ox 05/14/23 13:29 68 18 154/102 H 95 05/14/23 11:10 36.6 C 64 21 135/83 90 05/14/23 09:00 73 05/14/23 09:00 05/14/23 07:33 36.6 C 73 21 165/106 H 90 05/14/23 03:00 36.7 C 83 21 157/93 H 94 05/13/23 23:00 37.2 C 72 24 109/65 92 05/13/23 20:50 05/13/23 19:00 36.5 C 68 22 111/75 90 05/13/23 17:45 36.8 C 70 20 139/83 93 05/13/23 17:43 72 05/13/23 16:19 72 14 143/88 H 95 05/13/23 16:00 79 O2 Del Method O2 Flow Rate 05/14/23 13:29 Room Air 05/14/23 11:10 Nasal Cannula 2 05/14/23 09:00 05/14/23 09:00 Nasal Cannula 2 05/14/23 07:33 Nasal Cannula 2 05/14/23 03:00 Nasal Cannula 05/13/23 23:00 Nasal Cannula 05/13/23 20:50 Nasal Cannula 2 05/13/23 19:00 Nasal Cannula 05/13/23 17:45 Nasal Cannula 2 05/13/23 17:43 05/13/23 16:19 Nasal Cannula 2 05/13/23 16:00 Recovery Score Activity: Moves 4 extremities Respiration: Deep Breath/Cough Circulation: +/-20% PreAnes Value Consciousness: Arouseable (by name) Oxygen Saturation: O2 needed for >90% Discharge Sedation Level of Care: Fast Track Phase II Post Sedation Plan On clinical assessment, the patient appears to have tolerated the sedation without complications. Patient is recovering as anticipated. Patient will continue to be monitored by nursing and may be discharged when sedation discharge criteria are met per below protocol. Upon Completions of procedure up to 15 minutes continue every 5 minute vital signs and the P.A.R. score; then discharge to a Phase I or Fast Track to Phase II per the following guidelines: * Discharge Patient to appropriate Phase II area if PAR is 8 or greater or return to pre- procedure baseline. The post - procedure orders will be as directed. * If PAR score is less than 8 or not return to pre-procedure baseline then patie nt will follow Phase I monitoring till PAR is reached for Phase II. The Phase I may be done in procedure room or may call to secure a Phase I area. * If naloxone or flumazenil are used for reversal, hold in Phase I for continued monitoring from when last reversal dose was given for a minimum of 60 minutes or longer pending the nurse and/or physician discretion of patient condition before discharge to Phase II. Please call the Sedation Physician to re-evaluate and complete post-note for discharge to Phase II area. Do NOT discharge from procedure sedation or Phase 1 until post- sedation ev aluation note is complete by procedure /sedation MD Sedation Discharge Instructions to be given to the patient at discharge to home.
--- NOTE | 2023-05-14 14:40 | Electrophysiology Report ---
Date of Service May 14, 2023 Electrophysiology Procedure Electrophysiology Procedure Report Procedure performed: Pulse generator change for biventricular pacemaker Staff crayon molding machine operator: Uri Gage MD Indication: The patient is a 62-year-old gentleman with a prior history of complete heart block who had undergone implantation initially of a dual-chamber permanent pacemaker and subsequently upgraded to a biventricular pacemaker. He was noted on routine evaluation to have reached the end of service. He was advised undergo pulse generator change today. Procedure detail The patient was informed there is benefits and alternatives to the intended procedure. He understood and wished to proceed. He was taken to the electrophysiology suite in a fasting state. Preoperative antibiotic administered. The patient was monitored electrocardiographically throughout today's procedure and conscious sedation was administered per protocol. The area over the previous implanted device was anesthetized using subcutaneous ministration of lidocaine and Marcaine solution. An incision was made at the site and carried on the previously implanted pulse generator using a PlasmaBlade. PlasmaBlade was also employed for hemostasis and dissection. The previously implanted pulse generator was removed from the pocket and detached from the leads. A new pulse generator was attached to the leads. The pocket was irrigated with antibiotic solution. The device was placed inside an antibiotic impregnated envelope prior to being replaced back in the pocket. The pocket was subsequently closed in 3 layers of absorbable suture. Steri-Strips and sterile dressing were applied. The device was tested noninvasively prior inclusion the procedure. The patient tolerated procedure well. There were no immediate complications. Equipment used: Explanted pulse generator: Brick Machine Operator Access Closure. Model number PM 3222 serial #[id number] New pulse generator: Brick Machine Operator [employer] model number PM 3222 serial #[id number] Retained right atrial lead: Brick Machine Operator [employer] model #5086 serial number [id number] Retained right ventricular lead: Brick Machine Operator [employer] model #5086 serial number [id number] Retained coronary sinus lead: Brick Machine Operator [employer] medical model #1258 serial number [id number] Measured data: Right atrial lead: P waves measure 3.3 mV. Pacing threshold point 5 V at 0.4 ms with a pacing Viens of 440 ohms Right ventricular lead: No intrinsic R waves were measured. Pacing threshold was 0.875 V at 0.4 ms with a pacing impedance of 400 ohms Coronary sinus lead: No intrinsic R waves were measured. Pacing threshold was 1 V at 0.4 ms with a pacing impedance of 790 ohms Impression: Successful pulse generator change for biventricular pacemaker [facility] Electrophysiology codes Pacing Procedure 1: Pacin Multi Pacemaker replacement PG Moderate Sedation Codes Moderate Sedation Codes Procedure 1: Sedation/Anesthesia: 49740 Mod Sedation by the same physician;Init15 Min Child Age 5 & Up Procedure 2: Sedation/Anesthesia: 05788 Mod Sedation by the same physician; Ea [id number] Minutes
--- NOTE | 2023-05-14 17:08 | Hospitalist Progress Note ---
Date of Service May 14, 2023 Assessment & Plan (1) Acute respiratory failure with hypoxia and hypercapnia: Plan: Secondary to pulmonary edema and hypoxia and hypercapnic respiratory failure due to COPD hypoventilation CHF status post extubation overall patient is improving Lasix has been held as per Nephrology rec patient still have significant lower extremity edema, (2) Acute on chronic heart failure with preserved ejection fraction: Plan: LVEF 50-55% on TTE in February 2021. Currently on 2 L oxygen, Lasix has been held, will discuss with nephrology if he can resume Lasix, continue to hold (3) Nonischemic cardiomyopathy: Plan: Echo showed EF of 50 to 55%, no significant valve abnormality, no [id number] shunt, continue carvedilol. Lisinopril is on hold due to acute kidney injury (4) Type 2 diabetes mellitus: Plan: HbA1C 6.3 in October. Sliding scale coverage for now. (5) Atrioventricular block, complete: Plan: Status post pacemaker change on 05/14 (6) Obstructive sleep apnea of adult: Plan: BiPAP HS and while napping (7) Chronic kidney disease: Plan: With a baseline creatinine around 1.5-1.98 (8) COPD with emphysema: Plan: Extubated (9) DVT (deep venous thrombosis): Plan: Hold Xarelto for now started on Prophylactic dose of LovenoxDiscussed with cardiology resume Xarelto tomorrow Plan Going for pacemaker replacement tomorrow, PT OT pending possible discharge within 24 to 48 hours Admission and Anticipated Discharge Date Admission Date: May 10, 2023 Subjective s/p pacemaker exchanges today Physical Exam Physical Exam: General-extubated HEENT-head atraumatic and normocephalic. ETT in place Neck-no lymphadenopathy or thyromegaly, trachea midline Chest-scattered bilateral rhonchi from anterior approach. No wheezing. Cardiac-regular rate and rhythm, normal S1 and S2 Abdomen-normal bowel sounds, no hepatosplenomegaly Extremities-no cyanosis, clubbing, or edema Neuro-cannot assess. Intubated and sedated Psych-cannot assess. Intubated and sedated Constitutional: WD/WN, vitals as above well developed, + acute distress (respiratory), + ill appearing, + morbidly obese, + obese and + mechanically ventilated; + not well nourished Eyes: PERRL, conjunctivae normal, anicteric sclerae ENMT: Mallampati Class: IV Neck: trachea midline, no thyromegaly + short neck and + thick neck Respiratory: normal respiratory effort, + respiratory distress, + labored breathing and + uses accessory muscles; expiratory phase not prolonged Auscultation: + breath sounds absent (bibasal) and + diminished lung sounds; no crackles, no rhonchi and no wheezes Cardiovascular: RRR, no murmur, no edema Rate/Rhythm: regular rate and regular rhythm Heart Sounds: normal S1 and normal S2; no murmur Vessels: no JVD Extremities: no edema Gastrointestinal (Abdomen): Inspection/Auscultation: + abdomen distended (at baseline per ex-) Percussion/Palpation: abdomen soft; abdomen nontender, no guarding and abdomen not rigid Musculoskeletal: no cyanosis or clubbing, extremities motor strength 5/5 Extremities: extremities normal to inspection Skin: no rashes, warm and dry Neurologic: normal touch/pain/proprioception, CN's II-XI intact bilaterally, moves all extremities, awake, + confused and + obtunded Psychiatric: Orientation: alert Results & Data Results & Data Vital Signs (Past 12 Hours) Vital Signs Temp Pulse Pulse Resp BP BP Pulse Ox 05/14/23 16:25 72 18 117/74 05/14/23 16:00 65 05/14/23 15:55 75 20 118/78 05/14/23 15:45 61 05/14/23 15:25 67 18 132/80 05/14/23 15:10 60 18 138/86 95 05/14/23 15:06 36.7 C 56 L 18 159/94 H 96 05/14/23 14:55 62 18 159/106 H 96 05/14/23 14:40 70 18 147/86 H 97 05/14/23 13:29 68 18 154/102 H 95 05/14/23 11:10 36.6 C 64 21 135/83 90 05/14/23 09:00 73 05/14/23 09:00 05/14/23 07:33 36.6 C 73 21 165/106 H 90 O2 Del Method O2 Flow Rate 05/14/23 16:25 05/14/23 16:00 05/14/23 15:55 Nasal Cannula 2 05/14/23 15:45 05/14/23 15:25 Nasal Cannula 2 05/14/23 15:10 Nasal Cannula 2 05/14/23 15:06 Nasal Cannula 2 05/14/23 14:55 Room Air 05/14/23 14:40 Room Air 05/14/23 13:29 Room Air 05/14/23 11:10 Nasal Cannula 2 05/14/23 09:00 05/14/23 09:00 Nasal Cannula 2 05/14/23 07:33 Nasal Cannula 2 PG Care Time/CCT Total # of Minutes Spent Total Time Spent with Patient: Total time spent is greater than 50% in coordination of care (as documented) at patient's floor/unit and/or counseling patient: Coding Level of Care Code 50688 SUB INP/OBS CARE 3/50MIN Diagnoses Acute respiratory failure with hypoxia and hypercapnia J96.01; J96.02 Acute on chronic heart failure with preserved ejection fraction I50.33 Nonischemic cardiomyopathy I42.8 Type 2 diabetes mellitus E11.9 Atrioventricular block, complete I44.2 Obstructive sleep apnea of adult G47.33 Stage 3a chronic kidney disease N18.31 Chronic kidney disease stage: stage 3 (moderate) Chronic kidney disease stage 3 subtype: stage 3a (GFR 45-59) Pulmonary emphysema, unspecified emphysema type J43.9 Emphysema type: unspecified DVT (deep venous thrombosis) I82.409 (7) Chronic kidney disease Chronic kidney disease stage: stage 3 (moderate) Chronic kidney disease stage 3 subtype: stage 3a (GFR 45-59) Qualified Code(s): N18.31 - Chronic kidney disease, stage 3a (8) COPD with emphysema Emphysema type: unspecified Qualified Code(s): J43.9 - Emphysema, unspecified
[2023-05-14] MEDS: SIMVASTATIN 40 MG TAB PO SCH (21:55)
[2023-05-15] MEDS: carvediloL 25 MG TAB PO SCH (08:38)
[2023-05-15] MEDS: allopurinoL 100 MG TAB PO SCH (08:38)
[2023-05-15] MEDS: ASPIRIN 81 MG CHEW OG SCH ×2 (08:40→08:41)
[2023-05-15] MEDS ORDERED: Nursing to Pharmacy Communication SCH (10:30)
[2023-05-15 12:06] LABS: Magnesium 2.7 mg/dl (1.7-2.4); Phosphorus 3.3 mg/dl (2.5-4.9)
--- NOTE | 2023-05-15 13:01 | CT Scan Report ---
CT OF THE CHEST WITHOUT IV CONTRAST CLINICAL HISTORY: Hypoxia. Status post pulse generator change biventricular pacemaker on May 14, 2023. COMPARISON STUDY: Chest CT December 25, 2022. Chest radiograph May 12, 2023. CT DOSE: 1244.67 mGy.cm TECHNIQUE: Axial images of the chest were obtained without IV contrast. Images were reviewed in the axial, sagittal, and coronal planes. IV contrast was not administered for this examination. Automat ed exposure control was utilized for the study. A dose lowering technique was utilized adhering to t he principles of ALARA. FINDINGS: A left subclavian biventricular pacer is in place. Gas and stranding adjacent to the pulse generator are expected given recent change. There is moderate cardiomegaly. There is no pericardial effusion. No enlarged thoracic lymph nodes are noted. Central airways are patent. There are trace saima ateral pleural effusions. No pneumothorax is present. Subpleural lower lobe opacities represent atele ctasis. There is no consolidation to suggest pneumonia. Several small pulmonary nodules measuring up to 5 mm are unchanged from earlier exams. These are benign given stability. No new nodules are presen t. No acute fractures within the bony thorax are present. IMPRESSION: 1. Subpleural lower lobe opacities consistent with atelectasis. No consolidation to suggest pneumonia . Trace bilateral pleural effusions. 2. Expected findings following recent change of the pulse generator for the left subclavian biventric ular pacer. 3. Cardiomegaly. 4. No pneumothorax. ACT 112: Negative or not required by law. Electronically signed by: Yaakov Alfaro M.D. 05/15/2023 1:00 PM
--- NOTE | 2023-05-15 20:27 | Discharge Summary ---
Date of Service May 15, 2023 Admission HPI Per Admitting Provider Benjamín Atkinson is a 62 year old with obstructive sleep apnea who presents to the ER with slurred speech starting yesterday, hot and cold spells, shortness of breath and hypoxia. Unable to get much history from the patient as tired and on BiPAP. No measured fevers. History mainly obtained from his ex- at bedside. He notably has obstructive sleep apnea but has been off CPAP for the last 1.5 years due to recall and then not using his replacement. He has a notable history of emphysema - although last pulmonology note reports PFTs show no obstructive lung dysfunction and tried Incruse and Tiolto with no change in his symptoms. 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 She reports he is usually very complaint with medications and suspects he is taking all pills as prescribed. He has been getting increasingly fatigued over the last month and tired all the time - he saw his PCP on April 29 and suspected this was due to him not wearing his CPAP. This has rapidly progressed over the last 2 days and now sleeping all the time with the slurred speech starting yesterday. No cough/cold symptoms. No gastrointestinal or urinary symptoms. Point of care ABG in the ER prior to BiPAP with pH 7.209, PaCO2 87.2, PaO2 52. Patient was placed on BiPAP following this ABG. Principal Diagnosis 45 mins Discharge Exam General-extubated HEENT-head atraumatic and normocephalic. ETT in place Neck-no lymphadenopathy or thyromegaly, trachea midline Chest-scattered bilateral rhonchi from anterior approach. No wheezing. Cardiac-regular rate and rhythm, normal S1 and S2 Abdomen-normal bowel sounds, no hepatosplenomegaly Extremities-no cyanosis, clubbing, or edema Neuro-cannot assess. Intubated and sedated Psych-cannot assess. Intubated and sedated Constitutional WD/WN, vitals as above well developed, + acute distress (respiratory), + ill appearing, + morbidly obese, + obese and + mechanically ventilated; + not well nourished Eyes PERRL, conjunctivae normal, anicteric sclerae ENMT external ear and nose normal, oropharynx normal Mallampati Class: IV Neck trachea midline, no thyromegaly + short neck and + thick neck Respiratory normal respiratory effort, + respiratory distress, + labored breathing and + uses accessory muscles; expiratory phase not prolonged Auscultation: + breath sounds absent (bibasal) and + diminished lung sounds; no crackles, no rhonchi and no wheezes Cardiovascular RRR, no murmur, no edema Rate/Rhythm: regular rate and regular rhythm Heart Sounds: normal S1 and normal S2; no murmur Vessels: no JVD Extremities: no edema Gastrointestinal (Abdomen) Inspection/Auscultation: + abdomen distended (at baseline per ex-) Percussion/Palpation: abdomen soft; abdomen nontender, no guarding and abdomen not rigid Musculoskeletal no cyanosis or clubbing, extremities motor strength 5/5 Extremities: extremities normal to inspection Skin no rashes, warm and dry Neurologic normal touch/pain/proprioception, CN's II-XI intact bilaterally, moves all extremities, awake, + confused and + obtunded Psychiatric Orientation: alert Discharge Data Allergies Allergy/AdvReac Type Severity Reaction Status Date / Time No Known Allergies Allergy Verified 05/10/23 12:08 Consultations 05/10/23 11:45 ED Decision to Admit Stat 05/11/23 01:49 Consult Financial Systems Manager Routine 05/11/23 08:18 Consult Nephrology Routine 05/12/23 18:51 Consult Cardiology Routine Procedures Performed Operation Date: 05/14/23 14:00 Actual Procedures p Pacer Gen Change Multiple(Left) - Uir Gage MD Ordered Studies 05/10/23 10:34 CT head/brain wo con Stat 05/11/23 01:39 US venous doppler LE BI Urgent 05/14/23 07:15 EP Lab Images for PACS ONCE 05/15/23 11:10 CT chest diagnostic wo con Routine Hospital Course (1) Acute respiratory failure with hypoxia and hypercapnia: Secondary to pulmonary edema and hypoxia and hypercapnic respiratory failure due to COPD hypoventilation CHF status post intubation/extubation follow-up chest CT did not show any pulmonary infiltrate or significant pleural effusion or evidence of pulmonary congestion, currently patient is on room air, patient cannot suffer from hypoventilation syndrome due to morbid obesity, patient is advised to follow-up with halfway house counselor, patient provided with contact information of one of the local halfway house counselor, as per discussion with consulting nephrology patient was discharged on Lasix 80 mg twice daily with close follow- up with cardiology/nephrology, patient was informed that he is to follow-up with cardiology/student ambassador in 2 weeks and repeat BMP (2) Acute on chronic heart failure with preserved ejection fraction: LVEF 50-55% on TTE in February 2021. The plan is as mentioned above (3) Atrioventricular block, complete: The patient pacemaker required to be replaced status post pacemaker change on 05/14 (4) Obstructive sleep apnea of adult: BiPAP HS and while napping (5) Chronic kidney disease: With a baseline creatinine around 1.5-1.98 (6) DVT (deep venous thrombosis): Patient was found to have a DVT of lower extremities, patient is on Xarelto, patient supposed to follow-up with pulmonary medicine in 2 weeks presents with acute thrombosis of the right peroneal vein Plan Going for pacemaker replacement tomorrow, PT OT pending possible discharge within 24 to 48 hours Total Time Total Time Spent Total Time Spent (In Minutes): 45 min Discharge Plan Discharge Items Patient Disposition: Home - Self-Care Reason For Visit: ACUTE RESPIRATORY FAILURE WITH HYPOXIA AND HYPERCA Discharge Diagnosis: respiratory failure with hypoxia and hypercapnia Activity: Resume your previous activity Bathing: Keep incision dry Bathing Comment: Keep wound dry and steri-strips intact until f/u next week Sexual Activity: When tolerated Driving/Machine Use: No limitations Non-emergency contact: Primary Care Provider, Hospitalist, Digital Program Manager, Bleach Boiler Puller and Former Hand Call non-emergency contact if: you have any medication questions Follow-up/Referrals: Kayy De La Torre MD [Physician] - Alena Ulloa MD [Primary Care Provider] - Noe Poe MD [Physician] - 05/29/23 Diet: Carb Count or DM1 Addtl Attending Provider Instructions: you must loose weight , you need to follow with halfway house counselor because of respiratory failure and blood clot in your legs please repeat your blood work up for Kidney function in two weeks with your Primary care doctor or Bleach Boiler Puller please follow with your printed circuit board assembly repairer in two weeks Pending Studies at Discharge: No Stand-Alone Forms: [email or web address], Smoking Cessation Medications and DC Order Prescriptions: New Xarelto DVT-PE Treat 30d Start 15 mg (42)- 20 mg (9) tablets,dose pack See Rx Instructions .ROUTE .COMPLEX Qty: 51 0RF Rx Instructions: take one-15 mg tablet twice daily for 21 days, then one-20 mg tablet once daily; must take with meal/food Continued aspirin 81 mg tablet,delayed release (DR/EC) 81 mg PO HS Tremfya 100 mg/mL auto-injector 100 mg subcut UD 0RF allopurinol 100 mg tablet 100 mg PO BID Qty: 180 3RF carvedilol 25 mg tablet 50 mg PO BID Qty: 360 3RF furosemide 80 mg tablet 80 mg PO BID Qty: 180 3RF lisinopril 40 mg tablet 40 mg PO QAM Qty: 90 1RF simvastatin 40 mg tablet 40 mg PO QPM Qty: 90 3RF Discharge Orders: Discharge Order (Routine); Ordered 05/15/23 Ordered By: Gianluca Pelletier/Other Patient Handouts: A1C, 5 Steps for Eating Healthier Admission Data Admit Date/Time: 05/10/23 12:00 Attending Provider: Gianluca Page Admit Provider: Javed Escamilla Primary Care Provider: Alena Ulloa Other Providers: Javed Escamilla; Kayy De La Torre; Uri Gage Other Interventions: Discharge Summary Assessment (RN) Last Done: 05/15/23 17:43 Coding Level of Care Code 22896 INP/OBS DISCH >30 MIN Diagnoses Acute respiratory failure with hypoxia and hypercapnia J96.01; J96.02 Acute on chronic heart failure with preserved ejection fraction I50.33 Atrioventricular block, complete I44.2 Obstructive sleep apnea of adult G47.33 Stage 3a chronic kidney disease N18.31 Chronic kidney disease stage: stage 3 (moderate) Chronic kidney disease stage 3 subtype: stage 3a (GFR 45-59) DVT (deep venous thrombosis) I82.409
[2023-05-15] MEDS ORDERED: ASPIRIN 81 MG CHEW OG SCH (21:00)
== END 2023-05-15 18:20 | disposition home or self-care (01) | DRG 987 ==
LOC: ED 10:23 → SUATTDRO 12:00 → EDINP 12:00 → 2S 14:03 → 1E 05-11 01:31 → 2E 05-13 17:38

== ENCOUNTER 2023-07-31 12:14 | Inpatient (IN) ==
--- NOTE | 2023-07-31 12:26 | ED Triage Note ---
Date of Service July 31, 2023 Provider in Triage Author: Stephania Gonzalez History of Present Illness This patient was briefly evaluated while in triage. An abbreviated physical exam was performed. This patient is a 63-year-old Male who presents to the ED for evaluation of hypoxia. Pt. states he normally feels SOB. States checks O2 daily. Normal O2 95%. Today, noticed it was 75% on RA and called Dr. Ulloa and referred to ED. Denies recent illness, trauma, chest pain, cough, congestion, runny nose, sore throat. Denies leg pain or swelling. Does not wear home O2. Does feel SOB, but always feels SOB. Today might be a little worse. Physical Exam VITALS: Vitals are noted on the nurse's note and reviewed by myself. GENERAL: This is a 63 year old male, in no acute distress, nondiaphoretic, well- developed well-nourished. SKIN: No obvious rashes, edema, erythema HEAD: Normocephalic atraumatic. EYES: Conjunctivae without injection, sclerae without icterus. NECK: No JVD. LUNGS: No retractions or accessory muscle use. MUSCULOSKELETAL: Normal gait. NEURO: Patient was alert and oriented to person place and time. No focal neurological deficits. Initial orders for labs and / or imaging were placed and patient was placed in the waiting area until a bed is available. Please see further documentation for the full ED course.
--- NOTE | 2023-07-31 12:43 | Emergency Department Note ---
Impression & Plan Pneumonia, Hypoxia, Acute respiratory acidosis, Elevated troponin I level ED Provider Note NAME: MICKEY OLIVIA AGE: 63 SEX: M : 1960 ARRIVES VIA: Walk-In INFORMANT: Patient, ED PROVIDER(S): Brandon Slater DO CHIEF COMPLAINT: Shortness of breath HPI: The patient is a 63-year-old male who presented to the emergency department for an evaluation of shortness of breath. The patient states has been having symptoms for the last 1 to 2 weeks. He does not notice a cough or hemoptysis. He does not notice any new lower extremity swelling or chest pain. The patient does not normally wear oxygen. He called his family doctor and was referred to the emergency department for further evaluation. ROS: See above HPI for pertinent positives & negatives. A total of 10 systems reviewed and were otherwise negative. PAST MEDICAL HISTORY: See Below PAST SURGICAL HISTORY: See Below FAMILY HISTORY: See Below SOCIAL HISTORY: See Below HOME MEDICATIONS: See Below ALLERGIES: See Below VITALS: See Below PHYSICAL EXAMINATION: GENERAL: Patient is awake alert in no acute distress patient is resting comfortably and showing no signs of anxiety EYES: The conjunctivae are clear. The pupils are round and reactive. EARS, NOSE, MOUTH AND THROAT: The nose is without any evidence of any deformity. NECK: The neck is nontender and supple. RESPIRATORY: Diminished breath sounds are noted throughout with left greater than right. There is no tachypnea or conversational dyspnea. CARDIOVASCULAR: Regular rate and rhythm noted there no murmurs rubs or gallops normal S1 normal S2. GASTROINTESTINAL: The abdomen is soft. Abdomen is nontender. MUSCULOSKELETAL/EXTREMITIES: There is no evidence of gross deformity full range of motion is noted in the hips and shoulders. SKIN: Skin was warm and dry. Trace pedal edema was noted bilaterally. NEUROLOGIC: Patient is awake alert and oriented x3. MEDICAL DECISION MAKING: The patient is a 63-year-old male who presented to the emergency department for an evaluation of difficulty breathing. The patient has been monitoring his pulse ox and it was very low prior to arrival. The patient was placed on supplemental oxygen in the emergency department. His oxygen saturation his condition significantly improved. I discussed the patient's laboratory and radiographic studies with him. I discussed the patient's condition with the on- call [facility] hospitalist. They have agreed to evaluate the patient in the emergency department for further management and disposition. The patient does have a history of COPD in the past. The patient was started on IV antibiotics in the emergency department. Triage Nursing notes reviewed. Prior medical records reviewed Vital Signs: reviewed and remarkable for hypoxia and elevated blood pressure. Differential diagnosis: Reactive airway disease, pneumonia, pneumothorax, COPD, CHF, infections, cardiac ischemia, pulmonary embolism, musculoskeletal, gastrointestinal, as well as other pathologies. ER treatment provided: See below Diagnostics interpreted by me: ECG: EKG was obtained in the emergency department. My interpretation is paced rhythm at 69 bpm. A left bundle branch block pattern was noted. PVCs were noted. This was compared to a tracing from October 10, 2022. No specific changes were noted. Cardiac Monitoring: An order was placed for continuous cardiac monitoring. The monitor shows a rate of 68 bpm with paced rhythm. Laboratory studies: As stated above and show below. Imaging studies: See below. Radiographic imaging was reviewed by myself Consultation(s): I discussed this case with Dr. Rodriguez who is on-call for the [facility] hospitalist group. ED COURSE: Procedures: none Critical Care: I have personally spent greater than 45 minutes of critical care time in the direct management of this patient. This includes bedside care, interpretation of diagnostic studies, and testing, discussion with consultants, patient, and family members, and other required patient management activities. This 45 minutes is in excess of all separately billable procedures. Past Med/Surg History Medical History Encounter for servicing of pacemaker at end of battery life Pulmonary edema Acute respiratory failure with hypoxia and hypercapnia Acute on chronic heart failure with preserved ejection fraction Acute kidney injury History of COVID-19 05/2022 - asymptomatic Kidney stones hx - no surgery currently has a stone embedded in the wall of the left kidney for the last 20 years. Osteoarthritis Anemia recent bloodwork -- recent for upcoming colonoscopy Spinal stenosis of lumbar region Chronic low back pain Lumbar degenerative disc disease Psoriasis Hyperlipidemia Fatty infiltration of liver seen on CT chest dated 10/31 20 Gout COPD with emphysema Morbid obesity Multiple pulmonary nodules stable per patient. yearly scans. Atrioventricular block, complete reason for pacemaker in 2011. Nonischemic cardiomyopathy Cardiac pacemaker st lizzy device. Hypertension Chronic kidney disease Obstructive sleep apnea of adult noncompliant with machine -- states he gets sick everytime he uses the machine. Prediabetes Surgical History S/P epidural steroid injection S/P cardiac pacemaker procedure most recent placement September 2014 at [facility]. last checked annually in May 2022. follows with Dr Arzola. Family History Mother Diabetes Father Diabetes Stroke Grandmother Diabetes Other No family history of adverse response to anesthesia Denies family history of Ovarian cancer Prostate cancer Kidney disease Myocardial infarction Breast cancer Colorectal cancer Hypertension Social History Smoking Status: Never smoker Tobacco Type: Cigarettes Second Hand Exposure: No; Do You Dip or Chew Tobacco: Yes (1 can/1 day (advised)); Hx Alcohol Use: No Hx Substance Use: No Preferred Language: Samoan Communication Ability: Unable Wrapper Hand Required: No Beliefs That Will Affect Care: None marital status: Current Living Situation: Alone Current Living Situation Comment: lives with ex- and son current occupational status: disabled How many Children do You have: 2 Feels Safe at Home: Yes Childhood Exposure to Second-Hand Smoke: Yes Diet: regular caffeine: Yes Dental Care, Regularly: No Physical Activity Frequency: 3-4 Times per Week Seatbelt Use: sometimes Sunscreen Use: No Assistive Devices: None Allergies Allergies Allergy/AdvReac Type Severity Reaction Status Date / Time No Known Allergies Allergy Verified 07/31/23 16:02 Home Meds Previous Rx's Medication Instructions Recorded allopurinol 100 mg tablet 100 mg PO BID #180 tabs 05/21/23 aspirin 81 mg tablet,delayed 81 mg PO HS #90 tabs 05/21/23 release carvedilol 25 mg tablet 50 mg (2 x 25 mg) PO BID #360 tabs 05/21/23 furosemide 80 mg tablet 80 mg PO BID #180 tabs 05/21/23 lisinopril 40 mg tablet 40 mg PO QAM #90 tabs 05/21/23 simvastatin 40 mg tablet 40 mg PO QPM #90 tabs 05/21/23 rivaroxaban 20 mg tablet (Xarelto) 20 mg PO DAILY #90 tabs 06/22/23 Oxygen Home E0424 #1 ea 07/31/23 Results & Data (ED) Vital Signs Vital Signs - 24 hr 07/31/23 12:19 07/31/23 13:33 07/31/23 15:00 Temperature 36.3 C L Temperature Source Temporal Artery Scan Pulse Rate 69 65 Pulse Rate [Apical] 71 Respiratory Rate 18 20 Respiratory Effort / Characteristics Non-Labored Spontaneous Non-Labored Respiratory Depth Normal Normal Blood Pressure 181/129 H Blood Pressure [Right Arm] 152/95 H Blood Pressure Mean 146 Blood Pressure Mean [Right Arm] 114 Pulse Oximetry 82 L 96 Oxygen Delivery Method Room Air Nasal Cannula Oxygen Flow Rate 2 Sepsis Recent Fever Within 48 Hours No Sepsis New/Unexplained Change in Mental Status No Sepsis Action Taken by Nursing No Action Required 07/31/23 15:00 07/31/23 17:00 07/31/23 17:05 Temperature Temperature Source Pulse Rate 68 Pulse Rate [Apical] 64 Respiratory Rate 18 Respiratory Effort / Characteristics Respiratory Depth Blood Pressure Blood Pressure [Right Arm] 151/98 H Blood Pressure Mean Blood Pressure Mean [Right Arm] 115 Pulse Oximetry 96 97 Oxygen Delivery Method Nasal Cannula Nasal Cannula Oxygen Flow Rate 2 2 Sepsis Recent Fever Within 48 Hours Sepsis New/Unexplained Change in Mental Status Sepsis Action Taken by Shelter Medications Current Medication List: was personally reviewed by me Laboratory Data Attestation: I reviewed the patient's lab results. 07/31/23 12:58 07/31/23 12:58 Lab Results 07/31/23 07/31/23 07/31/23 Range/Units 12:58 13:16 14:42 WBC 6.60 (4.8-10.8) K/ul RBC 5.12 (4.70-6.10) M/uL Hgb 14.1 (14.0-18.0) g/dl Hct 46.6 (42.0-52.0) % MCV 91.0 (80.0-100.0) fL MCH 27.5 (25.0-34.0) pg MCHC 30.3 L (32.0-36.0) g/dL RDW Std Deviation 49.3 H (36.4-46.3) fL RDW Coeff of Jens 15.1 H (11.5-14.5) % Plt Count 141 (130-400) K/uL MPV 11.1 (9.4-12.4) fL Immature Gran % (Auto) 0.3 % Neut % (Auto) 72.8 % Lymph % (Auto) 12.9 % [place] % (Auto) 11.5 % Eos % (Auto) 2.0 % Baso % (Auto) 0.5 % Neut # (Auto) 4.81 (1.40-6.50) K/uL Lymph # (Auto) 0.85 L (1.20-3.40) K/uL [place] # (Auto) 0.76 H (0.11-0.59) K/uL Eos # (Auto) 0.13 (0.00-0.50) K/uL Baso # (Auto) 0.03 (0.00-0.20) K/uL Immature Gran # (Auto) 0.02 (0.01-0.20) K/uL PT 12.7 H (9.0-12.0) Seconds INR 1.2 H (0.9-1.1) APTT 37 H (21-31) Seconds PTT Ratio 1.3 VBG pH 7.32 L (7.36-7.41) VBG pCO2 79 H (38-50) mmHg VBG pO2 30 mmHg VBG HCO3 41 mmol/L VBG O2 Saturation < 60.0 % VBG Base Excess 11.1 mEq/L Sodium 144 (136-145) mmol/L Potassium 3.7 (3.5-5.1) mmol/L Chloride 100 (98-107) mmol/L Carbon Dioxide 37 H (21-32) mmol/L Anion Gap 7 (3-11) BUN 27 H (6-23) mg/dl Creatinine 1.66 H (0.6-1.4) mg/dl Est Cr Clr Drug Dosing 73.1 ml/min Est GFR ( Amer) 50.8 ml/min Est GFR (Non-Af Amer) 43.8 ml/min BUN/Creatinine Ratio 16.3 (10-20) Glucose 122 H (70-99(Fasting)) mg/dl Calcium 8.4 L (8.6-10.3) mg/dl Magnesium 2.0 (1.7-2.4) mg/dl Total Bilirubin 1.1 H (0.2-1.0) mg/dl AST 18 (13-39) U/L ALT 26 (7-52) U/L Alkaline Phosphatase 58 (34-104) U/L Troponin I High Sens 25.7 H (0-20) pg/ml B-Natriuretic Peptide 204 H (0-100) pg/ml Total Protein 7.3 (6.0-8.3) gm/dl Albumin 4.1 (3.4-5.0) gm/dl Globulin 3.2 (2.5-4.0) gm/dl Albumin/Globulin Ratio 1.3 (0.9-2) Urine Color Yellow Urine Appearance Clear (Clear) Urine pH 6.0 (4.5-7.5) Ur Specific [place] 1.010 (1.000-1.030) Urine Protein Trace H (Negative) Urine Glucose (UA) Negative (Negative) Urine Ketones Negative (Negative) Urine Blood Negative (Negative) Urine Nitrite Negative (Negative) Urine Bilirubin Negative (Negative) Urine Urobilinogen Negative (Negative) Ur Leukocyte Esterase Negative (Negative) Urine WBC (Auto) 1-5 (0-5) /hpf Urine RBC (Auto) 0-4 (0-4) /hpf U Hyaline Cast (Auto) 1-5 (0-5) /lpf U Epithel Cells (Auto) 0-5 (0-5) /lpf Urine Bacteria (Auto) Negative (Negative) Adenovirus (PCR) Not Detected (NotDetected) B. pertussis DNA (PCR) Not Detected (NotDetected) B.parapertussis DNA PCR Not Detected (NotDetected) C. pneumoniae DNA (PCR) Not Detected (NotDetected) Coronavirus OC43 (PCR) Not Detected (NotDetected) Coronavirus HKU1 (PCR) Not Detected (NotDetected) Coronavirus 229E (PCR) Not Detected (NotDetected) SARS-CoV-2 (PCR) Not Detected (NotDetected) Coronavirus NL63 (PCR) Not Detected (NotDetected) Human Metapneumovir PCR Not Detected (NotDetected) Influenza Type A (PCR) Not Detected (NotDetected) Influenza Type B (PCR) Not Detected (NotDetected) M. pneumoniae (PCR) Not Detected (NotDetected) Parainfluenza 1 (PCR) Not Detected (NotDetected) Parainfluenza 2 (PCR) Not Detected (NotDetected) Parainfluenza 3 (PCR) Not Detected (NotDetected) Parainfluenza 4 (PCR) Not Detected (NotDetected) RSV (PCR) Not Detected (NotDetected) Entero/Rhino (PCR) Not Detected (NotDetected) 07/31/23 Range/Units 14:47 WBC (4.8-10.8) K/ul RBC (4.70-6.10) M/uL Hgb (14.0-18.0) g/dl Hct (42.0-52.0) % MCV (80.0-100.0) fL MCH (25.0-34.0) pg MCHC (32.0-36.0) g/dL RDW Std Deviation (36.4-46.3) fL RDW Coeff of Jens (11.5-14.5) % Plt Count (130-400) K/uL MPV (9.4-12.4) fL Immature Gran % (Auto) % Neut % (Auto) % Lymph % (Auto) % [place] % (Auto) % Eos % (Auto) % Baso % (Auto) % Neut # (Auto) (1.40-6.50) K/uL Lymph # (Auto) (1.20-3.40) K/uL [place] # (Auto) (0.11-0.59) K/uL Eos # (Auto) (0.00-0.50) K/uL Baso # (Auto) (0.00-0.20) K/uL Immature Gran # (Auto) (0.01-0.20) K/uL PT (9.0-12.0) Seconds INR (0.9-1.1) APTT (21-31) Seconds PTT Ratio VBG pH (7.36-7.41) VBG pCO2 (38-50) mmHg VBG pO2 mmHg VBG HCO3 mmol/L VBG O2 Saturation % VBG Base Excess mEq/L Sodium (136-145) mmol/L Potassium (3.5-5.1) mmol/L Chloride (98-107) mmol/L Carbon Dioxide (21-32) mmol/L Anion Gap (3-11) BUN (6-23) mg/dl Creatinine (0.6-1.4) mg/dl Est Cr Clr Drug Dosing ml/min Est GFR ( Amer) ml/min Est GFR (Non-Af Amer) ml/min BUN/Creatinine Ratio (10-20) Glucose (70-99(Fasting)) mg/dl Calcium (8.6-10.3) mg/dl Magnesium (1.7-2.4) mg/dl Total Bilirubin (0.2-1.0) mg/dl AST (13-39) U/L ALT (7-52) U/L Alkaline Phosphatase (34-104) U/L Troponin I High Sens 21.9 H (0-20) pg/ml B-Natriuretic Peptide (0-100) pg/ml Total Protein (6.0-8.3) gm/dl Albumin (3.4-5.0) gm/dl Globulin (2.5-4.0) gm/dl Albumin/Globulin Ratio (0.9-2) Urine Color Urine Appearance (Clear) Urine pH (4.5-7.5) Ur Specific [place] (1.000-1.030) Urine Protein (Negative) Urine Glucose (UA) (Negative) Urine Ketones (Negative) Urine Blood (Negative) Urine Nitrite (Negative) Urine Bilirubin (Negative) Urine Urobilinogen (Negative) Ur Leukocyte Esterase (Negative) Urine WBC (Auto) (0-5) /hpf Urine RBC (Auto) (0-4) /hpf U Hyaline Cast (Auto) (0-5) /lpf U Epithel Cells (Auto) (0-5) /lpf Urine Bacteria (Auto) (Negative) Adenovirus (PCR) (NotDetected) B. pertussis DNA (PCR) (NotDetected) B.parapertussis DNA PCR (NotDetected) C. pneumoniae DNA (PCR) (NotDetected) Coronavirus OC43 (PCR) (NotDetected) Coronavirus HKU1 (PCR) (NotDetected) Coronavirus 229E (PCR) (NotDetected) SARS-CoV-2 (PCR) (NotDetected) Coronavirus NL63 (PCR) (NotDetected) Human Metapneumovir PCR (NotDetected) Influenza Type A (PCR) (NotDetected) Influenza Type B (PCR) (NotDetected) M. pneumoniae (PCR) (NotDetected) Parainfluenza 1 (PCR) (NotDetected) Parainfluenza 2 (PCR) (NotDetected) Parainfluenza 3 (PCR) (NotDetected) Parainfluenza 4 (PCR) (NotDetected) RSV (PCR) (NotDetected) Entero/Rhino (PCR) (NotDetected) Administered Medications Vancomycin HCl 2,750 mg/ (Sodium Chloride) 555 mls @ 200 mls/hr IV NOW ONE Stop: 07/31/23 17:38 Last Admin: 07/31/23 15:44 Dose: 200 mls/hr Documented By: AEF Discontinued Medications Sodium Chloride (Nss) 1,000 mls @ 999 mls/hr IV .Q1H1M BLANCA Stop: 07/31/23 13:30 Last Infusion: 07/31/23 14:30 Dose: Infused Documented By: Admin: 07/31/23 13:11 Dose: 999 mls/hr Documented By: JOSELUIS Piperacillin Sod/Tazobactam Sod (Zosyn) 4.5 gm in 100 mls @ 200 mls/hr IV NOW ONE Stop: 07/31/23 15:21 Last Infusion: 07/31/23 15:44 Dose: Infused Documented By: Admin: 07/31/23 15:07 Dose: 200 mls/hr Documented By: EMERSON Ioversol (Optiray 320 125ml) 112 ml IV ONCE ONE Stop: 07/31/23 14:09 Last Admin: 07/31/23 14:09 Dose: 112 ml Documented By: STEVENSON Imaging Data Attestation: I personally reviewed and interpreted this imaging study as follows: My Impression: 1 view chest x-ray was obtained in the emergency department. My interpretation is cardiomegaly, final report below. Radiologist's Impression: Chest CTA 07/31/23 12:21 CT angio chest PE protocol CT DOSE: 900.06 mGy.cm HISTORY: 63 years-old Male with Dyspnea, hypoxia. Acute hypoxia with shortness of breath TECHNIQUE: Multiple CTA images of the chest were obtained after the intravenous administration of 112 ml Optiray. Coronal and sagittal MIPS were obtained from the axial data set and were submitted for review. All measurements were obtained according to NASCET criteria. A dose lowering technique was utilized adhering to the principles of ALARA. COMPARISON: Chest radiograph of same day, chest CT 05/15/2023 FINDINGS: CTA: Moderate cardiomegaly. No pericardial effusion. Left subclavian pacer. Moderate coronary artery calcifications. No thoracic aortic aneurysm identified. Reflux of contrast into the IVC and hepatic veins. No central pulmonary emboli identified. Suboptimal evaluation of the pulmonary arterial tree secondary to contrast bolus timing and respiratory motion artifact. CT CHEST: Unremarkable thyroid. Borderline enlarged right hilar and mediastinal lymph nodes include subcarinal adenopathy measuring up to 2.2 x 1.3 cm. Trace pleural effusion. Mild bronchial wall thickening with areas of mild mucous plugging. There is mild atelectasis with air trapping. Patchy centrilobular consolidative opacities are noted within the right lung, most pronounced in the right upper lobe. There is decreased transverse dimension of the trachea. Hepatomegaly with hepatic steatosis. Unremarkable soft tissues. No acute fracture. IMPRESSION: 1. Cardiomegaly without central pulmonary emboli identified. 2. Patchy right upper lobe predominant centrilobular opacities suggestive of bronchopneumonia. 3. Trace right pleural effusion. 4. Mild likely reactive mediastinal and hilar lymphadenopathy. ACT 112: Negative or not required by law. The above report was generated using voice recognition software. It may contain grammatical, syntax or spelling errors. Electronically signed by: Mike Bauman M.D. 07/31/2023 2:39 PM Chest X-Ray 07/31/23 12:21 XR chest 1V portable HISTORY: 63 years-old Male Dyspnea acute shortness of breath COMPARISON: 07/29/2023 TECHNIQUE: AP view of the chest FINDINGS: Cardiac silhouette is enlarged. Left subclavian pacer. Pulmonary vascular congestion. No pneumothorax, large pleural effusion or lobar airspace consolidation. Mild nonspecific bibasilar densities. Bones appear grossly intact. IMPRESSION: 1. Cardiomegaly with pulmonary vascular congestion. 2. Mild bibasilar opacities, likely atelectatic. ACT 112: Negative or not required by law. The above report was generated using voice recognition software. It may contain grammatical, syntax or spelling errors. Electronically signed by: Mike Bauman M.D. 07/31/2023 1:25 PM Discharge Plan Visit Data Chief Complaint: Referred by Doctor Stated Complaint: LOW OXYGEN, REF BY DOC ED Provider: Brandon Slater Discharge Problem: Pneumonia, Hypoxia, Acute respiratory acidosis, Elevated troponin I level Patient Disposition: Being Evaluated by Hospitalist Forms Stand Alone Forms: [facility] Prescriptions Prescriptions: No Action (DME) Oxygen Home E0424 Liters Per Minute See Rx Instructions .Route Qty: 1 0RF Rx Instructions: Home Oxygen consentrator with portable tanks-2L via nasal cannula continuous Tremfya 100 mg/mL auto-injector 100 mg subcut UD 0RF Xarelto 20 mg tablet 20 mg PO DAILY Qty: 90 1RF Rx Instructions: must administer with evening meal allopurinol 100 mg tablet 100 mg PO BID Qty: 180 3RF aspirin 81 mg tablet,delayed release (DR/EC) 81 mg PO HS Qty: 90 1RF carvedilol 25 mg tablet 50 mg PO BID Qty: 360 3RF furosemide 80 mg tablet 80 mg PO BID Qty: 180 3RF lisinopril 40 mg tablet 40 mg PO QAM Qty: 90 1RF simvastatin 40 mg tablet 40 mg PO QPM Qty: 90 3RF Referrals Referrals: Alena Ulloa MD [Primary Care Provider] - Discharge Problem: Pneumonia Qualifiers: Pneumonia type: due to unspecified organism Laterality: unspecified laterality Lung location: unspecified part of lung Qualified Code(s): J18.9 - Pneumonia, unspecified organism
[2023-07-31] MEDS: SODIUM CHLORIDE 0.9% 1,000 ML IV SCH (13:11)
[2023-07-31 13:19] LABS: Base Excess VBG 11.1 mEq/L; HCO3 VBG 41 mmol/L; Oxygen Saturation VBG < 60.0 %; PCO2 VBG 79 mmHg (38-50); PO2 VBG 30 mmHg; pH VBG 7.32 (7.36-7.41)
--- NOTE | 2023-07-31 13:26 | XRay Report ---
XR chest 1V portable HISTORY: 63 years-old Male Dyspnea acute shortness of breath COMPARISON: 07/29/2023 TECHNIQUE: AP view of the chest FINDINGS: Cardiac silhouette is enlarged. Left subclavian pacer. Pulmonary vascular congestion. No pneumothorax , large pleural effusion or lobar airspace consolidation. Mild nonspecific bibasilar densities. Bones appear grossly intact. IMPRESSION: 1. Cardiomegaly with pulmonary vascular congestion. 2. Mild bibasilar opacities, likely atelectatic. ACT 112: Negative or not required by law. The above report was generated using voice recognition software. It may contain grammatical, syntax o r spelling errors. Electronically signed by: Mike Bauman M.D. 07/31/2023 1:25 PM
[2023-07-31 13:28] LABS: Basophils # (auto) 0.03 K/uL (0.00-0.20); Basophils % (auto) 0.5 %; Eosinophils # (auto) 0.13 K/uL (0.00-0.50); Hematocrit (blood only) 46.6 % (42.0-52.0); Hemoglobin 14.1 g/dl (14.0-18.0); Immature Granulocytes # (auto) 0.02 K/uL (0.01-0.20); Immature Granulocytes % (auto) 0.3 %; Lymphocytes # (auto) 0.85 K/uL (1.20-3.40); Lymphocytes % (auto) 12.9 %; Mean Corpuscular Hemoglobin 27.5 pg (25.0-34.0); Mean Corpuscular Hgb Conc 30.3 g/dL (32.0-36.0); Mean Platelet Volume 11.1 fL (9.4-12.4); Monocytes # (auto) 0.76 K/uL (0.11-0.59); Monocytes % (auto) 11.5 %; Neutrophils # (auto) 4.81 K/uL (1.40-6.50); Neutrophils % (auto) 72.8 %; Platelet Count 141 K/uL (130-400); RDW Coefficient of Variation 15.1 % (11.5-14.5); RDW Standard Deviation 49.3 fL (36.4-46.3); Red Blood Count 5.12 M/uL (4.70-6.10)
[2023-07-31 13:34] LABS: Est GFR (African American) 50.8 ml/min; Est GFR (Non-African American) 43.8 ml/min; Potassium 3.7 mmol/L (3.5-5.1)
[2023-07-31 13:35] LABS: Albumin Globulin Ratio 1.3 (0.9-2); Albumin Level 4.1 gm/dl (3.4-5.0); BUN Creatinine Ratio 16.3 (10-20); Bilirubin,Total 1.1 mg/dl (0.2-1.0); Calcium 8.4 mg/dl (8.6-10.3); Creatinine Clr Calc Pharmacy 73.1 ml/min; Globulin 3.2 gm/dl (2.5-4.0); Total Protein 7.3 gm/dl (6.0-8.3)
[2023-07-31 13:37] LABS: Troponin I High Sensitivity 25.7 pg/ml (0-20)
[2023-07-31 13:47] LABS: INR 1.2 (0.9-1.1); Partial Thromboplastin Ratio 1.3; Partial Thromboplastin Time 37 Seconds (21-31); Prothrombin Time 12.7 Seconds (9.0-12.0)
[2023-07-31] MEDS: OPTIRAY 320 125ml IV ONE (14:09)
[2023-07-31 14:30] LABS: Adenovirus PCR Not Detected (NotDetected); Bordetella parapertussis PCR Not Detected (NotDetected); Bordetella pertussis PCR Not Detected (NotDetected); Chlamydia pneumoniae PCR Not Detected (NotDetected); Coronavirus 229E PCR Not Detected (NotDetected); Coronavirus CoV-2 (COVID19)PCR Not Detected (NotDetected); Coronavirus HKU1 PCR Not Detected (NotDetected); Coronavirus NL63 PCR Not Detected (NotDetected); Coronavirus OC43PCR Not Detected (NotDetected); Human Metapneumovirus PCR Not Detected (NotDetected); Influenza A PCR Not Detected (NotDetected); Influenza B PCR Not Detected (NotDetected); Mycoplasma pneumoniae PCR Not Detected (NotDetected); Parainfluenza Virus 1 PCR Not Detected (NotDetected); Parainfluenza Virus 2 PCR Not Detected (NotDetected); Parainfluenza Virus 3 PCR Not Detected (NotDetected); Parainfluenza Virus 4 PCR Not Detected (NotDetected); Respiratory Syncytial VirusPCR Not Detected (NotDetected); Rhinovirus/Enterovirus PCR Not Detected (NotDetected)
--- NOTE | 2023-07-31 14:40 | CT Scan Report ---
CT angio chest PE protocol CT DOSE: 900.06 mGy.cm HISTORY: 63 years-old Male with Dyspnea, hypoxia. Acute hypoxia with shortness of breath TECHNIQUE: Multiple CTA images of the chest were obtained after the intravenous administration of 112 ml Optiray. Coronal and sagittal MIPS were obtained from the axial data set and were submitted for review. All measurements were obtained according to NASCET criteria. A dose lowering technique was u tilized adhering to the principles of ALARA. COMPARISON: Chest radiograph of same day, chest CT 05/15/2023 FINDINGS: CTA: Moderate cardiomegaly. No pericardial effusion. Left subclavian pacer. Moderate coronary artery calci fications. No thoracic aortic aneurysm identified. Reflux of contrast into the IVC and hepatic veins. No central pulmonary emboli identified. Suboptimal evaluation of the pulmonary arterial tree seconda ry to contrast bolus timing and respiratory motion artifact. CT CHEST: Unremarkable thyroid. Borderline enlarged right hilar and mediastinal lymph nodes include subcarinal adenopathy measuring up to 2.2 x 1.3 cm. Trace pleural effusion. Mild bronchial wall thickening with areas of mild mucous plugging. There is mild atelectasis with air trapping. Patchy centrilobular cons olidative opacities are noted within the right lung, most pronounced in the right upper lobe. There i s decreased transverse dimension of the trachea. Hepatomegaly with hepatic steatosis. Unremarkable soft tissues. No acute fracture. IMPRESSION: 1. Cardiomegaly without central pulmonary emboli identified. 2. Patchy right upper lobe predominant centrilobular opacities suggestive of bronchopneumonia. 3. Trace right pleural effusion. 4. Mild likely reactive mediastinal and hilar lymphadenopathy. ACT 112: Negative or not required by law. The above report was generated using voice recognition software. It may contain grammatical, syntax o r spelling errors. Electronically signed by: Mike Bauman M.D. 07/31/2023 2:39 PM
[2023-07-31] MEDS ORDERED: VANCOMYCIN CONSULT ACTIVE PRN (14:52)
[2023-07-31] MEDS: PIPERACILLIN/TAZOBACTAM 4.5 GM/100 ML BAG IV ONE (15:07)
[2023-07-31 15:11] LABS: Appearance Urine Clear (Clear); Bacteria Urine Automated Negative (Negative); Bilirubin Urine Negative (Negative); Blood Urine Negative (Negative); Color Urine Yellow; Epithelial Cell Urine Auto 0-5 /lpf (0-5); Glucose Urine UA Negative (Negative); Ketones Urine Negative (Negative); Leukocyte Esterase Urine Negative (Negative); Nitrite Urine Negative (Negative); Protein Urine Trace (Negative); RBC Urine Automated 0-4 /hpf (0-4); Urobilinogen Urine Negative (Negative)
[2023-07-31] MEDS: VANCOMYCIN HCL 2,750 MG in SODIUM CHLORIDE 0.9% 500 ML IV ONE (15:44)
[2023-07-31] MEDS ORDERED: ACETAMINOPHEN 325 MG TAB PO PRN (16:39)
[2023-07-31] MEDS ORDERED: CEFEPIME 1,000 MG in SYRINGE 0 ML IV SCH (16:45)
--- NOTE | 2023-07-31 17:01 | Electrocardiogram Report ---
Test Reason : Blood Pressure : / mmHG Vent. Rate : 069 BPM Atrial Rate : 069 BPM P-R Int : 000 ms QRS Dur : 144 ms QT Int : 440 ms P-R-T Axes : 079 232 021 degrees QTc Int : 471 ms Ventricular-paced rhythm with occasional Premature ventricular complexes Abnormal ECG When compared with ECG of 12-MAY-2023 08:23, Premature ventricular complexes are now Present Vent. rate has decreased BY 10 BPM Confirmed by Uri Gage ([id number]) on 07/31/2023 5:01:04 PM Referred By: Confirmed By:Lm Gage
--- NOTE | 2023-07-31 17:02 | History & Physical Report ---
Date of Service July 31, 2023 Assessment & Plan (1) Acute and chronic respiratory failure with hypoxia: Plan: Assessment: 1. Acute on chronic hypercapnic hypoxemic respiratory failure. 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 With diagnosed obstructive sleep apnea with medical noncompliance with CPAP. The acute aspect of the respiratory failure appears to be multifactorial as described #2 #3 below. We did discuss the importance of CPAP compliance however the patient absolutely refuses to wear CPAP 2. Bronchogenic pneumonia by CTA bilateral upper lobes. He has had multiple recent healthcare contacts. Will treat with vancomycin and cefepime and obtain sputum culture as well as pulmonary toilet including nebulizer therapy. 3. Decompensated congestive heart failure with preserved ejection fraction/diastolic congestive heart failure. Lasix IV 40 mg IV every 8 hours. Fluid restriction. Echocardiogram. 4. History of AV node dysfunction with sick sinus syndrome status post pacemaker placement the patient does follow with electrophysiology. 5. Mildly elevated troponin which is chronic due to chronic troponinemia. 6. Obstructive sleep apnea with noncompliance to CPAP as discussed above. 7. Morbid obesity. 8. History of DVT on chronic Xarelto therapy no history of pulmonary emboli however. 9. Essential hypertension. 10. Dyslipidemia. 11. DAS/fatty liver by history. 12. Chronic kidney disease stage III. Monitor carefully with IV diuresis. Plan: As discussed above. He has seen pulmonology as an outpatient but not for quite some time. I did recommend possible referral back in the outpatient world once his pneumonia is treated adequately and he is diuresed adequately. He should probably undergo pulmonary function study testing as an outpatient once and a baseline pulmonary state. Outpatient recommendation consideration for bariatric surgery referral should be made/consider. History of Present Illness Chief Complaint: Shortness of breath, hypoxemia Primary Care Provider: Alena Ulloa MD This is a pleasant 63-year-old white male who has been having issues with shortness of breath or hypoxemia. On review of the patient's primary care visit from July 29, 2023, 2 days ago he has been hypoxemic has been using his neighbors oxygen intermittently. It is also noted on history taking the patient has significant sleep apnea and he is noncompliant with his CPAP. He presented to the ER today for worsening shortness of breath and was found to have pulse ox in the mid to high 70s. He is placed on oxygen therapy. CTA of the chest was performed was negative for pulmonary emboli but positive for probable bilateral upper lobe bronchial pneumonia. His TORIA viral panel was negative for viral infectious etiology. The patient received vancomycin and Zosyn in the ER. We have switched him to vancomycin and cefepime. In addition he admits to increasing lower extremity edema. He is on Lasix 80 mg twice daily orally. The patient is on Xarelto therapy for a DVT in the past has never had a pulmonary emboli. The patient is found to have chronic hypercarbia probably secondary to obesity hypoventilatory syndrome. He is an ex-smoker. Patient the patient in the hospital as a full admission will IV diuresis the patient 40 milligrams of Lasix every 8 hours fluid restriction. Will continue vancomycin and cefepime. Reported sputum cultures and nebulizer therapy. In addition we will reassess an echocardiogram. I do suspect the primary etiology of this patient's shortness of breath is probably his untreated sleep apnea, and obesity hypoventilatory syndrome and deconditioning. On laboratory studies today the patient was noted to have a mildly elevated troponin which is chronic for him he does have a chronic troponinemia. The patient also was noted to have a small pericardial effusion on CAT scan we will obtain an echocardiogram. Allergies Allergy/AdvReac Type Severity Reaction Status Date / Time No Known Allergies Allergy Verified 07/31/23 16:02 Home Medications Medication Instructions Recorded Confirmed Type allopurinol 100 mg tablet 100 mg PO BID #180 tabs 05/21/23 07/31/23 Rx aspirin 81 mg tablet,delayed 81 mg PO HS #90 tabs 05/21/23 07/31/23 Rx release carvedilol 25 mg tablet 50 mg (2 x 25 mg) PO BID #360 tabs 05/21/23 07/31/23 Rx furosemide 80 mg tablet 80 mg PO BID #180 tabs 05/21/23 07/31/23 Rx lisinopril 40 mg tablet 40 mg PO QAM #90 tabs 05/21/23 07/31/23 Rx simvastatin 40 mg tablet 40 mg PO QPM #90 tabs 05/21/23 07/31/23 Rx rivaroxaban 20 mg tablet (Xarelto) 20 mg PO DAILY #90 tabs 06/22/23 07/31/23 Rx Oxygen Home E0424 #1 ea 07/31/23 Rx Past Med/Surg History Medical History Encounter for servicing of pacemaker at end of battery life Pulmonary edema Acute respiratory failure with hypoxia and hypercapnia Acute on chronic heart failure with preserved ejection fraction Acute kidney injury History of COVID-19 05/2022 - asymptomatic Kidney stones hx - no surgery currently has a stone embedded in the wall of the left kidney for the last 20 years. Osteoarthritis Anemia recent bloodwork -- recent for upcoming colonoscopy Spinal stenosis of lumbar region Chronic low back pain Lumbar degenerative disc disease Psoriasis Hyperlipidemia Fatty infiltration of liver seen on CT chest dated 10/31 20 Gout COPD with emphysema Morbid obesity Multiple pulmonary nodules stable per patient. yearly scans. Atrioventricular block, complete reason for pacemaker in 2011. Nonischemic cardiomyopathy Cardiac pacemaker st lizzy device. Hypertension Chronic kidney disease Obstructive sleep apnea of adult noncompliant with machine -- states he gets sick everytime he uses the machine. Prediabetes Surgical History S/P epidural steroid injection S/P cardiac pacemaker procedure most recent [place] [facility] [place] last checked annually in May 2022. follows with Dr Arzola. 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 Required: No Beliefs That Will Affect Care: None marital status: Current Living Situation: Alone Current Living Situation Comment: lives with ex- and son current occupational status: disabled How many Children do You have: 2 Feels Safe at Home: Yes Childhood Exposure to Second-Hand Smoke: Yes Diet: regular caffeine: Yes Dental Care, Regularly: No Physical Activity Frequency: 3-4 Times per Week Seatbelt Use: sometimes Sunscreen Use: No Assistive Devices: None Review of Systems Review of Systems: A 10 point review of system was obtained and unless otherwise stated here or in history of present illness are negative and noncontributory to chief complaint. Physical Exam Physical Exam: In General: In general 63-year-old white male who is alert and oriented x 3 he is in no acute distress. Although he does have conversational dyspnea about 5 words at a time. He is not retracted he is not using accessory muscles of respiration at the time of my interview HEENT: Normocephalic atraumatic pupils are equal round and reactive to light bilaterally. No scleral icterus no conjunctival injection external auditory canals are patent septum is in the midline nose is without discharge oral mucosa is pink and moist without lesion. NECK: Supple no rigidity no lymphadenopathy no thyromegaly no carotid bruits no JVD no masses. His neck circumference is probably greater than 24 inches in circumference by my visual estimation HEART: Heart tones are distant due to body habitus, with that being said, regular rate and rhythm I do not appreciate any ectopy or rub. No murmur. LUNGS: Breath sounds are very distant due to AP diameter and body habitus, however there do appear to be some mild expiratory wheezing and some upper airway rhonchi. ABDOMEN: Soft nontender, no rebound, no peritoneal signs, positive bowel sounds, no appreciable organomegaly. EXTREMITIES: Intact, no peripheral cyanosis, clubbing. The patient does have 3+ pitting edema bilaterally pretibial strength is 5 out of 5 in extremities x4, no pathological reflexes. NEUROLOGICAL: Cranial nerves II through XII are grossly intact with no focal deficit elicited upon examination. No tremor. Results & Data Results & Data Vital Signs (Past 12 Hours) Vital Signs Temp Pulse Pulse Resp BP BP Pulse Ox 07/31/23 15:00 96 07/31/23 15:00 71 20 152/95 H 96 07/31/23 13:33 65 07/31/23 12:19 36.3 C L 69 18 181/129 H 82 L O2 Del Method O2 Flow Rate 07/31/23 15:00 Nasal Cannula 2 07/31/23 15:00 Nasal Cannula 2 07/31/23 13:33 07/31/23 12:19 Room Air Code Status & VTE Plan Code Status Full code-I did personally discuss with patient this evening VTE Prophylaxis Plan VTE Prophylaxis will be ordered: Yes PG Care Time/CCT Total # of Minutes Spent Total Time Spent with Patient: Total time spent is greater than 50% in coordination of care (as documented) at patient's floor/unit and/or counseling patient: Coding Level of Care Code 04369 INT INP/OBS CARE MIN Diagnoses Acute and chronic respiratory failure with hypoxia J96.21
[2023-07-31] MEDS: FUROSEMIDE 40 MG/4 ML VIAL IV STA (17:56)
[2023-07-31] MEDS: CEFEPIME 2,000 MG in SYRINGE 0 ML IV SCH (18:39)
[2023-07-31] MEDS: ALBUT/IPRATROP 3MG/0.5MG NEB 3 ML VIAL NEB SCH (19:15)
[2023-07-31] MEDS: ALBUTEROL 0.083% NEBU SOLN 3 ML VIAL NEB PRN (19:15)
[2023-07-31] MEDS: ASPIRIN 81 MG ECTAB PO SCH (20:58)
[2023-07-31] MEDS: SIMVASTATIN 40 MG TAB PO SCH (20:58)
[2023-07-31] MEDS: allopurinoL 100 MG TAB PO SCH (20:58)
[2023-07-31] MEDS: carvediloL 25 MG TAB PO SCH (22:25)
[2023-07-31] MEDS: FUROSEMIDE 40 MG/4 ML VIAL IV ONE ×2 (22:29→22:40)
--- NOTE | 2023-07-31 22:44 | Communication Note ---
Date of Service: July 31, 2023 Code Purple called and patient evaluated at bedside. BSG > 100. O2 Sat > 90. MAP > 65. Temp 38.3. Patient confused with decreased alertness. Will not swallow nor spit out Coreg that is in his mouth. Patient presented with acute hypercapnic respiratory failure. Per chart review refuses CPAP use. VBG on admit pCo2 79. Ordered BiPAP. Ordered stat BNP, CBC, CMP, ABG - pCO2 > 90. Given one time dose of Lasix 40 mg. BioFire ordered. Patient received appropriate ABX in the ED - no additional abx needed at this time. Likely multifactorial COPD/HELDER/OHS with ?CHF/fluid overload. Continue with diuresis and BiPAP. If patient continues to refuse BiPAP may want to consider conversation about code status. 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
[2023-07-31 22:51] LABS: iSTAT Allen Test Pass; iSTAT Art Bld Gas pCO2 Correct 103 mmHg (35-46); iSTAT Art Bld Gas pH Corrected 7.179 (7.35-7.45); iSTAT Arterial Blood Gas HCO3 38 meg/L (19-24); iSTAT Arterial Blood Gas pCO2 97 mmHg (35-46); iSTAT Arterial Blood Gas pO2 74 mmHg (80-95); iSTAT Arterial Blood Gas pO2 C 81; iSTAT Carbon Dioxide > 40 mmol/L (24-31); iSTAT Hematocrit 44 % (42-52); iSTAT Potassium 4.2 mmol/L (3.3-5.0); iSTAT Site R Radial; iSTAT Sodium 142 mmol/L (135-144)
[2023-07-31 22:58] LABS: Hematocrit (blood only) 46.4 % (42.0-52.0); Hemoglobin 13.7 g/dl (14.0-18.0); Mean Corpuscular Hemoglobin 27.6 pg (25.0-34.0); Mean Corpuscular Hgb Conc 29.5 g/dL (32.0-36.0); Mean Corpuscular Volume 93.5 fL (80.0-100.0); Mean Platelet Volume 10.7 fL (9.4-12.4); Platelet Count 130 K/uL (130-400); RDW Coefficient of Variation 15.1 % (11.5-14.5); RDW Standard Deviation 51.8 fL (36.4-46.3); Red Blood Count 4.96 M/uL (4.70-6.10); White Blood Count 7.28 K/ul (4.8-10.8)
[2023-07-31] MEDS: ALBUT/IPRATROP 3MG/0.5MG NEB 3 ML VIAL NEB STA (23:02)
[2023-07-31 23:12] LABS: Albumin Globulin Ratio 1.3 (0.9-2); Albumin Level 4.1 gm/dl (3.4-5.0); BUN Creatinine Ratio 14.6 (10-20); Bilirubin,Total 1.1 mg/dl (0.2-1.0); Creatinine Clr Calc Pharmacy 70.9 ml/min; Est GFR (Non-African American) 42.3 ml/min; Globulin 3.1 gm/dl (2.5-4.0); Potassium 4.2 mmol/L (3.5-5.1); Total Protein 7.2 gm/dl (6.0-8.3)
[2023-07-31 23:29] LABS: Adenovirus PCR Not Detected (NotDetected); Bordetella parapertussis PCR Not Detected (NotDetected); Bordetella pertussis PCR Not Detected (NotDetected); Chlamydia pneumoniae PCR Not Detected (NotDetected); Coronavirus 229E PCR Not Detected (NotDetected); Coronavirus CoV-2 (COVID19)PCR Not Detected (NotDetected); Coronavirus HKU1 PCR Not Detected (NotDetected); Coronavirus NL63 PCR Not Detected (NotDetected); Coronavirus OC43PCR Not Detected (NotDetected); Human Metapneumovirus PCR Not Detected (NotDetected); Influenza A PCR Not Detected (NotDetected); Influenza B PCR Not Detected (NotDetected); Mycoplasma pneumoniae PCR Not Detected (NotDetected); Parainfluenza Virus 1 PCR Not Detected (NotDetected); Parainfluenza Virus 2 PCR Not Detected (NotDetected); Parainfluenza Virus 3 PCR Not Detected (NotDetected); Parainfluenza Virus 4 PCR Not Detected (NotDetected); Respiratory Syncytial VirusPCR Not Detected (NotDetected); Rhinovirus/Enterovirus PCR Not Detected (NotDetected)
[2023-08-01] MEDS: FUROSEMIDE 40 MG/4 ML VIAL IV SCH (02:06)
[2023-08-01] MEDS: VANCOMYCIN HCL 1,000 MG in SODIUM CHLORIDE 0.9% 250 ML IV SCH (04:54)
[2023-08-01 06:40] LABS: Base Excess ABG 7.9 mEq/L (-9-1.8); HCO3 ABG 36 mmol/L (19-24); PCO2 ABG 69 mmHg (35-46); PO2 ABG 79 mmHg (80-95); pH ABG 7.33 (7.35-7.45)
[2023-08-01 06:58] LABS: Allen Test Pos (Pos)
[2023-08-01 07:05] LABS: Hematocrit (blood only) 43.1 % (42.0-52.0); Hemoglobin 12.4 g/dl (14.0-18.0); Mean Corpuscular Hemoglobin 27.1 pg (25.0-34.0); Mean Corpuscular Hgb Conc 28.8 g/dL (32.0-36.0); Mean Corpuscular Volume 94.1 fL (80.0-100.0); Mean Platelet Volume 11.1 fL (9.4-12.4); Platelet Count 136 K/uL (130-400); RDW Coefficient of Variation 15.1 % (11.5-14.5); Red Blood Count 4.58 M/uL (4.70-6.10); White Blood Count 5.66 K/ul (4.8-10.8)
[2023-08-01 07:06] LABS: Albumin Globulin Ratio 1.4 (0.9-2); Albumin Level 3.6 gm/dl (3.4-5.0); BUN Creatinine Ratio 15.7 (10-20); Bilirubin,Total 1.1 mg/dl (0.2-1.0); Calcium 7.7 mg/dl (8.6-10.3); Est GFR (African American) 46.7 ml/min; Est GFR (Non-African American) 40.3 ml/min; Globulin 2.6 gm/dl (2.5-4.0); Magnesium 1.9 mg/dl (1.7-2.4); Total Protein 6.2 gm/dl (6.0-8.3)
[2023-08-01 07:09] LABS: Basophils # (auto) 0.03 K/uL (0.00-0.20); Basophils % (auto) 0.5 %; Eosinophils # (auto) 0.09 K/uL (0.00-0.50); Eosinophils % (auto) 1.6 %; Immature Granulocytes # (auto) 0.02 K/uL (0.01-0.20); Immature Granulocytes % (auto) 0.4 %; Lymphocytes # (auto) 0.86 K/uL (1.20-3.40); Lymphocytes % (auto) 15.2 %; Monocytes # (auto) 0.59 K/uL (0.11-0.59); Monocytes % (auto) 10.4 %; Neutrophils # (auto) 4.07 K/uL (1.40-6.50); Neutrophils % (auto) 71.9 %; Polychromasia 1+
--- NOTE | 2023-08-01 09:52 | Pulmonary Consultation ---
Date of Consultation August 01, 2023 Assessment & Plan (1) Acute respiratory acidosis: (2) Pneumonia: Laterality: unspecified laterality Lung location: unspecified part of lung Pneumonia type: due to unspecified organism Qualified Code(s): J 18.9 - Pneumonia, unspecified organism (3) Pulmonary edema: Chronicity: acute Qualified Code(s): J81.0 - Acute pulmonary edema (4) Acute diastolic CHF (congestive heart failure), NYHA class 2: (5) Morbid obesity: (6) COPD with emphysema: Emphysema type: unspecified Qualified Code(s): J43.9 - Emphysema, unspecified (7) Obstructive sleep apnea of adult: (8) Multiple pulmonary nodules: Plan CTA chest 07/31/2023 personally reviewed: Patchy alveolar opacities appreciated especially in the right upper lobe and right middle lobe Minimal right hilar and subcarinal lymphadenopathy Saber-sheath trachea Cardiomegaly Motion degraded study PFT 10/04/2021 personally reviewed: No obstructive lung dysfunction, nonspecific spirometry with normal TLC, air trapping, normal DLCO (Increase in post FVC by 130 mL, increase in post FEV1 by 90 mL compared to 11/2017) FVC 3.07 L 57%, FEV1 2.24 L 55%, FEV1/FVC 73%, RV 148%, TLC 86%, RV/TLC 167%, DLCO 85% 2D echo 05/11/2023: EF 50-55%, mild concentric LVH, RV is not well-visualized ABG 07/31/2023: 7.20/97/74 --Acute hypercapnic hypoxic respiratory failure Multifactorial Secondary to multilobar pneumonia as well as heart failure Hypercapnic respiratory failure is secondary to underlying COPD as well as noncompliance with CPAP Nasal MRSA negative Respiratory bio fire negative for everything BNP 293 --Severe HELDER Noncompliant with CPAP Importance of using the CPAP machine every night explained to the patient in depth --Multiple pulmonary nodules They have been stable since October 2017 --Ex-smoker Greater than [id number] smoking history, quit at the age of 52 Encouraged to continue abstinence from smoking --Morbid obesity Advised to lose weight with diet and exercise Plan: Nasal MRSA is negative, okay to discontinue vancomycin. Will give atypical coverage with doxycycline for 5 days. I think fluid overload from underlying heart issues is most likely playing a major role. The other opacity seen on the CAT scan could very well be pulmonary edema. I will repeat a chest x-ray in the morning Continue with diuretics to keep the patient negative balance given that he has gained approximately 8 pounds in the last week or so. He will benefit from CPAP/BiPAP nightly and as needed shortness of breath. Please note the above document was generated using voice recognition software. It may contain grammatical, syntax or spelling errors.Any formal questions or concerns about the content, text or information contained within the body of this dictation should be directly addressed to the provider for clarification. History of Present Illness Attending Physician: Rufus Cho History of Present Illness 63-year-old has been following up with pulmonary for his underlying COPD and HELDER. Presented to the hospital for shortness of Past medical history: Hypertension, coronary artery disease, CKD 3, GERD, CHF EF 45% Pulmonary consulted for abnormal chest CT At the time of examination patient was resting comfortably, saturating well on room air. He stated that he was not feeling well at home. Shortness of breath is worse on exertion. Unfortunately he has not been using his CPAP for a very long time as he saw that it has too much pressure and he was not able to tolerate it. He denies any dysuria, no diarrhea. He has been taking Xarelto. Denies any hematuria, no hematochezia, no epistaxis. When he does bring up phlegm is mostly clear. He has gained approximately 5-8 pounds in the last couple of days. Patient today states that he stopped using his inhaler as they were not helping him at all. No night sweats, no unintentional weight loss. Social history: > [id number] smoking history, quit at the age of 52, social alcohol, denies any illicit drug use. 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) Allergies Allergy/AdvReac Type Severity Reaction Status Date / Time No Known Allergies Allergy Verified 07/31/23 16:02 Home Medications Medication Instructions Recorded Confirmed Type allopurinol 100 mg tablet 100 mg PO BID #180 tabs 05/21/23 07/31/23 Rx aspirin 81 mg tablet,delayed 81 mg PO HS #90 tabs 05/21/23 07/31/23 Rx release carvedilol 25 mg tablet 50 mg (2 x 25 mg) PO BID #360 tabs 05/21/23 07/31/23 Rx furosemide 80 mg tablet 80 mg PO BID #180 tabs 05/21/23 07/31/23 Rx lisinopril 40 mg tablet 40 mg PO QAM #90 tabs 05/21/23 07/31/23 Rx simvastatin 40 mg tablet 40 mg PO QPM #90 tabs 05/21/23 07/31/23 Rx rivaroxaban 20 mg tablet (Xarelto) 20 mg PO DAILY #90 tabs 06/22/23 07/31/23 Rx Oxygen Home E0424 #1 ea 07/31/23 Rx Patient History Medical History (Updated 08/01/23 @ 11:35 by Luís Osullivan MD, [facility]) Pulmonary edema Encounter for servicing of pacemaker at end of battery life Acute respiratory failure with hypoxia and hypercapnia Acute on chronic heart failure with preserved ejection fraction Acute kidney injury History of COVID-19 05/2022 - asymptomatic Kidney stones hx - no surgery currently has a stone embedded in the wall of the left kidney for the last 20 years. Osteoarthritis Anemia recent bloodwork -- recent for upcoming colonoscopy Spinal stenosis of lumbar region Chronic low back pain Lumbar degenerative disc disease Psoriasis Hyperlipidemia Fatty infiltration of liver seen on CT chest dated 10/31 20 Gout COPD with emphysema Morbid obesity Multiple pulmonary nodules stable per patient. yearly scans. Atrioventricular block, complete reason for pacemaker in 2011. Nonischemic cardiomyopathy Cardiac pacemaker st lizzy device. Hypertension Chronic kidney disease Obstructive sleep apnea of adult noncompliant with machine -- states he gets sick everytime he uses the machine. Prediabetes Surgical History S/P epidural steroid injection S/P cardiac pacemaker procedure most recent placement September 2014 at [facility] [place]. last checked annually in May 2022. follows with Dr Arzola. Family History Mother Diabetes Father Diabetes Stroke Grandmother Diabetes Other No family history of adverse response to anesthesia Denies family history of Ovarian cancer Prostate cancer Kidney disease Myocardial infarction Breast cancer Colorectal cancer Hypertension Social History Smoking Status: Never smoker Tobacco Type: Smokeless Tobacco (Dip or Chew) Second Hand Exposure: No; Do You Dip or Chew Tobacco: Yes; Hx Alcohol Use: No Hx Substance Use: No Preferred Language: Guinean Communication Ability: Effective Facilities And Grounds Director Required: No Beliefs That Will Affect Care: None marital status: Current Living Situation: Alone Current Living Situation Comment: Home current occupational status: disabled How many Children do You have: 2 Feels Safe at Home: Yes Childhood Exposure to Second-Hand Smoke: Yes Diet: regular caffeine: Yes Dental Care, Regularly: No Physical Activity Frequency: 3-4 Times per Week Seatbelt Use: sometimes Sunscreen Use: No Assistive Devices: Glasses Review of Systems 2 Review of Systems: All systems reviewed & are unremarkable except as noted in HPI & below Physical Exam 2 Physical Exam: Constitutional: No acute distress HEENT: EOMI, PERRLA Respiratory system: Decreased air entry bilaterally, no wheeze, no rhonchi, mild crackles bilaterally CVS: S1-S2 positive, no murmurs or gallops, distant heart sounds Abdomen: Soft, nontender, nondistended, positive bowel sounds x4, obese Extremities: +2 pulses bilaterally radialis/ dorsalis pedis, no cyanosis, +2 pitting edema bilateral lower extremity Neuro: Awake alert oriented x3 Psych: Normal mood and affect G/U: Positive Ragland Skin: no rashes, warm and dry Lymphatic: no cervical or axillary lymphadenopathy Results & Data Results & Data Vital Signs (Past 12 Hours) Vital Signs Temp Pulse Pulse Resp BP Pulse Ox O2 Del Method 08/01/23 07:19 36.6 C 60 22 117/73 96 BiPAP 08/01/23 07:13 86 24 92 08/01/23 07:13 86 24 92 BiPAP 08/01/23 03:40 60 26 H 95 08/01/23 02:34 37.2 C 60 16 99/61 L 94 BiPAP 08/01/23 00:31 78 07/31/23 23:09 37.6 C H 72 16 118/72 98 BiPAP 07/31/23 23:02 72 24 92 BiPAP 07/31/23 23:00 84 26 H 95 FiO2 08/01/23 07:19 08/01/23 07:13 50 08/01/23 07:13 08/01/23 03:40 50 08/01/23 02:34 08/01/23 00:31 07/31/23 23:09 07/31/23 23:02 50 07/31/23 23:00 50 Laboratory Results 08/01/23 06:28 08/01/23 06:28 PG Care Time/CCT Total # of Minutes Spent Total Time Spent with Patient: Total time spent is greater than 50% in coordination of care (as documented) at patient's floor/unit and/or counseling patient: Coding Level of Care Code 16345 INT INP/OBS CARE 3/75MIN Diagnoses Acute respiratory acidosis J96.02 Pneumonia J18.9 Laterality: unspecified laterality Lung location: unspecified part of lung Pneumonia type: due to unspecified organism Pulmonary edema J81.0 Chronicity: acute Acute diastolic CHF (congestive heart failure), NYHA class 2 I50.31 Morbid obesity E66.01 Pulmonary emphysema, unspecified emphysema type J43.9 Emphysema type: unspecified Obstructive sleep apnea of adult G47.33 Multiple pulmonary nodules R91.8
[2023-08-01] MEDS: lisinopril 40 MG TAB PO SCH (09:53)
[2023-08-01] MEDS: DOXYCYCLINE HYCLATE 100 MG CAP PO SCH (12:00)
--- NOTE | 2023-08-01 12:00 | XCELERA ---
[id number]
[2023-08-01] MEDS: RIVAROXABAN 20 MG TAB PO SCH (16:53)
--- NOTE | 2023-08-01 21:56 | Hospitalist Progress Note ---
Date of Service August 01, 2023 Assessment & Plan (1) Acute and chronic respiratory failure with hypoxia: Plan: Assessment: 1. Acute on chronic hypercapnic hypoxemic respiratory failure. 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 With diagnosed obstructive sleep apnea with medical noncompliance with CPAP. The acute aspect of the respiratory failure appears to be multifactorial as described. Patient appears shannon noncompliant with his CPAP. COncern that this can also be related to his CHF. will continue diuretics. 2. Bronchogenic pneumonia by CTA bilateral upper lobes. He has had multiple recent healthcare contacts. Consulted pulmonary. continue cefepime. 3. Decompensated congestive heart failure with preserved ejection fraction/diastolic congestive heart failure. Lasix IV 40 mg IV every 8 hours. Fluid restriction. Echocardiogram. 4. History of AV node dysfunction with sick sinus syndrome status post pacemaker placement the patient does follow with electrophysiology. 5. Mildly elevated troponin which is chronic due to chronic troponinemia. 6. Obstructive sleep apnea with noncompliance to CPAP as discussed above. 7. Morbid obesity. 8. History of DVT on chronic Xarelto therapy no history of pulmonary emboli ho ty. 9. Essential hypertension. 10. Dyslipidemia. 11. DAS/fatty liver by history. 12. Chronic kidney disease stage III. Monitor carefully with IV diuresis. Admission and Anticipated Discharge Date Admission Date: July 31, 2023 Subjective 63 yo male reports no new symptoms. Patient reports feeling better. Review of Systems Review of Systems: All systems reviewed & are unremarkable except as noted in HPI & below Physical Exam Physical Exam: In General: able to speak in complete sentences. HEENT: Normocephalic atraumatic pupils are equal round and reactive to light bilaterally. NECK: Supple no rigidity no lymphadenopathy no thyromegaly no carotid bruits no JVD no masses. HEART:RRR LUNGS: decreased breath sounds. ABDOMEN: Soft nontender, no rebound EXTREMITIES: 3+ edema NEUROLOGICAL: Cranial nerves II through XII Results & Data Results & Data Vital Signs (Past 12 Hours) Vital Signs Temp Pulse Resp BP Pulse Ox O2 Del Method O2 Flow Rate 08/01/23 19:58 68 18 94 Nasal Cannula 4 08/01/23 19:30 36.8 C 60 18 107/67 92 Nasal Cannula 4 08/01/23 16:09 36.5 C 63 19 119/68 93 Nasal Cannula 4 08/01/23 15:18 64 18 96 Nasal Cannula 5 08/01/23 13:35 BiPAP 08/01/23 11:46 36.4 C L 64 19 116/70 92 Nasal Cannula 5 08/01/23 11:05 63 18 65 L Room Air PG Care Time/CCT Total # of Minutes Spent Total Time Spent with Patient: Total time spent is greater than 50% in coordination of care (as documented) at patient's floor/unit and/or counseling patient: Coding Level of Care Code 22705 SUB INP/OBS CARE 2/35MIN Diagnoses Acute and chronic respiratory failure with hypoxia J96.21
[2023-08-02 06:38] LABS: Base Excess ABG 7.9 mEq/L (-9-1.8); HCO3 ABG 36 mmol/L (19-24); PCO2 ABG 69 mmHg (35-46); PO2 ABG 79 mmHg (80-95); pH ABG 7.33 (7.35-7.45)
[2023-08-02 06:43] LABS: Allen Test Pos (Pos)
[2023-08-02 06:55] LABS: Hematocrit (blood only) 41.7 % (42.0-52.0); Hemoglobin 12.5 g/dl (14.0-18.0); Mean Corpuscular Hemoglobin 27.9 pg (25.0-34.0); Mean Corpuscular Volume 93.1 fL (80.0-100.0); Mean Platelet Volume 10.6 fL (9.4-12.4); Platelet Count 128 K/uL (130-400); RDW Coefficient of Variation 15.2 % (11.5-14.5); RDW Standard Deviation 51.2 fL (36.4-46.3); Red Blood Count 4.48 M/uL (4.70-6.10); White Blood Count 6.31 K/ul (4.8-10.8)
[2023-08-02 07:13] LABS: BUN Creatinine Ratio 19.9 (10-20); Creatinine Clr Calc Pharmacy 60.8 ml/min; Est GFR (African American) 40.3 ml/min; Est GFR (Non-African American) 34.8 ml/min; Potassium 4.1 mmol/L (3.5-5.1)
--- NOTE | 2023-08-02 08:03 | XRay Report ---
XR chest 1V portable HISTORY: Dyspnea. COMPARISON: Chest 07/31/2023. FINDINGS: No pneumothorax. The heart remains enlarged. There are low lung volumes. Patchy right upper lobe airspace opacities are better appreciated on the prior chest CT. Bibasilar linear densities fav or subsegmental atelectasis. There is mild central pulmonary vascular congestion without overt edema. There is left-sided pacemaker again noted. IMPRESSION: 1. Cardiomegaly and mild congestive change again noted. 2. Bibasilar linear densities favor subsegmental atelectasis. 3. Patchy right upper lobe airspace opacity seen on the prior chest CT may be due to to the congestiv e change versus a pneumonia. ACT 112: Negative or not required by law. Electronically signed by: Shayan Jefferson M.D. 08/02/2023 8:01 AM
[2023-08-02 09:50] LABS: C Reactive Protein 2.93 mg/dl (0-0.5)
--- NOTE | 2023-08-02 10:08 | Pulmonology Progress Note ---
Date of Service August 02, 2023 Assessment & Plan (1) Acute respiratory acidosis: (2) Pneumonia: Laterality: unspecified laterality Lung location: unspecified part of lung Pneumonia type: due to unspecified organism Qualified Code(s): J 18.9 - Pneumonia, unspecified organism (3) Pulmonary edema: Chronicity: acute Qualified Code(s): J81.0 - Acute pulmonary edema (4) Acute diastolic CHF (congestive heart failure), NYHA class 2: (5) Morbid obesity: (6) COPD with emphysema: Emphysema type: unspecified Qualified Code(s): J43.9 - Emphysema, unspecified (7) Obstructive sleep apnea of adult: (8) Multiple pulmonary nodules: Plan CTA chest 07/31/2023 personally reviewed: Patchy alveolar opacities appreciated especially in the right upper lobe and right middle lobe Minimal right hilar and subcarinal lymphadenopathy Saber-sheath trachea Cardiomegaly Motion degraded study PFT 10/04/2021 personally reviewed: No obstructive lung dysfunction, nonspecific spirometry with normal TLC, air trapping, normal DLCO (Increase in post FVC by 130 mL, increase in post FEV1 by 90 mL compared to 11/2017) FVC 3.07 L 57%, FEV1 2.24 L 55%, FEV1/FVC 73%, RV 148%, TLC 86%, RV/TLC 167%, DLCO 85% 2D echo 05/11/2023: EF 50-55%, mild concentric LVH, RV is not well-visualized ABG 07/31/2023: 7.20/97/74 --Acute hypercapnic hypoxic respiratory failure Multifactorial Secondary to multilobar pneumonia as well as heart failure Hypercapnic respiratory failure is secondary to underlying COPD as well as noncompliance with CPAP Nasal MRSA negative Respiratory bio fire negative for everything BNP 293 --Severe HELDER Noncompliant with CPAP Importance of using the CPAP machine every night explained to the patient in depth --Multiple pulmonary nodules They have been stable since October 2017 --Ex-smoker Greater than 41-saom-pcia smoking history, quit at the age of 52 Encouraged to continue abstinence from smoking --Morbid obesity Advised to lose weight with diet and exercise Plan: -790 in the last 24 hours. Recommend to aim for at least negative liter. Chest x-ray from today still shows pulmonary vascular congestion. Will give atypical coverage with doxycycline for 5 days. Continue with diuretics to keep the patient negative balance given that he has gained approximately 8 pounds in the last week or so. Patient still requiring 4 L oxygen to maintain O2 saturation over 92. He will benefit from CPAP/BiPAP nightly and as needed shortness of breath. Although patient is asking if he could go home. I would recommend aggressive IV diuretics for a day or 2 while he is in the hospital. Case was discussed with Dr. Cho Please note the above document was generated using voice recognition software. It may contain grammatical, syntax or spelling errors.Any formal questions or concerns about the content, text or information contained within the body of this dictation should be directly addressed to the provider for clarification. Admission and Anticipated Discharge Date Admission Date: July 31, 2023 Subjective Patient seen and examined at bedside. No acute distress, no new issues overnight He was able to tolerate his BiPAP overnight. Denied any nausea or vomiting Appetite is fair Overall he says he is feeling better when it comes to his breathing. Denies any headache Was asking if he can go home today Review of Systems 2 Review of Systems: All systems reviewed & are unremarkable except as noted in Subjective Physical Exam 2 Physical Exam: Constitutional: No acute distress HEENT: EOMI, PERRLA Respiratory system: Decreased air entry bilaterally, no wheeze, no rhonchi, mild crackles bilaterally CVS: S1-S2 positive, no murmurs or gallops, distant heart sounds Abdomen: Soft, nontender, nondistended, positive bowel sounds x4, obese Extremities: +2 pulses bilaterally radialis/ dorsalis pedis, no cyanosis, +2 pitting edema bilateral lower extremity Neuro: Awake alert oriented x3 Psych: Normal mood and affect G/U: Positive Ragland Skin: no rashes, warm and dry Lymphatic: no cervical or axillary lymphadenopathy Results & Data Results & Data Vital Signs (Past 12 Hours) Vital Signs Temp Pulse Pulse Resp BP BP Pulse Ox 08/02/23 08:46 08/02/23 08:10 36.7 C 76 20 127/69 92 08/02/23 08:00 72 08/02/23 07:52 70 133/69 08/02/23 07:05 78 18 94 08/02/23 03:19 36.7 C 65 20 105/60 92 08/02/23 02:23 77 19 96 08/02/23 01:26 68 08/02/23 00:27 37.0 C 60 18 126/74 96 08/01/23 22:41 61 22 97 08/01/23 22:13 37.2 C 63 18 124/78 99 O2 Del Method O2 Flow Rate FiO2 08/02/23 08:46 Nasal Cannula, BiPAP 4 08/02/23 08:10 Nasal Cannula 4 08/02/23 08:00 08/02/23 07:52 08/02/23 07:05 Nasal Cannula 4 08/02/23 03:19 BiPAP 08/02/23 02:23 40 08/02/23 01:26 08/02/23 00:27 BiPAP 08/01/23 22:41 50 08/01/23 22:13 CPAP Laboratory Results 08/02/23 06:25 08/02/23 06:25 PG Care Time/CCT Total # of Minutes Spent Total Time Spent with Patient: Total time spent is greater than 50% in coordination of care (as documented) at patient's floor/unit and/or counseling patient: Coding Level of Care Code 10023 SUB INP/OBS CARE 3/50MIN Diagnoses Acute respiratory acidosis J96.02 Pneumonia J18.9 Laterality: unspecified laterality Lung location: unspecified part of lung Pneumonia type: due to unspecified organism Pulmonary edema J81.0 Chronicity: acute Acute diastolic CHF (congestive heart failure), NYHA class 2 I50.31 Morbid obesity E66.01 Pulmonary emphysema, unspecified emphysema type J43.9 Emphysema type: unspecified Obstructive sleep apnea of adult G47.33 Multiple pulmonary nodules R91.8
[2023-08-02] MEDS: FUROSEMIDE 40 MG/4 ML VIAL IV SCH (17:00)
--- NOTE | 2023-08-02 22:56 | Hospitalist Progress Note ---
Date of Service August 02, 2023 Assessment & Plan (1) Acute and chronic respiratory failure with hypoxia: Plan: Assessment: 1. Acute on chronic hypercapnic hypoxemic respiratory failure. 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 With diagnosed obstructive sleep apnea with medical noncompliance with CPAP. The acute aspect of the respiratory failure appears to be multifactorial as described. Patient appears shannon noncompliant with his CPAP. COncern that this can also be related to his CHF. will continue diuretics. recomend 1-2 more days of diuretics prior to discharge. switched lasix to 60 mg IV BID 2. Bronchogenic pneumonia by CTA bilateral upper lobes. He has had multiple recent healthcare contacts. Consulted pulmonary. continue cefepime. 3. Decompensated congestive heart failure with preserved ejection fraction/diastolic congestive heart failure. Lasix IV 40 mg IV every 8 hours. Fluid restriction. Echocardiogram. 4. History of AV node dysfunction with sick sinus syndrome status post pacemaker placement the patient does follow with electrophysiology. 5. Mildly elevated troponin which is chronic due to chronic troponinemia. 6. Obstructive sleep apnea with noncompliance to CPAP as discussed above. 7. Morbid obesity. 8. History of DVT on chronic Xarelto therapy no history of pulmonary emboli however. 9. Essential hypertension. 10. Dyslipidemia. 11. DAS/fatty liver by history. 12. Chronic kidney disease stage III. Monitor carefully with IV diuresis. Admission and Anticipated Discharge Date Admission Date: July 31, 2023 Subjective Patient reports feeling slightluy better. Review of Systems Review of Systems: All systems reviewed & are unremarkable except as noted in HPI & below Physical Exam Physical Exam: In General: able to speak in complete sentences. HEENT: Normocephalic atraumatic pupils are equal round and reactive to light bilaterally. NECK: Supple no rigidity no lymphadenopathy no thyromegaly no carotid bruits no JVD no masses. HEART:RRR LUNGS: decreased breath sounds. ABDOMEN: Soft nontender, no rebound EXTREMITIES: 3+ edema NEUROLOGICAL: Cranial nerves II through XII Results & Data Results & Data Vital Signs (Past 12 Hours) Vital Signs Temp Pulse Pulse Resp BP BP Pulse Ox 08/02/23 20:26 72 18 96 08/02/23 20:17 72 18 97 08/02/23 20:10 08/02/23 19:28 36.9 C 71 20 150/77 H 93 08/02/23 16:20 67 08/02/23 16:00 08/02/23 16:00 36.5 C 71 17 154/81 H 95 08/02/23 14:27 75 18 94 08/02/23 11:34 36.8 C 63 19 156/61 H 97 08/02/23 11:07 78 18 87 L Pulse Ox O2 Del Method O2 Del Method O2 Flow Rate O2 Flow Rate FiO2 08/02/23 20:26 40 08/02/23 20:17 BiPAP 40 08/02/23 20:10 Nasal Cannula 4 08/02/23 19:28 Nasal Cannula 4 08/02/23 16:20 08/02/23 16:00 93 Nasal Cannula 4 08/02/23 16:00 Nasal Cannula 4 08/02/23 14:27 Nasal Cannula 4 08/02/23 11:34 Nasal Cannula 4 08/02/23 11:07 Nasal Cannula 3 PG Care Time/CCT Total # of Minutes Spent Total Time Spent with Patient: Total time spent is greater than 50% in coordination of care (as documented) at patient's floor/unit and/or counseling patient: Coding Level of Care Code 87204 SUB INP/OBS CARE 2/35MIN Diagnoses Acute and chronic respiratory failure with hypoxia J96.21
[2023-08-03 09:02] LABS: Base Excess VBG 6.8 mEq/L; HCO3 VBG 36 mmol/L; Oxygen Saturation VBG 73.2 %; PCO2 VBG 73 mmHg (38-50); PO2 VBG 45 mmHg
[2023-08-03 09:17] LABS: Hemoglobin 12.6 g/dl (14.0-18.0); Mean Corpuscular Hemoglobin 27.5 pg (25.0-34.0); Mean Corpuscular Volume 91.7 fL (80.0-100.0); Mean Platelet Volume 10.4 fL (9.4-12.4); Platelet Count 127 K/uL (130-400); RDW Coefficient of Variation 15.1 % (11.5-14.5); RDW Standard Deviation 50.4 fL (36.4-46.3); Red Blood Count 4.58 M/uL (4.70-6.10); White Blood Count 6.73 K/ul (4.8-10.8)
[2023-08-03 09:24] LABS: BUN Creatinine Ratio 22.8 (10-20); C Reactive Protein 4.6 mg/dl (0-0.5); Calcium 8.5 mg/dl (8.6-10.3); Creatinine Clr Calc Pharmacy 53.5 ml/min; Est GFR (African American) 34.6 ml/min; Est GFR (Non-African American) 29.9 ml/min; Potassium 4.1 mmol/L (3.5-5.1)
--- NOTE | 2023-08-03 10:01 | Pulmonology Progress Note ---
Date of Service August 03, 2023 Assessment & Plan (1) Acute respiratory acidosis: (2) Pneumonia: Laterality: unspecified laterality Lung location: unspecified part of lung Pneumonia type: due to unspecified organism Qualified Code(s): J18.9 - Pneumonia, unspecified organism (3) Pulmonary edema: Chronicity: acute Qualified Code(s): J81.0 - Acute pulmonary edema (4) Acute diastolic CHF (congestive heart failure), NYHA class 2: (5) Morbid obesity: (6) COPD with emphysema: Emphysema type: unspecified Qualified Code(s): J43.9 - Emphysema, unspecified (7) Obstructive sleep apnea of adult: (8) Multiple pulmonary nodules: Plan IMPRESSION: 63-year-old male with a significant past medical history of CHF, morbid obesity, COPD with emphysema, obstructive sleep apnea, and pulmonary nodules. RECOMMENDATIONS: 1. Acute respiratory failure with hypoxia and hypercapnia - CHF, morbid obesity with likely OHS component, and COPD with poor ventilatory function. Patient's blood gas on admission shows severe hypercapnia. Additionally, his serum CO2 remains elevated over an extended period of time likely leading itself to chronic poor ventilation. The patient has not been using his CPAP. He would benefit from PAP with sleep and naps moving forward. An argument could be made for AVAPS given his laboratory findings, and progressive respiratory failure with hypercapnia. Unfortunately, the patient does seem reluctant to continue to use the PAP device and has not been using his prior device at home. May focus on changing his current home device to inpatient BiPAP settings if this is better tolerated as this may be a start to help improve his chronic hypercapnia. 2. Pulmonary edema - Patient will continue to benefit from ongoing diuresis as his kidneys tolerate.. 3. CHF - Continue with active diuresis. 4. COPD - Patient has not appreciated clinical benefit from maintenance inhalers in the past. He is not bronchospastic on exam today. Uncertain of utility of adding any inhalers or nebulizers at this point. 5. Severe obstructive sleep apnea - Previously noncompliant with his home CPAP. As noted in #1, patient has been noncompliant with his CPAP therapies in the past. Certainly would benefit from bilevel PAP in the future, and again consideration for AVAPS given his clinical picture, however need to be confirmed with the patient will use his device and will continue to achieve clinical benefit from such. Thank you for allowing us to participate in the care of this patient. Admission and Anticipated Discharge Date Admission Date: July 31, 2023 Subjective Patient seen and evaluated at bedside. He reports no change in his symptoms. He did wear his BiPAP for longer duration last night. He remains on 4 L nasal cannula at this time. Review of Systems Review of Systems: Unchanged from admission. Physical Exam Physical Exam: VITAL SIGNS - Vital signs and nursing notes were reviewed. GENERAL - 63-year-old male appearing his stated age who is in no acute distress. Communicates well with provider and answers questions appropriately. SKIN - Without rashes or lesions. NOSE - Midline and without cyanosis. MOUTH/OROPHARYNX - Without perioral cyanosis. LUNGS - Auscultation reveals diminished breath sounds. CARDIAC - RRR with S1/S2. No murmur, rubs, or gallops appreciated. PSYCH - A&Ox3 and cooperates fully with examiner. Results & Data Results & Data Vital Signs (Past 12 Hours) Vital Signs Temp Pulse Pulse Resp BP Pulse Ox O2 Del Method 08/03/23 09:47 68 21 120/75 96 Nasal Cannula 08/03/23 07:54 37.2 C 75 22 127/74 98 Nasal Cannula 08/03/23 07:13 76 20 93 Nasal Cannula 08/03/23 03:32 36.8 C 72 16 107/68 94 Nasal Cannula 08/03/23 01:01 77 08/03/23 00:31 75 19 92 08/02/23 22:53 36.7 C 74 20 139/72 95 BiPAP O2 Flow Rate FiO2 08/03/23 09:47 4 08/03/23 07:54 4 08/03/23 07:13 4 08/03/23 03:32 3 08/03/23 01:01 08/03/23 00:31 40 08/02/23 22:53 PG Care Time/CCT Total # of Minutes Spent Total Time Spent with Patient: Total time spent is greater than 50% in coordination of care (as documented) at patient's floor/unit and/or counseling patient: Coding Level of Care Code 57939 SUB INP/OBS CARE 2/35MIN Diagnoses Acute respiratory acidosis J96.02 Pneumonia J18.9 Laterality: unspecified laterality Lung location: unspecified part of lung Pneumonia type: due to unspecified organism Pulmonary edema J81.0 Chronicity: acute Acute diastolic CHF (congestive heart failure), NYHA class 2 I50.31 Morbid obesity E66.01 Pulmonary emphysema, unspecified emphysema type J43.9 Emphysema type: unspecified Obstructive sleep apnea of adult G47.33 Multiple pulmonary nodules R91.8
--- NOTE | 2023-08-03 20:47 | Hospitalist Progress Note ---
Date of Service August 03, 2023 Assessment & Plan (1) Acute and chronic respiratory failure with hypoxia: Plan: Assessment: 1. Acute on chronic hypercapnic hypoxemic respiratory failure. 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 With diagnosed obstructive sleep apnea with medical noncompliance with CPAP. The acute aspect of the respiratory failure appears to be multifactorial as described. Patient appears shannon noncompliant with his CPAP. COncern that this can also be related to his CHF. will continue diuretics. recomend 1-2 more days of diuretics prior to discharge. switched lasix to 60 mg IV BID discussed with pulmonary, will trial with AVAPS. Patient with chronic respiratory failure due to COPD now requires NIV for home. Patient has had multiple hospitalizations in the past year for respiratory failure. BiPAP has been considered and ruled out due to its inability to provide adequate ventilatory support. NIV provides AVAPS-AE mode and longer expiratory time to reduce effects of flow limitation and air trapping. This will decrease the work of breathing and decrease CO2. Continuous alarm systems and battery backup is also required in the event of power outage. It must be understood that patient is a severe mikie of respiratory failure and serious harm to patient pulmonary will being will incur without the use of NIV at home. Removal of the NIV would potentially cause re hospitalization and even possible . 2. Bronchogenic pneumonia by CTA bilateral upper lobes. He has had multiple recent healthcare contacts. Consulted pulmonary. continue cefepime. 3. Decompensated congestive heart failure with preserved ejection fraction/diastolic congestive heart failure. Lasix IV 40 mg IV every 8 hours. Fluid restriction. Echocardiogram. 4. History of AV node dysfunction with sick sinus syndrome status post pacema ker placement the patient does follow with electrophysiology. 5. Mildly elevated troponin which is chronic due to chronic troponinemia. 6. Obstructive sleep apnea with noncompliance to CPAP as discussed above. 7. Morbid obesity. 8. History of DVT on chronic Xarelto therapy no history of pulmonary emboli however. 9. Essential hypertension. 10. Dyslipidemia. 11. DAS/fatty liver by history. 12. Chronic kidney disease stage III. Monitor carefully with IV diuresis. Admission and Anticipated Discharge Date Admission Date: July 31, 2023 Subjective Patient reports no new symptoms. Review of Systems Review of Systems: All systems reviewed & are unremarkable except as noted in HPI & below Physical Exam Physical Exam: In General: able to speak in complete sentences. HEENT: Normocephalic atraumatic pupils are equal round and reactive to light bilaterally. NECK: Supple no rigidity no lymphadenopathy no thyromegaly no carotid bruits no JVD no masses. HEART:RRR LUNGS: decreased breath sounds. ABDOMEN: Soft nontender, no rebound EXTREMITIES: 3+ edema NEUROLOGICAL: Cranial nerves II through XII Results & Data Results & Data Vital Signs (Past 12 Hours) Vital Signs Temp Pulse Pulse Pulse Pulse Pulse Resp 08/03/23 19:29 36.7 C 69 20 08/03/23 19:23 70 18 08/03/23 18:08 77 08/03/23 15:14 36.6 C 70 20 08/03/23 14:14 70 18 08/03/23 11:10 86 71 71 71 08/03/23 11:10 36.9 C 69 21 08/03/23 10:48 67 18 08/03/23 09:47 68 21 Resp Resp Resp Resp BP BP Pulse Ox 08/03/23 19:29 121/80 99 08/03/23 19:23 88 L 08/03/23 18:08 132/93 08/03/23 15:14 130/71 95 08/03/23 14:14 92 08/03/23 11:10 22 18 18 18 08/03/23 11:10 127/73 94 08/03/23 10:48 86 L 08/03/23 09:47 120/75 96 Pulse Ox Pulse Ox Pulse Ox Pulse Ox O2 Del Method O2 Flow Rate O2 Flow Rate 08/03/23 19:29 Nasal Cannula 3 08/03/23 19:23 Nasal Cannula 3 08/03/23 18:08 08/03/23 15:14 Nasal Cannula 3 08/03/23 14:14 Nasal Cannula 4 08/03/23 11:10 96 87 L 92 88 L 3 08/03/23 11:10 Nasal Cannula 3 08/03/23 10:48 Room Air 08/03/23 09:47 Nasal Cannula 4 O2 Flow Rate O2 Flow Rate 08/03/23 19:29 08/03/23 19:23 08/03/23 18:08 08/03/23 15:14 08/03/23 14:14 08/03/23 11:10 2 3 08/03/23 11:10 08/03/23 10:48 08/03/23 09:47 PG Care Time/CCT Total # of Minutes Spent Total Time Spent with Patient: Total time spent is greater than 50% in coordination of care (as documented) at patient's floor/unit and/or counseling patient: Coding Level of Care Code 24980 SUB INP/OBS CARE 3/50MIN Diagnoses Acute and chronic respiratory failure with hypoxia J96.21
[2023-08-04 07:40] LABS: Base Excess VBG 9.4 mEq/L; HCO3 VBG 39 mmol/L; PCO2 VBG 77 mmHg (38-50); PO2 VBG 35 mmHg; pH VBG 7.31 (7.36-7.41)
[2023-08-04 07:52] LABS: Hematocrit (blood only) 40.9 % (42.0-52.0); Hemoglobin 12.5 g/dl (14.0-18.0); Mean Corpuscular Hemoglobin 28.2 pg (25.0-34.0); Mean Corpuscular Hgb Conc 30.6 g/dL (32.0-36.0); Mean Corpuscular Volume 92.3 fL (80.0-100.0); Mean Platelet Volume 10.5 fL (9.4-12.4); Platelet Count 131 K/uL (130-400); RDW Coefficient of Variation 15.1 % (11.5-14.5); RDW Standard Deviation 50.4 fL (36.4-46.3); Red Blood Count 4.43 M/uL (4.70-6.10); White Blood Count 6.36 K/ul (4.8-10.8)
[2023-08-04 08:09] LABS: BUN Creatinine Ratio 26.7 (10-20); Calcium 9.1 mg/dl (8.6-10.3); Creatinine Clr Calc Pharmacy 63.8 ml/min; Est GFR (African American) 42.9 ml/min; Potassium 4.2 mmol/L (3.5-5.1)
--- NOTE | 2023-08-04 09:54 | Pulmonology Progress Note ---
Date of Service August 04, 2023 Assessment & Plan (1) Acute respiratory acidosis: (2) Pneumonia: Laterality: unspecified laterality Lung location: unspecified part of lung Pneumonia type: due to unspecified organism Qualified Code(s): J18.9 - Pneumonia, unspecified organism (3) Pulmonary edema: Chronicity: acute Qualified Code(s): J81.0 - Acute pulmonary edema (4) Acute diastolic CHF (congestive heart failure), NYHA class 2: (5) Morbid obesity: (6) COPD with emphysema: Emphysema type: unspecified Qualified Code(s): J43.9 - Emphysema, unspecified (7) Obstructive sleep apnea of adult: (8) Multiple pulmonary nodules: Plan IMPRESSION: 63-year-old male with a significant past medical history of CHF, morbid obesity, COPD with emphysema, obstructive sleep apnea, and pulmonary nodules. RECOMMENDATIONS: 1. Acute respiratory failure with hypoxia and hypercapnia - CHF, morbid obesity with likely OHS component, and COPD with poor ventilatory function. Patient's blood gas on admission shows severe hypercapnia. Additionally, his serum CO2 remains elevated over an extended period of time likely leading itself to chronic poor ventilation. As previously discussed, the patient had not been using his home CPAP device. In conversation today, he does suggest that he will use the PAP machine at home if it does provide him clinical benefit. If this is the case, again, the patient should have his home device translated to current BiPAP settings while hospitalized and/or change the patient to an AVAPS device to aid in ventilation while sleeping. He likely qualifies based on his admission labs and blood gas. Again, would confirm with the patient that this is something that he is interested in. If this is the case, would discuss with respiratory therapy to place the patient on AVAPS settings overnight to planning on discharge. He will likely need supplemental oxygen at a rate of his baseline oxygen requirement at this point. This can certainly be reevaluated in the outpatient setting moving forward. Patient with chronic respiratory failure due to COPD now requires NIV for home. Patient has had multiple hospitalizations in the past year for respiratory failure. BiPAP has been considered and ruled out due to its inability to provide adequate ventilatory support. NIV provides AVAPS-AE mode and longer expiratory time to reduce effects of flow limitation and air trapping. This will decrease the work of breathing and decrease CO2. Continuous alarm systems and battery backup is also required in the event of power outage. It must be understood that patient is a severe mikie of respiratory failure and serious harm to patient pulmonary will being will incur without the use of NIV at home. Removal of the NIV would potentially cause re hospitalization and even possible . 2. Pulmonary edema - Patient will continue to benefit from ongoing diuresis as his kidneys tolerate.. 3. CHF - Continue with active diuresis. 4. COPD - Patient has not appreciated clinical benefit from maintenance inhalers in the past. He is not bronchospastic on exam today. Uncertain of utility of adding any inhalers or nebulizers at this point. 5. Severe obstructive sleep apnea - Previously noncompliant with his home CPAP. As noted in #1, patient has been noncompliant with his CPAP therapies in the past. As discussed above. Thank you for allowing us to participate in the care of this patient. Admission and Anticipated Discharge Date Admission Date: July 31, 2023 Subjective Patient seen and evaluated at bedside. He did sleep well with the BiPAP device last night. He is interested in continuing to use this in the outpatient setting if it will help him moving forward. He offers no new complaints today. Currently on 3 L nasal cannula. Review of Systems Review of Systems: Unchanged from admission. Physical Exam Physical Exam: VITAL SIGNS - Vital signs and nursing notes were reviewed. GENERAL - 63-year-old male appearing his stated age who is in no acute distress. Communicates well with provider and answers questions appropriately. SKIN - Without rashes or lesions. NOSE - Midline and without cyanosis. MOUTH/OROPHARYNX - Without perioral cyanosis. LUNGS - Auscultation reveals diminished breath sounds. CARDIAC - RRR with S1/S2. No murmur, rubs, or gallops appreciated. PSYCH - A&Ox3 and cooperates fully with examiner. Results & Data Results & Data Vital Signs (Past 12 Hours) Vital Signs Temp Pulse Pulse Resp BP BP Pulse Ox 08/04/23 08:01 65 20 94 08/04/23 07:32 36.9 C 65 18 115/85 94 08/04/23 03:52 60 19 94 08/04/23 03:30 36.7 C 64 19 124/75 95 08/03/23 22:29 71 20 94 08/03/23 22:28 36.8 C 72 20 117/76 95 O2 Del Method O2 Flow Rate FiO2 08/04/23 08:01 Nasal Cannula 3 08/04/23 07:32 Nasal Cannula 3.0 08/04/23 03:52 40 08/04/23 03:30 BiPAP 08/03/23 22:29 40 08/03/23 22:28 BiPAP PG Care Time/CCT Total # of Minutes Spent Total Time Spent with Patient: Total time spent is greater than 50% in coordination of care (as documented) at patient's floor/unit and/or counseling patient: Coding Level of Care Code 50979 SUB INP/OBS CARE 3/50MIN Diagnoses Acute respiratory acidosis J96.02 Pneumonia J18.9 Laterality: unspecified laterality Lung location: unspecified part of lung Pneumonia type: due to unspecified organism Pulmonary edema J81.0 Chronicity: acute Acute diastolic CHF (congestive heart failure), NYHA class 2 I50.31 Morbid obesity E66.01 Pulmonary emphysema, unspecified emphysema type J43.9 Emphysema type: unspecified Obstructive sleep apnea of adult G47.33 Multiple pulmonary nodules R91.8
--- NOTE | 2023-08-05 08:48 | Hospitalist Progress Note ---
Date of Service August 04, 2023 Assessment & Plan (1) Acute and chronic respiratory failure with hypoxia: Plan: Assessment: 1. Acute on chronic hypercapnic hypoxemic respiratory failure. 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 With diagnosed obstructive sleep apnea with medical noncompliance with CPAP. The acute aspect of the respiratory failure appears to be multifactorial as described. Patient appears shannon noncompliant with his CPAP. COncern that this can also be related to his CHF. will continue diuretics. recomend 1-2 more days of diuretics prior to discharge. switched lasix to 60 mg IV BID discussed with pulmonary, will trial with AVAPS. Patient with chronic respiratory failure due to COPD now requires NIV for home. Patient has had multiple hospitalizations in the past year for respiratory failure. BiPAP has been considered and ruled out due to its inability to provide adequate ventilatory support. NIV provides AVAPS-AE mode and longer expiratory time to reduce effects of flow limitation and air trapping. This will decrease the work of breathing and decrease CO2. Continuous alarm systems and battery backup is also required in the event of power outage. It must be understood that patient is a severe mikie of respiratory failure and serious harm to patient pulmonary will being will incur without the use of NIV at home. Removal of the NIV would potentially cause re hospitalization and even possible . Patient will need an overnight sleep study on 08/04 2. Bronchogenic pneumonia by CTA bilateral upper lobes. He has had multiple recent healthcare contacts. Consulted pulmonary. continue cefepime. 3. Decompensated congestive heart failure with preserved ejection fraction/diastolic congestive heart failure. Lasix IV 40 mg IV every 8 hours. Fluid restriction. Echocardiogram. 4. History of AV node dysfunction with sick sinus syndrome status post pacemaker placement the patient does follow with electrophysiology. 5. Mildly elevated troponin which is chronic due to chronic troponinemia. 6. Obstructive sleep apnea with noncompliance to CPAP as discussed above. 7. Morbid obesity. 8. History of DVT on chronic Xarelto therapy no history of pulmonary emboli however. 9. Essential hypertension. 10. Dyslipidemia. 11. DAS/fatty liver by history. 12. Chronic kidney disease stage III. Monitor carefully with IV diuresis. Admission and Anticipated Discharge Date Admission Date: July 31, 2023 Subjective Patient reports no new symptoms. Review of Systems Review of Systems: All systems reviewed & are unremarkable except as noted in HPI & below Physical Exam Physical Exam: In General: able to speak in complete sentences. HEENT: Normocephalic atraumatic pupils are equal round and reactive to light bilaterally. NECK: Supple no rigidity no lymphadenopathy no thyromegaly no carotid bruits no JVD no masses. HEART:RRR LUNGS: decreased breath sounds. ABDOMEN: Soft nontender, no rebound EXTREMITIES: 3+ edema NEUROLOGICAL: Cranial nerves II through XII Results & Data Results & Data Vital Signs (Past 12 Hours) Vital Signs Temp Pulse Pulse Pulse Pulse Resp BP 08/05/23 08:06 36.4 C L 87 18 125/88 08/05/23 07:41 73 18 08/05/23 03:53 65 08/05/23 02:58 36.8 C 62 16 103/66 08/04/23 23:45 67 08/04/23 23:21 70 08/04/23 23:05 37.1 C 60 16 104/72 08/04/23 21:51 93 H 08/04/23 21:50 84 Pulse Ox Pulse Ox Pulse Ox O2 Del Method O2 Del Method O2 Del Method O2 Flow Rate 08/05/23 08:06 92 Room Air 08/05/23 07:41 93 Nasal Cannula 3 08/05/23 03:53 96 Nasal Cannula 08/05/23 02:58 94 Nasal Cannula 3 08/04/23 23:45 90 Nasal Cannula 08/04/23 23:21 08/04/23 23:05 94 Nasal Cannula 3 08/04/23 21:51 90 Nasal Cannula 08/04/23 21:50 86 L Nasal Cannula O2 Flow Rate O2 Flow Rate 08/05/23 08:06 08/05/23 07:41 08/05/23 03:53 4 08/05/23 02:58 08/04/23 23:45 4 08/04/23 23:21 08/04/23 23:05 08/04/23 21:51 4 08/04/23 21:50 3 PG Care Time/CCT Total # of Minutes Spent Total Time Spent with Patient: Total time spent is greater than 50% in coordination of care (as documented) at patient's floor/unit and/or counseling patient: Coding Level of Care Code 54902 SUB INP/OBS CARE 2/35MIN Diagnoses Acute and chronic respiratory failure with hypoxia J96.21
--- NOTE | 2023-08-05 09:04 | Pulmonology Progress Note ---
Date of Service August 05, 2023 Assessment & Plan (1) Acute respiratory acidosis: (2) Pneumonia: Laterality: unspecified laterality Lung location: unspecified part of lung Pneumonia type: due to unspecified organism Qualified Code(s): J18.9 - Pneumonia, unspecified organism (3) Pulmonary edema: Chronicity: acute Qualified Code(s): J81.0 - Acute pulmonary edema (4) Acute diastolic CHF (congestive heart failure), NYHA class 2: (5) Morbid obesity: (6) COPD with emphysema: Emphysema type: unspecified Qualified Code(s): J43.9 - Emphysema, unspecified (7) Obstructive sleep apnea of adult: (8) Multiple pulmonary nodules: Plan IMPRESSION: 63-year-old male with a significant past medical history of CHF, morbid obesity, COPD with emphysema, obstructive sleep apnea, and pulmonary nodules. RECOMMENDATIONS: 1. Acute respiratory failure with hypoxia and hypercapnia - CHF, morbid obesity with likely OHS component, and COPD with poor ventilatory function. Patient's blood gas on admission shows severe hypercapnia. Additionally, his serum CO2 remains elevated over an extended period of time likely leading itself to chronic poor ventilation. As previously discussed, the patient had not been using his home CPAP device. In conversation today, he does suggest that he will use the PAP machine at home if it does provide him clinical benefit. Unf ortunately, the patient is not approved for AVAPS. Case management has successfully arranged transition to BiPAP settings for his home device which will suffice at this time. He underwent overnight pulse oximetry. The patient should use his BiPAP settings as set during hospitalization with 3 L oxygen bleed in. When he follows up in clinic, we can order repeat home nocturnal study to evaluate need for ongoing oxygen therapy with his BiPAP device. Patient has COPD and overlap syndrome, BiPAP ordered for COPD with hypercapnia. 2. Pulmonary edema - Patient will continue to benefit from ongoing diuresis as his kidneys tolerate.. 3. CHF - Continue with active diuresis. 4. COPD - Patient has not appreciated clinical benefit from maintenance inhalers in the past. He is not bronchospastic on exam today. Uncertain of utility of adding any inhalers or nebulizers at this point. 5. Severe obstructive sleep apnea - Previously noncompliant with his home CPAP. As noted in #1, patient has been noncompliant with his CPAP therapies in the past. As discussed above. Thank you for allowing us to participate in the care of this patient. Pulmonary medicine will sign off at this time. Admission and Anticipated Discharge Date Admission Date: July 31, 2023 Subjective Patient seen and evaluated at bedside today. He offers no complaints. He is anxious to be discharged home. Review of Systems Review of Systems: Unchanged from admission. Physical Exam Physical Exam: VITAL SIGNS - Vital signs and nursing notes were reviewed. GENERAL - 63-year-old male appearing his stated age who is in no acute distress. Communicates well with provider and answers questions appropriately. SKIN - Without rashes or lesions. NOSE - Midline and without cyanosis. MOUTH/OROPHARYNX - Without perioral cyanosis. LUNGS - Auscultation reveals diminished breath sounds. CARDIAC - RRR with S1/S2. No murmur, rubs, or gallops appreciated. PSYCH - A&Ox3 and cooperates fully with examiner. Results & Data Results & Data Vital Signs (Past 12 Hours) Vital Signs Temp Pulse Pulse Pulse Pulse Resp BP 08/05/23 08:06 36.4 C L 87 18 125/88 08/05/23 07:41 73 18 08/05/23 03:53 65 08/05/23 02:58 36.8 C 62 16 103/66 08/04/23 23:45 67 08/04/23 23:21 70 08/04/23 23:05 37.1 C 60 16 104/72 08/04/23 21:51 93 H 08/04/23 21:50 84 Pulse Ox Pulse Ox Pulse Ox O2 Del Method O2 Del Method O2 Del Method O2 Flow Rate 08/05/23 08:06 92 Room Air 08/05/23 07:41 93 Nasal Cannula 3 08/05/23 03:53 96 Nasal Cannula 08/05/23 02:58 94 Nasal Cannula 3 08/04/23 23:45 90 Nasal Cannula 08/04/23 23:21 08/04/23 23:05 94 Nasal Cannula 3 08/04/23 21:51 90 Nasal Cannula 08/04/23 21:50 86 L Nasal Cannula O2 Flow Rate O2 Flow Rate 08/05/23 08:06 08/05/23 07:41 08/05/23 03:53 4 08/05/23 02:58 08/04/23 23:45 4 08/04/23 23:21 08/04/23 23:05 08/04/23 21:51 4 08/04/23 21:50 3 PG Care Time/CCT Total # of Minutes Spent Total Time Spent with Patient: Total time spent is greater than 50% in coordination of care (as documented) at patient's floor/unit and/or counseling patient: Coding Level of Care Code 31943 SUB INP/OBS CARE 2/35MIN Diagnoses Acute respiratory acidosis J96.02 Pneumonia J18.9 Laterality: unspecified laterality Lung location: unspecified part of lung Pneumonia type: due to unspecified organism Pulmonary edema J81.0 Chronicity: acute Acute diastolic CHF (congestive heart failure), NYHA class 2 I50.31 Morbid obesity E66.01 Pulmonary emphysema, unspecified emphysema type J43.9 Emphysema type: unspecified Obstructive sleep apnea of adult G47.33 Multiple pulmonary nodules R91.8
--- NOTE | 2023-08-05 11:02 | Discharge Summary ---
Date of Service August 05, 2023 Admission HPI Per Admitting Provider This is a pleasant 63-year-old white male who has been having issues with shortness of breath or hypoxemia. On review of the patient's primary care visit from July 29, 2023, 2 days ago he has been hypoxemic has been using his neighbors oxygen intermittently. It is also noted on history taking the patient has significant sleep apnea and he is noncompliant with his CPAP. He presented to the ER today for worsening shortness of breath and was found to have pulse ox in the mid to high 70s. He is placed on oxygen therapy. CTA of the chest was performed was negative for pulmonary emboli but positive for probable bilateral upper lobe bronchial pneumonia. His nothingGrinder viral panel was negative for viral infectious etiology. The patient received vancomycin and Zosyn in the ER. We have switched him to vancomycin and cefepime. In addition he admits to increasing lower extremity edema. He is on Lasix 80 mg twice daily orally. The patient is on Xarelto therapy for a DVT in the past has never had a pulmonary emboli. The patient is found to have chronic hypercarbia probably secondary to obesity hypoventilatory syndrome. He is an ex-smoker. Patient the patient in the hospital as a full admission will IV diuresis the patient 40 milligrams of Lasix every 8 hours fluid restriction. Will continue vancomycin and cefepime. Reported sputum cultures and nebulizer therapy. In addition we will reassess an echocardiogram. I do suspect the primary etiology of this patient's shortness of breath is probably his untreated sleep apnea, and obesity hypoventilatory syndrome and deconditioning. On laboratory studies today the patient was noted to have a mildly elevated troponin which is chronic for him he does have a chronic troponinemia. The patient also was noted to have a small pericardial effusion on CAT scan we will obtain an echocardiogram. Principal Diagnosis acute on chronic respiratory failure. Discharge Exam In General: able to speak in complete sentences. HEENT: Normocephalic atraumatic pupils are equal round and reactive to light bilaterally. NECK: Supple no rigidity no lymphadenopathy no thyromegaly no carotid bruits no JVD no masses. HEART:RRR LUNGS: decreased breath sounds. ABDOMEN: Soft nontender, no rebound EXTREMITIES: 3+ edema NEUROLOGICAL: Cranial nerves II through XII Discharge Data Allergies Allergy/AdvReac Type Severity Reaction Status Date / Time No Known Allergies Allergy Verified 07/31/23 16:02 Consultations 07/31/23 15:21 ED Decision to Admit Stat 08/01/23 07:21 Consult Pulmonology Routine 08/05/23 10:59 [facility] [place]ine Ordered Studies 07/31/23 12:21 CT angio chest PE protocol Stat Hospital Course (1) Acute and chronic respiratory failure with hypoxia: Assessment: 1. Acute on chronic hypercapnic hypoxemic respiratory failure. 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 With diagnosed obstructive sleep apnea with medical noncompliance with CPAP. The acute aspect of the respiratory failure appears to be multifactorial as described. Patient appears shannon noncompliant with his CPAP. COncern that this can also be related to his CHF. will continue diuretics. recomend 1-2 more days of diuretics prior to discharge. switched lasix to 60 mg IV BID discussed with pulmonary, Patient with chronic respiratory failure due to COPD now requires NIV for home. Patient has had multiple hospitalizations in the past year for respiratory failure. BiPAP has been considered and ruled out due to its inability to provide adequate ventilatory support. NIV provides AVAPS-AE mode and longer expiratory time to reduce effects of flow limitation and air trapping. This will decrease the work of breathing and decrease CO2. Continuous alarm systems and battery backup is also required in the event of power outage. It must be understood that patient is a severe mikie of respiratory failure and serious harm to patient pulmonary will being will incur without the use of NIV at home. Removal of the NIV would potentially cause re hospitalization and even possible . Patient will be discharged with BIPAP approval as well as 3 liters nasal cannula. completed antibiotic course of doxycycline. Patient will need to be compliant with the BIPAP 2. Bronchogenic pneumonia by CTA bilateral upper lobes. He has had multiple recent healthcare contacts. Consulted pulmonary. 3. Decompensated congestive heart failure with preserved ejection fraction/diastolic congestive heart failure. Lasix IV 40 mg IV every 8 hours. Fluid restriction. Echocardiogram. 4. History of AV node dysfunction with sick sinus syndrome status post pacemaker placement the patient does follow with electrophysiology. 5. Mildly elevated troponin which is chronic due to chronic troponinemia. 6. Obstructive sleep apnea with noncompliance to CPAP as discussed above. 7. Morbid obesity. 8. History of DVT on chronic Xarelto therapy no history of pulmonary emboli however. 9. Essential hypertension. 10. Dyslipidemia. 11. DAS/fatty liver by history. 12. Chronic kidney disease stage III. Monitored carefully. Patient tolerated IV diuresis. Total Time Total Time Spent Total Time Spent (In Minutes): 32 Discharge Plan Discharge Items Patient Disposition: Home - Self-Care Reason For Visit: SOB Discharge Diagnosis: copd exacerbation Activity: Resume your previous activity Non-emergency contact: Primary Care Provider Call non-emergency contact if: you have any medication questions Follow-up/Referrals: Gui Ochoa PA-C [Hospitalist] - 09/08/23 1:30 pm ([address] office- Pulm office- Hospital follow up appointment) Alena Ulloa MD [Primary Care Provider] - 08/10/23 11:30 am Diet: Heart Healthy Fluids: 1500ml (6 cups) Addtl Attending Provider Instructions: Good morning Mr. Atkinson, When you came to the hospital you were found to have severe acute respiratory fa ilure with hypoxia and hypercapnia. This is a fancy way of saying that you were having difficulty breathing in oxygen and breathing out carbon dioxide. Of course if your oxygen is low, it is difficult for your organs to function and this could even lead to your if it gets too low. The other part is carbon dioxide, if it is too high, you could get confused, lethargic and this could even lead to you dying. We suggest to continue to use the machines at home PAP, and switching to a BIPAP once it is available to help limit the amount of carbon dioxide you retain when you sleep. This will help to keep you alive. Continue to use 3 liters oxygen at rest and ambulation. Please followup with pulmonary Please followup with your PCP in 1-2 weeks. It was a pleasure to take care of you. Best of luck and well wishes, Rufus Cho Call your Primary Care doctor if any of the following symptoms or problems start or get worse: * Shortness of breath or difficulty breathing * Wake up at night short of breath * Chest pain * Cough * Swelling of your hands, feet, or legs * More fatigued or tired with your normal activity * Palpitations - sudden fast heart beats WEIGHT * Weigh yourself every morning after using the bathroom. * Use the same scale. * Wear the same amount of clothing. * Write your weight down on a chart. * Call your Primary Care doctor if you gain more than 2-3 pounds in 1-2 days. MEDICATIONS * Use this discharge instruction sheet for medication instructions. * Take your medications at the time your doctor ordered. * Do not skip a dose of your medicines. * If you miss a dose of medicine, take it as soon as possible, but DO NOT DOUBLE A DOSE. * Read your medicine information when you get home. * Know all of the side effects of your medicine. If in doubt, ask your pharmacist * Call your Primary Care doctor's office if you have any side effects. * Be sure all of your doctors know what medicine and herbs you take (including cold, flu, and herbal medicine). Take the following with you to your follow-up doctor appointments: * Weight Chart * Medication List * List of questions Do not drink excessive alcohol, beer or wine. Pending Studies at Discharge: No Stand-Alone Forms: My [facility] [employer], Smoking Cessation Medications and DC Order Prescriptions: Continued (DME) Oxygen Home E0424 Liters Per Minute See Rx Instructions .Route Qty: 1 0RF Rx Instructions: Home Oxygen consentrator with portable tanks-2L via nasal cannula continuous Tremfya 100 mg/mL auto-injector 100 mg subcut UD 0RF Xarelto 20 mg tablet 20 mg PO DAILY Qty: 90 1RF Rx Instructions: must administer with evening meal allopurinol 100 mg tablet 100 mg PO BID Qty: 180 3RF aspirin 81 mg tablet,delayed release (DR/EC) 81 mg PO HS Qty: 90 1RF carvedilol 25 mg tablet 50 mg PO BID Qty: 360 3RF furosemide 80 mg tablet 80 mg PO BID Qty: 180 3RF lisinopril 40 mg tablet 40 mg PO QAM Qty: 90 1RF simvastatin 40 mg tablet 40 mg PO QPM Qty: 90 3RF Discharge Orders: Discharge Order (Routine); Ordered 08/05/23 Ordered By: Rufus Cho Discharge Order- CHF (Routine); Ordered 08/05/23 Ordered By: Rufus Cho Admission Data Admit Date/Time: 07/31/23 16:44 Attending Provider: Rufus Cho Admit Provider: Jacob Rodriguez Primary Care Provider: Alena Ulloa Other Providers: Jacob Rodriguez; Gui Ochoa; Noe Poe; Quentin Garnica; Luís Osullivan; Paris Islas; Tiffany Figueredo; Gibran Gallegos; Donovan Starr; Wen Ge; [employer]; Nelly Porter Other Interventions: Discharge Summary Assessment (RN) Last Done: 08/05/23 14:12 Coding Level of Care Code 81530 INP/OBS DISCH >30 MIN Diagnoses Acute and chronic respiratory failure with hypoxia J96.21
== END 2023-08-05 19:15 | disposition home or self-care (01) | DRG 291 ==
LOC: ED 12:14 → EDINP 16:44 → SUATTDRO 16:44 → 2S 20:02

== ENCOUNTER 2024-05-17 19:15 | Inpatient (IN) ==
[2024-05-17 19:47] LABS: Basophils # (auto) 0.03 K/uL (0.00-0.20); Basophils % (auto) 0.4 %; Eosinophils # (auto) 0.14 K/uL (0.00-0.50); Hematocrit (blood only) 52.3 % (42.0-52.0); Hemoglobin 16.1 g/dl (14.0-18.0); Immature Granulocytes # (auto) 0.02 K/uL (0.01-0.20); Immature Granulocytes % (auto) 0.3 %; Lymphocytes # (auto) 1.02 K/uL (1.20-3.40); Lymphocytes % (auto) 14.8 %; Mean Corpuscular Hemoglobin 29.2 pg (25.0-34.0); Mean Corpuscular Hgb Conc 30.8 g/dL (32.0-36.0); Mean Corpuscular Volume 94.7 fL (80.0-100.0); Mean Platelet Volume 10.5 fL (9.4-12.4); Monocytes # (auto) 0.85 K/uL (0.11-0.59); Monocytes % (auto) 12.4 %; Neutrophils # (auto) 4.82 K/uL (1.40-6.50); Neutrophils % (auto) 70.1 %; Platelet Count 144 K/uL (130-400); Red Blood Count 5.52 M/uL (4.70-6.10); White Blood Count 6.88 K/ul (4.8-10.8)
[2024-05-17 19:57] LABS: Base Excess VBG 10.8 mEq/L; HCO3 VBG 41 mmol/L; Oxygen Saturation VBG < 60.0 %; PCO2 VBG 83 mmHg (38-50); PO2 VBG 27 mmHg
[2024-05-17 20:00] LABS: Albumin Globulin Ratio 1.4 (0.9-2); Albumin Level 4.4 gm/dl (3.4-5.0); BUN Creatinine Ratio 16.7 (10-20); Bilirubin,Total 0.7 mg/dl (0.2-1.0); Calcium 9.2 mg/dl (8.6-10.3); Creatinine Clr Calc Pharmacy 67.9 ml/min; Globulin 3.1 gm/dl (2.5-4.0); Potassium 4.4 mmol/L (3.5-5.1); Total Protein 7.5 gm/dl (6.0-8.3)
[2024-05-17 20:31] LABS: Influenza A virus by PCR Negative (Neg); Influenza B virus by PCR Negative (Neg); RSV by PCR Negative (Neg); SARS CoV2 RNA(COVID-19) Ceph NEGATIVE (Negative)
--- NOTE | 2024-05-17 20:35 | XRay Report ---
EXAM: XR chest 1V not portable CLINICAL HISTORY: CHEST PAIN HKS TECHNIQUE: An X-ray image of the chest is obtained in AP projection. COMPARISON: 08/02/2023 FINDINGS: Pulmonary Parenchyma: Prominent bilateral bronchovascular markings. Right lower pericardiac haziness no longer seen. No evidence of pleural effusion or pleural thickening on the right side. Left side cannot be accurately assessed, probable fat pad vs. pleural effusion/ thickening. Heart and Mediastinum: Cardiac size cannot be accurately assessed in AP projection, however cardiac shadow appears again enlarged. No mediastinal widening or masses. No hilar or mediastinal lymphadenopathy. Dual-lead cardiac pacemaker noted in position. Bony Thorax: Bony thorax appears intact without fractures or deformities. Soft Tissues: Soft tissues overlying the chest wall are unremarkable. Cardiac monitoring electrodes. IMPRESSION: 1. Again cardiomegaly, despite AP projection (no changes on interval). 2. Prominent bilateral bronchovascular markings, likely congestive (no changes on interval). 3. Interval regression of the right lower pericardiac haziness. 4. No other changes on interval. Correlate clinically. 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 Electronically signed by Jason Santoyo 05-17-2024 8:34 PM
[2024-05-17 21:16] LABS: INR 1.2 (0.9-1.1); Partial Thromboplastin Ratio 1.2; Partial Thromboplastin Time 33 Seconds (21-31); Prothrombin Time 12.8 Seconds (9.0-12.0)
[2024-05-17 21:58] LABS: iSTAT Arterial Blood Gas HCO3 36 meg/L (19-24); iSTAT Arterial Blood Gas pCO2 82 mmHg (35-46); iSTAT Arterial Blood Gas pH 7.26 (7.35-7.45); iSTAT Arterial Blood Gas pO2 117 mmHg (80-95); iSTAT Carbon Dioxide 39 mmol/L (24-31); iSTAT Hematocrit 49 % (42-52); iSTAT Hemoglobin 16.7 g/dl (14.0-18.0); iSTAT Potassium 4.3 mmol/L (3.3-5.0); iSTAT Sodium 142 mmol/L (135-144)
[2024-05-17 22:07] LABS: Troponin I High Sensitivity 33.1 pg/ml (0-20)
[2024-05-17] MEDS: FUROSEMIDE 40 MG/4 ML VIAL IV STA (22:58)
[2024-05-17] MEDS ORDERED: ALBUT/IPRATROP 3MG/0.5MG NEB 3 ML VIAL NEB PRN (23:01)
--- NOTE | 2024-05-17 23:05 | Emergency Department Note ---
History of Present Illness General Chief Complaint: Shortness of Breath/Dyspnea Stated Complaint: SOB, Time Seen by Provider: 05/17/24 19:34 History of Present Illness Provider Complaint: shortness of breath Onset (ago): day(s) (2) Severity: severe Consistency/Duration: + progressively worsening Relieved By: + nothing Exacerbated By: + exertion and + coughing Context: + recent illness Known history of: COPD and congestive heart failure Associated symptoms: + cough, + wheezing, + orthopnea and + chest congestion; no sputum production or no hemoptysis Related Data Home oxygen amount: none Home Medications Medication Instructions Recorded Confirmed Type allopurinol 100 mg tablet 100 mg PO BID #180 tabs 05/21/23 05/17/24 Rx aspirin 81 mg tablet,delayed 81 mg PO HS #90 tabs 05/21/23 05/17/24 Rx release carvedilol 25 mg tablet 50 mg (2 x 25 mg) PO BID #360 tabs 05/21/23 05/17/24 Rx furosemide 80 mg tablet 80 mg PO BID #180 tabs 05/21/23 05/17/24 Rx simvastatin 40 mg tablet 40 mg PO QPM #90 tabs 05/21/23 05/17/24 Rx lisinopril 40 mg tablet 40 mg PO QAM #90 tabs 10/28/23 05/17/24 Rx guselkumab 100 mg/mL subcutaneous 100 mg subcut Q8WK #1 mL 03/08/24 05/17/24 Rx auto-injector (Tremfya) rivaroxaban 20 mg tablet (Xarelto) 20 mg PO QAM 05/17/24 05/17/24 History Allergies Allergy/AdvReac Type Severity Reaction Status Date / Time No Known Allergies Allergy Verified 04/15/24 10:57 Past Med/Surg History Problem List (Updated 05/17/24 @ 23:21 by Erick Schultz MD) Hypoxia (Acute) Acute diastolic CHF (congestive heart failure), NYHA class 2 (Acute) Pulmonary edema Elevated troponin I level (Acute) Acute respiratory acidosis (Acute) Hypoxia (Acute) Pneumonia (Acute) Acute and chronic respiratory failure with hypoxia SOB (shortness of breath) Chest pressure DVT (deep venous thrombosis) Colon cancer screening Encounter for pre-operative examination 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 Nonischemic cardiomyopathy Atrioventricular block, complete reason for pacemaker in 2012. Spinal stenosis of lumbar region Chronic low back pain Lumbar degenerative disc disease Morbid obesity (Acute) Fatty infiltration of liver seen on CT chest dated 10/31 20 Hyperlipidemia Psoriasis Gout (Chronic) Multiple pulmonary nodules stable per patient. yearly scans. Obstructive sleep apnea of adult (Chronic) noncompliant with machine -- states he gets sick everytime he uses the machine. COPD with emphysema (Chronic) Hypertension (Chronic) Chronic kidney disease Medical History Encounter for servicing of pacemaker at end of battery life Acute respiratory failure with hypoxia and hypercapnia Acute on chronic heart failure with preserved ejection fraction Acute kidney injury History of COVID-19 05/2022 - asymptomatic Kidney stones hx - no surgery currently has a stone embedded in the wall of the left kidney for the last 20 years. Osteoarthritis Anemia recent bloodwork -- recent for upcoming colonoscopy Surgical History S/P epidural steroid injection S/P cardiac pacemaker procedure most recent placement September 2014 at [facility] [place]. last checked annually in May 2022. follows with Dr Arzola. Family History Mother Diabetes Father Diabetes Stroke Grandmother Diabetes Other No family history of adverse response to anesthesia Denies family history of Ovarian cancer Prostate cancer Kidney disease Myocardial infarction Breast cancer Colorectal cancer Hypertension Social History Smoking Status: Former smoker Tobacco Type: Cigarettes and Smokeless Tobacco (Dip or Chew) Age Started Using Tobacco: 27; Age Quit Using Tobacco: 48; packs per day: 1.5; Second Hand Exposure: No; Do You Dip or Chew Tobacco: Yes; Hx Alcohol Use: No Hx Substance Use: No Preferred Language: German Communication Ability: Effective Live In Caregiver Required: No Beliefs That Will Affect Care: None marital status: Current Living Situation: Alone Current Living Situation Comment: Home current occupational status: disabled How many Children do You have: 2 Feels Safe at Home: Yes Childhood Exposure to Second-Hand Smoke: Yes Diet: regular caffeine: Yes Dental Care, Regularly: No Physical Activity Frequency: 3-4 Times per Week Seatbelt Use: sometimes Sunscreen Use: No Assistive Devices: CPAP Physical Exam 2 Vital Signs: Vital Signs - 24 hr 05/17/24 19:18 05/17/24 19:21 05/17/24 19:39 Temperature 36.5 C Temperature Source Temporal Artery Sc an Pulse Rate 76 69 Pulse Rate [Apical ] Respiratory Rate 20 Blood Pressure 188/109 H Blood Pressure [Ri ght Arm] Blood Pressure Jody n 135 Blood Pressure Jody n [Right Arm] Pulse Oximetry 88 L 88 L Oxygen Delivery Me thod Room Air Room Air Nasal Can nula Oxygen Flow Rate Sepsis Recent Feve r Within 48 Hours No Sepsis New/Unexpla ined Change in Men cassandra Status No Sepsis Action Take n by Nursing No Action Required Oxygen Flow Rate - Titration 3 Pulse Oximetry Pos t Tiitration 91 05/17/24 19:41 05/17/24 19:47 05/17/24 20:58 Temperature Temperature Source Pulse Rate Pulse Rate [Apical ] 65 69 Respiratory Rate 16 18 Blood Pressure Blood Pressure [Ri ght Arm] 177/91 H 149/96 H Blood Pressure Jody n Blood Pressure Jody n [Right Arm] 119 113 Pulse Oximetry 98 98 99 Oxygen Delivery Me thod Nasal Cannula Nasal Cannula Nasal Cannula Oxygen Flow Rate 3.5 3.5 3 Sepsis Recent Feve r Within 48 Hours Sepsis New/Unexpla ined Change in Men cassandra Status Sepsis Action Take n by Nursing Oxygen Flow Rate - Titration Pulse Oximetry Pos t Tiitration Physical Exam: Physical Exam GENERAL: oriented to person, place, and time. appears well-developed and well- nourished. HENT: Exam performed. - Head: Normocephalic and atraumatic. EYES: Conjunctivae and EOM are normal. Right eye exhibits no discharge. Left eye exhibits no discharge. No scleral icterus. NECK: Normal range of motion. Neck supple. No JVD present. CV: Normal rate, regular rhythm, normal heart sounds and intact distal pulses. 3+ pitting edema of the bilateral lower extremities. Palpable radial pulses bue. PULM/CHEST: Rales bilaterally. ABD: The abdomen is soft. There is no tenderness. NEURO: Motor and sensation grossly intact. SKIN: Skin is warm and dry. He is not diaphoretic. PSYCH: normal mood and affect. Behavior is normal. Judgment and thought content normal. Course Course 1933: The patient was evaluated in room A11B. A complete history and physical exam was performed Cardiac monitoring: An order was placed for continuous cardiac monitoring. The monitor shows a rate of 60 with paced rhythm interpreted by me Patient was hypoxic on room air. Supplemental oxygen was applied which improved the patient's oxygen saturation. 2049: Vital signs stable supplemental oxygen. Labs show a venous pH of 7.3 venous pCO2 of 83. Creatinine at baseline of 1.8. High-sensitivity troponin 32. BNP 336. COVID RSV and influenza negative. Chest x-ray shows fluid overloaded. Lasix will be ordered and [facility] Medical Decision Making Laboratory Data Attestation: I reviewed the patient's lab results. 05/17/24 19:30 05/17/24 19:30 Lab Results 05/17/24 05/17/24 05/17/24 Range/Units 19:30 19:47 20:23 WBC 6.88 (4.8-10.8) K/ul RBC 5.52 (4.70-6.10) M/uL Hgb 16.1 (14.0-18.0) g/dl POC Hgb (14.0-18.0) g/dl Hct 52.3 H (42.0-52.0) % POC Hct (42-52) % MCV 94.7 (80.0-100.0) fL MCH 29.2 (25.0-34.0) pg MCHC 30.8 L (32.0-36.0) g/dL RDW Std Deviation 49.0 H (36.4-46.3) fL RDW Coeff of Jens 14.0 (11.5-14.5) % Plt Count 144 (130-400) K/uL MPV 10.5 (9.4-12.4) fL Immature Gran % (Auto) 0.3 % Neut % (Auto) 70.1 % Lymph % (Auto) 14.8 % Carter % (Auto) 12.4 % Eos % (Auto) 2.0 % Baso % (Auto) 0.4 % Neut # (Auto) 4.82 (1.40-6.50) K/uL Lymph # (Auto) 1.02 L (1.20-3.40) K/uL Carter # (Auto) 0.85 H (0.11-0.59) K/uL Eos # (Auto) 0.14 (0.00-0.50) K/uL Baso # (Auto) 0.03 (0.00-0.20) K/uL Immature Gran # (Auto) 0.02 (0.01-0.20) K/uL PT Cancelled 12.8 H INR Cancelled 1.2 H APTT Cancelled 33 H PTT Ratio Cancelled 1.2 POC pH (7.35-7.45) POC pCO2 (35-46) mmHg POC pO2 (80-95) mmHg POC HCO3 (19-24) rohith/L POC Total CO2 (24-31) mmol/L POC Base Excess (-9-1.8) rohith/L POC ABG O2 Sat (90-95) % VBG pH 7.30 L (7.36-7.41) VBG pCO2 83 H (38-50) mmHg VBG pO2 27 mmHg VBG HCO3 41 mmol/L VBG O2 Saturation < 60.0 % VBG Base Excess 10.8 mEq/L POC Sodium (135-144) mmol/L Sodium 143 (136-145) mmol/L POC Potassium (3.3-5.0) mmol/L Potassium 4.4 (3.5-5.1) mmol/L Chloride 100 (98-107) mmol/L Carbon Dioxide 37 H (21-32) mmol/L Anion Gap 6 (3-11) BUN 30 H (6-23) mg/dl Creatinine 1.80 H (0.6-1.4) mg/dl Est Cr Clr Drug Dosing 67.9 ml/min eGFR 42.03 BUN/Creatinine Ratio 16.7 (10-20) Glucose 130 H (70-99(Fasting)) mg/dl Calcium 9.2 (8.6-10.3) mg/dl Total Bilirubin 0.7 (0.2-1.0) mg/dl AST 16 (13-39) U/L ALT 18 (7-52) U/L Alkaline Phosphatase 57 (34-104) U/L Troponin I High Sens 32.0 H (0-20) pg/ml B-Natriuretic Peptide 336 H (0-100) pg/ml Total Protein 7.5 (6.0-8.3) gm/dl Albumin 4.4 (3.4-5.0) gm/dl Globulin 3.1 (2.5-4.0) gm/dl Albumin/Globulin Ratio 1.4 (0.9-2) SARS-CoV-2 (PCR) NEGATIVE (Negative) Influenza Type A (PCR) Negative (Neg) Influenza Type B (PCR) Negative (Neg) RSV (RT-PCR) Negative (Neg) 05/17/24 05/17/24 Range/Units 21:24 21:38 WBC (4.8-10.8) K/ul RBC (4.70-6.10) M/uL Hgb (14.0-18.0) g/dl POC Hgb 16.7 (14.0-18.0) g/dl Hct (42.0-52.0) % POC Hct 49 (42-52) % MCV (80.0-100.0) fL MCH (25.0-34.0) pg MCHC (32.0-36.0) g/dL RDW Std Deviation (36.4-46.3) fL RDW Coeff of Jens (11.5-14.5) % Plt Count (130-400) K/uL MPV (9.4-12.4) fL Immature Gran % (Auto) % Neut % (Auto) % Lymph % (Auto) % Carter % (Auto) % Eos % (Auto) % Baso % (Auto) % Neut # (Auto) (1.40-6.50) K/uL Lymph # (Auto) (1.20-3.40) K/uL Carter # (Auto) (0.11-0.59) K/uL Eos # (Auto) (0.00-0.50) K/uL Baso # (Auto) (0.00-0.20) K/uL Immature Gran # (Auto) (0.01-0.20) K/uL PT INR APTT PTT Ratio POC pH 7.26 L (7.35-7.45) POC pCO2 82 H (35-46) mmHg POC pO2 117 H (80-95) mmHg POC HCO3 36 H (19-24) rohith/L POC Total CO2 39 H (24-31) mmol/L POC Base Excess 9.0 H (-9-1.8) rohith/L POC ABG O2 Sat 97.0 H (90-95) % VBG pH (7.36-7.41) VBG pCO2 (38-50) mmHg VBG pO2 mmHg VBG HCO3 mmol/L VBG O2 Saturation % VBG Base Excess mEq/L POC Sodium 142 (135-144) mmol/L Sodium (136-145) mmol/L POC Potassium 4.3 (3.3-5.0) mmol/L Potassium (3.5-5.1) mmol/L Chloride (98-107) mmol/L Carbon Dioxide (21-32) mmol/L Anion Gap (3-11) BUN (6-23) mg/dl Creatinine (0.6-1.4) mg/dl Est Cr Clr Drug Dosing ml/min eGFR BUN/Creatinine Ratio (10-20) Glucose (70-99(Fasting)) mg/dl Calcium (8.6-10.3) mg/dl Total Bilirubin (0.2-1.0) mg/dl AST (13-39) U/L ALT (7-52) U/L Alkaline Phosphatase (34-104) U/L Troponin I High Sens 33.1 H (0-20) pg/ml B-Natriuretic Peptide (0-100) pg/ml Total Protein (6.0-8.3) gm/dl Albumin (3.4-5.0) gm/dl Globulin (2.5-4.0) gm/dl Albumin/Globulin Ratio (0.9-2) SARS-CoV-2 (PCR) (Negative) Influenza Type A (PCR) (Neg) Influenza Type B (PCR) (Neg) RSV (RT-PCR) (Neg) Imaging Data Attestation: I personally reviewed and interpreted this imaging study as follows: My Impression: Chest x-ray: Cardiomegaly with cephalization Radiologist's Impression: Chest X-Ray 05/17/24 19:21 EXAM: XR chest 1V not portable CLINICAL HISTORY: CHEST PAIN HKS TECHNIQUE: An X-ray image of the chest is obtained in AP projection. COMPARISON: 08/02/2023 FINDINGS: Pulmonary Parenchyma: Prominent bilateral bronchovascular markings. Right lower pericardiac haziness no longer seen. No evidence of pleural effusion or pleural thickening on the right side. Left side cannot be accurately assessed, probable fat pad vs. pleural effusion/ thickening. Heart and Mediastinum: Cardiac size cannot be accurately assessed in AP projection, however cardiac shadow appears again enlarged. No mediastinal widening or masses. No hilar or mediastinal lymphadenopathy. Dual-lead cardiac pacemaker noted in position. Bony Thorax: Bony thorax appears intact without fractures or deformities. Soft Tissues: Soft tissues overlying the chest wall are unremarkable. Cardiac monitoring electrodes. IMPRESSION: 1. Again cardiomegaly, despite AP projection (no changes on interval). 2. Prominent bilateral bronchovascular markings, likely congestive (no changes on interval). 3. Interval regression of the right lower pericardiac haziness. 4. No other changes on interval. Correlate clinically. [facility] was called at [phone] at 07:31 PM [employer], 05/17/2024, and Erick Salcedo was informed regarding the presence of important medical findings in the reports. Electronically signed by Jason Santoyo 05-17-2024 8:34 PM ECG Data Attestation: I personally reviewed and interpreted this ECG as follows: Interpretation: Paced rhythm with rate of 64. IN 150 QRS 146 QTc 462. PVCs present. [facility] Narrative 1933: The patient was evaluated in room A11B. A complete history and physical exam was performed Cardiac monitoring: An order was placed for continuous cardiac monitoring. The monitor shows a rate of 60 with paced rhythm interpreted by me Patient was hypoxic on room air. Supplemental oxygen was applied which improved the patient's oxygen saturation. 2049: Vital signs stable supplemental oxygen. Labs show a venous pH of 7.3 venous pCO2 of 83. Creatinine at baseline of 1.8. High-sensitivity troponin 32. BNP 336. COVID RSV and influenza negative. Chest x-ray shows fluid overloaded. Lasix will be ordered and the patient be admitted to the [facility] hospitalist team. Impression & Plan Hypoxia, Acute diastolic CHF (congestive heart failure), NYHA class 2 Critical Care Time Critical Care Time: Yes Total Critical Care Time: 60 I have personally spent greater than 60 minutes of critical care time in the direct management of this patient. This includes bedside care, interpretation of diagnostic studies, and testing, discussion with consultants, patient, and family members, and other required patient management activities. This 60 minutes is in excess of all separately billable procedures. Discharge Plan Visit Data Chief Complaint: Shortness of Breath/Dyspnea Stated Complaint: SOB, ED Provider: Erick Schultz Discharge Problem: Hypoxia, Acute diastolic CHF (congestive heart failure), NYHA class 2 Patient Disposition: Admitted As Inpatient Forms Stand Alone Forms: [facility] Prescriptions Prescriptions: No Action lisinopril 40 mg tablet 40 mg PO QAM Qty: 90 1RF Tremfya 100 mg/mL auto-injector 100 mg subcut Q8WK Qty: 1 1RF allopurinol 100 mg tablet 100 mg PO BID Qty: 180 3RF aspirin 81 mg tablet,delayed release (DR/EC) 81 mg PO HS Qty: 90 1RF carvedilol 25 mg tablet 50 mg PO BID Qty: 360 3RF furosemide 80 mg tablet 80 mg PO BID Qty: 180 3RF simvastatin 40 mg tablet 40 mg PO QPM Qty: 90 3RF Xarelto 20 mg tablet 20 mg PO QAM Referrals Referrals: Alena Ulloa MD [Primary Care Provider] -
[2024-05-17 23:06] LABS: Magnesium 2.2 mg/dl (1.7-2.4)
--- NOTE | 2024-05-17 23:12 | History & Physical Report ---
Date of Service May 17, 2024 Assessment & Plan (1) Acute on chronic respiratory failure with hypoxia and hypercapnia: (2) Acute diastolic CHF (congestive heart failure), NYHA class 2: (3) Pulmonary edema: (4) Bilateral edema of lower extremity: (5) DVT (deep venous thrombosis): (6) Mixed obstructive and restrictive ventilatory defect: (7) Type 2 diabetes mellitus: (8) Cardiac pacemaker: Plan Acute on chronic respiratory failure with hypoxia and hypercapnia- Contributing factors including but not limited to: COPD exacerbation, CHF exacerbation, CAP, HELDER, SANJEEV on CKD Acute on chronic HFpEF presence of AV pacer-- The patient will be admitted to telemetry for serial cardiac enzymes, serial EKG's, cardiac rhythm monitoring and a 2-D echocardiogram with Dopplers Most recent echocardiogram on 08/01/2023 with EF 50-55% Initial troponin 32, follow-up 33.1, follow-up in a.m. Continue carvedilol, with 25 mg dose this evening, and then return to her usual dose of 50 mg p.o. twice daily starting 9 AM Hold lisinopril Give furosemide 80 mg IV x 1 this evening, then resume 80 mg p.o. twice daily starting 9 AM tomorrow COPD exacerbation/mixed obstructive and restrictive lung disease/HELDER with intolerance of CPAP or BiPAP Give methylprednisolone 80 mg IV x 1 now, then 40 mg IV every 12 hours DuoNebs every 2 hours as needed Patient reports that in the past when he tried CPAP or BiPAP, they both made his breathing worse ABG this evening showed pH 7.26, pCO2 82, pO2 117, and patient reported that he could not wear CPAP or BiPAP as noted above History of DVT- Continue Xarelto Acute kidney injury superimposed on CKD- Creatinine 1.80, with baseline 1.72' Holding lisinopril Follow daily labs while getting Lasix IV this evening and returning to oral in the a.m. Chest x-ray does show mild pulmonary edema, and lower extremities have significant edema Morbid obesity- Patient reports that he is working on potentially getting gastric bypass surgery due to inability to tolerate CPAP or BiPAP History of Present Illness Chief Complaint: The patient presents to the emergency department with complaint of progressively worsening shortness of breath at rest and dyspnea on exertion over the past 2 days, interfering with his ability to sleep Primary Care Provider: Alena Ulloa MD The patient is a 64-year-old male with a past medical history including obstructive sleep apnea with inability to wear CPAP or BiPAP, history of DVT, mixed obstructive and restrictive ventilatory defect, morbid obesity with BMI 50.5, HFpEF, diabetes mellitus type 2, prediabetes, presence of cardiac pacemaker, nonischemic cardiomyopathy, complete atrioventricular block, hypertension, and CKD. The patient presents to the emergency department with progressively worsening shortness of breath, dyspnea on exertion, cough, wheezing, orthopnea. He notes chronic lower extremity edema, which he feels does not improved by his Lasix 80 mg p.o. twice daily Allergies Allergy/AdvReac Type Severity Reaction Status Date / Time No Known Allergies Allergy Verified 04/15/24 10:57 Home Medications Medication Instructions Recorded Confirmed Type allopurinol 100 mg tablet 100 mg PO BID #180 tabs 05/21/23 05/17/24 Rx aspirin 81 mg tablet,delayed 81 mg PO HS #90 tabs 05/21/23 05/17/24 Rx release carvedilol 25 mg tablet 50 mg (2 x 25 mg) PO BID #360 tabs 05/21/23 05/17/24 Rx furosemide 80 mg tablet 80 mg PO BID #180 tabs 05/21/23 05/17/24 Rx simvastatin 40 mg tablet 40 mg PO QPM #90 tabs 05/21/23 05/17/24 Rx lisinopril 40 mg tablet 40 mg PO QAM #90 tabs 10/28/23 05/17/24 Rx guselkumab 100 mg/mL subcutaneous 100 mg subcut Q8WK #1 mL 03/08/24 05/17/24 Rx auto-injector (Tremfya) rivaroxaban 20 mg tablet (Xarelto) 20 mg PO QAM 05/17/24 05/17/24 History Past Med/Surg History Problem List (Updated 05/18/24 @ 04:49 by Jarek Holland MD) Bilateral edema of lower extremity Acute on chronic respiratory failure with hypoxia and hypercapnia Hypoxia (Acute) Acute diastolic CHF (congestive heart failure), NYHA class 2 (Acute) Pulmonary edema Elevated troponin I level (Acute) Acute respiratory acidosis (Acute) Hypoxia (Acute) Pneumonia (Acute) SOB (shortness of breath) Chest pressure DVT (deep venous thrombosis) Colon cancer screening Encounter for pre-operative examination 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 Nonischemic cardiomyopathy Atrioventricular block, complete reason for pacemaker in 2011. Spinal stenosis of lumbar region Chronic low back pain Lumbar degenerative disc disease Morbid obesity (Acute) Fatty infiltration of liver seen on CT chest dated 10/31 20 Hyperlipidemia Psoriasis Gout (Chronic) Multiple pulmonary nodules stable per patient. yearly scans. Obstructive sleep apnea of adult (Chronic) noncompliant with machine -- states he gets sick everytime he uses the machine. COPD with emphysema (Chronic) Hypertension (Chronic) Chronic kidney disease Medical History (Updated 05/18/24 @ 04:49 by Jarek Holland MD) Encounter for servicing of pacemaker at end of battery life Acute respiratory failure with hypoxia and hypercapnia Acute on chronic heart failure with preserved ejection fraction Acute kidney injury History of COVID-19 05/2022 - asymptomatic Kidney stones hx - no surgery currently has a stone embedded in the wall of the left kidney for the last 20 years. Osteoarthritis Anemia recent bloodwork -- recent for upcoming colonoscopy Surgical History S/P epidural steroid injection S/P cardiac pacemaker procedure [place] [facility] [place] [facility] [place] last checked annually in May 2022. follows [address] Dr Arzola. Family History Mother Diabetes Father Diabetes Stroke Grandmother Diabetes Other No family history of adverse response to anesthesia Denies family history of Ovarian cancer Prostate cancer Kidney disease Myocardial infarction Breast cancer Colorectal cancer Hypertension Social History Smoking Status: Former smoker Tobacco Type: Smokeless Tobacco (Dip or Chew) Age Started Using Tobacco: 27; Age Quit Using Tobacco: 48; packs per day: 1.5; Second Hand Exposure: Yes; Do You Dip or Chew Tobacco: Yes; Tobacco Cessation Education Requested by Patient: No Hx Alcohol Use: No Hx Substance Use: No Preferred Language: Algerian Communication Ability: Effective Daycare Director Required: No Beliefs That Will Affect Care: None marital status: Current Living Situation: Alone Current Living Situation Comment: Home current occupational status: disabled How many Children do You have: 2 Other Information That Helps Us Care for You: No Feels Safe at Home: Yes Safety Concerns: Feels Safe At This Time Childhood Exposure to Second-Hand Smoke: Yes Diet: regular caffeine: Yes Dental Care, Regularly: No Physical Activity Frequency: 3-4 Times per Week Seatbelt Use: sometimes Sunscreen Use: No Assistive Devices: Glasses Review of Systems Review of Systems: The patient denies chest pain, palpitations, sore throat, fevers, chills, sweats, nausea, vomiting, diarrhea , constipation, abdominal pain, pelvic pain, blood in urine or stool, dysuria, urinary frequency or urgency, lightheadedness, dizziness, headache, memory loss, loss of consciousness, rash, abnormal bruising or bleeding, imbalance, focal weakness, numbness or tingling in arms or legs, generalized arthralgias or myalgias, back or neck pain, or night sweats. The review of systems is otherwise negative other than for that already noted above, and at least 10 systems have been reviewed. Physical Exam Physical Exam: The patient is awake, alert and oriented 3, well developed and well nourished, normocephalic and atraumatic, lying in bed and in no acute distress. HEENT--PERRL, EOMI, mucous membranes and oropharynx normal Neck--supple. No JVD. No bruits. Thyroid normal, trachea midline, no adenopathy. Heart--normal S1 and S2. No murmurs, rubs or gallops. Lungs--decreased breath sounds throughout. No respiratory distress, no accessory muscle use. Abdomen--normal bowel sounds and soft. Nontender. Nondistended. Morbid obesity with BMI 50.5 Extremities--2-3+ bilateral pretibial pitting edema Dermatologic--chronic venous stasis changes bilateral lower extremities Neurologic--cranial nerves II through XII grossly intact. Rheumatologic--range of motion limited by body habitus Psychiatric--normal affect. Results & Data Results & Data Vital Signs (Past 12 Hours) Vital Signs Temp Pulse Pulse Resp BP BP Pulse Ox 05/17/24 20:58 69 18 149/96 H 99 05/17/24 19:47 98 05/17/24 19:41 65 16 177/91 H 98 05/17/24 19:39 69 05/17/24 19:21 88 L 05/17/24 19:18 36.5 C 76 20 188/109 H 88 L O2 Del Method O2 Flow Rate 05/17/24 20:58 Nasal Cannula 3 05/17/24 19:47 Nasal Cannula 3.5 05/17/24 19:41 Nasal Cannula 3.5 05/17/24 19:39 05/17/24 19:21 Room Air, Nasal Cannula 05/17/24 19:18 Room Air Laboratory Results Laboratory Results WBC 6.88 K/ul (4.8-10.8) 05/17/24 19:30 RBC 5.52 M/uL (4.70-6.10) 05/17/24 19:30 Hgb 16.1 g/dl (14.0-18.0) 05/17/24 19:30 POC Hgb 16.7 g/dl (14.0-18.0) 05/17/24 21:38 Hct 52.3 % (42.0-52.0) H 05/17/24 19:30 POC Hct 49 % (42-52) 05/17/24 21:38 MCV 94.7 fL (80.0-100.0) 05/17/24 19:30 MCH 29.2 pg (25.0-34.0) 05/17/24 19:30 MCHC 30.8 g/dL (32.0-36.0) L 05/17/24 19:30 RDW Std Deviation 49.0 fL (36.4-46.3) H 05/17/24 19:30 RDW Coeff of Jens 14.0 % (11.5-14.5) 05/17/24 19:30 Plt Count 144 K/uL (130-400) 05/17/24 19:30 MPV 10.5 fL (9.4-12.4) 05/17/24 19:30 Immature Gran % (Auto) 0.3 % 05/17/24 19:30 Neut % (Auto) 70.1 % 05/17/24 19:30 Lymph % (Auto) 14.8 % 05/17/24 19:30 [place] % (Auto) 12.4 % 05/17/24 19:30 Eos % (Auto) 2.0 % 05/17/24 19:30 Baso % (Auto) 0.4 % 05/17/24 19:30 Neut # (Auto) 4.82 K/uL (1.40-6.50) 05/17/24 19:30 Lymph # (Auto) 1.02 K/uL (1.20-3.40) L 05/17/24 19:30 [place] # (Auto) 0.85 K/uL (0.11-0.59) H 05/17/24 19:30 Eos # (Auto) 0.14 K/uL (0.00-0.50) 05/17/24 19:30 Baso # (Auto) 0.03 K/uL (0.00-0.20) 05/17/24 19:30 Immature Gran # (Auto) 0.02 K/uL (0.01-0.20) 05/17/24 19:30 PT 12.8 Seconds (9.0-12.0) H 05/17/24 20:23 INR 1.2 (0.9-1.1) H 05/17/24 20:23 APTT 33 Seconds (21-31) H 05/17/24 20:23 PTT Ratio 1.2 05/17/24 20:23 POC pH 7.26 (7.35-7.45) L 05/17/24 21:38 POC pCO2 82 mmHg (35-46) H 05/17/24 21:38 POC pO2 117 mmHg (80-95) H 05/17/24 21:38 POC HCO3 36 rohith/L (19-24) H 05/17/24 21:38 POC Total CO2 39 mmol/L (24-31) H 05/17/24 21:38 POC Base Excess 9.0 rohith/L (-9-1.8) H 05/17/24 21:38 POC ABG O2 Sat 97.0 % (90-95) H 05/17/24 21:38 VBG pH 7.30 (7.36-7.41) L 05/17/24 19:47 VBG pCO2 83 mmHg (38-50) H 05/17/24 19:47 VBG pO2 27 mmHg 05/17/24 19:47 VBG HCO3 41 mmol/L 05/17/24 19:47 VBG O2 Saturation < 60.0 % 05/17/24 19:47 VBG Base Excess 10.8 mEq/L 05/17/24 19:47 POC Sodium 142 mmol/L (135-144) 05/17/24 21:38 Sodium 143 mmol/L (136-145) 05/17/24 19:30 POC Potassium 4.3 mmol/L (3.3-5.0) 05/17/24 21:38 Potassium 4.4 mmol/L (3.5-5.1) 05/17/24 19:30 Chloride 100 mmol/L (98-107) 05/17/24 19:30 Carbon Dioxide 37 mmol/L (21-32) H 05/17/24 19:30 Anion Gap 6 (3-11) 05/17/24 19:30 BUN 30 mg/dl (6-23) H 05/17/24 19:30 Creatinine 1.80 mg/dl (0.6-1.4) H 05/17/24 19:30 Est Cr Clr Drug Dosing 67.9 ml/min 05/17/24 19:30 eGFR 42.03 05/17/24 19:30 BUN/Creatinine Ratio 16.7 (10-20) 05/17/24 19:30 Glucose 130 mg/dl (70-99(Fasting)) H 05/17/24 19:30 Calcium 9.2 mg/dl (8.6-10.3) 05/17/24 19:30 Magnesium 2.2 mg/dl (1.7-2.4) 05/17/24 21:24 Total Bilirubin 0.7 mg/dl (0.2-1.0) 05/17/24 19:30 AST 16 U/L (13-39) 05/17/24 19:30 ALT 18 U/L (7-52) 05/17/24 19:30 Alkaline Phosphatase 57 U/L (34-104) 05/17/24 19:30 Troponin I High Sens 33.1 pg/ml (0-20) H 05/17/24 21:24 B-Natriuretic Peptide 336 pg/ml (0-100) H 05/17/24 19:30 Total Protein 7.5 gm/dl (6.0-8.3) 05/17/24 19:30 Albumin 4.4 gm/dl (3.4-5.0) 05/17/24 19:30 Globulin 3.1 gm/dl (2.5-4.0) 05/17/24 19:30 Albumin/Globulin Ratio 1.4 (0.9-2) 05/17/24 19:30 SARS-CoV-2 (PCR) NEGATIVE (Negative) 05/17/24 19:47 Influenza Type A (PCR) Negative (Neg) 05/17/24 19:47 Influenza Type B (PCR) Negative (Neg) 05/17/24 19:47 RSV (RT-PCR) Negative (Neg) 05/17/24 19:47 Impressions Chest X-Ray 05/17/24 19:21 EXAM: XR chest 1V not portable CLINICAL HISTORY: CHEST PAIN HKS TECHNIQUE: An X-ray image of the chest is obtained in AP projection. COMPARISON: 08/02/2023 FINDINGS: Pulmonary Parenchyma: Prominent bilateral bronchovascular markings. Right lower pericardiac haziness no longer seen. No evidence of pleural effusion or pleural thickening on the right side. Left side cannot be accurately assessed, probable fat pad vs. pleural effusion/ thickening. Heart and Mediastinum: Cardiac size cannot be accurately assessed in AP projection, however cardiac shadow appears again enlarged. No mediastinal widening or masses. No hilar or mediastinal lymphadenopathy. Dual-lead cardiac pacemaker noted in position. Bony Thorax: Bony thorax appears intact without fractures or deformities. Soft Tissues: Soft tissues overlying the chest wall are unremarkable. Cardiac monitoring electrodes. IMPRESSION: 1. Again cardiomegaly, despite AP projection (no changes on interval). 2. Prominent bilateral bronchovascular markings, likely congestive (no changes on interval). 3. Interval regression of the right lower pericardiac haziness. 4. No other changes on interval. Correlate clinically. Critical access hospital ER was called at [phone] at 07:31 PM ECONOMIC RESEARCH ASSISTANT, 05/17/2024, and Erick Salcedo was informed regarding the presence of important medical findings in the reports. Electronically signed by Jason Santoyo 05-17-2024 8:34 PM Code Status & VTE Plan Code Status Full code VTE Prophylaxis Plan VTE Prophylaxis will be ordered: Yes PG Care Time/CCT Total # of Minutes Spent Total Time Spent with Patient: Total time spent is greater than 50% in coordination of care (as documented) at patient's floor/unit and/or counseling patient: Coding Level of Care Code 03212 INT INP/OBS CARE 3/75MIN Diagnoses Acute on chronic respiratory failure with hypoxia and hypercapnia J96.21; J96.22 Acute diastolic CHF (congestive heart failure), NYHA class 2 I50.31 Pulmonary edema J81.0 Chronicity: acute Bilateral edema of lower extremity R60.0 Acute deep vein thrombosis (DVT) of right peroneal vein I82.451 DVT location: lower extremity Affected thrombotic vein of extremity: peroneal Chronicity: acute Laterality: right Mixed obstructive and restrictive ventilatory defect R94.2 Type 2 diabetes mellitus E11.9 Cardiac pacemaker Z95.0 (3) Pulmonary edema Chronicity: acute Qualified Code(s): J81.0 - Acute pulmonary edema (5) DVT (deep venous thrombosis) DVT location: lower extremity Affected thrombotic vein of extremity: peroneal Chronicity: acute Laterality: right Qualified Code(s): I82.451 - Acute embolism and thrombosis of right peroneal vein
[2024-05-17] MEDS: methylPREDNISolone 125 MG/2 ML VIAL IV STA (23:24)
[2024-05-17] MEDS: SIMVASTATIN 40 MG TAB PO STA (23:24)
[2024-05-17] MEDS: carvediloL 25 MG TAB PO STA (23:24)
[2024-05-17] MEDS: methylPREDNISolone 10 mg/mL (For Ped Dose < 7mg) IV SCH (23:38)
[2024-05-18] MEDS ORDERED: ACETAMINOPHEN 325 MG TAB PO PRN (01:00)
[2024-05-18] MEDS ORDERED: NITROGLYCERIN SL 0.4 MG/TAB TAB SL PRN (01:00)
[2024-05-18] MEDS ORDERED: ONDANSETRON INJ 2 MG/ML 2 ML VIAL IV PRN (01:00)
[2024-05-18] MEDS: FUROSEMIDE 80 MG TAB PO SCH (01:38)
[2024-05-18] MEDS: DOXYCYCLINE HYCLATE 100 MG in DEXTROSE 5% MINI-B 100 ML IV SCH (05:14)
--- NOTE | 2024-05-18 07:52 | Hospitalist Progress Note ---
Date of Service May 18, 2024 Assessment & Plan (1) Acute on chronic respiratory failure with hypoxia and hypercapnia: (2) Acute diastolic CHF (congestive heart failure), NYHA class 2: (3) Pulmonary edema: (4) Bilateral edema of lower extremity: (5) DVT (deep venous thrombosis): (6) Mixed obstructive and restrictive ventilatory defect: (7) Type 2 diabetes mellitus: (8) Cardiac pacemaker: Plan 64-year-old man with history of HFpEF, COPD, untreated HELDER, diabetes and CKD admitted with acute on chronic respiratory failure with hypoxia and hypercapnia, suspect this is mainly heart failure exacerbation. I do not think he really got an effective diuresis with Lasix 80 mg x 1 time last night may need to increase the dose. Remains volume overloaded and dyspneic. Continues to be hypercarbic and is awake but sleepy will need to be carefully watched for worsening hypercarbia. Acute on chronic respiratory failure with hypoxia and hypercapnia- cannot tolerate CPAP/Bipap Contributing factors including but not limited to: Possible COPD exacerbation, CHF exacerbation, CAP, HELDER, SANJEEV on CKD Acute on chronic HFpEF. echocardiogram on 08/01/2023 with EF 50-55% presence of AV pacer-- CKD-3 with creatinine mildly elevated above recent baseline -Echo pending -minimal HS-troponin elevation c/w myocardial demand ischemia, no evidence of ACS -BMP with creatinine 1.87 which is just slightly higher than his baseline - lisinopril held -continue reduced dose of carvedilol to allow BP for diuresis -continue lasix 80 mg IV twice daily, may need dose increase assess urine output today Possible COPD exacerbation - not wheezing and I'm not convinced he has COPD exacerbation or CAP mixed obstructive and restrictive lung disease/HELDER with intolerance of CPAP or BiPAP hypercarbia -check procalcitonin -steroids - decrease to prednisone 20 mg daily x 5 days, consider stopping -continue bronchodilators -doxycycline - change to po x 5 days -O2 sat goal 88-92% DM type 2 per chart - most recent A1c 6.2 earlier this month, not on meds -monitor BG while on steroids Psoriasis - on tremfya ([place]-23 inhibitor) Gout - continue allopurinol Morbid obesity BMI 50 with HELDER intolerant of CPAP- Patient reports that he is working on potentially getting gastric bypass surgery due to inability to tolerate CPAP or BiPAP History of DVT- Continue Xarelto discussed plan of care with patient, bedside tie puller and Anticipated Discharge Date Admission Date: May 17, 2024 Subjective Continues to be short of breath at rest nurses report report that he has been sleepy and difficult to arouse from sleep 900 mL urine output recorded once he arrived to floor from ED last night legs remain edematous weights look inaccurate denies any recent medication changes, missing medications etc. Physical Exam 2 Physical Exam: PHYSICAL EXAMINATION Last 24h vital signs reviewed, see documentation in flowsheet General: comfortable appearing, no distress HEENT: Normocephalic, atraumatic, pupils round and equal, sclerae anicteric, no conjunctival injection, moist mucus membranes. large neck Lungs: hyperventilates. Clear to auscultation bilaterally but distant, diminished both bases with some crackles on the left face difficult exam, no wheezing. Heart: distant regular, cannot see neck veins Abdomen: Soft, nontender, nondistended. Bowel sounds present. Extremities: Warm, dry, well-perfused. 2-3+ lower extremity edema. Neuro: oriented x 4 but a little sleepy, no asterixis, face symmetric, moves 4 extremities well Psych: Normal affect and behavior Results & Data Results & Data Vital Signs (Past 12 Hours) Vital Signs Temp Pulse Pulse Pulse Resp BP BP 05/18/24 07:21 98.1 F 60 18 110/68 05/18/24 07:00 61 05/18/24 03:02 98.2 F 57 L 18 120/78 05/18/24 01:00 05/18/24 01:00 97.5 F L 66 24 133/87 05/17/24 23:49 66 22 117/66 05/17/24 23:35 60 05/17/24 23:27 60 20 139/92 05/17/24 20:58 69 18 149/96 H Pulse Ox O2 Del Method O2 Flow Rate 05/18/24 07:21 90 Nasal Cannula 4 05/18/24 07:00 05/18/24 03:02 912 H Nasal Cannula 3 05/18/24 01:00 Nasal Cannula 3 05/18/24 01:00 93 Nasal Cannula 3 05/17/24 23:49 95 Nasal Cannula 3 05/17/24 23:35 05/17/24 23:27 96 Nasal Cannula 3 05/17/24 20:58 99 Nasal Cannula 3 Laboratory Results 05/18/24 07:11 05/18/24 07:11 PG Care Time/CCT Total # of Minutes Spent Total Time Spent with Patient: Total time spent is greater than 50% in coordination of care (as documented) at patient's floor/unit and/or counseling patient: Coding Level of Care Code 88986 SUB INP/OBS CARE 3/50MIN Diagnoses Acute on chronic respiratory failure with hypoxia and hypercapnia J96.21; J96.22 Acute diastolic CHF (congestive heart failure), NYHA class 2 I50.31 Pulmonary edema J81.0 Chronicity: acute Bilateral edema of lower extremity R60.0 Acute deep vein thrombosis (DVT) of right peroneal vein I82.451 Affected thrombotic vein of extremity: peroneal Chronicity: acute DVT location: lower extremity Laterality: right Mixed obstructive and restrictive ventilatory defect R94.2 Type 2 diabetes mellitus E11.9 Cardiac pacemaker Z95.0 (3) Pulmonary edema Chronicity: acute Qualified Code(s): J81.0 - Acute pulmonary edema (5) DVT (deep venous thrombosis) Affected thrombotic vein of extremity: peroneal Chronicity: acute DVT location: lower extremity Laterality: right Qualified Code(s): I82.451 - Acute embolism and thrombosis of right peroneal vein
[2024-05-18 07:59] LABS: Hematocrit (blood only) 52.9 % (42.0-52.0); Hemoglobin 15.9 g/dl (14.0-18.0); Mean Corpuscular Hemoglobin 29.4 pg (25.0-34.0); Mean Corpuscular Hgb Conc 30.1 g/dL (32.0-36.0); Mean Platelet Volume 10.9 fL (9.4-12.4); Platelet Count 125 K/uL (130-400); RDW Coefficient of Variation 13.9 % (11.5-14.5); RDW Standard Deviation 50.6 fL (36.4-46.3)
[2024-05-18 08:16] LABS: Basophils # (auto) 0.01 K/uL (0.00-0.20); Basophils % (auto) 0.1 %; Immature Granulocytes # (auto) 0.04 K/uL (0.01-0.20); Immature Granulocytes % (auto) 0.6 %; Lymphocytes # (auto) 0.37 K/uL (1.20-3.40); Lymphocytes % (auto) 5.4 %; Monocytes # (auto) 0.07 K/uL (0.11-0.59); Neutrophils # (auto) 6.31 K/uL (1.40-6.50); Neutrophils % (auto) 92.9 %; Polychromasia 1+
--- NOTE | 2024-05-18 08:21 | Electrocardiogram Report ---
Test Reason : Blood Pressure : */* mmHG Vent. Rate : 63 BPM Atrial Rate : 63 BPM P-R Int : 136 ms QRS Dur : 180 ms QT Int : 502 ms P-R-T Axes : 40 217 11 degrees QTcB Int : 513 ms Atrial-sensed ventricular-paced rhythm Abnormal ECG When compared with ECG of 17-May-2024 19:26, Premature ventricular complexes are no longer Present Confirmed by Samm Harkins ([id number]) on 05/18/2024 8:20:58 AM Referred By: REFERRED SELF Confirmed By: Samm Harkins
--- NOTE | 2024-05-18 08:26 | Electrocardiogram Report ---
Test Reason : Blood Pressure : */* mmHG Vent. Rate : 64 BPM Atrial Rate : 64 BPM P-R Int : 150 ms QRS Dur : 146 ms QT Int : 448 ms P-R-T Axes : 33 221 21 degrees QTcB Int : 462 ms Atrial-sensed ventricular-paced rhythm with occasional Premature ventricular complexes Abnormal ECG When compared with ECG of 03-Sep-2023 10:17, Premature ventricular complexes are now Present Vent. rate has decreased by 2 bpm Confirmed by Samm Harkins ([id number]) on 05/18/2024 8:25:47 AM Referred By: REFERRED SELF Confirmed By: Samm Harkins
[2024-05-18] MEDS: RIVAROXABAN 20 MG TAB PO SCH (08:43)
[2024-05-18] MEDS: allopurinoL 100 MG TAB PO SCH (08:43)
[2024-05-18] MEDS: carvediloL 25 MG TAB PO SCH ×2 (08:44→08:45)
[2024-05-18 08:45] LABS: Albumin Globulin Ratio 1.3 (0.9-2); BUN Creatinine Ratio 18.2 (10-20); Bilirubin,Total 0.6 mg/dl (0.2-1.0); Calcium 8.9 mg/dl (8.6-10.3); Creatinine Clr Calc Pharmacy 66.1 ml/min; Globulin 3.2 gm/dl (2.5-4.0); Magnesium 2.3 mg/dl (1.7-2.4); Potassium 5.8 mmol/L (3.5-5.1); Total Protein 7.2 gm/dl (6.0-8.3); Troponin I High Sensitivity 21.9 pg/ml (0-20)
[2024-05-18] MEDS: FUROSEMIDE 40 MG/4 ML VIAL IV SCH (08:45)
[2024-05-18] MEDS: methylPREDNISolone 40 MG in SYRINGE 0 ML IV SCH (08:46)
[2024-05-18] MEDS ORDERED: methylPREDNISolone 10 mg/mL (For Ped Dose < 7mg) IV SCH (09:00)
--- NOTE | 2024-05-18 09:06 | XCELERA ---
[id number]
[2024-05-18] MEDS: predniSONE 20 MG TAB PO SCH (09:46)
[2024-05-18 14:52] LABS: BUN Creatinine Ratio 18.3 (10-20); Calcium 8.6 mg/dl (8.6-10.3); Creatinine Clr Calc Pharmacy 53.7 ml/min; Potassium 6.1 mmol/L (3.5-5.1)
[2024-05-18] MEDS: SODIUM CHLORIDE 0.9% 500 ML IV ONE (15:18)
--- NOTE | 2024-05-18 15:51 | Cardiology Consultation ---
Date of Consultation May 18, 2024 Assessment & Plan (1) Acute on chronic respiratory failure with hypoxia and hypercapnia: (2) (HFpEF) heart failure with preserved ejection fraction: (3) Nonischemic cardiomyopathy: (4) Cardiac pacemaker: (5) Chronic kidney disease: (6) Morbid obesity: Plan 64-year-old man with complex cardiac/medical history who presented with progressive dyspnea with a significant hypercapnia component. Heart failure component seems minor, he does not appear grossly volume overloaded or volume depleted, etiology of rising creatinine uncertain as it does not appear he had a brisk diuresis. He was somewhat acidemic and hypercapnic on admission, suggesting primary respiratory failure rather than heart failure. Pacemaker function appears appropriate on telemetry and ECGs, as noted unable to perform further interrogation but there is no reason to believe there has been any malfunction, particularly any that would be impacting his current clinical status. Trivial troponin elevation with flat curve in patient with renal insufficiency is nonspecific finding. No chest pain or other indication of ongoing myocardial ischemia. Current echocardiogram shows grossly normal LV systolic function on technically limited study. Would continue his vasoactive medications of carvedilol and furosemide (dose may need to be adjusted based on renal function and volume status). He is chronically anticoagulated with with rivaroxaban (apparently for an pr ovoked DVT). At some point with change simvastatin to atorvastatin to reduce risk of medication interaction given his complex regimen. No major cardiac recommendations at this time, but will continue to follow. History of Present Illness Reason for Consultation: elevated troponin, assess pacer activity Requesting Physician: Yumiko Barnes MD Attending Physician: Yumiko Barnes MD History of Present Illness 64-year-old man with history of dual-chamber pacemaker for complete heart block 2011 (followed by Dr. Ornelas), nonischemic cardiomyopathy with prior HFpEF, morbid obesity with sleep apnea, diabetes mellitus, chronic kidney disease, and multiple other medical problems, who was admitted 05/16/2024 with progressive dyspnea on exertion culminating in dyspnea at rest. Chest x-ray with increased vascular markings but no overt pulmonary edema, ECG showed atrial sensing with biventricular pacing, troponin was minimally elevated with flat curve (32, 33, 21). He denied chest pain at any time. He did receive 80 mg IV furosemide, unclear to what degree he diuresed. Creatinine was 1.8 on admission, 1.87 this morning, 2.30 this afternoon. Echocardiogram today showed EF 50 to 55% with normal wall motion, no obvious valvular disease, very technically limited study. No change from prior. At the time of my evaluation earlier today, he noted that his breathing was much better. He was able to lie flat and was sleeping when I first encountered him, easily awakened. Denied any chest pain, dyspnea, or any other complaints at rest. Telemetry showed atrial sensing ventricular pacing at 60 bpm. Pacemaker interrogation was attempted, but he has a [employer] device (no rep available locally). Allergies Allergy/AdvReac Type Severity Reaction Status Date / Time No Known Allergies Allergy Verified 04/15/24 10:57 Home Medications Medication Instructions Recorded Confirmed Type allopurinol 100 mg tablet 100 mg PO BID #180 tabs 05/21/23 05/17/24 Rx aspirin 81 mg tablet,delayed 81 mg PO HS #90 tabs 05/21/23 05/17/24 Rx release carvedilol 25 mg tablet 50 mg (2 x 25 mg) PO BID #360 tabs 05/21/23 05/17/24 Rx furosemide 80 mg tablet 80 mg PO BID #180 tabs 05/21/23 05/17/24 Rx simvastatin 40 mg tablet 40 mg PO QPM #90 tabs 05/21/23 05/17/24 Rx lisinopril 40 mg tablet 40 mg PO QAM #90 tabs 10/28/23 05/17/24 Rx guselkumab 100 mg/mL subcutaneous 100 mg subcut Q8WK #1 mL 03/08/24 05/17/24 Rx auto-injector (Tremfya) rivaroxaban 20 mg tablet (Xarelto) 20 mg PO QAM 05/17/24 05/17/24 History Patient History Medical History (Updated 05/18/24 @ 15:43 by Samm Harkins MD) Encounter for servicing of pacemaker at end of battery life Acute respiratory failure with hypoxia and hypercapnia Acute on chronic heart failure with preserved ejection fraction Acute kidney injury History of COVID-19 05/2022 - asymptomatic Kidney stones hx - no surgery currently has a stone embedded in the wall of the left kidney for the last 20 years. Osteoarthritis Anemia recent bloodwork -- recent for upcoming colonoscopy Surgical History S/P epidural steroid injection S/P cardiac pacemaker procedure most recent placement September 2014 at [facility] [place]. last checked annually in May 2022. follows with Dr Arzola. Family History Mother Diabetes Father Diabetes Stroke Grandmother Diabetes Other No family history of adverse response to anesthesia Denies family history of Ovarian cancer Prostate cancer Kidney disease Myocardial infarction Breast cancer Colorectal cancer Hypertension Social History Smoking Status: Former smoker Tobacco Type: Smokeless Tobacco (Dip or Chew) Age Started Using Tobacco: 27; Age Quit Using Tobacco: 48; packs per day: 1.5; Second Hand Exposure: Yes; Do You Dip or Chew Tobacco: Yes; Tobacco Cessation Education Requested by Patient: No Hx Alcohol Use: No Hx Substance Use: No Preferred Language: Pakistani Communication Ability: Effective Health Education Assistant Required: No Beliefs That Will Affect Care: None marital status: Current Living Situation: Alone Current Living Situation Comment: Home current occupational status: disabled How many Children do You have: 2 Other Information That Helps Us Care for You: No Feels Safe at Home: Yes Safety Concerns: Feels Safe At This Time Childhood Exposure to Second-Hand Smoke: Yes Diet: regular caffeine: Yes Dental Care, Regularly: No Physical Activity Frequency: 3-4 Times per Week Seatbelt Use: sometimes Sunscreen Use: No Assistive Devices: None Physical Exam Physical Exam: Somnolent but readily arousable, no distress. Afebrile. BP normotensive. Pulse 60 bpm and regular (paced). Skin: no ecchymoses or generalized lesions. HEENT: unremarkable. Neck: JVP difficult to assess but appears fairly euvolemic, no carotid bruits. Lungs: Moderately decreased breath sounds bilaterally but clear. Cardiac: regular rhythm, normal S1-2, no murmur. Abdomen: benign. Extremities: 2+ pretibial edema, pulses intact. Neurologic: Somnolent but arousable and appropriate, nonfocal. Results & Data Vital Signs (Past 12 Hours) Vital Signs Temp Pulse Pulse Resp BP Pulse Ox O2 Del Method 05/18/24 15:13 98.1 F 65 18 120/62 92 Nasal Cannula 05/18/24 14:10 68 05/18/24 10:53 97.5 F L 62 18 118/70 92 Nasal Cannula 05/18/24 09:00 Nasal Cannula 05/18/24 07:21 98.1 F 60 18 110/68 90 Nasal Cannula 05/18/24 07:00 61 O2 Flow Rate 05/18/24 15:13 4 05/18/24 14:10 05/18/24 10:53 4 05/18/24 09:00 3 05/18/24 07:21 4 05/18/24 07:00 Laboratory Results Potassium 4.4 yesterday, 5.8 this morning and 6.1 this afternoon. Creatinine is noted in the HPI. BNP was 336 (prior range 90895). PG Care Time/CCT Total # of Minutes Spent Total Time Spent with Patient: Total time spent is greater than 50% in coordination of care (as documented) at patient's floor/unit and/or counseling patient: Coding Level of Care Code 52314 IN/OBS CONSULT LVL 5,80M Diagnoses Acute on chronic respiratory failure with hypoxia and hypercapnia J96.21; J96.22 (HFpEF) heart failure with preserved ejection fraction I50.30 Nonischemic cardiomyopathy I42.8 Cardiac pacemaker Z95.0 Stage 3a chronic kidney disease N18.31 Chronic kidney disease stage: stage 3 (moderate) Chronic kidney disease stage 3 subtype: stage 3a (GFR 45-59) Morbid obesity E66.01 (5) Chronic kidney disease Chronic kidney disease stage: stage 3 (moderate) Chronic kidney disease stage 3 subtype: stage 3a (GFR 45-59) Qualified Code(s): N18.31 - Chronic kidney d isease, stage 3a
[2024-05-18] MEDS: SODIUM ZIRCONIUM CYCLOSILICATE 10 GM PACKET PO SCH (15:57)
[2024-05-18] MEDS: DOXYCYCLINE HYCLATE 100 MG CAP PO SCH (19:39)
[2024-05-18] MEDS: ASPIRIN 81 MG ECTAB PO SCH (19:40)
[2024-05-18] MEDS: SIMVASTATIN 40 MG TAB PO SCH (19:41)
[2024-05-19 07:42] LABS: Basophils # (auto) 0.01 K/uL (0.00-0.20); Basophils % (auto) 0.1 %; Eosinophils # (auto) 0.01 K/uL (0.00-0.50); Eosinophils % (auto) 0.1 %; Immature Granulocytes # (auto) 0.11 K/uL (0.01-0.20); Immature Granulocytes % (auto) 1.1 %; Lymphocytes # (auto) 0.57 K/uL (1.20-3.40); Lymphocytes % (auto) 5.6 %; Mean Corpuscular Hemoglobin 28.9 pg (25.0-34.0); Mean Corpuscular Hgb Conc 29.2 g/dL (32.0-36.0); Mean Platelet Volume 10.8 fL (9.4-12.4); Monocytes # (auto) 1.11 K/uL (0.11-0.59); Monocytes % (auto) 10.9 %; Neutrophils # (auto) 8.35 K/uL (1.40-6.50); Neutrophils % (auto) 82.2 %; Platelet Count 120 K/uL (130-400); RDW Coefficient of Variation 13.5 % (11.5-14.5); RDW Standard Deviation 49.2 fL (36.4-46.3); Red Blood Count 4.85 M/uL (4.70-6.10); White Blood Count 10.16 K/ul (4.8-10.8)
[2024-05-19 07:49] LABS: Albumin Globulin Ratio 1.3 (0.9-2); Albumin Level 3.7 gm/dl (3.4-5.0); BUN Creatinine Ratio 19.7 (10-20); Bilirubin,Total 0.4 mg/dl (0.2-1.0); Calcium 8.2 mg/dl (8.6-10.3); Creatinine Clr Calc Pharmacy 44.7 ml/min; Globulin 2.8 gm/dl (2.5-4.0); Magnesium 2.3 mg/dl (1.7-2.4); Potassium 5.6 mmol/L (3.5-5.1); Total Protein 6.5 gm/dl (6.0-8.3)
[2024-05-19] MEDS: predniSONE 20 MG TAB PO SCH (08:34)
--- NOTE | 2024-05-19 08:53 | Electrocardiogram Report ---
Test Reason : Blood Pressure : */* mmHG Vent. Rate : 63 BPM Atrial Rate : 63 BPM P-R Int : 140 ms QRS Dur : 178 ms QT Int : 484 ms P-R-T Axes : 52 219 10 degrees QTcB Int : 495 ms Atrial-sensed ventricular-paced rhythm Abnormal ECG When compared with ECG of 18-May-2024 06:00, No significant change was found Confirmed by Samm Harkins ([id number]) on 05/19/2024 8:53:04 AM Referred By: REFERRED SELF Confirmed By: Samm Harkins
--- NOTE | 2024-05-19 11:40 | Cardiology Progress Note ---
Date of Service May 19, 2024 Assessment & Plan (1) Acute on chronic respiratory failure with hypoxia and hypercapnia: (2) (HFpEF) heart failure with preserved ejection fraction: (3) Nonischemic cardiomyopathy: (4) Cardiac pacemaker: (5) Chronic kidney disease: (6) Morbid obesity: Plan Clinically improving, no significant symptoms currently. Much more alert, hypercapnia seems to have resolved. He does not appear volume overloaded, admission chest x-ray is unimpressive and he is lying flat. Current azotemia may represent mild overdiuresis, agree with holding furosemide. As noted, trivial troponin elevation with flat curve patient with renal insufficiency is nonspecific findings, no indication of ongoing myocardial ischemia. Pacemaker function appears appropriate. No ongoing major cardiac issues, will sign off. Please contact if change in clinical status or additional questions Admission and Anticipated Discharge Date Admission Date: May 17, 2024 Subjective Much more awake and alert today. No complaints. Denies chest pain, dyspnea, palpitations, or lightheadedness. Telemetry showed paced rhythm at 60 bpm. Physical Exam Physical Exam: Awake and interactive, able to lie flat, no distress. BP normotensive. Pulse 60 bpm and regular (paced). Skin: no ecchymoses or generalized lesions. HEENT: unremarkable. Neck: JVP difficult to assess but does not appear elevated, no carotid bruits. Lungs: Moderately decreased breath sounds bilaterally but clear. Cardiac: regular rhythm, normal S1-2, no murmur. Abdomen: benign. Extremities: 2+ pretibial edema, pulses intact. Neurologic: Normal affect and conversation, nonfocal. Results & Data Vital Signs (Past 12 Hours) Vital Signs Temp Pulse Pulse Resp BP Pulse Ox O2 Del Method 05/19/24 11:22 97.9 F 62 18 114/66 93 Nasal Cannula 05/19/24 09:00 Nasal Cannula 05/19/24 08:05 60 05/19/24 07:24 97.9 F 67 18 110/65 91 Nasal Cannula 05/19/24 03:02 98.2 F 72 19 111/61 95 Nasal Cannula O2 Flow Rate 05/19/24 11:22 4 05/19/24 09:00 3 05/19/24 08:05 05/19/24 07:24 4 05/19/24 03:02 Laboratory Results Sodium 139, potassium 5.6, BUN 55, creatinine 2.79. PG Care Time/CCT Total # of Minutes Spent Total Time Spent with Patient: Total time spent is greater than 50% in coordination of care (as documented) at patient's floor/unit and/or counseling patient: Coding Level of Care Code 41071 SUB INP/OBS CARE 2/35MIN Diagnoses Acute on chronic respiratory failure with hypoxia and hypercapnia J96.21; J96.22 (HFpEF) heart failure with preserved ejection fraction I50.30 Nonischemic cardiomyopathy I42.8 Cardiac pacemaker Z95.0 Stage 3a chronic kidney disease N18.31 Chronic kidney disease stage: stage 3 (moderate) Chronic kidney disease stage 3 subtype: stage 3a (GFR 45-59) Morbid obesity E66.01 (5) Chronic kidney disease Chronic kidney disease stage: stage 3 (moderate) Chronic kidney disease stage 3 subtype: stage 3a (GFR 45-59) Qualified Code(s): N18.31 - Chronic kidney disease, stage 3a
--- NOTE | 2024-05-19 15:06 | Hospitalist Progress Note ---
Date of Service May 19, 2024 Assessment & Plan (1) Acute on chronic respiratory failure with hypoxia and hypercapnia: (2) Acute diastolic CHF (congestive heart failure), NYHA class 2: (3) Pulmonary edema: (4) Mixed obstructive and restrictive ventilatory defect: (5) Type 2 diabetes mellitus: (6) COPD with emphysema: Plan 64-year-old man with history of HFpEF, COPD, untreated HELDER, diabetes and CKD admitted with acute on chronic respiratory failure with hypoxia and hypercapnia. Initially thought to be mainly heart failure exacerbation and given IV diuretics, however, was not volume overloaded on TTE the following day and developed SANJEEV, likely prerenal from overdiuresis. Also treated for COPD exacerbation with steroids, bronchodilators. Dyspnea improved at this time and no longer sleepy/lethargic. Acute on chronic respiratory failure with hypoxia and hypercapnia- cannot tolerate CPAP/Bipap Contributing factors including but not limited to: Possible COPD exacerbation, CHF exacerbation, CAP, HELDER, SANJEEV on CKD Chronic HFpEF. TTE did not show volume overload. Very difficult exam due to body habitus. Continues to have leg edema but intravascularly euvolemic to dry presence of AV pacer-- SANJEEV on CKD-3 - diuretics held, 500 mL bolus of IVF given yesterday. Hyperkalemia improved after lasix and lokelma. RN reports low UOP today, recheck BMP now -minimal HS-troponin elevation c/w poor renal clearance or myocardial demand ischemia, no evidence of ACS -lisinopril held, afternoon BMP pending, monitor UOP -continue reduced dose of carvedilol - BP normal Possible COPD exacerbation mixed obstructive and restrictive lung disease/HELDER with intolerance of CPAP or BiPAP hypercarbia -procalcitonin = low, unlikely CAP -continue prednisone 40 mg daily -continue bronchodilators -doxycycline - po x 5 days -O2 sat goal 88-92% -suspect chronic hypoxia - had home O2 at previous discharge but self discontinued it. also states he will not wear it DM type 2 per chart - most recent A1c 6.2 earlier this month, not on meds -monitor BG while on steroids Psoriasis - on tremfya ([place]-23 inhibitor) Gout - continue allopurinol Morbid obesity BMI 50 with HELDER intolerant of CPAP- Patient reports that he is working on potentially getting gastric bypass surgery due to inability to tolerate CPAP or BiPAP History of DVT- Continue Xarelto Admission and Anticipated Discharge Date Admission Date: May 17, 2024 Subjective shortness of breath has improved since admission has not been out of bed yet much more alert today reports urinating normal amount this AM but RN reports no urine throughout the day Physical Exam 2 Physical Exam: PHYSICAL EXAMINATION Last 24h vital signs reviewed, see documentation in flowsheet General: comfortable appearing, no distress, lying in bed HEENT: Normocephalic, atraumatic, pupils round and equal, sclerae anicteric, no conjunctival injection, moist mucus membranes. large neck Lungs: distant breath sounds. clear no wheezing or crackles, nonlabored Heart: distant regular, cannot see neck veins Abdomen: Soft, nontender, nondistended. Bowel sounds present. Extremities: Warm, dry, well-perfused. 2-3+ lower extremity edema unchanged. Neuro: oriented x 4 now alert, no asterixis, face symmetric, moves 4 extremities well Psych: Normal affect and behavior Results & Data Results & Data Vital Signs (Past 12 Hours) Vital Signs Temp Pulse Pulse Resp BP Pulse Ox O2 Del Method 05/19/24 11:22 97.9 F 62 18 114/66 93 Nasal Cannula 05/19/24 09:00 Nasal Cannula 05/19/24 08:05 60 05/19/24 07:24 97.9 F 67 18 110/65 91 Nasal Cannula 05/19/24 03:02 98.2 F 72 19 111/61 95 Nasal Cannula O2 Flow Rate 05/19/24 11:22 4 05/19/24 09:00 3 05/19/24 08:05 05/19/24 07:24 4 05/19/24 03:02 Laboratory Results 05/19/24 06:59 05/19/24 06:59 PG Care Time/CCT Total # of Minutes Spent Total Time Spent with Patient: Total time spent is greater than 50% in coordination of care (as documented) at patient's floor/unit and/or counseling patient: Coding Level of Care Code 04354 SUB INP/OBS CARE 3/50MIN Diagnoses Acute on chronic respiratory failure with hypoxia and hypercapnia J96.21; J96.22 Acute diastolic CHF (congestive heart failure), NYHA class 2 I50.31 Pulmonary edema J81.0 Chronicity: acute Mixed obstructive and restrictive ventilatory defect R94.2 Type 2 diabetes mellitus E11.9 Pulmonary emphysema, unspecified emphysema type J43.9 Emphysema type: unspecified (3) Pulmonary edema Chronicity: acute Qualified Code(s): J81.0 - Acute pulmonary edema (6) COPD with emphysema Emphysema type: unspecified Qualified Code(s): J43.9 - Emphysema, unspecified
[2024-05-19 15:43] LABS: Anion Gap 2 (3-11); Blood Urea Nitrogen 61 mg/dl (6-23); Calcium 8.3 mg/dl (8.6-10.3); Carbon Dioxide 39 mmol/L (21-32); Chloride 95 mmol/L (98-107); Creatinine Clr Calc Pharmacy 42.8 ml/min; Glucose 143 mg/dl (70-99(Fasting)); Sodium 136 mmol/L (136-145)
[2024-05-19] MEDS: SODIUM CHLORIDE 0.9% 1,000 ML IV SCH (16:04)
[2024-05-19] MEDS: SODIUM ZIRCONIUM CYCLOSILICATE 10 GM PACKET PO SCH (17:10)
--- NOTE | 2024-05-19 17:32 | Communication Note ---
Date of Service: May 19, 2024 Worsening SANJEEV, hyperkalemia 6.4 UOP today unclear - patient reports UOP but RN did not witness any through the day PVR was low Ordered carmona but patient refused Reordered lokelma, not high enough to warrant insulin/D50, low K diet, IV saline at 80/h, diuretics and lisinopril were held EKG reviewed - asense vpaced without ectopy or peaked Ts Repeat BMP ordered for 10pm and with AM labs
[2024-05-19 23:23] LABS: BUN Creatinine Ratio 23.3 (10-20); Calcium 8.2 mg/dl (8.6-10.3); Creatinine Clr Calc Pharmacy 45.3 ml/min; Potassium 5.9 mmol/L (3.5-5.1)
[2024-05-20 07:35] LABS: BUN Creatinine Ratio 28.8 (10-20); Calcium 8.1 mg/dl (8.6-10.3); Creatinine Clr Calc Pharmacy 51.4 ml/min; Potassium 5.1 mmol/L (3.5-5.1)
--- NOTE | 2024-05-20 08:49 | Electrocardiogram Report ---
Test Reason : Blood Pressure : */* mmHG Vent. Rate : 70 BPM Atrial Rate : 70 BPM P-R Int : 154 ms QRS Dur : 152 ms QT Int : 428 ms P-R-T Axes : 70 212 23 degrees QTcB Int : 462 ms Suspect unspecified pacemaker failure Atrial-sensed ventricular-paced rhythm Abnormal ECG When compared with ECG of 19-May-2024 04:41, Vent. rate has increased by 7 bpm Confirmed by Samm Harkins ([id number]) on 05/20/2024 8:49:30 AM Referred By: REFERRED SELF Confirmed By: Samm Harkins
--- NOTE | 2024-05-20 12:22 | Hospitalist Progress Note ---
Date of Service May 20, 2024 Assessment & Plan (1) Acute on chronic respiratory failure with hypoxia and hypercapnia: (2) Acute diastolic CHF (congestive heart failure), NYHA class 2: (3) Pulmonary edema: (4) Mixed obstructive and restrictive ventilatory defect: (5) Type 2 diabetes mellitus: (6) COPD with emphysema: Plan 64-year-old man with history of HFpEF, COPD, untreated HELDER, diabetes and CKD admitted with acute on chronic respiratory failure with hypoxia and hypercapnia. Initially thought to be mainly heart failure exacerbation and given IV diuretics, however, was not volume overloaded on TTE the following day and developed SANJEEV, likely prerenal from overdiuresis. Also treated for COPD exacerbation with steroids, bronchodilators. Dyspnea improved. Acute on chronic respiratory failure with hypoxia and hypercapnia- cannot tolerate CPAP/Bipap. Has untreated HELDER/OHS, COPD exacerbation COPD exacerbation mixed obstructive and restrictive lung disease/HELDER with intolerance of CPAP or BiPAP hypercarbia -procalcitonin = low, unlikely CAP -continue prednisone decrease to 20 mg daily -continue bronchodilators -doxycycline - po x 5 days -O2 sat goal 88-92% -suspect chronic hypoxia - had home O2 at previous discharge but self discontinued it. also states he will not wear it SANJEEV on CKD-3 with hyperkalemia- potassium has decreased to 5.1 and Cr improved down to 2.43. Baseline around 1.7-1.8. CKD though to be related to past heavy NSAID use. -PVR has been low. Consider renal US but images will be poor because of body habitus -lisinopril held, carvedilol held -stop lokelma -AM BMP, UA and urine Cr, Na. -says he has seen Dr. Arnold in the past - encouraged him to follow up Chronic HFpEF. TTE did not show volume overload. Very difficult exam due to body habitus. Continues to have leg edema but intravascularly euvolemic to dry presence of AV pacer minimal HS-troponin elevation c/w poor renal clearance or myocardial demand ischemia, no evidence of ACS DM type 2 per chart - most recent A1c 6.2 earlier this month, not on meds -monitor BG while on steroids - 195 this am - decreasing prednisone Psoriasis - on tremfya ([place]-23 inhibitor) Gout - continue allopurinol Morbid obesity BMI 50 with HELDER intolerant of CPAP- Patient reports that he is working on potentially getting gastric bypass surgery due to inability to tolerate CPAP or BiPAP. We discussed GLP-1 medications he's afraid of side effects. History of DVT- Continue Xarelto Admission and Anticipated Discharge Date Admission Date: May 17, 2024 Subjective Sleeping this AM, was slow to wake up be eventually alert and oriented Says urinating a normal amount Shortness of breath improved - back to baseline? Physical Exam 2 Physical Exam: PHYSICAL EXAMINATION Last 24h vital signs reviewed, see documentation in flowsheet General: was sleeping in bed HEENT: mmm Lungs: distant breath sounds. clear no wheezing or crackles, nonlabored - unchanged Heart: distant regular, cannot see neck veins Abdomen: Soft, nontender, nondistended. Bowel sounds present. Extremities: Warm, dry, well-perfused. 2-3+ lower extremity edema unchanged. Neuro: slow to wake but became alert, no asterixis, face symmetric, moves 4 extremities well Psych: Normal affect and behavior Results & Data Results & Data Vital Signs (Past 12 Hours) Vital Signs Temp Pulse Resp BP Pulse Ox O2 Del Method O2 Flow Rate 05/20/24 10:55 97.5 F L 72 19 116/74 95 Nasal Cannula 2 05/20/24 08:00 Nasal Cannula 3 05/20/24 07:38 98.1 F 70 20 111/68 93 Nasal Cannula 3 Laboratory Results 05/19/24 06:59 05/20/24 06:34 PG Care Time/CCT Total # of Minutes Spent Total Time Spent with Patient: Total time spent is greater than 50% in coordination of care (as documented) at patient's floor/unit and/or counseling patient: Coding Level of Care Code 06460 SUB INP/OBS CARE 3/50MIN Diagnoses Acute on chronic respiratory failure with hypoxia and hypercapnia J96.21; J96.22 Acute diastolic CHF (congestive heart failure), NYHA class 2 I50.31 Pulmonary edema J81.0 Chronicity: acute Mixed obstructive and restrictive ventilatory defect R94.2 Type 2 diabetes mellitus E11.9 Pulmonary emphysema, unspecified emphysema type J43.9 Emphysema type: unspecified (3) Pulmonary edema Chronicity: acute Qualified Code(s): J81.0 - Acute pulmonary edema (6) COPD with emphysema Emphysema type: unspecified Qualified Code(s): J43.9 - Emphysema, unspecified
[2024-05-21 04:52] LABS: Appearance Urine Clear (Clear); Bacteria Urine Automated None Seen (None Seen); Bilirubin Urine Negative (Negative); Blood Urine Negative (Negative); Cast Urine Automated 0-2 /lpf (0-2); Color Urine Yellow; Epithelial Cell Urine Auto 0-2 /hpf (0-2); Glucose Urine UA Negative (Negative); Ketones Urine Negative (Negative); Leukocyte Esterase Urine Negative (Negative); Nitrite Urine Negative (Negative); Protein Urine Trace (Negative); RBC Urine Automated 0-2 /hpf (0-2); Specific Gravity Urine 1.013 (1.000-1.030); Urobilinogen Urine Negative (Negative); WBC Urine Automated 0-5 /hpf (0-5); pH Urine 5.5 (4.5-7.5)
[2024-05-21 07:07] LABS: BUN Creatinine Ratio 35.4 (10-20); Calcium 8.6 mg/dl (8.6-10.3); Creatinine Clr Calc Pharmacy 64.3 ml/min; Potassium 5.4 mmol/L (3.5-5.1)
[2024-05-21] MEDS: predniSONE 20 MG TAB PO SCH (09:45)
[2024-05-21 11:15] VITALS: BP 145/93; RESP 20; TEMP 98.1; O2SAT 98
[2024-05-21 13:03] VITALS: PULSE 66
--- NOTE | 2024-05-21 13:57 | Discharge Summary ---
Discharge Summary Date of Service May 21, 2024 Principal Dx & Hospital Course #1 = Principal Diagnosis (1) Acute on chronic respiratory failure with hypoxia and hypercapnia: (2) Acute diastolic CHF (congestive heart failure), NYHA class 2: (3) Pulmonary edema: (4) Mixed obstructive and restrictive ventilatory defect: (5) Type 2 diabetes mellitus: (6) COPD with emphysema: Plan 64-year-old man with history of HFpEF, COPD, untreated HELDER, diabetes and CKD admitted with acute on chronic respiratory failure with hypoxia and hypercapnia. Similar to last admission. Initially thought to be mainly heart failure exacerbation and given IV diuretics for a few doses, however, was not volume overloaded on TTE the following day and developed SANJEEV, prerenal from overdiuresis. Also treated for COPD exacerbation with steroids, bronchodilators. Dyspnea improved/resolved to baseline and SANJEEV resolving. Acute on chronic respiratory failure with hypoxia and hypercapnia- related to untreated HELDER/OHS, COPD exacerbation At last admission he was qualified for AVAPS but reports he cannot tolerate the machine so he is not using it COPD exacerbation- mixed obstructive and restrictive lung disease/HELDER with intolerance of CPAP or BiPAP hypercarbia -procalcitonin = low, unlikely CAP. Resp biofire negative. -treated with prednisone, oral doxycycline, bronchodilators and symptoms of increased dyspnea resolved He has chronic hypoxia - was 85% on room air. Previously had home O2 but he sent it back. Obtained 2-step test and reordered home oxygen. I counseled him on benefits of supplemental oxygen and why to wear it. SANJEEV on CKD-3 with hyperkalemia- developed after two doses IV lasix at time of admission. Based on TTE following AM was not volume overloaded. Prerenal SANJEEV Baseline Cr around 1.7-1.8. CKD though to be related to past heavy NSAID use. -Cr 1.8, 1.9-->2.91-->1.95 -also had hyperkalemia, lisinopril stopped, got several doses lokelma -PVR was low, refused carmona. Considered renal US but images will be poor because of body habitus -UA bland and FeNa 0.3% consistent with prerenal -improved with small fluid bolus, holding diuretics. UOP doubled in last 24h -continue to hold lisinopril - consider resuming on follow up, monitor potassium -says he has seen Dr. Arnold in the past - encouraged him to follow up Chronic HFpEF. TTE did not show volume overload. Very difficult exam due to body habitus. Continues to have leg edema but intravascularly euvolemic to dry presence of AV pacer minimal HS-troponin elevation c/w poor renal clearance or myocardial demand ischemia, no evidence of ACS -continue home furosemide, carvedilol dose. lisinopril held as above -follow up in CHF clinic DM type 2 per chart - most recent A1c 6.2 earlier this month, not on meds Psoriasis - on tremfya (IL-23 inhibitor) Gout - continue allopurinol Morbid obesity BMI 50 with HELDER intolerant of CPAP- Patient reports that he is working on potentially getting gastric bypass surgery due to inability to tolerate CPAP or BiPAP. We discussed GLP-1 medications he's afraid of side effects. History of DVT- Continue Xarelto Notes For Next Care Provider Please check BMP for potassium/Cr Medication Changes From Visit lisinopril HELD doxycycline and prednisone 20 mg - three more days Admission HPI Per Admitting Provider The patient is a 64-year-old male with a past medical history including obstructive sleep apnea with inability to wear CPAP or BiPAP, history of DVT, mixed obstructive and restrictive ventilatory defect, morbid obesity with BMI 50.5, HFpEF, diabetes mellitus type 2, prediabetes, presence of cardiac pacemaker, nonischemic cardiomyopathy, complete atrioventricular block, hypertension, and CKD. The patient presents to the emergency department with progressively worsening shortness of breath, dyspnea on exertion, cough, wheezing, orthopnea. He notes chronic lower extremity edema, which he feels does not improved by his Lasix 80 mg p.o. twice daily Discharge Exam PHYSICAL EXAMINATION Last 24h vital signs reviewed, see documentation in flowsheet General: sitting in chair HEENT: mmm Lungs: CTAB, distant, nonlabored Heart: distant regular, cannot see neck veins Abdomen: Soft, nontender, nondistended. Bowel sounds present. Extremities: Warm, dry, well-perfused. 3+ lower extremity edema unchanged. Neuro: awake and alert, no asterixis, face symmetric, moves 4 extremities well Psych: Normal affect and behavior Discharge Plan Discharge Items Patient Disposition: Home - Self-Care Reason For Visit: ACUTE ON CHRON RESP FAIL W/ HYPOXIA/HYPERCAPNEA, Discharge Diagnosis: acute exacerbation of COPD, acute on chronic respiratory failure with hypoxia and hypercapnea, SANJEEV on CKD-3 Activity: Resume your previous activity Non-emergency contact: Primary Care Provider, Quality Control Assessor and Cytopathologist Call non-emergency contact if: you have any medication questions and your symptoms worsen Follow-up/Referrals: Brandon Balderas MD [Physician] - Chuck Arnold DO [Physician] - Alena Ulloa MD [Primary Care Provider] - Luís Osullivan MD, [facility] [Physician] - Nelly Porter PA-C [Physician Hand Hardener] - Diet: Heart Healthy and Low Sodium (2gm) Addtl Attending Provider Instructions: You were treated for acute exacerbation of COPD -finish the course of prednisone and doxycycline, continue your inhalers Based on Echo, your heart failure was in pretty good control -follow up in CHF clinic with Mahnaz Porter You don't breathe deeply enough especially while sleeping, which causes buildup of carbon dioxide in the bloodstream - this can cause sleepiness confusion and tremor, or even coma and . Unfortunately the only effective treatment for this is using Bipap at night, or significant weight loss -continue working on evaluation for bariatric surgery -I encourage you to think about trying weight loss medications and trying again with your Bipap You also have low oxygen level - this is easily treated with supplemental oxygen. Treating low oxygen <89% will reduce the risk of many complications and , even it it doesnt seem to help your shortness of breath. You've been having a high blood potassium level so STOP lisinopril, which can contribute to this problem. Your doctors will tell you whether you can restart it in the future. Your kidneys are pretty fragile. Schedule follow up with Dr. Arnold It was a pleasure taking care of you in the hospital, Yumiko Barnes MD Pending Studies at Discharge: No Stand-Alone Forms: My [facility] [employer], Smoking Cessation Medications and DC Order Prescriptions: New doxycycline hyclate 100 mg Capsule 100 mg PO BID Qty: 4 0RF prednisone 20 mg Tablet 20 mg PO DAILY Qty: 3 0RF Continued Tremfya 100 mg/mL auto-injector 100 mg subcut Q8WK Qty: 1 1RF allopurinol 100 mg tablet 100 mg PO BID Qty: 180 3RF aspirin 81 mg tablet,delayed release (DR/EC) 81 mg PO HS Qty: 90 1RF carvedilol 25 mg tablet 50 mg PO BID Qty: 360 3RF furosemide 80 mg tablet 80 mg PO BID Qty: 180 3RF simvastatin 40 mg tablet 40 mg PO QPM Qty: 90 3RF Xarelto 20 mg tablet 20 mg PO QAM Held lisinopril 40 mg tablet 40 mg PO QAM Qty: 90 1RF Hold Instructions: Resume on 06/17/24. hold until resumed by your doctor (high potassium level) Discharge Orders: Discharge Order- CHF (Routine); Ordered 05/21/24 Ordered By: Yumiko Barnes Admission Data Admit Date/Time: 05/17/24 23:12 Attending Provider: Yumiko Barnes Admit Provider: Jarek Holland Primary Care Provider: Alena Ulloa Other Providers: Jarek Holland; Brandon Balderas; Nelly Porter Other Interventions: Discharge Summary Assessment (RN) Last Done: 05/21/24 13:02 Hospital Stay Data Consultations 05/17/24 20:51 ED Decision to Admit Stat 05/18/24 06:11 Consult Cardiology Routine 05/21/24 11:30 [facility] Referral Routine Pending Results Patient Have Any Pending Studies at Discharge: No Discharge Instructions Given to Patient (Per Discharging Provider) You were treated for acute exacerbation of COPD -finish the course of prednisone and doxycycline, continue your inhalers Based on Echo, your heart failure was in pretty good control -follow up in CHF clinic with Mahnaz Porter You don't breathe deeply enough especially while sleeping, which causes buildup of carbon dioxide in the bloodstream - this can cause sleepiness confusion and tremor, or even coma and . Unfortunately the only effective treatment for this is using Bipap at night, or significant weight loss -continue working on evaluation for bariatric surgery -I encourage you to think about trying weight loss medications and trying again with your Bipap You also have low oxygen level - this is easily treated with supplemental oxygen. Treating low oxygen <89% will reduce the risk of many complications and , even it it doesnt seem to help your shortness of breath. You've been having a high blood potassium level so STOP lisinopril, which can contribute to this problem. Your doctors will tell you whether you can restart it in the future. Your kidneys are pretty fragile. Schedule follow up with Dr. Arnold It was a pleasure taking care of you in the hospital, Yumiko Barnes MD Total Time Total Time Spent Total Time Spent (In Minutes): I personally spent: 40 minutes today on clinical care activities including: reviewing chart notes and vital signs reviewing labs discussion with rn urgent care, arranging home oxygen examining and counseling the patient writing orders writing prescriptions, discharge instructions communication with outpatient providers documentation Coding Level of Care Code 10743 INP/OBS DISCH >30 MIN Diagnoses Acute on chronic respiratory failure with hypoxia and hypercapnia J96.21; J96.22 Acute diastolic CHF (congestive heart failure), NYHA class 2 I50.31 Pulmonary edema J81.0 Chronicity: acute Mixed obstructive and restrictive ventilatory defect R94.2 Type 2 diabetes mellitus E11.9 Pulmonary emphysema, unspecified emphysema type J43.9 Emphysema type: unspecified
== END 2024-05-21 14:02 | disposition home or self-care (01) | DRG 291 ==
LOC: ED 19:15 → 2S 23:12 → SUATTDRO 23:12 → 2S 23:49